=== PATIENT | female | born 2000 | race Caucasian/White ===

== ENCOUNTER → 2020-03-09 10:26 | Outpatient (CLI) | payer OTHER, SELFPAY ==
[2020-03-09 10:04] VITALS: BMI 21.1
[2020-03-09 12:15] LABS: HIV - WCH Non-Reactive (Nonreactive)
[2020-03-10 14:23] LABS: Chlamydia Trachomatis by PCR Negative (Negative); Neisserai gonorrhoeae by PCR Negative (Negative); Probe Check PASS; Sample Adequacy Control PASS; Specimen Processing Control PASS
[2020-03-10 20:08] LABS: HCV Quant. RNA PCR HCV Not Detected IU/mL (.)
[2020-03-10 20:34] LABS: HSV 1 IgG < 0.91 index (0.00-0.90); HSV 2 IgG < 0.91 index (0.00-0.90)
[2020-03-12 02:22] LABS: Rapid Plasmin Reagin (RPR) NONREACTIVE (NONREACTIVE)
== END ==
PROVIDERS: PCP Family Medicine; Referring Provider Nurse Practitioner Women's Health; Visit Provider Nurse Practitioner Women's Health
DX: Z11.3 Encounter for screening for infections with a predominantly sexual mode of transmission (principal)
CPT/HCPCS: 36415; 86592; 86695; 86696; 86703; 87491; 87522; 87591

== ENCOUNTER → 2021-10-27 | Outpatient (CLI) | payer OTHER, SELFPAY ==
--- NOTE | 2021-10-27 07:56 | CT_ITS ---
STUDY: CT ABDOMEN AND PELVIS WITHOUT CONTRAST REASON FOR EXAM: Female, 21 years old. RLQ ABD PAIN X 5 DAYS RADIATION DOSAGE (If Supplied By Facility): CTDIvol = ( 6.15 ) mGy, DLP = ( 288.81 ) mGycm TECHNIQUE: Transaxial images were obtained from the dome of the diaphragm to the symphysis pubis without oral contrast, and without intravenous contrast. Sagittal and coronal images were reconstructed. Individualized dose optimization techniques were used for this CT. COMPARISON: None. FINDINGS: The visualized lung bases are unremarkable. The visualized portions of the heart are within normal limits. Normal liver. Normal gallbladder and extrahepatic biliary system. Normal spleen. Normal pancreas. Normal bilateral adrenal glands. Normal right kidney. Normal left kidney. Normal visualized stomach. Normal small intestine. Normal colon. The appendix is visualized and appears normal. Normal abdominal aorta. Normal inferior vena cava. Normal retroperitoneum. Normal urinary bladder. There is a 4.1 cm x 4.2 cm x 4.8 cm complex cyst in the right adnexa. This may represent a hemorrhagic cyst. Correlation with pelvic ultrasound recommended. Normal abdominal wall. Dextroscoliosis. CT/Abdomen/Pelvis without Cont IMPRESSION: 4.1 cm x 4.2cm x 4.8 centimeters complex cyst in the right adnexa. Correlation with pelvic sonogram recommended for further evaluation. Electronically Signed: Balbir Neri MD at 8:43 EDT ,
== END | disposition home or self-care (01) ==
LOC: CT 07:53
PROVIDERS: PCP Family Medicine; Referring Provider Family Medicine; Visit Provider Family Medicine
DX: R10.31 Right lower quadrant pain (principal)
CPT/HCPCS: 74176

== ENCOUNTER → 2021-10-30 | Outpatient (CLI) | payer OTHER, SELFPAY ==
--- NOTE | 2021-10-30 11:24 | US_ITS ---
STUDY: ULTRASOUND OF THE FEMALE PELVIS - COMPLETE REASON FOR EXAM: Female, 21 years old. History of right ovarian cyst seen on recent CT scan. LMP: 09/23/2021. TECHNIQUE: Transvaginal TECHNICAL QUALITY: Adequate. COMPARISON: Recent CT scan of the abdomen and pelvis of 10/27/2021. FINDINGS: The uterus is anteverted and is in a midline position. The uterus measures 8 x 4.7 x 3.9 cm. Normal uterine cervix. The endometrium measures 10 mm in thickness, and is hyperechoic. There is no demonstrated endometrial mass. There is no demonstrated myometrial mass. I.U.D. - The patient does not have an I.U.D. The right ovary is visualized. The right ovary measures 5.1 x 4.3 x 3.6 cm. There is a 3.8 x 2.5 x 2.9 cm complex cyst in the right ovary. There is no visualized right adnexal mass or complex lesion. There is normal arterial and normal venous vascularity. The left ovary is visualized. The left ovary measures 2.6 x 2.1 x 1.7 cm. There is no left ovarian cyst or ovarian mass. There is no visualized left adnexal mass or complex lesion. There is normal arterial and normal venous vascularity. There is mild fluid in the cul-de-sac. US/Transvaginal Non- IMPRESSION: Complex right ovarian cyst as described above likely represent hemorrhagic cyst. Follow-up exam in 2 months is recommended. Electronically Signed: Lazaro Lynch MD at 15:30 EDT ,
== END | disposition home or self-care (01) ==
LOC: US 11:23
PROVIDERS: PCP Family Medicine; Referring Provider Family Medicine; Visit Provider Family Medicine
DX: N83.201 Unspecified ovarian cyst, right side (principal)
CPT/HCPCS: 76830

== ENCOUNTER → 2022-03-31 | Outpatient (CLI) | payer OTHER, SELFPAY ==
[2022-04-06 16:37] LABS: HPV Reflexed? NOT INDICATED
== END | disposition home or self-care (01) ==
LOC: LABSPEC 14:35
PROVIDERS: PCP Family Medicine; Referring Provider Obstetrics & Gynecology; Visit Provider Obstetrics & Gynecology
DX: Z12.4 Encounter for screening for malignant neoplasm of cervix (principal)
CPT/HCPCS: 88175; G0145

== ENCOUNTER → 2022-04-11 | Outpatient (CLI) | payer OTHER, SELFPAY ==
--- NOTE | 2022-04-11 15:56 | US_ITS ---
INDICATION: History of ovarian cyst EXAMINATION: Ultrasound US Pelvis Non OB Complete With Transvaginal Imaging TECHNIQUE: Transabdominal and transvaginal pelvic ultrasound was performed. Grayscale, spectral waveform, and color flow Doppler evaluation of the adnexa. COMPARISON: 10/30/2021 FINDINGS: UTERUS: Anteverted. The uterus measures 8.5 x 4.6 x 3.2 cm. There is no uterine mass. The endometrial stripe measures 10 mm in AP diameter which is within normal limits. RIGHT OVARY: 3.8 3.2 x 2.8 cm. Non-enlarged, normal echogenicity. No Doppler waveforms obtained. LEFT OVARY: 2.9 x 2.2 x 1.9 cm. Non-enlarged, normal echogenicity. No Doppler waveforms obtained. FREE FLUID: Small amount in the cul-de-sac. US/Pelvic (Non ) IMPRESSION: No acute findings in the pelvis. Electronically Signed: Jay Salazar MD at 0:14 EST ,
== END | disposition home or self-care (01) ==
LOC: US 15:55
PROVIDERS: PCP Family Medicine; Referring Provider Obstetrics & Gynecology; Visit Provider Obstetrics & Gynecology
DX: N83.209 Unspecified ovarian cyst, unspecified side (principal)
CPT/HCPCS: 76830; 76856

== ENCOUNTER 2022-09-07 09:01 | Emergency (ER) | payer OTHER, SELFPAY ==
[2022-09-07 09:02] VITALS: BP 130/94; PULSE 104; RESP 16; TEMP 36.3; O2SAT 100; BMI 21.9
--- NOTE | 2022-09-07 09:12 | CT_ITS ---
EXAM: CT ABDOMEN AND PELVIS WITH INTRAVENOUS CONTRAST CLINICAL INDICATION: abdominal pain TECHNIQUE: Helically acquired images were obtained of the abdomen and pelvis with intravenous contrast. This CT exam was performed using one or more of the following dose reduction techniques: automated exposure control, adjustment of the mA and/or kV according to patient size, and/or use of iterative reconstruction technique. CONTRAST: IV 75mL Isovue-300 COMPARISON: 10/27/2021 FINDINGS: LOWER THORAX: Unremarkable. Lung bases are clear. No cardiomegaly. No significant pericardial effusion. ABDOMEN: LIVER: Unremarkable. Homogeneous. No focal mass. GALLBLADDER AND BILE DUCTS: Unremarkable. No calcified gallstones. No gallbladder distention or wall edema. No intra- or extrahepatic biliary ductal dilation. PANCREAS: Unremarkable. No focal cystic or solid mass. SPLEEN: Unremarkable. Normal size without focal cystic or solid mass. ADRENALS: Unremarkable. No nodules. KIDNEYS AND URETERS: Unremarkable. Normal renal size and position. No hydronephrosis. STOMACH AND BOWEL: Unremarkable. No stomach or bowel distention. No focal inflammatory change. PELVIS: APPENDIX: The appendix is normal. BLADDER: Unremarkable. REPRODUCTIVE: Unremarkable as visualized. No mass. ABDOMEN and PELVIS: INTRAPERITONEAL SPACE: Unremarkable. No ascites or other fluid collection. No free air. BONES/JOINTS: Unremarkable. No suspicious lytic or blastic abnormality. SOFT TISSUES: Unremarkable. No discrete abdominal or pelvic wall hernia. VASCULATURE: Unremarkable. Abdominal aorta is non-dilated. LYMPH NODES: Unremarkable. No enlarged lymph nodes. CT/Abdomen/Pelvis W IV Cont ONLY IMPRESSION: No acute findings in the abdomen or pelvis. Electronically Signed: Jerry Bailey MD at 10:20 EDT ,
--- NOTE | 2022-09-07 09:12 | ED.VIS.GI ---
HPI HPI - GI History of Present Illness Chief Complaint: Abd Pain Narrative Narrative: 22-year-old female presenting with nausea/vomiting since yesterday. She has abdominal pain which is in the bilateral lower quadrants as well as left upper quadrant. She denies diarrhea or constipation. She has a history of ovarian cyst in the past but she states it does not feel the same. She has not had a fever. She states everything she tried to put down came up over the last 24 hours. Patient states the greatest pain is in the right lower quadrant. PFSH PFSH Medical History History of ovarian cyst JRA (juvenile rheumatoid arthritis) Home Medications ibuprofen 200 mg capsule 200 mg PO Q6H PRN 03/31/22 [History Last Taken Unknown] Allergy/AdvReac Type Severity Reaction Status Date / Time No Known Allergies Allergy Verified 09/07/22 09:04 Social History household members: other details: parents number of children: 0 current occupational status: student current occupation: [employer] history of recent travel: No sexually active: Yes Smoking Status: Current every day smoker tobacco type: e-cigarettes alcohol intake: current alcohol intake frequency: a few times a month substance use type: does not use diet: gluten free and lactose free what type of physical activity do you participate in: none seatbelt use: always do you feel safe at home: Yes additional social history: single ROS ROS ED Constitutional Constitutional ED: Denies chills or fever(s) ENT ENT ED: Denies rhinorrhea or sore throat Cardiovascular Cardiovascular: Denies chest pain or palpitations Respiratory/Chest Respiratory/Chest: Denies cough or dyspnea Gastrointestinal Gastrointestinal: Reports abdominal pain, nausea and vomiting Genitourinary Genitourinary ED: Reports urinary frequency; Denies dysuria or hematuria Musculoskeletal Musculoskeletal: Denies arthralgias or back pain Integumentary Denies abscess Neurologic Neurologic: Denies headache(s) Psychiatric Psychiatric: Denies anxiety or depression EXAM Physical Exam Const Vital Signs: 09/07/22 09:02 Temperature 97.3 F L Temperature Source Temporal Pulse Rate 104 H Respiratory Rate 16 Blood Pressure 130/94 H Blood Pressure Mean 106 Pulse Ox 100 Oxygen Delivery Method Room Air Positive well nourished General Appearance ED: NAD HEENT Reports moist mucous membranes normocephalic Eyes PERRL and EOMs intact bilaterally Resp normal respiratory effort and clear to auscultation bilaterally Auscultation: Negative for rales, rhonchi or wheezes Cardio regular rhythm Rate: tachycardic GI Palpation: tender LLQ, RLQ and LUQ; Negative for rebound tenderness present Back/Spine no CVA tenderness Neuro CN's II-XII intact bilaterally, moves all extremities, no sensory deficits noted and gait normal Sensorium / Orientation: alert Psych mental status grossly normal Skin no wounds MDM MDM MDM Narrative Medical decision making narrative: 22-year-old female with abdominal pain, nausea, vomiting. This started yesterday. It started as similar fashion yesterday and it did today. It has not improved but has not progressed no fevers. Differential includes but is not limited to GERD, gastritis, peptic ulcer disease, acute cholecystitis, acute cholelithiasis, appendicitis, diverticulitis, pancreatitis, small bowel obstruction, viral etiology, food poisoning, UTI, pyelonephritis, ovarian cyst, ovarian torsion, ectopic . CBC to assess white blood cell count, hemoglobin, platelets, differential. CMP to assess liver function, renal function, glucose, electrolytes. Lipase to assess for pancreatitis. Urinalysis to assess for urinary tract infection. hCG to assess for . Patient given a liter normal saline. At this point she does not want a thing for pain or nausea. She states her pain is a 3 out of 10. CBC and CMP are unremarkable with exception of a potassium of 3.3. hCG negative. Urinalysis negative. CT of the abdomen pelvis IV contrast was obtained and is negative for any acute findings. Impression: 1. Abdominal pain 2. Nausea Lab Data Attestation: I reviewed the patient's lab results. Labs: Laboratory Results - last 24 hr 09/07/22 09/07/22 09/07/22 09:20 09:20 09:20 WBC 4.7 RBC 4.28 Hgb 13.5 Hct 41.0 MCV 95.8 MCH 31.5 MCHC 32.9 RDW Std Deviation 45.5 H RDW Coeff of Susanne 12.9 Plt Count 187 MPV 10.1 Immature Gran % (Auto) 0.200 Neut % (Auto) 75.0 H Lymph % (Auto) 14.6 L [place] % (Auto) 9.6 Eos % (Auto) 0.2 Baso % (Auto) 0.4 Absolute Neuts (auto) 3.5 Absolute Lymphs (auto) 0.69 L Nucleated RBC % 0 Sodium 137 Potassium 3.3 L Chloride 105 Carbon Dioxide 25.0 Anion Gap 7 BUN 9 Creatinine 0.64 Estim Creat Clear Calc 103.16 Est GFR (MDRD) Af Amer 148 Est GFR (MDRD) Non-Af 122 BUN/Creatinine Ratio 14.1 Glucose 83 Calcium 9.1 Total Bilirubin 0.50 AST 22 ALT 18 Alkaline Phosphatase 60 Total Protein 7.8 Albumin 3.9 Globulin 3.9 Albumin/Globulin Ratio 1.0 Lipase 25 Serum , Qual NEGATIVE Urine Color Urine Clarity Urine pH Ur Specific [place] Urine Protein Urine Glucose (UA) Urine Ketones Urine Occult Blood Urine Nitrite Urine Bilirubin Urine Urobilinogen Ur Leukocyte Esterase Urine RBC Urine WBC Ur Squamous Epith Cells Urine Bacteria Urine Mucus 09/07/22 09:30 WBC RBC Hgb Hct MCV MCH MCHC RDW Std Deviation RDW Coeff of Susanne Plt Count MPV Immature Gran % (Auto) Neut % (Auto) Lymph % (Auto) [place] % (Auto) Eos % (Auto) Baso % (Auto) Absolute Neuts (auto) Absolute Lymphs (auto) Nucleated RBC % Sodium Potassium Chloride Carbon Dioxide Anion Gap BUN Creatinine Estim Creat Clear Calc Est GFR (MDRD) Af Amer Est GFR (MDRD) Non-Af BUN/Creatinine Ratio Glucose Calcium Total Bilirubin AST ALT Alkaline Phosphatase Total Protein Albumin Globulin Albumin/Globulin Ratio Lipase Serum , Qual Urine Color Yellow Urine Clarity Sl. Cloudy Urine pH 6.0 Ur Specific [place] 1.020 Urine Protein 30 H Urine Glucose (UA) Normal Urine Ketones 150 A* Urine Occult Blood 10 H Urine Nitrite Negative Urine Bilirubin 1 H Urine Urobilinogen 1 H Ur Leukocyte Esterase Negative Urine RBC 0-5 SEEN Urine WBC 0 SEEN Ur Squamous Epith Cells 0-5 SEEN Urine Bacteria 1+ Urine Mucus 0 SEEN Radiography Diagnostic Testing: Clinical Impression(s) from Imaging Studies Abdomen/Pelvis CT 09/07/22 09:12 IMPRESSION: No acute findings in the abdomen or pelvis. Electronically Signed: Jerry Bailey MD at 10:20 EDT , Discharge Plan Triage Chief Complaint: Abd Pain ED Provider: Oniel Diamond Dx/Rx/DC Orders Prescriptions: No Action ibuprofen 200 mg capsule 200 mg PO Q6H PRN Primary Care Provider: Tristian Sin Referrals: Tristian Sin MD [Primary Care Provider] -
[2022-09-07] MEDS: 0.9% Normal Saline 1,000 ML 1000 ML IV (09:30)
[2022-09-07 09:40] LABS: Absolute Lymphocyte Count 0.69 X10^3/uL (0.83-4.51); Absolute Neutrophil Count 3.5 X10^3/uL (2.0-7.7); Basophil# 0.02 X10^3/uL; Basophil% 0.4 % (0-1); Eosinophil# 0.01 X10^3/uL; Eosinophils% 0.2 % (0-5); Hemoglobin 13.5 g/dL (12.0-15.0); Lymphocyte # 0.69 X10^3/ul (0.83-4.51); Lymphocyte % 14.6 % (19-41); Mean Corp Hgb Conc 32.9 g/dL (32-36); Mean Corpuscular Hgb 31.5 pg (27.0-32.0); Mean Corpuscular Volume 95.8 fL (81-99); Mean Platelet Vol. 10.1 fl (6.2-12.0); Monocyte# 0.45 X10^3/uL; Monocyte% 9.6 % (0-10); NRBC Flagged by Analyzer 0 % (0-5); Neutrophil # 3.53 X10^3/uL (2.7-7.7); Platelet Count 187 K/mm3 (150-450); RBC Distribution Width CV 12.9 % (11.6-14.6); RBC Distribution Width SD 45.5 fl (35.1-43.9); Red Blood Count 4.28 M/mm3 (4.2-5.4); White Blood Count 4.7 K/mm3 (4.4-11.0)
[2022-09-07 09:41] LABS: Mucous, Urine 0 SEEN /hpf (<or=2+); White Blood Cells 0 SEEN /hpf (0-5)
[2022-09-07 09:48] LABS: Color, Urine Yellow (Yellow); Glucose, Dipstick Normal (Normal); Leukocyte Esterase-Dipstick Negative /ul (Negative); Nitrite-Dipstick Negative (Negative); Occult Blood-Urine 10 /ul (Negative); Protein-Dipstick 30 mg/dl (Negative); Urine Bilirubin Dipstick 1 mg/dL (Negative); Urine Clarity Sl. Cloudy (Clear); Urine Urobilinogen 1 mg/dl (Normal)
[2022-09-07 09:49] LABS: Ketone-Dipstick 150 mg/dl (Negative)
[2022-09-07 09:53] LABS: Internal QC Validated? YES +Cl - CLEAR BKGD; Pregnancy, Serum, hCG Quali. NEGATIVE Negative
[2022-09-07 09:54] LABS: Bacteria 1+ /hpf (None Seen); Red Blood Cells-Urine 0-5 SEEN /hpf (0-5); Squamous Epithelial Cells - UA 0-5 SEEN /hpf (5-10)
[2022-09-07 09:58] LABS: AST(SGOT) 22 U/L (15-37); Alanine Aminotransfer ALT/SGPT 18 U/L (13-56); Albumin, Serum 3.9 g/dL (3.2-5.0); Alkaline Phosphatase 60 U/L (45-117); Anion Gap 7 (5-15); BUN 9 mg/dL (7-18); BUN/Creat Ratio 14.1 RATIO (10-20); Calcium,Total 9.1 mg/dL (8.5-10.1); Chloride 105 mmol/L (98-107); Creatinine, Serum 0.64 mg/dL (0.55-1.02); EST Glomerular Filtration Rate 122 mL/min (>60); Est Glom Filt Rate - Afr Amer 148 mL/min (>60); Estimated Creatinine Clearance 103.16 ml/min; Globulin 3.9 g/dL (2.2-4.2); Glucose 83 mg/dL (74-106); Lipase 25 U/L (13-75); Potassium 3.3 mmol/L (3.5-5.1); Protein, Total 7.8 g/dL (6.4-8.2); Sodium Level 137 mmol/L (136-145)
[2022-09-07 11:14] VITALS: BP 96/70; PULSE 81; RESP 16; O2SAT 98
== END 2022-09-07 11:19 | disposition home or self-care (01) ==
PROVIDERS: Emergency Provider Student in an Organized Health Care Education/Training Program; PCP Family Medicine; Visit Provider Student in an Organized Health Care Education/Training Program
DX: R10.31 Right lower quadrant pain (principal); R10.12 Left upper quadrant pain; R10.32 Left lower quadrant pain; R11.2 Nausea with vomiting, unspecified; F17.290 Nicotine dependence, other tobacco product, uncomplicated; R35.0 Frequency of micturition
CPT/HCPCS: 74177; 80053; 81001; 83690; 84703; 85025; 96360; 96361; 99282; J7030; Q9967

== ENCOUNTER → 2022-09-19 | Outpatient (CLI) | payer OTHER, SELFPAY ==
[2022-09-19 12:44] LABS: AST(SGOT) 14 U/L (15-37); Alanine Aminotransfer ALT/SGPT 17 U/L (13-56); Albumin, Serum 3.9 g/dL (3.2-5.0); Alkaline Phosphatase 62 U/L (45-117); Anion Gap 5 (5-15); BUN 11 mg/dL (7-18); BUN/Creat Ratio 16.4 RATIO (10-20); Calcium,Total 9.4 mg/dL (8.5-10.1); Chloride 106 mmol/L (98-107); Creatinine, Serum 0.67 mg/dL (0.55-1.02); EST Glomerular Filtration Rate 116 mL/min (>60); Est Glom Filt Rate - Afr Amer 140 mL/min (>60); Globulin 3.9 g/dL (2.2-4.2); Glucose 77 mg/dL (74-106); Potassium 3.7 mmol/L (3.5-5.1); Protein, Total 7.8 g/dL (6.4-8.2); Sodium Level 137 mmol/L (136-145)
== END | disposition home or self-care (01) ==
LOC: BIMLAB 08:43
PROVIDERS: PCP Internal Medicine; Referring Provider Internal Medicine; Visit Provider Internal Medicine
DX: R11.10 Vomiting, unspecified (principal); R10.9 Unspecified abdominal pain; G89.29 Other chronic pain
CPT/HCPCS: 36415; 80053

== ENCOUNTER 2023-02-16 09:53 | Day surgery (SDC) | payer OTHER, SELFPAY ==
[2023-02-16 10:12] VITALS: BP 105/80; PULSE 80; RESP 16; TEMP 37; O2SAT 100; BMI 22.4
[2023-02-16 10:14] LABS: Internal QC Validated? YES +Cl - CLEAR BKGD
[2023-02-16 10:15] LABS: Record Kit Lot#,Urine Preg HCG0000667200
[2023-02-16 10:17] LABS: Pregnancy, Urine Negative Negative
[2023-02-16] MEDS: Lactated Ringers 1,000 ML 15 ML IV (10:21)
--- NOTE | 2023-02-16 11:00 | EGD_PTH ---
PATIENT: BHUMI PARKS LOC: EN U#:[id number] AGE/SX: ROOM: RE02/16/[address]: Dr. Louis Valenzuela DO : 2000 BED: DIS: 02/16/2023 SPEC #: [id number] RECD: 02/16/23 12:27 STATUS: DYLON REAmy #: [id number] RKISTEN: 02/16/23 11:[address]: Louis Valenzuela DEPT: SURGICAL PATHOLOGY RECD BY: Nusrat Cuadra ENTERED: 02/16/23 13:09 SP TYPE: EGD BIOPSY OT DR: Dr. Arleen Potts MD Tissues: A - Duodenum, NOS B - Gastric mucous membrane C - Esophagus, NOS Procedures: Special Stain Group II Surgery Specimen Level IV Alcian Blue/PAS (control) HEADER OPERATION: EGD with biopsy PRE-OP DIAGNOSIS: Nausea and vomiting, Abdominal pain. TISSUE SUBMITTED: A - Duodenum biopsy, B - Gastric body biopsy, C - Distal esophagus biopsy MICROSCOPIC DIAGNOSIS A. Duodenum, biopsy: No pathologic change. B. Gastric body, biopsy: Mild chronic gastritis. See comment. C. Distal esophagus, biopsy: Gastroesophageal junction with mild chronic inflammation. No evidence of goblet cell metaplasia. See comment. AM:roberto 02/17/2023 COMMENT B. The results of immunohistochemistry for Helicobacter pylori will be reported separately ([id number]). C. Alcian blue/PAS stain with matched control supports the above diagnosis. MICROSCOPIC DESCRIPTION Slides are reviewed. GROSS DESCRIPTION A - Received in fixative is one container labeled with the patient's name and designated duodenum biopsy. The specimen consists of two irregular fragments of light howard soft tissue that in aggregate measure 0.6 x 0.3 x 0.1 cm. The specimen is totally submitted in one cassette. B - Received in fixative is one container labeled with the patient's name and designated gastric body biopsy. The specimen consists of multiple irregular fragments of light howard soft tissue that in aggregate measure 1.0 x 0.3 x 0.1 cm. The specimen is totally submitted in one cassette. C - Received in fixative is one container labeled with the patient's name and designated distal esophagus. The specimen consists of multiple irregular fragments of light howard soft tissue that in aggregate measure 0.8 x 0.5 x 0.1 cm. The specimen is totally submitted in one cassette. / AM:roberto 02/16/2023 TC:3 CPT: 37366 x3, 20803
--- NOTE | 2023-02-16 11:00 | IMM_PTH ---
PATIENT: BHUMI PARKS LOC: EN U#:[id number] AGE/SX: 22 ROOM: RE02/16/[address]: Dr. Louis Valenzuela DO : 2000 BED: DIS: 02/16/2023 SPEC #: [id number] RECD: 02/16/23 14:48 STATUS: DYLON REQ #: [id number] KRISTEN: 02/16/23 11:[address]: Louis Valenzuela DEPT: IMMUNOHISTOCHEMISTRY RECD BY: Taylor Somers ENTERED: 02/16/23 14:50 SP TYPE: IMMUNO OTHR DR: Dr. Arleen Potts MD Tissues: B - Stomach, NOS Procedures: H Pylori (initial) PHYSICIAN & INSTITUTION [place] [id number] SPECIMEN INFORMATION: Tissue Source: B - Gastric body Clinical Info: Nausea, vomiting, abdominal pain Specimen Number: [id number] CPT code: 83046 METHODOLOGY: Deparaffinized sections of prefer/formalin-fixed tissue or PAP/DQ stained slides are incubated with monoclonal/polyclonal antibodies/oligonucleotide probes. Localization is made via biotin free immunoperoxidase method. Appropriate controls are performed and reacted as expected. Results on target cell population are indicated in the following table: RESULTS: ANTIBODY / CLONE RESULT Block B H Pylori (polyclonal) negative These tests were developed and their performance characteristics determined by [facility]. They may not have been cleared or approved by the U.S. Food and Drug Administration. The FDA has determined that such clearance or approval is not necessary. The above immunohistochemical/dualISH markers are ordered and reviewed by the Pathologist. INTERPRETATION: B. Gastric body, biopsy: Negative for Helicobacter pylori organisms. AM/bl 02/17/2023
--- NOTE | 2023-02-16 11:19 | HP.PCM_ITS ---
History and Physical Date of Admission: 02/16/23 juvenile RA, treated with methotrexate and remission since age 9; ovarian cyst [facility] ED 09.07.22 with N/V for one day with lower and LUQ abdominal pain without bowel changes. ? Biochemical CBC, CMP (K+ L3.3), lipase without pertinent abnormality ? CT abd/pel without acute/chronic finding PCP OV 09.19.22 to establish care. GI problems have been present for approximately two years. Holistic chiropractor seen previously who diagnosed gluten intolerance and borderline dairy intolerance following muscle; also diagnosed with IBS. ? GET not performed, she forgot. *BGI established 02.03.23 nocturnal emesis started two years prior with periodic presence lasting for days to months and has noted some food triggers. PCP attempted omeprazole which was ineffective. Diet fruits, lots of corn/quinoa pasta (gluten free), does consume dairy, beef, chicken, eggs. Dislikes vegetables, pork makes her feel ill. Drinks water, one coffee/day. Drinks alcohol on weekends. Denies cigarette/marijuana useBHUMI JACKSON, is a 22 F who presents to the office today for ROS Const Constitutional: Positive for headache(s) (occasional); No body ache, chills, excessive sweating, fatigue, fever(s), frequent falls, snoring, weakness, weight change, sleep problems or change in appetite Eyes Eyes: No blurry vision, change in vision, eye pain or Light sensitivity ENT ENT: Positive for headache(s) (occasional); No abnormal hearing, ear or mastoid pain, tinnitus, nasal congestion, neck pain or sore throat Resp Respiratory: Positive for cough; No shortness of breath, snoring or wheezing Cardio Cardiology: No chest pain at rest, chest pain with exertion, excessive sweating, shortness of breath, dyspnea on exertion, lightheadedness, orthopnea, palpitations or other (no leg swelling) Gastro GI: Positive for abdominal pain, belching and vomiting; No bloating, change in bowel habits, constipation, cramping, diarrhea, excessive flatus, Blood in stool, Black,tarry stools or nausea/dyspepsia Genitourinary-Female: No difficulty urinating, burning urination, painful urination, urinary incontinence, urinary frequency or abnormal vaginal bleeding Musc Musculoskeletal: No abnormal gait, joint pain, back pain, limited range of motion, neck pain, numbness or tingling Skin Skin: No dry skin, redness, lesions, itchy eyes, rash or wounds Neuro Neurology: Positive for dizziness and headache(s) (occasional); No abnormal gait, abnormal hearing, abnormal speech, weakness, frequent falls, memory loss, numbness, tingling or fainting Psych Psychiatric: No anxiety, No change in appetite, No depression, No memory loss and No Thoughts of harming yourself/Others Endo Endocrine: No cold intolerance, excessive sweating, fatigue, flushing, heat intolerance, increased thirst/drinking, increased hunger or weight change Aller/Imm Allergy/Immunologic: No itchy eyes, seasonal allergy symptoms, hives or wheezing Jewel/Lymp Hematologic/Lymphatic: No easy bleeding, easy bruising or enlarged lymph nodes Exam Const General: cooperative, healthy appearing, no acute distress, well developed, not diaphoretic and not ill appearing Nutritional Appearance: well nourished Orientation: alert and oriented x3 Limitations: mental status not altered [facility] Head: normal to inspection, normocephalic and atraumatic Ears: hearing grossly normal bilaterally Face and sinus: normal facial exam Mouth: oral mucosae normal and moist mucous membranes Teeth and gingiva: dentition normal Throat: posterior oropharynx normal Eyes Conjunctivae: conjunctivae normal Sclera: sclerae normal Pupils: PERRL Chest Chest palpation & inspection: normal inspection of the chest Resp Effort & Inspection: normal respiratory effort, able to speak in complete sentences, no audible wheezes and no cough Auscultation: Bilateral: Clear to Auscultation Cardio Rate: regular rate Rhythm: regular rhythm Heart Sounds: S1 normal, S2 normal and no murmurs GI Inspection: normal to inspection and non-distended Auscultation: normal bowel sounds Palpation: soft, no hepatosplenomegaly and tender (minimal) periumbilically Other: naval ring in place General: No CVA tenderness Skin General: no rashes or lesions noted and dry skin Wounds: no wounds Neuro General: patient alert and patient oriented x3 Cranial Nerves: PERRL Speech: speech normal Extrem General: normal to inspection and no edema Psych Appearance: grossly normal Affect: normal affect Attitude: cooperative Quality Reporting Tobacco Screening ([facility] 138) Smoking Status: Never smoker Assessment and Plan Assessment and Plan (1) Nausea & vomiting: Status: Chronic Qualifiers: Vomiting type: unspecified Qualified Code(s): R11.2 - Nausea with vomiting, unspecified Plan: Differential diagnosis for nausea vomiting does include gastroparesis which would be idiopathic. However she does have very hypermobile joints which could be secondary to Leisa-Danlos syndrome. She will need to be genetically tested for Leisa-Danlos. We will also do biochemical testing to see if she has any signs of vasculitis which will contribute to some upper GI motility problems. All symptoms diagnosis include H. pylori associated gastritis, peptic ulcer disease bile induced reflux, duodenal gastric reflux and IBS. She will get an upper endoscopy to evaluate upper GI tract. She agreed she would get a gastric emptying study. She will also need food allergy testing. Further recommendation to follow. (2) Abdominal pain: Status: Chronic Qualifiers: Abdominal location: unspecified location Qualified Code(s): R10.9 - Unspecified abdominal pain Orders: Orders EGD 02/16/23 R10.9 - Unspecified abdominal pain, R11.2 - Nausea with vomiting, unspecified I have examined the patient and the H&P has been reviewed. There are no clinical changes since date of exam.
--- NOTE | 2023-02-16 11:38 | OP.EGD_ITS ---
Patient Name: Sobia Quiroz Procedure Date: 02/16/2023 11:15 AM Date of : 2000 Age: 22 Procedure: Upper GI endoscopy Indications: Epigastric abdominal pain Providers: Louis Valenzuela DO Referring MD: Louis Valenzuela DO Medicines: Monitored Anesthesia Care Patient Profile: This is a 22 year old female. Refer to note in patient chart for documentation of history and physical. Patient has symptoms of chronic epigastric abdominal pain. Complications: No immediate complications. Procedure: Pre-Anesthesia Assessment: - Prior to the procedure, a History and Physical was performed, and patient medications and allergies were reviewed. The patient is competent. The risks and benefits of the procedure and the sedation options and risks were discussed with the patient. All questions were answered and informed consent was obtained. Patient identification and proposed procedure were verified by the physician. Mental Status Examination: normal. Airway Examination: normal oropharyngeal airway and neck mobility. Prophylactic Antibiotics: The patient does not require prophylactic antibiotics. Prior Anticoagulants: The patient has taken no anticoagulant or antiplatelet agents. After reviewing the risks and benefits, the patient was deemed in satisfactory condition to undergo the procedure. The anesthesia plan was to use monitored anesthesia care (MAC). Immediately prior to administration of medications, the patient was re-assessed for adequacy to receive sedatives. The heart rate, respiratory rate, oxygen saturations, blood pressure, adequacy of pulmonary ventilation, and response to care were monitored throughout the procedure. The physical status of the patient was re-assessed after the procedure. After obtaining informed consent, the endoscope was passed under direct vision. Throughout the procedure, the patient's blood pressure, pulse, and oxygen saturations were monitored continuously. The gastroscope was introduced through the mouth, and advanced to the second part of duodenum. The upper GI endoscopy was accomplished without difficulty. The patient tolerated the procedure well. Scope In: 11:27:01 AM Scope Out: 11:33:03 AM Total Procedure Duration Time 0 hours 6 minutes 2 seconds Findings: The Z-line was irregular and was found 37 cm from the incisors. Biopsies were taken with a cold forceps for histology. Verification of patient identification for the specimen was done. Estimated blood loss was minimal. Patchy mildly erythematous mucosa with bleeding was found in the gastric body. The second portion of the duodenum was normal. Biopsies were taken with a cold forceps for histology. Verification of patient identification for the specimen was done. Estimated blood loss was minimal. Impression: - Z-line irregular, 37 cm from the incisors. Biopsied. - Erythematous mucosa in the gastric body. - Normal second portion of the duodenum. Biopsied. Recommendation: - Discharge patient to home. - Resume previous diet. - Continue present medications. - Await pathology results. Procedure Code(s): --- Professional --- 93568, Esophagogastroduodenoscopy, flexible, transoral; with biopsy, single or multiple CPT copyright 2021 [employer]. All rights reserved. The codes documented in this report are preliminary and upon rooter operator review may be revised to meet current compliance requirements. Louis Valenzuela DO 02/16/2023 11:38:18 AM This report has been signed electronically. Number of Addenda: 0 Note Initiated On: 02/16/2023 11:15 AM
--- NOTE | 2023-02-16 11:38 | OP.CCLET_ITS ---
02/16/2023 Arleen Potts Md Re : Upper GI endoscopy procedure for Sobia Quiroz Dear Delroy This procedure was performed on January. My impressions and recommendations are as follows: Impressions : - Z-line irregular, 37 cm from the incisors. Biopsied. - Erythematous mucosa in the gastric body. - Normal second portion of the duodenum. Biopsied. Recommendations : - Discharge patient to home. - Resume previous diet. - Continue present medications. - Await pathology results. My findings are described in the full procedure note, which is enclosed. If I can be of further assistance, please feel free to contact me at . Sincerely, Louis Valenzuela, 02/16/2023 11:38:18 AM This report has been signed electronically.
[2023-02-16 11:40] VITALS: BP 105/80; BP 111/65; PULSE 90; RESP 16; TEMP 37.1; O2SAT 98
[2023-02-16 11:45] VITALS: BP 105/80; BP 111/69; PULSE 86; RESP 16; O2SAT 99
[2023-02-16 11:50] VITALS: BP 105/80; BP 98/77; PULSE 87; RESP 16; O2SAT 98
[2023-02-16 11:54] VITALS: BP 102/70; BP 105/80; PULSE 81; RESP 16; TEMP 37.1; O2SAT 99
[2023-02-16 12:11] VITALS: BP 105/80
[2023-02-16 13:33] LABS: Erythrocyte Sedimentation Rate 1 mm/hr (0-30)
[2023-02-16 14:09] LABS: Amylase 62 U/L (25-115); CRP < 2.90 mg/L (0.0-3.0); LDH 140 U/L (84-246); Lipase 27 U/L (13-75); Rheumatoid Factor < 10.0 IU/mL (<15)
[2023-02-20 16:09] LABS: Albumin 3.8 g/dL (2.9-4.4); Alpha-1-Globulins 0.2 g/dL (0.0-0.4); Alpha-2-Globulins 0.6 g/dL (0.4-1.0); CCP IgG Antibodies 3 units (0-19); Cytoplasmic Ab (C-ANCA) <1:20 titer (Neg:<1:20); Deamidated Gliadin IgA 7 units (0-19); Deamidated Gliadin IgG 3 units (0-19); Endomysial Antibody IgA Negative (Negative); Gamma Globulin 1.4 g/dL (0.4-1.8); Immunoglobulin A 266 mg/dL (87-352); Immunoglobulin G 1343 mg/dL (586-1602); Immunoglobulin M 111 mg/dL (26-217); PROEL- TOTAL PROTEIN 6.9 g/dL (6.0-8.5); Perinuclear Ab (P-ANCA) <1:20 titer (Neg:<1:20); t-Transglutaminase IgA <2 U/mL (0-3)
[2023-02-26 00:07] LABS: Anti-Centromere B Ab <0.2 AI (0.0-0.9); Anti-Chromatin 0.2 AI (0.0-0.9); Anti-Jo <0.2 AI (0.0-0.9); Anti-Scleroderma-70 AB <0.2 AI (0.0-0.9); Anti-dsDNA Ab 1 IU/mL (0-9); Anti-ribosomal P Antibodies <0.2 AI (0.0-0.9); Beef <0.10 kU/L (Class 0); Chocolate <0.10 kU/L (Class 0); Codfish <0.10 kU/L (Class 0); Corn <0.10 kU/L (Class 0); Egg, Whole <0.10 kU/L (Class 0); Milk (Cow) <0.10 kU/L (Class 0); Mussels <0.10 kU/L (Class 0); Peanut <0.10 kU/L (Class 0); Pork <0.10 kU/L (Class 0); RNP Ab 1.4 AI (0.0-0.9); SJOGREN'S Anti-SS-A test < 0.2 AI (0.0-0.9); SJOGREN'S Anti-SS-B test < 0.2 AI (0.0-0.9); Salmon <0.10 kU/L (Class 0); Shrimp <0.10 kU/L (Class 0); Smith Ab <0.2 AI (0.0-0.9); Smith/RNP Ab <0.2 AI (0.0-0.9); Soybean <0.10 kU/L (Class 0); Tuna <0.10 kU/L (Class 0); Wheat <0.10 kU/L (Class 0)
== END 2023-02-16 12:21 | disposition home or self-care (01) ==
LOC: EN 09:56 → AC 09:56
PROVIDERS: Anesthesiology; PCP Internal Medicine; Referring Provider Internal Medicine; Visit Provider Internal Medicine Gastroenterology
PROC: 0DJ08ZZ Inspection of Upper Intestinal Tract, Via Natural or Artificial Opening Endoscopic (ICD-10-PCS; CPT 43235; principal; 2023-02-16 10:55)
DX: K29.50 Unspecified chronic gastritis without bleeding (principal); K20.90 Esophagitis, unspecified without bleeding
CPT/HCPCS: 43239; 36415; 81025; 82150; 82784; 83516; 83615; 83690; 84165; 85652; 86003; 86005; 86038; 86140; 86200; 86225; 86235; 86255; 86256; 86334; 86431; 88305; 88313; 88342; J7120; J2405

== ENCOUNTER → 2023-04-11 | Outpatient (CLI) | payer OTHER, SELFPAY ==
--- OUTSIDE RECORDS SUMMARY | 2023-04-11 16:43 | XMS RPT_ITS | CCD ---
Author Name Unknown Address [address] [place] [address] [address] [place] [address] Organization [facility] Care Team Providers Care Chlorine Cells Operator Name Role Phone Merrick ROMERO, Dacia Samuels Primary Care Provider 1( [phone] Allergies Allergy Classification Reported Allergen(s) Allergy Type Date of Onset Reaction(s) Facility (2 sources) Lactase; Translations: [LACTASE] Drug Allergy 02-17-2021 Intolerance [facility] (2 sources) Wheat gluten extract; Translations: [GLUTEN] Drug Allergy 02-17-2021 Other: See Comments [facility] Problems Active Problems Problem Classification Problem Date Documented Da te Episodic/Chronic Abdominal pain (1 source) Generalized abdominal pain; Translations: [Generalized abdominal pain] Episodic Past or Other Problems Problem Classification Problem Date Documented Date Episodic/Chronic Other connective tissue disease (1 source) H/O: arthritis; Translations: [Personal history of other diseases of the musculoskeletal system and connective tissue] Onset: 02-17-2021 02-17-2021 Episodic Results Test Name Value Interpretation Reference Range Facil ity Encounters Encounter Date Encounter Type Care Provider Facility Start: 09-07-2022 ambulatory DACIA OLIVARES Fac ility:[facility] Start: 09-07-2022 End: 09-07-2022 Patient encounter procedure Tisha Reza 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 Work Phone: [facility] Plan of Treatment Date Care Activity Detail Author Start: 11-18-2022 Influenza vaccination INFLUENZA (Sea son Ended) [facility] Start: 03-20-2022 DEPRESSION ASSESSMENT DEPRESSION ASS ESSMENT [facility] Start: 08-27-2020 PAP TESTING PAP TESTING [facility] Start: 08-27-2018 Urine microalbumin profile DTAP,TDAP ,TD (1 - Tdap) [facility] Start: 08-27-2017 CHLAMYDIA SCREENING (18-24) CHLAMYDIA SCREENING (18-24) [facility] Start: 08-27-2017 GC (GONORRHEA) WANDA VALEROG (18-24) GC (GONORRHEA) SCREENING (18-24) [facility] Start: 08-27-2017 HEPATITIS C SCREENING HEPATITIS C SC REENING [facility] Start: 08-27-2017 HIV SCREENING HIV SCREENING [facility] Start: 08-27-2013 PEDS TO ADULT TRANSI TION ANNUAL ASSESSMENT PEDS TO ADULT TRANSITION ANNUAL ASSESSMENT [facility] Start: 2011 PEDS TO ADULT TRANSI TION INITIAL DISCUSSION PEDS TO ADULT TRANSITION INITIAL DISCUSSION [facility] Start: 08-27-2009 MENINGOCOCCAL B: Con public relations professional based on risk (1 of 2 - Risk Bexsero 2-dose series) MENINGOCOCCAL B: Consider based on risk (1 of 2 - Risk Bexsero 2-dose series) [facility] Start: 08-27-2008 HPV VACCINE (1 - 2-d ose series) HPV VACCINE (1 - 2-dose series) [facility] Start: 02-27-2000 COVID-19 VACCINE (#1) COVID-19 VACCI NE (#1) [facility] Start: 1999 HEPATITIS B (1 of 3 - 3-dose series) HEPATITIS B (1 of 3 - 3-dose series) [facility] Payers Date Payer Category Payer Unknown MMO [employer] PPO [id number] 2018-Present [phone] [address] [place] [address] PPO [id number] 2018 Unknown [id number] Social History Date Type Detail Facility Start: 02-17-2021 Tobacco smoking stat us NHIS Never smoked tobacco [facility] Start: 02-17-2021 Tobacco use and exposure User of smo keless tobacco [facility] Start: 02-17-2021 Tobacco Comment [facility] Start: 2000 Sex Assigned At Not on file [facility] Progress note 09-07-2022 Note Date & Type Note Facility 09-07-2022 Note HNO ID: [id number] Author: Tisha Reza APRN.CNP Service: ? Author Type: Nurse Practitioner Type: Progress Notes Filed: 09/07/2022 7:40 AM Note Text: Triage: Patient presented [facility] for 24 hours of vomiting and worsening abdominal pain. She is also having a fever of 101. No urine output since 1030 last night. Due to nature of patient's complaint and lack of investigative tools available at [facility], recommend patient be seen at nearest ED for further work up, declined squad, will go to [place] ED. Tisha Reza APRN.CNP [facility] History of Present illness Narrative 09-07-2022 Tisha Reza APRN.CNP - 09/07/2022 7:38 AM EDT Note Date & Type Note Facility 09-07-2022 History of Presen t illness Narrative Triage: Patient presented to [facility] care for 24 hours of vomiting and worsening abdominal pain. She is also having a fever of 101. No urine output since 1030 last night. Due to nature of patient's complaint and lack of investigative tools available at [facility], recommend patient be seen at nearest ED for further work up, declined squad, will go to [place] ED. Tisha Reza APRN.CNP documented in this encounter [facility] Evaluation note Note Date & Type Note Facility documented in this encounter [facility] Summary Purpose Family History No Family History Records FoundNo Family History Records Found Advance Directives No Advanced Directives Records FoundNo Advanced Directives Records Found Additional Source Comments INFORMATION SOURCE (unrecogn ized section and content) DATE CREATED AUTHOR AUTHOR'S ORGANIZ ATION 09/07/2022 [facility] Source Comments (unrecognize d section and content) In the event this informatio n is protected by the Federal Confidentiality of Alcohol and Drug Abuse Patient Records regulations: The Federal rules restrict any use of the information to criminally investigate or prosecute any alcohol or drug abuse patient.[facility] Care Teams (unrecognized sec tion and content) FOR RECORDS PERTAINING TO PATIENTS WHO ARE OR HAVE BEEN ENROLLED IN A CHEMICAL DEPENDENCY/SUBSTANCEABUSE PROGRAM, SOME INFORMATION MAY BE OMITTED. This clinical summary was aggregated from multiple sources. Caution should be exercised in using it in the provision of clinical care. This summary normalizes information from multiple sources, and as a consequence, information in this document may materially change the coding, format and clinical context of patient data. In addition, data may be omitted in some cases. CLINICAL DECISIONS SHOULD BE BASED ON THE PRIMARY CLINICAL RECORDS. [facility]. provides no warranty or guarantee of the accuracy or completeness of information in this document.
[2023-04-17 18:53] LABS: HPV Reflexed? NOT INDICATED
== END | disposition home or self-care (01) ==
LOC: LABSPEC 16:37
PROVIDERS: PCP Internal Medicine; Referring Provider Obstetrics & Gynecology; Visit Provider Obstetrics & Gynecology
DX: Z12.4 Encounter for screening for malignant neoplasm of cervix (principal)
CPT/HCPCS: 88175; G0145

== ENCOUNTER → 2023-04-17 | Outpatient (CLI) | payer OTHER, SELFPAY ==
--- NOTE | 2023-04-17 13:48 | US_ITS ---
STUDY: SUPERFICIAL ULTRASOUND - RIGHT POPLITEAL FOSSA REASON FOR EXAM: Female, 22 years old. Pain and swelling TECHNIQUE: A superficial ultrasound was performed with real-time and static alaniz-scale imaging. COMPARISON: None. FINDINGS: Sonographic evaluation of the right popliteal fossa shows 2 separate popliteal fossa cysts. A medial cyst measures 5.0 x 3.5 x 2.0 cm a lateral cyst measures 4.3 x 1.7 x 0.9 cm. Both are consistent with Ramon''s cysts. US/Ext Non Vasc Limited/Soft Tiss IMPRESSION: 2 separate popliteal cysts. No suspicious mass lesion or hyperemia. Electronically Signed: Imtiaz Abel MD at 8:52 EST ,
== END | disposition home or self-care (01) ==
LOC: US 13:48
PROVIDERS: PCP Internal Medicine; Referring Provider Internal Medicine; Visit Provider Internal Medicine
DX: M71.21 Synovial cyst of popliteal space [Baker], right knee (principal)
CPT/HCPCS: 76882

== ENCOUNTER → 2023-06-15 | Outpatient (CLI) | payer OTHER, SELFPAY ==
[2023-06-15 15:32] LABS: Absolute Lymphocyte Count 1.09 X10^3/uL (0.83-4.51); Absolute Neutrophil Count 6.2 X10^3/uL (2.0-7.7); Basophil# 0.02 X10^3/uL; Basophil% 0.3 % (0-1); Eosinophil# 0.03 X10^3/uL; Eosinophils% 0.4 % (0-5); Hemoglobin 14.5 g/dL (12.0-15.0); Lymphocyte # 1.09 X10^3/ul (0.83-4.51); Lymphocyte % 14.3 % (19-41); Mean Corp Hgb Conc 32.2 g/dL (32-36); Mean Corpuscular Volume 96.2 fL (81-99); Mean Platelet Vol. 10.4 fl (6.2-12.0); Monocyte# 0.23 X10^3/uL; NRBC Flagged by Analyzer 0 % (0-5); Neutrophil # 6.22 X10^3/uL (2.7-7.7); Neutrophil % 81.6 % (47-70); Platelet Count 276 K/mm3 (150-450); RBC Distribution Width CV 13.4 % (11.6-14.6); Red Blood Count 4.68 M/mm3 (4.2-5.4); White Blood Count 7.6 K/mm3 (4.4-11.0)
[2023-06-15 15:58] LABS: Erythrocyte Sedimentation Rate 6 mm/hr (0-30)
[2023-06-15 16:24] LABS: AST(SGOT) 17 U/L (15-37); Alanine Aminotransfer ALT/SGPT 17 U/L (13-56); Albumin, Serum 4.1 g/dL (3.2-5.0); Alkaline Phosphatase 87 U/L (45-117); Anion Gap 5 (5-15); BUN 6 mg/dL (7-18); BUN/Creat Ratio 9.9 RATIO (10-20); CRP < 2.90 mg/L (0.0-3.0); Calcium,Total 9.4 mg/dL (8.5-10.1); Chloride 106 mmol/L (98-107); Creatinine, Serum 0.61 mg/dL (0.55-1.02); EST Glomerular Filtration Rate 129 mL/min (>60); Est Glom Filt Rate - Afr Amer 156 mL/min (>60); Globulin 4.3 g/dL (2.2-4.2); Glucose 102 mg/dL (74-106); Potassium 3.6 mmol/L (3.5-5.1); Protein, Total 8.4 g/dL (6.4-8.2); Sodium Level 140 mmol/L (136-145); Troponin-I HS < 3 pg/mL (3.0-54.0)
[2023-06-15 16:50] LABS: D-Dimer Quantitative (DVT/PE) 0.51 FEU/ug/m (0.27-0.49)
== END | disposition home or self-care (01) ==
LOC: BIMLAB 13:57
PROVIDERS: PCP Internal Medicine; Visit Provider Internal Medicine
DX: R20.0 Anesthesia of skin (principal); R20.2 Paresthesia of skin
CPT/HCPCS: 36415; 80053; 84484; 85025; 85379; 85652; 86140

== ENCOUNTER → 2023-06-29 | Outpatient (CLI) | payer OTHER, SELFPAY ==
--- NOTE | 2023-06-29 08:21 | CT_ITS ---
STUDY: CTA CHEST REASON FOR EXAM: Female, 22 years old. Elevated d dimer RADIATION DOSAGE (If Supplied By Facility): CTDIvol = ( 3.23 ) mGy, DLP = ( 109.17 ) mGycm TECHNIQUE: The examination was performed with the intravenous administration of IV 75mL Isovue-370. Post-processing of the angiographic images was performed, with multiplanar reformation and 3D reconstruction. Individualized dose optimization techniques were used for this CT. COMPARISON: None. FINDINGS: Normal enhancement of the main pulmonary artery and right and left pulmonary arteries. Normal enhancement of the bilateral peripheral pulmonary arteries. There is no demonstrated pulmonary embolism. Normal thoracic aorta and visualized great vessels. There is no demonstrated aortic dissection. Normal heart and pericardium. Normal mediastinum. Normal hilar regions. Normal visualized trachea and bronchi. The lungs are well expanded. Normal pulmonary parenchyma. Normal pleura. Normal chest wall structures. Normal osseous structures. Mild splenomegaly. CT/CTA Chest W/WO Contrast IMPRESSION: Normal CTA chest examination, without a demonstrated pulmonary embolism or arterial dissection. Mild splenomegaly. Electronically Signed: Balbir Neri MD at 8:59 EDT ,
== END | disposition home or self-care (01) ==
LOC: CT 08:21
PROVIDERS: PCP Internal Medicine; Referring Provider Nurse Practitioner; Visit Provider Nurse Practitioner
DX: R06.02 Shortness of breath (principal); R79.89 Other specified abnormal findings of blood chemistry
CPT/HCPCS: 71275; Q9967

== ENCOUNTER → 2023-08-30 | Outpatient (CLI) | payer OTHER, SELFPAY ==
[2023-08-30 12:57] LABS: Vitamin B12 402 pg/mL (211-911); Vitamin D,25 Hydroxy 28.5 ng/mL
[2023-09-01 07:10] LABS: Arsenic 7245 2 ug/L (0-9); Lead, Blood < 1.0 ug/dL (0.0-3.4); Lyme Scn Total Ab w/Rflx Negative (Negative); Mercury, Blood 85324 < 1.0 ug/L (0.0-14.9)
== END | disposition home or self-care (01) ==
LOC: BIMLAB 08:13
PROVIDERS: PCP Internal Medicine; Referring Provider Internal Medicine; Visit Provider Internal Medicine
DX: R20.0 Anesthesia of skin (principal); R20.2 Paresthesia of skin; R11.10 Vomiting, unspecified; R10.9 Unspecified abdominal pain; G89.29 Other chronic pain
CPT/HCPCS: 36415; 82175; 82306; 82607; 83655; 83825; 86618

== ENCOUNTER → 2024-02-07 | Outpatient (CLI) | payer OTHER, SELFPAY ==
[2024-02-07 12:55] LABS: hCG Titer Quant., Serum 5765 mIU/mL (1-3)
== END | disposition home or self-care (01) ==
LOC: BIMLAB 08:21
PROVIDERS: PCP Internal Medicine; Referring Provider Internal Medicine; Visit Provider Internal Medicine
DX: Z34.91 Encounter for supervision of normal pregnancy, unspecified, first trimester (principal); Z3A.01 Less than 8 weeks gestation of pregnancy
CPT/HCPCS: 36415; 84702

== ENCOUNTER → 2024-02-09 | Outpatient (CLI) | payer OTHER, SELFPAY ==
[2024-02-09 12:48] LABS: hCG Titer Quant., Serum 10119 mIU/mL (1-3)
== END | disposition home or self-care (01) ==
LOC: BIMLAB 08:32
PROVIDERS: PCP Internal Medicine; Referring Provider Advanced Practice Midwife; Visit Provider Advanced Practice Midwife
DX: N91.2 Amenorrhea, unspecified (principal)
CPT/HCPCS: 36415; 84702

== ENCOUNTER → 2024-02-29 | Outpatient (CLI) | payer OTHER, SELFPAY ==
[2024-03-04 09:22] LABS: Chlamydia By Nucleic Acid AMP Negative (Negative); Gonococcus By Nucleic Acid AMP Negative (Negative)
== END | disposition home or self-care (01) ==
LOC: BWCLAB 10:58
PROVIDERS: PCP Internal Medicine; Referring Provider Advanced Practice Midwife; Visit Provider Advanced Practice Midwife
DX: O09.90 Supervision of high risk pregnancy, unspecified, unspecified trimester (principal); Z3A.00 Weeks of gestation of pregnancy not specified
CPT/HCPCS: 87086; 87088; 87491; 87591

== ENCOUNTER → 2024-03-15 | Outpatient (CLI) | payer OTHER, SELFPAY ==
[2024-03-15 09:57] LABS: Absolute Lymphocyte Count 1.04 X10^3/uL (0.83-4.51); Absolute Neutrophil Count 4.1 X10^3/uL (2.0-7.7); Basophil# 0.01 X10^3/uL; Basophil% 0.2 % (0-1); Eosinophil# 0.03 X10^3/uL; Eosinophils% 0.5 % (0-5); Hematocrit 38.3 % (37-47); Hemoglobin 12.5 g/dL (12.0-15.0); Lymphocyte # 1.04 X10^3/ul (0.83-4.51); Lymphocyte % 18.9 % (19-41); Mean Corp Hgb Conc 32.6 g/dL (32-36); Mean Corpuscular Hgb 30.7 pg (27.0-32.0); Mean Corpuscular Volume 94.1 fL (81-99); Mean Platelet Vol. 10.5 fl (6.2-12.0); Monocyte% 5.4 % (0-10); NRBC Flagged by Analyzer 0 % (0-5); Neutrophil # 4.11 X10^3/uL (2.7-7.7); Neutrophil % 74.6 % (47-70); Platelet Count 195 K/mm3 (150-450); RBC Distribution Width CV 12.5 % (11.6-14.6); RBC Distribution Width SD 43.6 fl (35.1-43.9); Red Blood Count 4.07 M/mm3 (4.2-5.4); White Blood Count 5.5 K/mm3 (4.4-11.0)
[2024-03-15 10:54] LABS: HIV - WCH Non-Reactive (Nonreactive); Hepatitis B Surface Antigen Non-Reactive (Nonreactive); Hepatitis C Antibody Non-Reactive (Nonreactive); Rubella IgG Reactive (Nonreactive); Syphilis Antibodies Non-reactive
== END | disposition home or self-care (01) ==
LOC: BWCLAB 08:13
PROVIDERS: PCP Internal Medicine; Referring Provider Advanced Practice Midwife; Visit Provider Advanced Practice Midwife
DX: Z34.81 Encounter for supervision of other normal pregnancy, first trimester (principal)
CPT/HCPCS: 36415; 85025; 86703; 86762; 86780; 86803; 86850; 86900; 86901; 87340

== ENCOUNTER → 2024-07-10 | Outpatient (CLI) | payer OTHER, SELFPAY ==
[2024-07-10 16:55] LABS: Absolute Lymphocyte Count 1.16 X10^3/uL (0.83-4.51); Absolute Neutrophil Count 7.3 X10^3/uL (2.0-7.7); Basophil# 0.02 X10^3/uL; Basophil% 0.2 % (0-1); Eosinophil# 0.04 X10^3/uL; Eosinophils% 0.5 % (0-5); Hematocrit 36.2 % (37-47); Hemoglobin 11.9 g/dL (12.0-15.0); Lymphocyte # 1.16 X10^3/ul (0.83-4.51); Lymphocyte % 13.1 % (19-41); Mean Corp Hgb Conc 32.9 g/dL (32-36); Mean Corpuscular Hgb 31.9 pg (27.0-32.0); Mean Corpuscular Volume 97.1 fL (81-99); Mean Platelet Vol. 10.7 fl (6.2-12.0); Monocyte% 3.4 % (0-10); NRBC Flagged by Analyzer 0 % (0-5); Neutrophil # 7.25 X10^3/uL (2.7-7.7); Neutrophil % 81.8 % (47-70); Platelet Count 185 K/mm3 (150-450); RBC Distribution Width CV 13.7 % (11.6-14.6); RBC Distribution Width SD 48.5 fl (35.1-43.9); Red Blood Count 3.73 M/mm3 (4.2-5.4); White Blood Count 8.9 K/mm3 (4.4-11.0)
[2024-07-10 18:02] LABS: Glucose Challenge Gest 1H 50g 153 mg/dL (70-140); HIV Nonreactive (Nonreactive); Syphilis Antibodies Nonreactive (Nonreactive)
== END | disposition home or self-care (01) ==
PROVIDERS: PCP Internal Medicine; Referring Provider Nurse Practitioner Women's Health; Visit Provider Nurse Practitioner Women's Health
DX: O09.90 Supervision of high risk pregnancy, unspecified, unspecified trimester (principal); Z13.1 Encounter for screening for diabetes mellitus; Z3A.00 Weeks of gestation of pregnancy not specified
CPT/HCPCS: 36415; 82950; 85025; 86703; 86780

== ENCOUNTER → 2024-07-16 | Outpatient (CLI) | payer OTHER, SELFPAY ==
[2024-07-16 07:14] LABS: Glucose GTT-Gestation. Fasting 76 mg/dL (<105)
[2024-07-16 09:41] LABS: Glucose GTT-Gestational 1 Hr 144 mg/dL (<190)
[2024-07-16 10:42] LABS: Glucose GTT-Gestational 2 Hr 93 mg/dL (<165)
[2024-07-16 11:56] LABS: Glucose GTT-Gestational 3 Hr 52 L (<145)
== END | disposition home or self-care (01) ==
LOC: LAB 06:43
PROVIDERS: PCP Nurse Practitioner Family; Referring Provider Nurse Practitioner Women's Health; Visit Provider Nurse Practitioner Women's Health
DX: Z13.1 Encounter for screening for diabetes mellitus (principal)
CPT/HCPCS: 36415; 82951; 82952

== ENCOUNTER 2024-08-29 18:45 | Outpatient (CLI) | payer OTHER, SELFPAY ==
[2024-08-29 19:12] VITALS: BMI 27.3
[2024-08-29 19:25] VITALS: BP 119/69; PULSE 115; PULSE 132; RESP 16; TEMP 38; O2SAT 96
[2024-08-29 19:46] VITALS: TEMP 37
[2024-08-29 19:46] LABS: Mucous, Urine 0 SEEN /hpf (<or=2+); Red Blood Cells-Urine 0 SEEN /hpf (0-5); White Blood Cells 0 SEEN /hpf (0-5)
[2024-08-29 20:27] LABS: Color, Urine Yellow (Yellow); Glucose, Dipstick 50 mg/dl (Normal); Leukocyte Esterase-Dipstick Negative /ul (Negative); Nitrite-Dipstick Negative (Negative); Occult Blood-Urine 10 /ul (Negative); Protein-Dipstick 15 mg/dl (Negative); Urine Bilirubin Dipstick Negative (Negative); Urine Clarity Clear (Clear); Urine Urobilinogen Normal (Normal)
[2024-08-29 20:32] VITALS: TEMP 37.8
[2024-08-29 20:33] VITALS: TEMP 37
[2024-08-29 20:36] VITALS: BP 114/64; PULSE 106; O2SAT 95
[2024-08-29 20:57] LABS: Ketone-Dipstick 150 mg/dl (Negative)
[2024-08-29 21:48] VITALS: TEMP 36.8
[2024-08-29 21:52] LABS: Bacteria 2+ /hpf (None Seen); Squamous Epithelial Cells - UA 0-5 SEEN /hpf (5-10)
--- NOTE | 2024-08-29 22:01 | OB.TRI.PN ---
Progress Notes Date of Service: 08/29/24 Progress Note: Patient presents for triage evaluation secondary to back pain and low abdominal cramping at 34.6 weeks FHT: 150 Moderate variability reactive no decelerations category I tracing [place]: irregular mild Contractions Assessment and plan: UA/urine culture-ATB sent, No cervical dilation, Reactive NST, reassuring maternal and status patient discharged to home to follow-up at next appt. See problem list details for additional plan information. Laboratory Studies: Laboratory Tests 08/29/24 Range/Units 19:30 Urine Color Yellow (Yellow) Urine Clarity Clear (Clear) Urine pH 7.0 (5.0 - 8.0) Ur Specific [place] 1.010 (1.002-1.030) Urine Protein 15 H (Negative) mg/dl Urine Glucose (UA) 50 H (Normal) mg/dl Urine Ketones 150 A* (Negative) mg/dl Urine Occult Blood 10 H (Negative) /ul Urine Nitrite Negative (Negative) Urine Bilirubin Negative (Negative) mg/dL Urine Urobilinogen Normal (Normal) mg/dl Ur Leukocyte Esterase Negative (Negative) /ul Urine RBC 0 SEEN (0-5) /hpf Urine WBC 0 SEEN (0-5) /hpf Ur Squamous Epith Cells 0-5 SEEN (5-10) /hpf Urine Bacteria 2+ (None Seen) /hpf Urine Mucus 0 SEEN (<or=2+) /hpf Charges/Coding Multi Select Codes Urinary/Genital Urinary/Genital CPT Codes: 08511-59 non-stress test Interp Assessment & Plan (1) Supervision of high-risk : QUALIFIERS: Trimester: second trimester Qualified Code(s): O09.92 - Supervision of high risk , unspecified, second trimester COMMENT: PRR, , EVELYN 09/28/24, surprise Al (2) : QUALIFIERS: Weeks of gestation: 34 weeks Qualified Code(s): Z3A.34 - 34 weeks gestation of COMMENT: elects NIPT(NO GENDER) Baby low risk & Carrier Negative , nl anatomy . GTT normal. (3) Anxiety: COMMENT: Increased/work related. Declines Rx. Counseling handout and will schedule. Improved. No meds (4) LGSIL (low grade squamous intraepithelial dysplasia): COMMENT: repeat pap in 1 year. 03/2023 nml. Rpt pp (5) Scoliosis: QUALIFIERS: Scoliosis type: unspecified scoliosis Spinal region: unspecified Qualified Code(s): M41.9 - Scoliosis, unspecified COMMENT: 26 degree curve 2018. offered anesthesia consult- set up after 32 wk, scheduled for 08/21 @ 2 (6) Low back pain during : COMMENT: suspect UTI-ATB sent
[2024-08-29] MEDS: Nitrofurantoin Macrocrystals 100 MG Capsule PO (22:17)
== END 2024-08-29 22:22 | disposition home or self-care (01) ==
LOC: WPOUT 19:01 → WP 19:01
PROVIDERS: PCP Nurse Practitioner Family; Referring Provider Obstetrics & Gynecology; Visit Provider Advanced Practice Midwife
DX: O99.891 Other specified diseases and conditions complicating pregnancy (principal); M54.50 Low back pain, unspecified; R10.9 Unspecified abdominal pain; Z3A.34 34 weeks gestation of pregnancy
CPT/HCPCS: 59025; 59050; 81001; 87086; 99221; G0378

== ENCOUNTER → 2024-09-05 | Outpatient (CLI) | payer OTHER, SELFPAY | END | disposition home or self-care (01) | LOC: LABSPEC 14:04 | PROVIDERS: PCP Nurse Practitioner Family; Referring Provider Obstetrics & Gynecology; Visit Provider Obstetrics & Gynecology | DX: O09.92 Supervision of high risk pregnancy, unspecified, second trimester (principal); Z3A.00 Weeks of gestation of pregnancy not specified | CPT/HCPCS: 87081 ==

== ENCOUNTER 2024-10-02 08:55 | Outpatient (CLI) | payer OTHER, SELFPAY ==
[2024-10-02 09:15] VITALS: BP 114/74; PULSE 75; RESP 16; TEMP 36.3; O2SAT 98
[2024-10-02 09:21] VITALS: BMI 27.6
--- NOTE | 2024-10-02 13:23 | OB.TRI.PN_ITS ---
Progress Notes Date of Service: 10/02/24 Progress Note: Patient presents for triage evaluation secondary to decreased movement FHT: 135 Moderate variability reactive no decelerations category I tracing [place]: irregular Contractions Assessment and plan: 39 weeks decreased movement 1/2 cm dilated Reactive NST, reassuring maternal and status patient discharged to home to follow- up as scheduled. See problem list details for additional plan information. Charges/Coding Procedures Urinary/Genital 52xxx-59xxx: 22408-11 non-stress test Interp
--- NOTE | 2024-10-02 13:23 | OB.TRI.PN_ITS ---
Progress Notes Date of Service: 10/02/24 Progress Note: Patient presents for triage evaluation secondary to decreased movement FHT: 135 Moderate variability reactive no decelerations category I tracing [place]: irregular Contractions Assessment and plan: 39 weeks decreased movement 1/2 cm dilated Reactive NST, reassuring maternal and status patient discharged to home to follow- up as scheduled. See problem list details for additional plan information. Charges/Coding Procedures Urinary/Genital 52xxx-59xxx: 14551-30 non-stress test Interp
== END 2024-10-02 11:35 | disposition home or self-care (01) ==
LOC: WPOUT 09:00 → WP 09:01
PROVIDERS: PCP Nurse Practitioner Family; Referring Provider Obstetrics & Gynecology; Visit Provider Obstetrics & Gynecology
DX: O36.8130 Decreased fetal movements, third trimester, not applicable or unspecified (principal); Z3A.39 39 weeks gestation of pregnancy
CPT/HCPCS: 59025; 59050; 99221; G0378

== ENCOUNTER 2024-10-03 16:50 | Inpatient (IN) | payer OTHER, SELFPAY ==
[2024-10-03] VITALS (30 sets, daily range): BP systolic 100–135; BP diastolic 52–90; PULSE 85–134; RESP 14–16; TEMP 36.6–37.2; O2SAT 91–97; BMI 27.0
[2024-10-03] MEDS: Lactated Ringers 1,000 ML 999 ML IV (17:07)
--- NOTE | 2024-10-03 17:13 | HP.PCM.OB_ITS ---
HPI - General General Date of Admission: 10/03/24 HPI Narrative BHUMI PARKS, is a 24 y/o @ 39 weeks 6 days who presents t o L&D with painful contractions. she was .5 cm dilated yesterday and she presented today at 1cm and changed to 3 cm. She is asking for epidural. Maternal Data Information EVELYN Calculator Estimated Delivery Date Method Current WG Current Estimate 10/04/24 Ultrasound #1 39w 6d Other Estimates 09/28/24 LMP (Certain) 40w 5d PFSH PFSH Medical History Wears glasses Anxiety Alcohol use Back pain Heartburn Vapes nicotine containing substance Leg cramps History of edema Scoliosis Arthritis (08/27/00) Elevated d-dimer Painful swallowing Allergic rhinitis Acute bronchitis, unspecified Right knee pain Bakers cyst Rheumatoid arthritis Dietary restriction Non-smoker Scoliosis History of ovarian cyst JRA (juvenile rheumatoid arthritis) Home Medications ?Medication ?Instructions ?Recorded ?Last Taken ?Type multivitamin no.47-iron fum 27 1 cap PO DAILY 02/20/24 10/02/24 History mg-folate no.1 1 mg-dha 300 mg capsule (PNV-DHA) Allergy/AdvReac Type Severity Reaction Status Date / Time wheat Allergy Mild Other Verified 10/03/24 16:02 Family History Grandmother No problems noted. 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 current occupational exposures/hazards: No pets and animals: Yes (2 dogs) pets and animals: dog(s) leisure activities: exercise and reading history of recent travel: No sexually active: Yes Smoking Status: Never smoker Electronic Cigarette Use: not used second hand exposure: No alcohol intake: former details: Not while substance use type: does not use diet: gluten free well-balanced diet: about half the time caffeine: Yes (1 cup per day) Type: carbonated beverages and coffee Number of servings: 1 eating out: 1-3 times/week during the past year weight has: remained stable what type of physical activity do you participate in: walking frequency: 1-2 times per week duration: 15-30 minutes/day huan/anabaptist: None seatbelt use: always do you feel safe at home: Yes additional social history: Al - 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 History 1 Elective abortions Hx Para 0 Spontaneous abortions Hx # Term Pregnancies Ectopic pregnancies Hx # Pregnancies Multiple births # of living children Visit Details Expected Delivery Route/Plan Labor Preferences- CB/BF classes: yes labor support person: Al labor intervention preferences: [] pain management options preferred: limited if possible cut cord/dad catch: maybe : yes PP control planned: yes discussed possible routes of delivery and associated risks: [] special requests: [] Plans Covid status: [] Flu vaccine: [] Tdap vaccine: Rhogam: na LARC form signed: yes movement and labor precautions reviewed. Problem list reviewed and updated with the most current plan of care details and appropriate orders placed. Relevant counseling for the gestational age provided. Continue routine care and follow up unless otherwise noted in visit notes/problem list details OB Flowsheet Initial Weight: Not Recorded Date -?-?-?-?-?-?-?-?-?-?-?-?- EGA Weight BP Urine Prot -?-?-?-?-?-?-?-?-?-?-?-?- Glucose FHR FuHt Pres Dilation -?-?-?-?-?-?-?-?-?-?-?-?- Effaced St Visit Note 02/29/24 -?-?-?-?-?-?-?-?-?-?-?-?- 8w 6d 122 lb 103/69 -?-?-?-?-?-?-?-?-?-?-?-?- 171 -?-?-?-?-?-?-?-?-?-?-?-?- KW-CRL not cons with dates. evelyn changed accepts NIPT 03/28/24 -?-?-?-?-?-?-?-?-?-?-?-?- 12w 6d 125 lb 4 oz 116/76 Nega tive -?-?-?-?-?-?-?-?-?-?-?-?- Negative 168 -?-?-?-?-?-?-?-?-?-?-?-?- JV- normal NIPT. no complaints today. gender is a surprise. 04/26/24 -?-?-?-?-?-?-?-?-?-?-?-?- 17w 0d 127 lb 4 oz 111/75 Nega tive -?-?-?-?-?-?-?-?-?-?-?-?- Negative 152 -?-?-?-?-?-?-?-?-?-?-?-?- KW- no vb/shira calixto. MFM US scheduled. discussed getting ped and scheduling CBE class 05/22/24 -?-?-?-?-?-?-?-?-?-?-?-?- 20w 5d 130 lb 130 lb 117/78 Negative -?-?-?-?-?-?-?-?-?-?-?-?- Negative 145 -?-?-?-?-?-?-?-?-?-?-?-?- SM- no vb lof no regular ctx 06/19/24 -?-?-?-?-?-?-?-?-?-?-?-?- 24w 5d 134 lb 6 oz 112/62 Nega tive -?-?-?-?-?-?-?-?-?-?-?-?- Negative 154 -?-?-?-?-?-?-?-?-?-?-?-?- MH-No VB, LOF. G ood FM. Some anxiety but managing. Larc 07/02/24 -?-?-?-?-?-?-?-?-?-?-?-?- 26w 4d 135 lb 4 oz 112/72 Nega tive -?-?-?-?-?-?-?-?-?-?-?-?- Negative 152 -?-?-?-?-?-?-?-?-?-?-?-?- MH-good Fm. No V B. Work in for anxiety. Declines Rx meds. Try magnesium complex. Counseling encouraged and handout given. RTO 1 wk 07/10/24 -?-?-?-?-?-?-?-?-?-?-?-?- 27w 5d 135 lb 6 oz 104/66 Nega tive -?-?-?-?-?-?-?-?-?-?-?-?- Negative 140 27 -?-?-?-?-?-?-?-?-?-?-?-?- -No VB, LOF. G ood FM. Feeling much better anxiety moore. States I think I just needed to talk last time. I highly encouraged to consider counseling. Call with worsening sx. 28 wk labs pending. 07/26/24 -?-?-?-?-?-?-?-?-?-?-?-?- 30w 0d 139 lb 107/71 Negative -?-?-?-?-?-?-?-?-?--?-?-?- Negative 150 30 -?-?-?-?-?-?-?-?-?-?-?-?- SM- still consid ering tdap no vb lof good fm n oreugalr ctxx 08/09/24 -?-?-?-?-?-?-?-?-?-?-?-?- 32w 0d 143 lb 2 oz 123/74 Nega tive -?-?-?-?-?-?-?-?-?-?-?-?- Negative 160 31 -?-?-?-?-?-?-?-?-?-?-?-?- KW- no vb/lof/ct x. good fm. Tdap today 08/23/24 -?-?-?-?-?-?-?-?-?-?-?-?- 34w 0d 145 lb 8 oz 111/70 Nega tive -?-?-?-?-?-?-?-?-?-?-?-?- Negative 154 33 -?-?-?-?-?-?-?-?-?-?-?-?- LC- no vb/ctx/lo f. good fm. 09/05/24 -?-?-?-?-?-?-?-?-?-?-?-?- 35w 6d 145 lb 6 oz 108/75 Nega tive -?-?-?-?-?-?-?-?-?-?-?-?- Negative 161 34.5 Cephalic -?-?-?-?-?-?-?-?-?-?-?-?- JV_ no lof, vagi nal bleeding, or dec fm. GBS collected. 09/12/24 -?-?-?-?-?-?-?-?-?-?-?-?- 36w 6d 147 lb 6 oz 118/78 Nega tive -?-?-?-?-?-?-?-?-?-?-?-?- Negative 145 36 Cephalic 0 -?-?-?-?-?-?-?-?-?-?-?-?- SM- no vb lof go od fm no reuglar ctx gbs done 09/16/24 -?-?-?-?-?-?-?-?-?-?-?-?- 37w 3d 148 lb 117/80 Negative -?-?-?-?-?-?-?-?-?-?-?-?- Negative 140 36 Cephalic 0 -?-?-?-?-?-?-?-?-?-?-?-?- KW- no vb/lof/ct x. good fm. having increased vaginal pressure 09/25/24 -?-?-?-?-?-?-?-?-?-?-?-?- 38w 5d 149 lb 8 oz 116/77 Nega tive -?-?-?-?-?-?-?-?-?--?-?-?- Negative 143 38 Cephalic 0 -?-?-?-?-?-?-?-?-?-?-?-?- JV- no lof ,vagi nal bleeding, or dec fm. ROS Constitutional Constitutional: Denies change in weight, fatigue, fever(s), headache(s), poor appetite or weakness Eyes Eyes: Denies blurry vision, change in vision, seeing flashes or spots in vision ENT HEENT: Denies dizziness, headache(s), loss taste/smell or sore throat Cardiovascular Cardiovascular: Denies chest pain, dizziness, dyspnea, irregular heart rhythm, leg edema, palpitations, rapid heart rate or vomiting Respiratory/Chest Respiratory/Chest: Denies chest tightness, cough, dyspnea or breast pain Gastrointestinal Gastrointestinal: Denies abdominal pain, anorexia, constipation, cramping, diarrhea, hemorrhoids, vomiting or weight changes Genitourinary Genitourinary: Denies dysuria, flank pain, genital lesions, genital pain, urinary frequency or urinary urgency Musculoskeletal Musculoskeletal: Denies back pain, difficulty walking, joint pain, limited range of motion, muscle cramps or numbness Integumentary Integumentary: Denies lesions or unusual bruising Neurologic Neurologic: Denies abnormal movements, abnormal speech, dizziness, numbness, seizure-like activity or syncope Psychiatric Psychiatric: Denies anxiety, behavioral changes, change in appetite, change in libido, cognitive impairment, confusion, depression, difficulty concentrating, h allucinations or suicidal thoughts Endocrine Endocrinology: Denies excessive sweating, polydipsia or polyuria Hematologic/Lymphatic Hematologic/Lymphatic: Denies easy bleeding, easy bruising or lymphadenopathy Allergic/Immunologic Allergic/Immunologic: Denies itchy eyes, lip swelling, seasonal rhinorrhea, rhinitis, throat swelling, tongue swelling, eczemia, wheezing or asthma Vital Signs Vital Signs Vital Signs: 10/03/24 15:54 10/03/24 15:54 10/03/24 15:54 Pulse Rate 93 95 Blood Pressure 119/67 BP Systolic 119 BP Diastolic 67 Pulse Ox 10/03/24 15:54 Pulse Rate Blood Pressure BP Systolic BP Diastolic Pulse Ox 96 Weight Weight: 147 lb 11.355 oz Body Mass Index (BMI) 27.0 Physical Exam Const alert, oriented x3, no apparent distress and healthy appearing General Appearance: cooperative; Negative for anxious HEENT normocephalic Face and Sinus: normal facial exam Eyes EOMs intact bilaterally and no scleral icterus General Eye: normal appearance of both eyes Neck full ROM and supple Lymph Lymphatic: no lymphadenopathy noted Resp normal respiratory effort Effort and Inspection: able to speak in complete sentences Cardio regular rate GI soft to palpation and non-tender Inspection: gravid Palpation: soft; Negative for tender external exam normal Back/Spine no CVA tenderness Extremity normal to inspection, full ROM and no clubbing, cyanosis or edema General Extremity: Negative for calf tenderness or edema Skin Lesions: no lesions Rashes: no rashes Psych mental status grossly normal Labs Labs Labs: Blood Type O POSITIVE Antibody Screen NEGATIVE Hct 36.9 % (37-47) L Hgb 12.8 g/dL (12.0-15.0) Syphilis Total Ab Nonreactive (Nonreactive) Rubella IgG Antibody Reactive (Nonreactive) Hep Bs Antigen Non-Reactive (Nonreactive) Hepatitis C Antibody Non-Reactive (Nonreactive) Chlamydia DNA (RICHARD) Negative (Negative) N.gonorrhoeae DNA (RICHARD) Negative (Negative) HIV 1&2 Antibody Nonreactive (Nonreactive) Glucose 1 Hr 50 gm 153 mg/dL (70-140) H Gest Glucose Tolerance MG/DL Assessment & Plan (1) Low back pain during : COMMENT: suspect UTI-ATB sent (2) Supervision of high-risk : QUALIFIERS: Trimester: second trimester Qualified Code(s): O09.92 - Supervision of high risk , unspecified, second trimester COMMENT: PRR, , EVELYN 09/28/24, surprise Al (3) : QUALIFIERS: Weeks of gestation: 38 weeks Qualified Code(s): Z3A.38 - 38 weeks gestation of COMMENT: Neg GBS/ elects NIPT(NO GENDER) Baby low risk & Carrier Negative , nl anatomy . GTT normal. (4) Anxiety: COMMENT: Increased/work related. Declines Rx. Counseling handout and will schedule. Improved. No meds (5) LGSIL (low grade squamous intraepithelial dysplasia): COMMENT: repeat pap in 1 year. 03/2023 nml. Rpt pp (6) Scoliosis: QUALIFIERS: Scoliosis type: unspecified scoliosis Spinal region: unspecified Qualified Code(s): M41.9 - Scoliosis, unspecified COMMENT: 26 degree curve 2018. offered anesthesia consult- set up after 32 wk, scheduled for 08/21 @ 2 PLAN: Plan Patient presents IAL, plan expectant management for , pitocin/AROM PRN if needed. Pain management: plans epidural. GBS neg. Management of any complications: none I have reviewed the [facility] and made any clinically relevant updates.
[2024-10-03 17:23] LABS: Hematocrit 36.9 % (37-47); Hemoglobin 12.8 g/dL (12.0-15.0); Immature Granulocytes Count 0.100 X10^3/uL (0.0-0.0); Mean Corp Hgb Conc 34.7 g/dL (32-36); Mean Corpuscular Volume 92.5 fL (81-99); Mean Platelet Vol. 10.8 fl (6.2-12.0); NRBC Flagged by Analyzer 0 % (0-5); Platelet Count 189 K/mm3 (150-450); RBC Distribution Width CV 13.6 % (11.6-14.6); RBC Distribution Width SD 45.8 fl (35.1-43.9); Red Blood Count 3.99 M/mm3 (4.2-5.4); White Blood Count 12.7 K/mm3 (4.4-11.0)
[2024-10-03] MEDS: fentaNYL-bupivacaine (epidural) 100 ML BAG EPIDURAL ×2 (17:50→22:03)
[2024-10-03] MEDS: Lactated Ringers 1,000 ML 200 ML IV ×2 (18:05→23:10)
[2024-10-03 18:17] LABS: Syphilis Antibodies Nonreactive (Nonreactive)
--- NOTE | 2024-10-03 19:02 | PCM.PN.BLA ---
Progress Note patient is comfortable with epidural and consents to AROM membranes ruptured with scant clear fluid and bloody show. cx /
--- OUTSIDE RECORDS SUMMARY | 2024-10-03 20:36 | XMS RPT_ITS | CCD ---
Author Organization [facility] Care Team Providers Care Manager Of Health Name Role Phone Dr. Tristian Olivares Primary Care Provider [phone] Dr. Tristian Olivares Referring Provider Dr. Neelam Coon Attending Provider 1([facility] )[phone] Tristian Olivares MD Primary Care Provider TRISTIAN OLIVRAES Primary Care [facility] Dr. Tristian Olivares Primary Care Provider Dr. Tristian Olivares Referring Provider Dr. Ishmael Potts Attending Provider 1([facility]) -[phone] Dr. Ishmael Potts Primary Care Provider Dr. Ishmael Potts Referring Provider 1([facility]) -[phone] Dr. Louis Valenzuela Attending Provider 1([facility]) 5616 Dr. Ishmael Potts Attending Provider 1([facility])[phone] Dr. Louis Valenzuela Other Provider 1([facility])[phone] Dr[address] Ishmael Potts Primary Care Provider Dr. Ishmael Potts Attending Provider 1([facility])[phone] Dr. Ishmael Potts Referring Provider 1([facility])[phone] Dr. Louis Valenzuela Attending Provider 1([facility]) 5669 Dr. Tristian Olivares Referring Provider 1([facility])[phone] Dr. Neelam Coon Attending Provider [phone] MD Tristian Hoyt Attending Provider [phone] Sedrick Tsang Attending Provider ZOHREH Bliss Attending Provider ZOHREH Valdivia Attending Provider ISHMAEL POTTS Primary Care Unavailable SANDRA GUERITA Attending Unavailable GWENDOLYN GLYNN Referring Unavailab GWENDOLYN Garner Referring Unavailab LITO Ruiz Attending Unavailable ISHMAEL POTTS Primary Care Unavailable Delroy ROMERO, Dr. Bacon Primary Care Provider [phone] Dr. Ishmael Potts MD Referring Provider Dr. Gwendolyn Lala DO Attending Provider Frederic FRANK, Alda Attending Provider [phone] aJymie ROMERO, Dr. Richter Attending Provider [phone] Tenisha ENVIRONMENTAL PROTECTION ECONOMIST-C, Rosy Attending Provider Tenisha ENVIRONMENTAL PROTECTION ECONOMIST-C, Rosy Referring Provider [phone] Delroy ROMERO, Dr. Bacon Primary Care Provider [phone]( [phone] Dr. Ishmael Potts MD Referring Provider Nik ENVIRONMENTAL PROTECTION ECONOMIST-C, Lisa Primary Care Provider Mahnaz Zacarias CNM Attending Provider [phone] Ishmael Potts MD Primary Care Provider [phone] Dr. Ishmael Potts MD Referring Provider Frederic FRANK, Alda Attending Provider [phone] Dr. Gwendolyn Lala DO Referring Provider Alda De La Garza CNM Other Provider [phone] Gwendolyn Lala DO Attending Provider Nik ENVIRONMENTAL PROTECTION ECONOMIST-C, Lisa Referring Provider [phone] Ishmael Potts MD Primary Care Provider [phone] Dr. Ishmael Potts MD Referring Provider Jaymie ROMERO, Dr. Richter Attending Provider [phone] Ishmael Potts Referring Unavailable Mahnaz Zacarias Attending Unavailable Nik, Lisa Primary Care Unavailable Delroy, Ishmael Referring Unavailable Nik, Lisa Primary Care Unavailable Gwendolyn Lala Attending Unavailabl e Nik, Lisa Primary Care Unavailable Delroy, Ishmael Referring Unavailable Neelam Coon Attending Unavailable Nik, Lisa Primary Care Unavailable Vande Velde, Gwendolyn Referring Unavailabl e Alda De La Garza Consulting Unavailable Alda De La Garza Attending Unavailable [place], Ishmael Primary Care Unavailable Alda De La Garza Referring Unavailable Alda De La Garza Attending Unavailable Nik, Lisa Primary Care Unavailable Vande Velde, Gwendolyn Referring Unavailabl e Alda De La Garza Attending Unavailable Nik, Lisa Primary Care Unavailable Tenisha ENVIRONMENTAL PROTECTION ECONOMIST, Rosy Referring Unavailable Tenisha ENVIRONMENTAL PROTECTION ECONOMIST, Rosy Attending Unavailable [place], Ishmael Primary Care Unavailable Alda De La Garza Referring Unavailable Alda De La Garza Attending Unavailable Tenisha ENVIRONMENTAL PROTECTION ECONOMIST, Rosy Attending Unavailable [place], Ishmael Primary Care Unavailable Delroy, Ishmael Referring Unavailable Nik, Lisa Primary Care Unavailable Nik, Lisa Referring Unavailable Neelam Coon Attending Unavailable Delroy, Ishmael Referring Unavailable Liz Herman Attending Unavailable Delroy, Ishmael Primary Care Unavailable [place], Ishmael Referring Unavailable [place], Ishmael Attending Unavailable [place], Ishmael Primary Care Unavailable Delroy, Ishmael Referring Unavailable Nik, Lisa Primary Care Unavailable Neelam Coon Attending Unavailable Delroy, Ishmael Primary Care Unavailable Delroy, Ishmael Referring Unavailable Neelam Coon Attending Unavailable [place] ENVIRONMENTAL PROTECTION ECONOMIST, Rosy Attending Unavailable [place], Ishmael Primary Care Unavailable [place], Ishmael Referring Unavailable Tenisha ENVIRONMENTAL PROTECTION ECONOMIST, Rosy Attending Unavailable Delroy, Ishmael Primary Care Unavailable [place], Ishmael Referring Unavailable Nik, Lisa Primary Care Unavailable Nik, Lisa Referring Unavailable Alda De La Garza Attending Unavailable Tenisha ENVIRONMENTAL PROTECTION ECONOMIST, Rosy Attending Unavailable [place], Ishmael Primary Care Unavailable Tenisha ENVIRONMENTAL PROTECTION ECONOMIST, Rosy Referring Unavailable Delroy, Ishmael Referring Unavailable Delroy, Ishmael Attending Unavailable [place], Ishmael Primary Care Unavailable Alda De La Garza Referring Unavailable Alda De La Garza Attending Unavailable Delroy, Ishmael Primary Care Unavailable Nik, Lisa Primary Care Unavailable Nik, Lisa Referring Unavailable Vande Velde, Gwendolyn Attending Unavailabl e Nik, Lisa Primary Care Unavailable Gwendolyn Lala Referring UnavailGwendolyn Greenwood Attending Unavailabl e Delroy, Ishmael Primary Care Unavailable Delroy, Ishmael Referring Unavailable Alda De La Garza Attending Unavailable [place], Ishmael Primary Care Unavailable Gwendolyn Lala Attending Unavailabl e Delroy, Ishmael Referring Unavailable Delroy, Ishmael Primary Care Unavailable [place], Ishmael Referring Unavailable Alda De La Garza Attending Unavailable Delroy, Ishmael Referring Unavailable Nik, Lisa Primary Care Unavailable Alda De La Garza Attending Unavailable Jaymie ROMERO, Dr. Richter Referring Provider Allergies Allergy Classification Reported Allergen(s) Allergy Type Date of Onset Reaction(s) Facility (2 sources) Lactase; Translations: [LACTASE] Drug Allergy 1 Intolerance [facility] (2 sources) Wheat gluten extract; Translations: [GLUTEN] Drug Allergy 1 Other: See Comments [facility] (9 sources) Wheat preparation Drug Allergy 5 Other [facility] Comment on above: anxiety, skin issues . (1 source) Wheat preparation Drug Allergy 5 [facility] Repository Medications Current Medications Medication Drug Class(es) Dates Sig (Normalized) Sig (Original) Multivit 12-Kwsl-Mbtmrf 1-Dha (Pnv-Dha) 27 mg iron-1 mg -300 mg capsule (9 sources) Start: 02-20-2024 Multivit 75-Ipkm-Fetazd 1-Dha (Pnv-Dha) 27 mg iron-1 mg -300 mg capsule Active 1 NMA PO DAILY February 20, 2024 1:00am Start: 02-20-2024 Multivit 47-Ir on-Folate 1-Dha (Pnv-Dha) 27 mg iron-1 mg -300 mg capsule Active NMA PO February 20, 2024 1:00am Completed/Discontinued Medications Medication Drug Class(es) Dates Sig (Normalized) Sig (Original) amoxicillin 875 mg / clavulanate 125 mg oral tablet (11 sources) Penicillin-class Antibacterial Start: 04-24-2023 End: 06-09-2023 Amoxicillin-Pot Clavulanate 875-125 mg tablet Discontinued 1 {tbl} PO TWICE A DAY 20 0 April 24, 2023 1:00am June 09, 2023 2:16pm Start: 04-24-2023 End: 06-09-2023 take 1 tablet by mouth twice daily Amoxicillin-Pot Clavulanate Discontinued 1 TABLET PO TWICE A DAY 20 April 24, 2023 1:00am June 09, 2023 2:16pm arsenicum (16 sources) Start: 03-09-2020 End: 11-04-2021 arsenicum Discontinued PO 0 March 09, 2020 1:00am November 04, 2021 10:58am Start: 03-09-2020 End: 11-04-2021 arsenicum Discontinued PO De cember 2019 1:00am November 04, 2021 10:58am Start: 03-09-2020 End: 11-04-2021 arsenicum Discontinued PO De cember 2019 12:00am November 04, 2021 9:58am augmented betamethasone 0.5 mg/ml topical cream (9 sources) Corticosteroid Start: 10-24-2023 End: 02-20-2024 Betamethasone, Augmented 0.05 % cream Discontinued NMA TOPICAL October 24, 2023 12:00am February 20, 2024 9:22am escitalopram 5 mg oral tablet (18 sources) Serotonin Reuptake Inhibitor Start: 09-12-2023 End: 02-07-2024 take 1 tablet by mouth once daily Escitalopram Oxalate (Lexapro) 5 mg tablet Discontinued 5 mg PO DAILY 90 1 October 24, 2023 10:02am February 07, 2024 8:54am fluocinonide 0.5 mg/ml topical cream (20 sources) Corticosteroid Start: 06-15-2023 End: 10-24-2023 Fluocinonide 0.05 % cream Discontinued NMA TOPICAL June 15, 2023 12:00am October 24, 2023 9:37am Start: 06-15-2023 Fluocinonide A ctive APPLIC TOPICAL June 15, 2023 12:00am Start: 04-11-2023 End: 06-15-2023 Fluocinonide 0.1 % cream Dis continued 1 NMA TOPICAL 2 to 4 times per day as needed April 11, 2023 1:00am June 15, 2023 1:05pm hydrocortisone 25 mg/ml topical cream (12 sources) Corticosteroid Start: 02-13-2023 End: 02-27-2023 Hydrocortisone 2.5 % cream Discontinued 1 NMA TOPICAL TWICE A DAY as needed for itching 20 14 0 February 13, 2023 1:00am February 26, 2023 1:00am February 27, 2023 1:04am hydrOXYzine hydrochloride 25 mg oral tablet (11 sources) Antihistamine Start: 06-15-2023 End: 02-07-2024 take 1 tablet by mouth every eight hours as needed for anxiety Hydroxyzine Hcl 25 mg tablet Discontinued 25 mg PO Q8H as needed for anxiety 30 0 June 15, 2023 12:00am February 07, 2024 8:55am ibuprofen 200 mg oral capsule (16 sources) Nonsteroidal Anti-inflammatory Drug Start: 03-31-2022 End: 09-19-2022 take 1 capsule by mouth every six hours as needed Ibuprofen 200 mg capsule Discontinued 200 mg PO EVERY 6 HOURS as needed March 31, 2022 1:00am September 19, 2022 7:53am Multivitamin powder in packet (9 sources) Start: 03-09-2020 End: 11-04-2021 Multivitamin powder in packet Discontinued NMA PO March 09, 2020 1:00am November 04, 2021 10:58am Multivitamin preparation (7 sources) Start: 03-09-2020 End: 11-04-2021 Multivitamin Discontinued EACH PO March 09, 2020 1:00am November 04, 2021 10:58am Start: 03-09-2020 End: 11-04-2021 Multivitamin Discontinued EA CH PO March 09, 2020 12:00am November 04, 2021 9:58am mupirocin 0.02 mg/mg topical ointment (20 sources) RNA Synthetase Inhibitor Antibacterial Start: 10-24-2023 End: 10-24-2023 Mupirocin 2 % ointment Discontinued TOPICAL October 24, 2023 12:00am October 24, 2023 9:39am Start: 02-13-2023 End: 02-18-2023 Mupirocin 2 % ointment Disco ntinued 1 NMA TOPICAL TWICE A DAY 15 5 0 February 13, 2023 1:00am February 17, 2023 1:00am February 18, 2023 1:28am Start: 02-13-2023 End: 02-18-2023 Mupirocin 2 % ointment Disco ntinued 1 NMA TOPICAL TWICE A DAY 15 February 13, 2023 1:00am February 17, 2023 1:00am February 18, 2023 1:28am Start: 02-13-2023 End: 02-18-2023 Mupirocin Discontinued 1 JANIE LIC TOPICAL TWICE A DAY 15 February 13, 2023 1:00am February 18, 2023 1:28am Start: 02-13-2023 Mupirocin Acti ve 1 APPLIC TOPICAL TWICE A DAY 15 February 13, 2023 12:00am nitrofurantoin, macrocrystals 25 mg / nitrofurantoin, monohydrate 75 mg oral capsule (7 sources) Nitrofuran Antibacterial Start: 08-29-2024 End: 09-05-2024 take 1 capsule by mouth twice daily at mealtime Nitrofurantoin Monohyd/M-Cryst (Macrobid) 100 mg capsule Discontinued 100 mg PO TWICE A DAY 14 7 0 August 29, 2024 12:00am September 04, 2024 12:00am September 05, 2024 12:08am Urinary tract infection Urinary tract infection, site not specified must administer with a meal/food ondansetron 4 mg disintegrating oral tablet (14 sources) Serotonin-3 Receptor Antagonist Start: 09-07-2022 End: 09-19-2022 take 1 tablet by mouth every eight hours as needed for nausea Ondansetron 4 mg tablet,disintegrati ng Discontinued 4 mg PO EVERY 8 HOURS NEEDED as needed for Nausea 20 0 September 07, 2022 12:00am September 19, 2022 7:53am pantoprazole 40 mg delayed release oral tablet (18 sources) Proton Pump Inhibitor Start: 08-30-2023 End: 02-07-2024 take 1 tablet by mouth once daily Pantoprazole 40 mg tablet,delayed release (DR/EC) Discontinued 40 mg PO DAILY 30 5 September 12, 2023 11:39am February 07, 2024 8:55am Problems Active Problems Problem Classification Problem Date Documented Da te Episodic/Chronic Abdominal pain (20 sources) Generalized abdominal pain; Translations: [Generalized abdominal pain] Onset: 05-22-2024 Episodic Acute bronchitis (13 sources) Acute bronchitis; Translations: [Acute bronchitis, unspecified] 04-24-2023 Episodic Administrative/social admission (1 source) Persons encountering health services in other specified circumstances; Translations: [Other reasons for seeking consultation] 09-19-2022 Episodic Anxiety disorders (20 sources) Anxiety; Translations: [Anxiety disorder, unspecified] Onset: 09-09-2024 07-10-2024 Chronic Comment on above: Increased/work relat ed. Declines Rx. Counseling handout and will schedule. Improved. No meds Cardiac dysrhythmias (2 sources) Palpitations; Translations: [Palpitations] 06-15-2023 Episodic Fluid and electrolyte disorders (1 source) Hypokalemia; Translations: [Hypopotassemia] 09-19-2022 Episodic Hemorrhage during ; abruptio placenta; placenta previa (20 sources) Low lying placenta; Translations: [Low lying placenta NOS or without hemorrhage, unspecified trimester] 07-14-2024 Episodic Comment on above: RESOLVED rt US sched . Just under 2cm. Noted in [place] but not impresssion Immunizations and screening for infectious disease (1 source) Encounter for immunization; Translations: [Encounter for immunization] Onset: 08-09-2024 Episodic Menstrual disorders (20 sources) Amenorrhea; Translations: [Amenorrhea, unspecified] Onset: 05-22-2024 05-22-2024 Chronic Comment on above: HCGx1 Nausea and vomiting (18 sources) Vomiting, unspecified; Translations: [Vomiting alone] 09-19-2022 Episodic Osteoarthritis (13 sources) Arthritis; Translations: [Unspecified osteoarthritis, unspecified site] Onset: 08-27-2000 05-22-2024 Chronic Other acquired deformities (20 sources) Scoliosis deformity of spine; Translations: [Scoliosis, unspecified] 06-19-2024 Chronic Comment on above: 26 degree curve 2018 . offered anesthesia consult- would like and set up after 32 wk 26 degree curve 2018 . offered anesthesia consult- set up after 32 wk, scheduled for 08/21 @ 2 Other acquired deformities (8 sources) Acquired scoliosis Chronic Other acquired deformities (2 sources) Scoliosis, unspecified; Translations: [Scoliosis, unspecified] Onset: 09-09-2024 Chronic Other complications of (20 sources) High risk ; Translations: [Supervision of high risk , unspecified, unspecified trimester] 06-19-2024 Episodic Comment on above: PRR, , BRANT , surprise Al Other complications of (20 sources) Low back pain in ; Translations: [Other specified related conditions, unspecified trimester] 08-29-2024 Episodic Comment on above: suspect UTI-ATB sent Other complications of (2 sources) Other specified related conditions, unspecified trimester; Translations: [Other specified related conditions, unspecified trimester] Onset: 09-09-2024 Episodic Other complications of (2 sources) Supervision of high risk , unspecified, second trimester; Translations: [Supervision of high risk , unspecified, second trimester] Onset: 09-09-2024 Episodic Other complications of (1 source) Supervision of high risk , unspecified, unspecified trimester; Translations: [Supervision of high risk , unspecified, unspecified trimester] Onset: 07-15-2024 Episodic Other connective tissue disease (20 sources) H/O: arthritis; Translations: [Personal history of other diseases of the musculoskeletal system and connective tissue] Onset: 02-17-2021 03-09-2020 Episodic Other connective tissue disease (2 sources) Synovial cyst of knee; Translations: [Synovial cyst of popliteal space [Ramon], unspecified knee] 04-11-2023 Episodic Other connective tissue disease (13 sources) Synovial cyst of popliteal space [Ramon], unspecified knee; Translations: [Synovial cyst of popliteal space] 03-30-2023 Episodic Other ear and sense organ disorders (3 sources) Otalgia, bilateral; Translations: [Otalgia, unspecified] 02-13-2023 Episodic Other gastrointestinal disorders (11 sources) Swallowing painful; Translations: [Dysphagia, unspecified] 05-03-2023 Episodic Other gastrointestinal disorders (2 sources) Dysphagia, unspecified; Translations: [Dysphagia, unspecified] 05-03-2023 Episodic Other inflammatory condition of skin (19 sources) Psoriasis; Translations: [Psoriasis, unspecified] 05-22-2024 Chronic Comment on above: Bilateral ears, foll ows with [place] Other inflammatory condition of skin (1 source) Psoriasis, unspecified; Translations: [Psoriasis, unspecified] Onset: 05-22-2024 Chronic Other inflammatory condition of skin (20 sources) Lichenified eczema; Translations: [Lichen simplex chronicus] 05-03-2023 Episodic Other lower respiratory disease (11 sources) Dyspnea; Translations: [Shortness of breath] 06-09-2023 Episodic Other lower respiratory disease (2 sources) Shortness of breath; Translations: [Shortness of breath] 06-09-2023 Episodic Other lower respiratory disease (9 sources) Rib pain; Translations: [Pleurodynia] 02-07-2024 Episodic Other nervous system disorders (2 sources) Anesthesia of skin; Translations: [Disturbance of skin sensation] 06-15-2023 Episodic Other nervous system disorders (9 sources) Paresthesia of upper limb; Translations: [Anesthesia of skin] 02-07-2024 Episodic Other non-traumatic joint disorders (15 sources) Pain in right knee; Translations: [Right knee pain] 04-18-2023 Episodic Other and delivery including normal (20 sources) ; Translations: [Encounter for supervision of normal , unspecified, unspecified trimester] Onset: 03-08-2024 07-10-2024 Episodic Comment on above: elects NIPT(NO GENDE R) Baby low risk & Carrier Negative , nl anatomy elects NIPT(NO GENDE R) Baby low risk & Carrier Negative , nl anatomy . GTT normal. Neg GBS/ elects NIPT (NO GENDER) Baby low risk & Carrier Negative , nl anatomy . GTT normal. Other screening for suspected conditions (not mental disorders or infectious disease) (12 sources) D-dimer above reference range; Translations: [Other specified abnormal findings of blood chemistry] Onset: 07-22-2024 06-15-2023 Episodic Other skin disorders (2 sources) Other skin changes; Translations: [Unspecified disorder of skin and subcutaneous tissue] 03-30-2023 Episodic Other upper respiratory disease (11 sources) Allergic rhinitis; Translations: [Allergic rhinitis, unspecified] 05-03-2023 Chronic Other upper respiratory disease (2 sources) Allergic rhinitis, unspecified; Translations: [Allergic rhinitis, cause unspecified] 05-03-2023 Chronic Ovarian cyst (18 sources) Cyst of ovary; Translations: [Unspecified ovarian cyst, unspecified side] 11-04-2021 Episodic Comment on above: pelvic us ordered Residual codes; unclassified (20 sources) Abnormal cytology findings; Translations: [Low grade squamous intraepithelial lesion (LGSIL)] 04-07-2022 Episodic Comment on above: repeat pap in 1 year . 03/2023 nml. Rpt pp Residual codes; unclassified (1 source) Immunization not carried out because of patient refusal; Translations: [Vaccination not carried out because of patient refusal] 09-19-2022 Episodic Residual codes; unclassified (1 source) 38 weeks gestation of ; Translations: [38 weeks gestation of ] Onset: 09-25-2024 Episodic Residual codes; unclassified (1 source) 37 weeks gestation of ; Translations: [37 weeks gestation of ] Onset: 09-16-2024 Episodic Residual codes; unclassified (1 source) 36 weeks gestation of ; Translations: [36 weeks gestation of ] Onset: 09-12-2024 Episodic Residual codes; unclassified (1 source) 35 weeks gestation of ; Translations: [35 weeks gestation of ] Onset: 09-05-2024 Episodic Residual codes; unclassified (1 source) 34 weeks gestation of ; Translations: [34 weeks gestation of ] Onset: 09-09-2024 Episodic Residual codes; unclassified (1 source) 32 weeks gestation of ; Translations: [32 weeks gestation of ] Onset: 08-09-2024 Episodic Residual codes; unclassified (1 source) 30 weeks gestation of ; Translations: [30 weeks gestation of ] Onset: 07-26-2024 Episodic Unclassified (11 sources) M41.9 - Scoliosis, unspecified Unclassified (2 sources) Low back pain, unspecified; Translations: [Low back pain, unspecified] Onset: 09-09-2024 Unclassified (1 source) Other specified diseases and conditions complicating ; Translations: [Other specified diseases and conditions complicating ] Onset: 09-09-2024 Past or Other Problems Problem Classification Problem Date Documented Date Episodic/Chronic Other connective tissue disease (4 sources) Personal history of other diseases of the musculoskeletal system and connective tissue; Translations: [Personal history of arthritis] Onset: 05-22-2024 09-19-2022 Episodic Other inflammatory condition of skin (3 sources) Lichen simplex chronicus; Translations: [Lichenification and lichen simplex chronicus] Onset: 05-22-2024 05-03-2023 Episodic Residual codes; unclassified (1 source) 20 weeks gestation of ; Translations: [20 weeks gestation of ] Onset: 05-22-2024 Episodic Residual codes; unclassified (1 source) 12 weeks gestation of ; Translations: [12 weeks gestation of ] Onset: 03-28-2024 Episodic Residual codes; unclassified (1 source) Less than 8 weeks gestation of ; Translations: [Less than 8 weeks gestation of ] Onset: 02-07-2024 Episodic Results Test Name Value Interpretation Reference Range Facility Laboratory - Chemistry and C hemistry - challengeOrdered By: Gwendolyn Puente on 09-25-2024 Glucose Ql (U) Negative [facility] Laboratory - UrinalysisOrder ed By: Gwendolyn Puente on 09-25-2024 Protein Ql (U) Negative [facility] Public Area Attendant Office Visit Reporton 09-25-2024 Public Area Attendant Office Visit Report [facility] [address], [address] [place] [address] OFFICE VISIT Date of Service: 09/25/24 MR#: [id number] Acct: [id number] Name: BHUMI PARKS Rep #: [id number] : 2000 Provider: Dr. 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 Is patient in pain?: No Allergies wheat Allergy (Mild, Verified 09/25/24 10:22) Other Medications ???Medication ???Instructions ???Recorded ???Confirmed ???Type multivitamin no.47-iron fum 27 1 cap PO DAILY 02/20/24 09/25/24 H istory mg-folate no.1 1 mg-dha 300 mg capsule (PNV-DHA) Last Menstrual Period: 12/23/23 Zika: Zika virus screening: Negative : No PFSH PFSH Medical History Wears glasses Anxiety Alcohol use Back pain Heartburn Vapes nicotine containing substance Leg cramps History of edema Scoliosis Arthritis (08/27/00) Elevated d-dimer Painful swallowing Allergic rhinitis Acute bronchitis, unspecified Right knee pain Bakers cyst Rheumatoid arthritis Dietary restriction Non-smoker Scoliosis History of ovarian cyst JRA (juvenile rheumatoid arthritis) Surgical History H/O endoscopy Family History Grandmother No problems noted. Mother Arthritis Grandfather Diabetes Arthritis Father Hypertension Social History adopted: No household members: spouse number of children: 0 current occupational status: employed current occupation: [employer] current occupational exposures/hazards: No pets and animals: Yes (2 dogs) pets and animals: dog(s) leisure activities: exercise and reading history of recent travel: No sexually active: Yes Smoking Status: Former smoker Electronic Cigarette Use: not used second hand exposure: No alcohol intake: former details: Not while substance use type: does not use diet: gluten free well-balanced diet: about half the time caffeine: Yes (1 cup per day) Type: carbonated beverages and coffee Number of servings: 1 eating out: 1-3 times/week during the past year weight has: remained stable what type of physical activity do you participate in: walking frequency: 1-2 times per week duration: 15-30 minutes/day huan/mosque: None seatbelt use: always do you feel safe at home: Yes additional social history: 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 OB Visit BRANT Calculator Estimated Delivery Date Method Current WG Current Estimate 10/04/24 Ultrasound #1 38w 5d Other Estimates 09/28/24 LMP (Certain) 39w 4d Expected Delivery Route/Plan Labor Preferences- CB/BF classes: yes labor support person: Al labor intervention preferences: [] pain management options preferred: limited if possible cut cord/dad catch: maybe : yes PP control planned: yes discussed possible routes of delivery and associated risks: [] special requests: [] Specific Issue/Plans Covid status: [] Flu vaccine: [] Tdap vaccine: Rhogam: na LARC form signed: yes movement and labor precautions reviewed. Problem list reviewed and updated with the most current plan of care details and appropriate orders placed. Relevant counseling for the gestational age provided. Continue routine care and follow up unless otherwise noted in visit notes/problem list details Initial Weight: Not Recorded Date -???-???-???-???-?? ?-???-???-???-???-? ??-???-???- EGA Weight BP Urine Prot -???-???-???-???-?? ?-???-???-???-???-? ??-???-???- Glucose FHR FuHt Pres Dilation -???-???-???-???-?? ?-???-???-???-???-? ??-???-???- Effaced St Visit Note 02/29/24 -???-???-???-???-?? ?-???-???-???-???-? ??-???-???- 8w 6d 122 lb 103/69 -???-???-???-???-?? ?-???-???-???-???-? ??-???-???- 171 -???-???-???-???-?? ?-???-???-???-???-? ??-???-???- KW-CRL not c ons with dates. brant changed accepts NIPT 03/28/24 -???-???-???-???-?? ?-???-???-???-???-? ??-???-???- 12w 6d 125 lb 4 oz 116/76 Negative -???-???-???-???-?? ?-???-???-???-???-? ??-???-???- Negative 168 -???-???-???-???-?? ?-???-???-???-?? (more content not included)... Normal [facility] Laboratory - Chemistry and C hemistry - challengeOrdered By: Alda De La Garza on 09-16-2024 Glucose Ql (U) Negative [facility] Laboratory - UrinalysisOrder ed By: Alda De La Garza on 09-16-2024 Protein Ql (U) Negative [facility] Public Area Attendant Office Visit Reporton 09-16-2024 Public Area Attendant Office Visit Report [facility] [address], [address] [place] [address] OFFICE VISIT Date of Service: 09/16/24 MR#: [id number] Acct: [id number] Name: BHUMI PARKS Rep #: [id number] : 2000 Provider: ZAC Ortiz ams Age/Sex: 24/F Location: [facility] [place] Status: Signed Intake Vital Signs 08/09/24 10:12 09/12/24 09:02 09/16/24 09:29 Height 5 ft 2 in 5 ft 2 in 5 ft 2 in Weight: 148 lb BMI 27.1 BP 117/80 Blood Pressure Location Lt brachial Position Sitting Pulse 79 Pulse Source Monitor Intake Visit Reasons: 38 wk ob Reflector Driller And Deburrer Required: No Accompanied by: Self Is patient in pain?: Yes (Pelvic) Pain scale (1-10): 2 Feel stressed/tense/nerv ous/anxious/difficu lty sleeping: not at all Allergies wheat Allergy (Mild, Verified 09/16/24 09:33) Other Medications ???Medication ???Instructions ???Recorded ???Confirmed ???Type multivitamin no.47-iron fum 27 1 cap PO DAILY 02/20/24 09/16/24 H istory mg-folate no.1 1 mg-dha 300 mg capsule (PNV-DHA) Last Menstrual Period: 12/23/23 Zika: Zika virus screening: Negative : No PFSH PFSH Medical History Wears glasses Anxiety Alcohol use Back pain Heartburn Vapes nicotine containing substance Leg cramps History of edema Scoliosis Arthritis (08/27/00) Elevated d-dimer Painful swallowing Allergic rhinitis Acute bronchitis, unspecified Right knee pain Bakers cyst Rheumatoid arthritis Dietary restriction Non-smoker Scoliosis History of ovarian cyst JRA (juvenile rheumatoid arthritis) Surgical History H/O endoscopy Family History Grandmother No problems noted. Mother Arthritis Grandfather Diabetes Arthritis Father Hypertension Social History adopted: No household members: spouse number of children: 0 current occupational status: employed current occupation: [employer] current occupational exposures/hazards: No pets and animals: Yes (2 dogs) pets and animals: dog(s) leisure activities: exercise and reading history of recent travel: No sexually active: Yes Smoking Status: Former smoker Electronic Cigarette Use: not used second hand exposure: No alcohol intake: former details: Not while substance use type: does not use diet: gluten free well-balanced diet: about half the time caffeine: Yes (1 cup per day) Type: carbonated beverages and coffee Number of servings: 1 eating out: 1-3 times/week during the past year weight has: remained stable what type of physical activity do you participate in: walking frequency: 1-2 times per week duration: 15-30 minutes/day huan/mosque: None seatbelt use: always do you feel safe at home: Yes 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 OB Visit BRANT Calculator Estimated Delivery Date Method Current WG Current Estimate 10/04/24 Ultrasound #1 37w 3d Other Estimates 09/28/24 LMP (Certain) 38w 2d Expected Delivery Route/Plan Labor Preferences- CB/BF classes: yes labor support person: Al labor intervention preferences: [] pain management options preferred: limited if possible cut cord/dad catch: maybe : yes PP control planned: yes discussed possible routes of delivery and associated risks: [] special requests: [] Specific Issue/Plans Covid status: [] Flu vaccine: [] Tdap vaccine: Rhogam: na LARC form signed: yes movement and labor precautions reviewed. Problem list reviewed and updated with the most current plan of care details and appropriate orders placed. Relevant counseling for the gestational age provided. Continue routine care and follow up unless otherwise noted in visit notes/problem list details Initial Weight: Not Recorded Date -???-???-???-???-?? ?-???-???-???-???-? ??-???-???- EGA Weight BP Urine Prot -???-???-???-???-?? ?-???-???-???-???-? ??-???-???- Glucose FHR FuHt Pres Dilation -???-???-???-???-?? ?-???-???-???-???-? ??-???-???- Effaced St Visit Note 02/29/24 -???-???-???-???-?? ?-???-???-???-???-? ??-???-???- 8w 6d 122 lb 103/69 -???-???-???-???-?? ?-???-???-???-???-? ??-???-???- 171 -???-???-???-???-?? ?-???-???-???-???-? ??-???-???- KW-CRL not c ons with dates. brant changed accepts NIPT 0 (more content not included)... Normal [facility] Laboratory - Chemistry and C hemistry - challengeOrdered By: Neelam Coon on 09-12-2024 Glucose Ql (U) Negative [facility] Laboratory - UrinalysisOrder ed By: Neelam Coon on 09-12-2024 Protein Ql (U) Negative [facility] Public Area Attendant Office Visit Reporton 09-12-2024 Public Area Attendant Office Visit Report [facility] [address], [address] [place] [address] OFFICE VISIT Date of Service: 09/12/24 MR#: [id number] Acct: [id number] Name: BHUMI PARKS Rep #: [id number] : 2000 Provider: Dr. Neelam claudio MD Age/Sex: 24/F Location: [facility] [place] Status: Signed Intake Vital Signs 03/28/24 11:33 09/05/24 09:01 09/12/24 09:01 09/12/24 09:02 Height 5 ft 2 in 5 ft 2 in 5 ft 2 in 5 ft 2 in Weight: 147 lb 6 oz BMI 26.9 BP 118/78 Intake Visit Reasons: 37 wk ob Reflector Driller And Deburrer Required: No Is patient in pain?: No Allergies wheat Allergy (Mild, Verified 09/12/24 09:01) Other Medications ???Medication ???Instructions ???Recorded ???Confirmed ???Type multivitamin no.47-iron fum 27 1 cap PO DAILY 02/20/24 09/12/24 H istory mg-folate no.1 1 mg-dha 300 mg capsule (PNV-DHA) Last Menstrual Period: 12/23/23 Zika: Zika virus screening: Negative : No PFSH PFSH Medical History Wears glasses Anxiety Alcohol use Back pain Heartburn Vapes nicotine containing substance Leg cramps History of edema Scoliosis Arthritis (08/27/00) Elevated d-dimer Painful swallowing Allergic rhinitis Acute bronchitis, unspecified Right knee pain Bakers cyst Rheumatoid arthritis Dietary restriction Non-smoker Scoliosis History of ovarian cyst JRA (juvenile rheumatoid arthritis) Surgical History H/O endoscopy Family History Grandmother No problems noted. Mother Arthritis Grandfather Diabetes Arthritis Father Hypertension Social History adopted: No household members: spouse number of children: 0 current occupational status: employed current occupation: [employer] current occupational exposures/hazards: No pets and animals: Yes (2 dogs) pets and animals: dog(s) leisure activities: exercise and reading history of recent travel: No sexually active: Yes Smoking Status: Former smoker Electronic Cigarette Use: not used second hand exposure: No alcohol intake: former details: Not while substance use type: does not use diet: gluten free well-balanced diet: about half the time caffeine: Yes (1 cup per day) Type: carbonated beverages and coffee Number of servings: 1 eating out: 1-3 times/week during the past year weight has: remained stable what type of physical activity do you participate in: walking frequency: 1-2 times per week duration: 15-30 minutes/day huan/mosque: None seatbelt use: always do you feel safe at home: Yes 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 OB Visit BRANT Calculator Estimated Delivery Date Method Current WG Current Estimate 10/04/24 Ultrasound #1 36w 6d Other Estimates 09/28/24 LMP (Certain) 37w 5d Expected Delivery Route/Plan Labor Preferences- CB/BF classes: yes labor support person: Al labor intervention preferences: [] pain management options preferred: limited if possible cut cord/dad catch: maybe : yes PP control planned: yes discussed possible routes of delivery and associated risks: [] special requests: [] Specific Issue/Plans Covid status: [] Flu vaccine: [] Tdap vaccine: Rhogam: na LARC form signed: yes movement and labor precautions reviewed. Problem list reviewed and updated with the most current plan of care details and appropriate orders placed. Relevant counseling for the gestational age provided. Continue routine care and follow up unless otherwise noted in visit notes/problem list details Initial Weight: Not Recorded Date -???-???-???-???-?? ?-???-???-???-???-? ??-???-???- EGA Weight BP Urine Prot -???-???-???-???-?? ?-???-???-???-???-? ??-???-???- Glucose FHR FuHt Pres Dilation -???-???-???-???-?? ?-???-???-???-???-? ??-???-???- Effaced St Visit Note 02/29/24 -???-???-???-???-?? ?-???-???-???-???-? ??-???-???- 8w 6d 122 lb 103/69 -???-???-???-???-?? ?-???-???-???-???-? ??-???-???- 171 -???-???-???-???-?? ?-???-???-???-???-? ??-???-???- [facility] not c ons with dates. brant changed accepts NIPT 03/28/24 -???-???-???-???-?? ?-???-???-???-???-? ??-???-???- 12w 6d 125 lb 4 oz 116/76 Negative -???-???-???-???-?? ?-???-???-???-???-? ??-???-???- Negative 168 -???-???-???-???-?? (more content not included)... Normal [facility] Rule out Beta Strep (Grp. B) on 09-09-2024 NORMA Group B Beta Streptococcus is not isolated. Normal [facility] Comment on above: Performed By: #### M 100.3400 ####[facility] [id number] [place], [address] Laboratory - Chemistry and C hemistry - challengeOrdered By: Gwendolyn Puente on 09-05-2024 Glucose Ql (U) Negative [facility] Laboratory - UrinalysisOrder ed By: Gwendolyn Puente on 09-05-2024 Protein Ql (U) Negative [facility] Public Area Attendant Office Visit Reporton 09-05-2024 Public Area Attendant Office Visit Report [facility] [address], [address] [place] [address] OFFICE VISIT Date of Service: 09/05/24 MR#: [id number] Acct: [id number] Name: BHUMI PARKS Rep #: [id number] : 2000 Provider: Dr. Gwendolyn Valdes DO Age/Sex: 24/F Location: [facility] [place] Status: Signed Intake Vital Signs 03/28/24 11:33 08/29/24 19:12 09/05/24 09:00 09/05/24 09:01 Height 5 ft 2 in 5 ft 2 in 5 ft 2 in 5 ft 2 in Weight: 145 lb 6 oz BMI 26.6 BP 108/75 Intake Visit Reasons: 36 wk ob Reflector Driller And Deburrer Required: No Is patient in pain?: No Allergies wheat Allergy (Mild, Verified 09/05/24 09:00) Other Medications ???Medication ???Instructions ???Recorded ???Confirmed ???Type multivitamin no.47-iron fum 27 1 cap PO DAILY 02/20/24 09/05/24 H istory mg-folate no.1 1 mg-dha 300 mg capsule (PNV-DHA) Last Menstrual Period: 12/23/23 Zika: Zika virus screening: Negative : No PFSH PFSH Medical History Wears glasses Anxiety Alcohol use Back pain Heartburn Vapes nicotine containing substance Leg cramps History of edema Scoliosis Arthritis (08/27/00) Elevated d-dimer Painful swallowing Allergic rhinitis Acute bronchitis, unspecified Right knee pain Bakers cyst Rheumatoid arthritis Dietary restriction Non-smoker Scoliosis History of ovarian cyst JRA (juvenile rheumatoid arthritis) Surgical History H/O endoscopy Family History Grandmother No problems noted. Mother Arthritis Grandfather Diabetes Arthritis Father Hypertension Social History adopted: No household members: spouse number of children: 0 current occupational status: employed current occupation: [employer] current occupational exposures/hazards: No pets and animals: Yes (2 dogs) pets and animals: dog(s) leisure activities: exercise and reading history of recent travel: No sexually active: Yes Smoking Status: Former smoker Electronic Cigarette Use: not used second hand exposure: No alcohol intake: former details: Not while substance use type: does not use diet: gluten free well-balanced diet: about half the time caffeine: Yes (1 cup per day) Type: carbonated beverages and coffee Number of servings: 1 eating out: 1-3 times/week during the past year weight has: remained stable what type of physical activity do you participate in: walking frequency: 1-2 times per week duration: 15-30 minutes/day huan/mosque: None seatbelt use: always do you feel safe at home: Yes 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 OB Visit BRANT Calculator Estimated Delivery Date Method Current WG Current Estimate 10/04/24 Ultrasound #1 35w 6d Other Estimates 09/28/24 LMP (Certain) 36w 5d Expected Delivery Route/Plan Labor Preferences- CB/BF classes: yes labor support person: Al labor intervention preferences: [] pain management options preferred: limited if possible cut cord/dad catch: maybe : yes PP control planned: yes discussed possible routes of delivery and associated risks: [] special requests: [] Specific Issue/Plans Covid status: [] Flu vaccine: [] Tdap vaccine: Rhogam: na LARC form signed: yes movement and labor precautions reviewed. Problem list reviewed and updated with the most current plan of care details and appropriate orders placed. Relevant counseling for the gestational age provided. Continue routine care and follow up unless otherwise noted in visit notes/problem list details Initial Weight: Not Recorded Date -???-???-???-???-?? ?-???-???-???-???-? ??-???-???- EGA Weight BP Urine Prot -???-???-???-???-?? ?-???-???-???-???-? ??-???-???- Glucose FHR FuHt Pres Dilation -???-???-???-???-?? ?-???-???-???-???-? ??-???-???- Effaced St Visit Note 02/29/24 -???-???-???-???-?? ?-???-???-???-???-? ??-???-???- 8w 6d 122 lb 103/69 -???-???-???-???-?? ?-???-???-???-???-? ??-???-???- 171 -???-???-???-???-?? ?-???-???-???-???-? ??-???-???- KW-CRL not c ons with dates. brant changed accepts NIPT 03/28/24 -???-???-???-???-?? ?-???-???-???-???-? ??-???-???- 12w 6d 125 lb 4 oz 116/76 Negative -???-???-???-???-?? ?-???-???-???-???-? ??-???-???- Negative 168 -???-???-???-???- (more content not included)... Normal [facility] Screening beta-hemolytic Str eptococcus cultureOrdered By: Gwendolyn Puente on 09-05-2024 Beta-hemolytic Streptococcus culture Group B Beta Streptococcus is not isolated. [facility] Urine Cultureon 09-01-2024 URC Below infection level. Mixed Gram Positive Organisms [place] Count 1000-10,000 MIXC Mixed contaminants. Submit a new specimen if indicated. Normal [facility] Comment on above: Performed By: #### M 100.2200 ####[facility] [id number] [place], [place], [id number] Bilirubin Test strip Ql (U)O rdered By: Alda De La Garza on 08-29-2024 Bilirubin Ql (U) Negative Negative [facility] Ketones Test strip Ql (U)Ord ered By: Alda De La Garza on 08-29-2024 Ketones Ql (U) 150 mg/dl Abnormal Negative [facility] Comment on above: CRITICAL VALUE *HCRI TICAL VALUE CALLED TO FÉLIX BENÍTEZ08/29/242051 Oxana Trejo.RESULTS READ BACK BY SAME. Microscopic analysis of urin e for red blood cells (RBC)Ordered By: Alda De La Garza on 08-29-2024 Microscopic analysis of urine for red blood cells (RBC) 0 SEEN /hpf 0-5 [facility] Mucus LM Ql (Urine sed)Order ed By: Alda De La Garza on 08-29-2024 Mucus Ql (Urine sed) 0 SEEN /hpf [facility] Nitrite Test strip Ql (U)Ord ered By: Alda De La Garza on 08-29-2024 Nitrite Ql (U) Negative Negative [facility] OB Triage Progress Noteon OB Triage Progress Note [facility] Medical Records Department [address] [place] [address] OB Triage Progress Note 08/29/242200 MR#: [id number] Acct: [id number] Name: BHUMI PARKS Rep #: [id number] : 2000 From: Alda De La Garza CNM PCP: MUMTAZ Jimenez Status:REG CLI Y DOS: Location: [place] [address]-1 Progress Notes Date of Service: 08/29/24 Progress Note: Patient presents for triage evaluation secondary to back pain and low abdominal cramping at 34.6 weeks FHT: 150 Moderate variability reactive no decelerations category I tracing Raemon: irregular mild Contractions Assessment and plan: UA/urine culture-ATB sent, No cervical dilation, Reactive NST, reassuring maternal and status patient discharged to home to follow-up at next appt. See problem list details for additional plan information. Laboratory Studies: Laboratory Tests 08/29/24 Range/Units 19:30 Urine Color Yellow (Yellow) Urine Clarity Clear (Clear) Urine pH 7.0 (5.0 - 8.0) Ur Specific Peck 1.010 (1.002-1.030) Urine Protein 15 H (Negative) mg/dl Urine Glucose (UA) 50 H (Normal) mg/dl Urine Ketones 150 A* (Negative) mg/dl Urine Occult Blood 10 H (Negative) /ul Urine Nitrite Negative (Negative) Urine Bilirubin Negative (Negative) mg/dL Urine Urobilinogen Normal (Normal) mg/dl Ur Leukocyte Esterase Negative (Negative) /ul Urine RBC 0 SEEN (0-5) /hpf Urine WBC 0 SEEN (0-5) /hpf Ur Squamous Epith Cells 0-5 SEEN (5-10) /hpf Urine Bacteria 2+ (None Seen) /hpf Urine Mucus 0 SEEN ( Charges/Coding Multi Select Codes Urinary/Genital Urinary/Genital CPT Codes: 87464-38 non-stress test Interp Assessment Plan (1) Supervision of high-risk : QUALIFIERS: Trimester: second trimester Qualified Code(s): O09.92 - Supervision of high risk , unspecified, second trimester COMMENT: PRR, , BRANT 09/28/24, surprise Al (2) : QUALIFIERS: Weeks of gestation: 34 weeks Qualified Code(s): Z3A.34 - 34 weeks gestation of COMMENT: elects NIPT(NO GENDER) Baby low risk Carrier Negative , nl anatomy . GTT normal. (3) Anxiety: COMMENT: Increased/work related. Declines Rx. Counseling handout and will schedule. Improved. No meds (4) LGSIL (low grade squamous intraepithelial dysplasia): COMMENT: repeat pap in 1 year. 03/2023 nml. Rpt pp (5) Scoliosis: QUALIFIERS: Scoliosis type: unspecified scoliosis Spinal region: unspecified Qualified Code(s): M41.9 - Scoliosis, unspecified COMMENT: 26 degree curve 2017. offered anesthesia consult- set up after 32 wk, scheduled for 08/21 @ 2 (6) Low back pain during : COMMENT: suspect UTI-ATB sent 08/29/242202 Date Alda De La Garza CNM Cosigner Signature (if applicable): Date __ CC: ZAC De La Garza; ENVIRONMENTAL PROTECTION ECONOMIST-C Lisa Zaragoza Signed Normal [facility] Protein Test strip Ql (U)Ord ered By: Alda De La Garza on 08-29-2024 Protein Ql (U) 15 mg/dl High Negative [facility] Squamous epithelial cells de tection in urine sediment by light microscopyOrdered By: Alda De La Garza on 08-29-2024 Epithelial cells.squamous LM Ql (Urine sed) 0-5 SEEN /hpf - [facility] Urinalysis, Completeon 08-29 BACTERIA 2+ /hpf Normal None Seen [facility] Comment on above: Order Comment: CLEAN CATCH Performed By: #### L 400.0001 ####[facility] [id number] [place], [place], [id number] EPI,SQUAMOUS 0-5 SEEN Normal - [facility] Comment on above: Order Comment: CLEAN CATCH Performed By: #### L 400.0001 ####[facility] [id number] [place], [place], [id number] Mucus Ql (Urine sed) 0 SEEN Normal [facility] Comment on above: Order Comment: CLEAN CATCH Performed By: #### L 400.0001 ####[facility] [id number] [place], [address] RBC 0 SEEN Normal 0-5 [facility] Comment on above: Order Comment: CLEAN CATCH Performed By: #### L 400.0001 ####[facility] [id number] [place], [address] WBC 0 SEEN Normal 0-5 [facility] Comment on above: Order Comment: CLEAN CATCH Performed By: #### L 400.0001 ####[facility] [id number] [place], [place], [id number] Urine clarityOrdered By: Fransisco De La Garza on 08-29-2024 Clarity (U) Clear Clear [facility] Urine color determinationOrd ered By: Alda De La Garza on 08-29-2024 Color (U) Yellow Yellow [facility] Urine cultureOrdered By: Fransisco De La Garza on 08-29-2024 Bacteria identified Cx Nom (U) Positive Abnormal [facility] Urine glucose detectionOrder ed By: Alda De La Garza on 08-29-2024 Glucose Ql (U) 50 mg/dl High Normal [facility] Urine leukocyte esterase det ection by dipstickOrdered By: Alda De La Garza on 08-29-2024 Leukocyte esterase Test strip Ql (U) Negative Negative [facility] Urine pHOrdered By: Alda jacobs on 08-29-2024 pH (U) 7.0 [pH] 5.0 - 8.0 [facility] Urine sediment bacteria coun t by microscopy (number/high power field)Ordered By: Alda De La Garza on 08-29-2024 Bacteria LM.HPF (Urine sed) [#/Area] 2 /[HPF] None Seen [facility] Urine specific gravity measu rementOrdered By: Alda De La Garza on 08-29-2024 Specific gravity (U) [Rel density] 1.010 1.002-1.030 [facility] Urine urobilinogen measureme ntOrdered By: Alda De La Garza on 08-29-2024 Urobilinogen Ql (U) Normal mg/dl Normal [facility] White blood cell countOrdere d By: Alda De La Garza on 08-29-2024 White blood cell count 0 SEEN /hpf 0-5 [facility] Laboratory - Chemistry and C hemistry - challengeOrdered By: Mahnaz Zacarias on 08-23-2024 Glucose Ql (U) Negative [facility] Laboratory - UrinalysisOrder ed By: Mahnaz Zacarias on 08-23-2024 Protein Ql (U) Negative [facility] [facility] [place] Public [facility] Attendant Office Visit Reporton 08-23-2024 Public Area Attendant Office Visit Report [facility] [address], [address] [place] [address] OFFICE VISIT Date of Service: 08/23/24 MR#: [id number] Acct: [id number] Name: BHUMI PARKS Rep #: [id number] : 2000 Provider: ZAC pleitez Age/Sex: 23/F Location: [facility] [place] Status: Signed Intake Vital Signs 03/28/24 11:33 08/09/24 10:12 08/23/24 14:33 08/23/24 14:35 Height 5 ft 2 in 5 ft 2 in 5 ft 2 in 5 ft 2 in Weight: 145 lb 8 oz BMI 26.6 BP 111/70 Intake Visit Reasons: 34 wk ob Reflector Driller And Deburrer Required: No Is patient in pain?: No Allergies wheat Allergy (Mild, Verified 08/21/24 13:45) Other Medications ???Medication ???Instructions ???Recorded ???Confirmed ???Type multivitamin no.47-iron fum 27 1 cap PO DAILY 02/20/24 08/23/24 H istory mg-folate no.1 1 mg-dha 300 mg capsule (PNV-DHA) Last Menstrual Period: 12/23/23 Zika: Zika virus screening: Negative : No PFSH PFSH Medical History Wears glasses Anxiety Alcohol use Back pain Heartburn Vapes nicotine containing substance Leg cramps History of edema Scoliosis Arthritis (08/27/00) Elevated d-dimer Painful swallowing Allergic rhinitis Acute bronchitis, unspecified Right knee pain Bakers cyst Rheumatoid arthritis Dietary restriction Non-smoker Scoliosis History of ovarian cyst JRA (juvenile rheumatoid arthritis) Surgical History H/O endoscopy Family History Grandmother No problems noted. Mother Arthritis Grandfather Diabetes Arthritis Father Hypertension Social History adopted: No household members: spouse number of children: 0 current occupational status: employed current occupation: [employer] current occupational exposures/hazards: No pets and animals: Yes (2 dogs) pets and animals: dog(s) leisure activities: exercise and reading history of recent travel: No sexually active: Yes Smoking Status: Former smoker Electronic Cigarette Use: not used second hand exposure: No alcohol intake: former details: Not while substance use type: does not use diet: gluten free well-balanced diet: about half the time caffeine: Yes (1 cup per day) Type: carbonated beverages and coffee Number of servings: 1 eating out: 1-3 times/week during the past year weight has: remained stable what type of physical activity do you participate in: walking frequency: 1-2 times per week duration: 15-30 minutes/day huan/mosque: None seatbelt use: always do you feel safe at home: Yes 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 OB Visit BRANT Calculator Estimated Delivery Date Method Current WG Current Estimate 10/04/24 Ultrasound #1 34w 0d Other Estimates 09/28/24 LMP (Certain) 34w 6d Expected Delivery Route/Plan Labor Preferences- CB/BF classes: yes labor support person: Al labor intervention preferences: [] pain management options preferred: limited if possible cut cord/dad catch: maybe : yes PP control planned: yes discussed possible routes of delivery and associated risks: [] special requests: [] Specific Issue/Plans Covid status: [] Flu vaccine: [] Tdap vaccine: Rhogam: na LARC form signed: yes movement and labor precautions reviewed. Problem list reviewed and updated with the most current plan of care details and appropriate orders placed. Relevant counseling for the gestational age provided. Continue routine care and follow up unless otherwise noted in visit notes/problem list details Initial Weight: Not Recorded Date -???-???-???-???-?? ?-???-???-???-???-? ??-???-???- EGA Weight BP Urine Prot -???-???-???-???-?? ?-???-???-???-???-? ??-???-???- Glucose FHR FuHt Pres Dilation -???-???-???-???-?? ?-???-???-???-???-? ??-???-???- Effaced St Visit Note 02/29/24 -???-???-???-???-?? ?-???-???-???-???-? ??-???-???- 8w 6d 122 lb 103/69 -???-???-???-???-?? ?-???-???-???-???-? ??-???-???- 171 -???-???-???-???-?? ?-???-???-???-???-? ??-???-???- KW-CRL not c ons with dates. brant changed accepts NIPT 03/28/24 -???-???-???-???-?? ?-???-???-???-???-? ??-???-???- 12w 6d 125 lb 4 oz 116/76 Negative -???-???-???-???-?? ?-???-???-???-???-? ??-???-???- Negative 168 -???-???-???-???-?? ?-???-? (more content not included)... Normal [facility] Laboratory - Chemistry and C hemistry - challengeOrdered By: Alda De La Garza on 08-09-2024 Glucose Ql (U) Negative [facility] - UrinalysisOrder ed By: Alda De La Garza on 08-09-2024 Protein Ql (U) Negative [facility] Public Area Attendant Office Visit Reporton 08-09-2024 Public Area Attendant Office Visit Report [facility] [address], [address] [place] [address] OFFICE VISIT Date of Service: 08/09/24 MR#: [id number] Acct: [id number] Name: BHUMI JAKCSON Rep #: [id number] : 2000 Provider: ZAC Ortiz ams Age/Sex: 23/F Location: [facility] [place] Status: Signed Intake Vital Signs 03/28/24 11:33 07/26/24 08:14 08/09/24 10:12 Height 5 ft 2 in 5 ft 2 in 5 ft 2 in Weight: 143 lb 2 oz BMI 26.2 BP 123/74 H Intake Visit Reasons: 32 wk ob Chief Complaint: 32wk OB Reflector Driller And Deburrer Required: No Is patient in pain?: No Allergies wheat Allergy (Mild, Verified 08/09/24 10:10) Other Medications ???Medication ???Instructions ???Recorded ???Confirmed ???Type multivitamin no.47-iron fum 27 cap PO 02/20/24 08/09/24 History mg-folate no.1 1 mg-dha 300 mg capsule (PNV-DHA) Last Menstrual Period: 12/23/23 : No Have you fallen in the past year?: No PFSH PFSH Medical History (Updated 08/09/24 @ 10:31 by Alda De La Garza CNM) Scoliosis Arthritis (08/27/00) Bakers cyst Elevated d-dimer Painful swallowing Lichenified rash Allergic rhinitis Acute bronchitis, unspecified Right knee pain Rheumatoid arthritis Easy bruising Dietary restriction History of IBS Non-smoker Scoliosis History of ovarian cyst JRA (juvenile rheumatoid arthritis) Surgical History H/O endoscopy No pertinent past surgical history Family History Grandmother No problems noted. Mother Arthritis Grandfather Diabetes Arthritis Father Hypertension Social History adopted: No household members: spouse number of children: 0 current occupational status: employed current occupation: [employer] current occupational exposures/hazards: No pets and animals: Yes (2 dogs) pets and animals: dog(s) leisure activities: exercise and reading history of recent travel: No sexually active: Yes Smoking Status: Never smoker Electronic Cigarette Use: not used second hand exposure: No alcohol intake: former details: Not while substance use type: does not use diet: gluten free well-balanced diet: about half the time caffeine: Yes (1 cup per day) Type: carbonated beverages and coffee Number of servings: 1 eating out: 1-3 times/week during the past year weight has: remained stable what type of physical activity do you participate in: walking frequency: 1-2 times per week duration: 15-30 minutes/day huan/mosque: None seatbelt use: always do you feel safe at home: Yes 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 OB Visit BRANT Calculator Estimated Delivery Date Method Current WG Current Estimate 10/04/24 Ultrasound #1 32w 0d Other Estimates 09/28/24 LMP (Certain) 32w 6d Expected Delivery Route/Plan Labor Preferences- CB/BF classes: yes labor support person: Al labor intervention preferences: [] pain management options preferred: limited if possible cut cord/dad catch: maybe : yes PP control planned: yes discussed possible routes of delivery and associated risks: [] special requests: [] Specific Issue/Plans Covid status: [] Flu vaccine: [] Tdap vaccine: Rhogam: na LARC form signed: yes movement and labor precautions reviewed. Problem list reviewed and updated with the most current plan of care details and appropriate orders placed. Relevant counseling for the gestational age provided. Continue routine care and follow up unless otherwise noted in visit notes/problem list details Initial Weight: Not Recorded Date -???-???-???-???-?? ?-???-???-???-???-? ??-???-???- EGA Weight BP Urine Prot -???-???-???-???-?? ?-???-???-???-???-? ??-???-???- Glucose FHR FuHt Pres Dilation -???-???-???-???-?? ?-???-???-???-???-? ??-???-???- Effaced St Visit Note 02/29/24 -???-???-???-???-?? ?-???-???-???-???-? ??-???-???- 8w 6d 122 lb 103/69 -???-???-???-???-?? ?-???-???-???-???-? ??-???-???- 171 -???-???-???-???-?? ?-???-???-???-???-? ??-???-???- [facility] not c ons with dates. brant changed accepts NIPT 03/28/24 -???-???-???-???-?? ?-???-???-???-???-? ??-???-???- 12w 6d 125 lb 4 oz 116/76 Negative -???-???-???-???-?? ?-???-???-???-???-? ??-???-???- Negative 168 -???-???-???-???-?? ?-???-???-???-???-? ??-???-???- JV- normal N IPT. no complaints today. g (more content not included)... Normal [facility] - Chemistry and C hemistry - challengeOrdered By: Neelam Coon on 07-26-2024 Glucose Ql (U) Negative [facility] - UrinalysisOrder ed By: Neelam Coon on 07-26-2024 Protein Ql (U) Negative [facility] Public Area Attendant Office Visit Reporton 07-26-2024 Public Area Attendant Office Visit Report [facility] [address], [address] [place] [address] OFFICE VISIT Date of Service: 07/26/24 MR#: [id number] Acct: [id number] Name: BHUMI JACKSON Rep #: [id number] : 2000 Provider: Dr. Neelam claudio MD Age/Sex: 23/F Location: [facility] [place] Status: Signed Intake Vital Signs 03/28/24 11:33 07/10/24 13:20 07/26/24 08:11 07/26/24 08:14 Height 5 ft 2 in 5 ft 2 in 5 ft 2 in 5 ft 2 in Weight: 139 lb BMI 25.4 BP 107/71 Intake Visit Reasons: 30 wk ob Reflector Driller And Deburrer Required: No Is patient in pain?: No Allergies wheat Allergy (Mild, Verified 07/26/24 08:12) Other Medications ???Medication ???Instructions ???Recorded ???Confirmed ???Type multivitamin no.47-iron fum 27 cap PO 02/20/24 07/26/24 History mg-folate no.1 1 mg-dha 300 mg capsule (PNV-DHA) Last Menstrual Period: 12/23/23 Zika: Zika virus screening: Negative : No PFSH PFSH Medical History Scoliosis Arthritis (08/27/00) Bakers cyst Elevated d-dimer Painful swallowing Lichenified rash Allergic rhinitis Acute bronchitis, unspecified Right knee pain Rheumatoid arthritis Easy bruising Dietary restriction History of IBS Non-smoker Scoliosis History of ovarian cyst JRA (juvenile rheumatoid arthritis) Surgical History H/O endoscopy No pertinent past surgical history Family History Grandmother No problems noted. Mother Arthritis Grandfather Diabetes Arthritis Father Hypertension Social History adopted: No household members: spouse number of children: 0 current occupational status: employed current occupation: [employer] current occupational exposures/hazards: No pets and animals: Yes (2 dogs) pets and animals: dog(s) leisure activities: exercise and reading history of recent travel: No sexually active: Yes Smoking Status: Never smoker Electronic Cigarette Use: not used second hand exposure: No alcohol intake: former details: Not while substance use type: does not use diet: gluten free well-balanced diet: about half the time caffeine: Yes (1 cup per day) Type: carbonated beverages and coffee Number of servings: 1 eating out: 1-3 times/week during the past year weight has: remained stable what type of physical activity do you participate in: walking frequency: 1-2 times per week duration: 15-30 minutes/day huan/mosque: None seatbelt use: always do you feel safe at home: Yes 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 OB Visit BRANT Calculator Estimated Delivery Date Method Current WG Current Estimate 10/04/24 Ultrasound #1 30w 0d Other Estimates 09/28/24 LMP (Certain) 30w 6d Expected Delivery Route/Plan Labor Preferences- CB/BF classes: yes labor support person: Al labor intervention preferences: [] pain management options preferred: limited if possible cut cord/dad catch: maybe : yes PP control planned: yes discussed possible routes of delivery and associated risks: [] special requests: [] Specific Issue/Plans Covid status: [] Flu vaccine: [] Tdap vaccine: Rhogam: na LARC form signed: yes movement and labor precautions reviewed. Problem list reviewed and updated with the most current plan of care details and appropriate orders placed. Relevant counseling for the gestational age provided. Continue routine care and follow up unless otherwise noted in visit notes/problem list details Initial Weight: Not Recorded Date -???-???-???-???-?? ?-???-???-???-???-? ??-???-???- EGA Weight BP Urine Prot -???-???-???-???-?? ?-???-???-???-???-? ??-???-???- Glucose FHR FuHt Pres Dilation -???-???-???-???-?? ?-???-???-???-???-? ??-???-???- Effaced St Visit Note 02/29/24 -???-???-???-???-?? ?-???-???-???-???-? ??-???-???- 8w 6d 122 lb 103/69 -???-???-???-???-?? ?-???-???-???-???-? ??-???-???- 171 -???-???-???-???-?? ?-???-???-???-???-? ??-???-???- KW-CRL not c ons with dates. brant changed accepts NIPT 03/28/24 -???-???-???-???-?? ?-???-???-???-???-? ??-???-???- 12w 6d 125 lb 4 oz 116/76 Negative -???-???-???-???-?? ?-???-???-???-???-? ??-???-???- Negative 168 -???-???-???-???-?? ?-???-???-???-???-? ??-???-???- JV- normal N IPT. no complaints tod (more content not included)... Normal [facility] Gestational GTT 3HR 100gon 0 07-16-2024 3HR GTT- GEST. Normal [facility] Comment on above: Order Comment: Y Result Comment: FAST ING 76 Col: 07/16/24 0649 GLUCOSE TOLERANCE TEST FOR Reference Interval GESTATIONAL DIABETES Fasting <105 mg/dL 1 hour <190 mg/dl 2 hour <165 mg/dl 3 hour <145 mg/dl 1 HR GLU 144 Col: 07/16/24 0822 2 HR GLU 93 Col: 07/16/24 0928 3 HR GLU 52 Col: 07/16/24 1023 Performed By: #### L 500.4710 ####[facility] [address] [place], [address] Quantitative serum or plasma 3 hour gestational glucose tolerance panelOrdered By: Rosy Steven on 07-16-2024 Glucose tolerance 3 hours gestational panel See comment [facility] Comment on above: FASTING 76 Col: 06/19 12/12 0649GLUCOSE TOLERANCE TEST FOR Reference Interval GESTATIONAL DIABETES Fasting <105 mg/dL 1 hour <190 mg/dl 2 hour <165 mg/dl 3 hour <145 mg/dl 1 HR GLU 144 Col: 07/16/24 0822 2 HR GLU 93 Col: 07/16/24 0928 3 HR GLU 52 Col: 07/16/24 1023 Absolute lymphocyte countOrd ered By: Rosy Steven on 07-10-2024 Lymphocytes Auto (Unsp spec) [#/Vol] 1.16 10*3/uL 0.83-4.51 [facility] Absolute neutrophil countOrd ered By: Rosy Steven on 07-10-2024 Neutrophils (Bld) [#/Vol] 7.3 10*3/uL 2.0-7.7 [facility] Automated lymphocyte count a s percentage of total leukocytesOrdered By: Rosy Steven on 07-10-2024 Lymphocytes/100 WBC Auto (Unsp spec) 13.1 % Low 19-41 [facility] Basophil percentageOrdered B y: Rosy Steven on 07-10-2024 Basophils/100 WBC (Bld) 0.2 % 0-1 [facility] CBC W/Diff, Automatedon 06-19 Absolute Lymph 1.16 X10 3/uL Normal 0.83-4.51 [facility] Comment on above: Performed By: #### L 100.0100, L509.8002, L3890.6006, L501.0250 ####[facility] [address] [place], [address] Absolute Neut 7.3 X10 3/uL Normal 2.0-7.7 [facility] Comment on above: Performed By: #### L 100.0100, L509.8002, L3890.6006, L501.0250 ####[facility] [address] [place], [address] Basophils/100 WBC (Bld) 0.2 % Normal 0-1 [facility] Comment on above: Performed By: #### L 100.0100, L509.8002, L3890.6006, L501.0250 ####[facility] [address] [place], [address] Eosinophils/100 WBC (Bld) 0.5 % Normal 0-5 [facility] Comment on above: Performed By: #### L 100.0100, L509.8002, L3890.6006, L501.0250 ####[facility] [address] [place], [address] Erythrocyte distribution width (RBC) [Ratio] 13.7 % Normal 11.6-14.6 [facility] Comment on above: Performed By: #### L 100.0100, L509.8002, L3890.6006, L501.0250 ####[facility] [address] [place], [address] Hematocrit (Bld) [Volume fraction] 36.2 % Low 37-47 [facility] Comment on above: Performed By: #### L 100.0100, L509.8002, L3890.6006, L501.0250 ####[facility] [address] [place], [address] Hemoglobin (Bld) [Mass/Vol] 11.9 g/dL Low 12.0-15.0 [facility] Comment on above: Performed By: #### L 100.0100, L509.8002, L3890.6006, L501.0250 ####[facility] [address] [place], [address] IG% 1.000 High 0.0-0.9 [facility] Comment on above: Result Comment: IG% - Immature Granulocytes (promyelocytes, myelocytes and metamyelocytes) > 1% indicates that a LEFT SHIFT is Present. Performed By: #### L 100.0100, L509.8002, L3890.6006, L501.0250 ####[facility] [address] [place], [address] Lymphocytes/100 WBC (Bld) 13.1 % Low 19-41 [facility] Comment on above: Performed By: #### L 100.0100, L509.8002, L3890.6006, L501.0250 ####[facility] [address] [place], [address] MCH (RBC) [Entitic mass] 31.9 pg Normal 27.0-32.0 [facility] Comment on above: Performed By: #### L 100.0100, L509.8002, L3890.6006, L501.0250 ####[facility] [address] [place], [address] MCHC (RBC) [Mass/Vol] 32.9 g/dL Normal 32-36 [facility] Comment on above: Performed By: #### L 100.0100, L509.8002, L3890.6006, L501.0250 ####[facility] [address] [place], [address] MCV (RBC) [Entitic vol] 97.1 fL Normal 81-99 [facility] Comment on above: Performed By: #### L 100.0100, L509.8002, L3890.6006, L501.0250 ####[facility] [address] [place], [address] Monocytes/100 WBC (Bld) 3.4 % Normal 0-[address] [facility] Comment on above: Performed By: #### L 100.0100, L509.8002, L3890.6006, L501.0250 ####[facility] [address] [place], [address] Neutrophils/100 WBC (Bld) 81.8 % High 47-70 [facility] Comment on above: Performed By: #### L 100.0100, L509.8002, L3890.6006, L501.0250 ####[facility] [address] [place], [address] Nucleated RBC (Bld) [#/Vol] 0 10*3/uL Normal 0-5 [facility] Comment on above: Performed By: #### L 100.0100, L509.8002, L3890.6006, L501.0250 ####[facility] [address] [place], [address] Platelet mean volume (Bld) [Entitic vol] 10.7 fL Normal 6.2-12.0 [facility] Comment on above: Performed By: #### L 100.0100, L509.8002, L3890.6006, L501.0250 ####[facility] [address] [place], [address] Platelets (Bld) [#/Vol] 185 10*3/uL Normal 150-450 [facility] Comment on above: Performed By: #### L 100.0100, L509.8002, L3890.6006, L501.0250 ####[facility] [address] [place], [address] RBC (Bld) [#/Vol] 3.73 10*6/uL Low 4.2-5.4 [facility] Comment on above: Performed By: #### L 100.0100, L509.8002, L3890.6006, L501.0250 ####[facility] [address] [place], [address] RDW SD 48.5 fl High 35.1-43.9 [facility] Comment on above: Performed By: #### L 100.0100, L509.8002, L3890.6006, L501.0250 ####[facility] [address] [place], [address] WBC (Bld) [#/Vol] 8.9 10*3/uL Normal 4.4-11.0 [facility] Comment on above: Performed By: #### L 100.0100, L509.8002, L3890.6006, L501.0250 ####[facility] [address] [place], [address] Eosinophil percentageOrdered By: Rosy Steven on 07-10-2024 Eosinophils/100 WBC (Bld) 0.5 % 0-5 [facility] Erythrocyte distribution wid th (RBC) [Ratio]Ordered By: Rosy Steven on 07-10-2024 Erythrocyte distribution width (RBC) [Entitic vol] 48.5 fL High 35.1-43.9 [facility] Erythrocyte distribution wid th ratioOrdered By: Rosy Steven on 07-10-2024 Erythrocyte distribution width (RBC) [Ratio] 13.7 % 11.6-14.6 [facility] Erythrocyte distribution wid th standard deviationOrdered By: Rosy Steven on 07-10-2024 Erythrocyte distribution width (RBC) [Ratio] 48.5 fl High 35.1-43.9 [facility] Glucose Challenge Gest 1H 50 arnel 07-10-2024 GLU GEST 50g 1H 153 mg/dL High 70-140 [facility] Comment on above: Performed By: #### L 100.0100, L509.8002, L3890.6006, L501.0250 ####[facility] [address] [place], [address] Glucose measurement at 2 dana rs post-dose gestational glucose tolerance testOrdered By: Rosy Steven on 07-10-2024 Glucose [Mass/Vol] 153 mg/dL High 70-140 [facility] HIVon 07-10-2024 HIV Non-Reactive Normal Nonreactive [facility] Comment on above: Result Comment: Non- Reactive Reactive Repeatedly reactive samples must be confirmed according to CDC recommended confirmatory algorithms. The subresults for either HIVAG or AHIV can be used as an aid in the selection of the confirmation algorithm for reactive samples. Send out specimens with Reactive results to [facility] for confirmation. Order the HIV antibody detection and differentiation: #[id number] Performed By: #### L 100.0100, L509.8002, L3890.6006, L501.0250 ####[facility] [address] [place], [place], [address] Hematocrit Auto (Bld) [Volum e fraction]Ordered By: Rosy Steven on 07-10-2024 Hematocrit (Bld) [Volume fraction] 36.2 % Low 37-47 [facility] Hemoglobin measurementOrdere d By: Rosy Steven on 07-10-2024 Hemoglobin (Bld) [Mass/Vol] 11.9 g/dL Low 12.0-15.0 [facility] Immature granulocytes/100 WB C Auto (Bld)Ordered By: Rosy Steven on 07-10-2024 Immature granulocytes/100 WBC (Bld) 1.000 % High 0.0-0.9 [facility] Comment on above: IG% - Immature Granu locytes (promyelocytes, myelocytes and metamyelocytes) > 1% indicates that a LEFT SHIFT is Present. Laboratory - Chemistry and C hemistry - challengeOrdered By: Rosy Steven on 07-10-2024 Glucose Ql (U) Negative [facility] Laboratory - UrinalysisOrder ed By: Rosy Steven on 07-10-2024 Protein Ql (U) Negative [facility] Lymphocytes Auto (Unsp spec) [#/Vol]Ordered By: Rosy Steven on 07-10-2024 Lymphocytes (Bld) [#/Vol] 1.16 10*3/uL 0.83-4.51 [facility] Lymphocytes/100 WBC Auto (Un sp spec)Ordered By: Rosy Steven on 07-10-2024 Lymphocytes/100 WBC (Bld) 13.1 % Low 19-41 [facility] MCV (mean corpuscular volume ) determinationOrdered By: Rosy Steven on 07-10-2024 MCV (RBC) [Entitic vol] 97.1 fL 81-99 [facility] Mean corpuscular hemoglobin (MCH) determinationOrdered By: Rosy Steven on 07-10-2024 MCH (RBC) [Entitic mass] 31.9 pg 27.0-32.0 [facility] Mean corpuscular hemoglobin concentration (MCHC) determinationOrdered By: Rosytano Steven on 07-10-2024 MCHC (RBC) [Mass/Vol] 32.9 g/dL 32-36 [facility] Mean platelet volume determi nationOrdered By: Rosy Steven on 07-10-2024 Platelet mean volume (Bld) [Entitic vol] 10.7 fL 6.2-12.0 [facility] Monocyte percentageOrdered B y: Rosy Steven on 07-10-2024 Monocytes/100 WBC (Bld) 3.4 % 0-10 [facility] Neutrophil percentageOrdered By: Rosy Steven on 07-10-2024 Neutrophils/100 WBC (Bld) 81.8 % High 47-70 [facility] No Panel InformationOrdered By: Rosy Steven on 07-10-2024 HIV (1&2) Antibody Non-Reactive Nonreactive [facility] Comment on above: Non-ReactiveReactive Repeatedly reactive samples must be confirmed according to CDC recommended confirmatory algorithms. The subresults for either HIVAG or AHIV can be used as an aid in the selection of the confirmation algorithm for reactive samples.Send out specimens with Reactive results to [facility] for confirmation.Order the HIV antibody detection and differentiation: #[id number] Nucleated red blood cell per centageOrdered By: Rosy Steven on 07-10-2024 Nucleated RBC/100 WBC (Bld) [Ratio] 0 % 0-5 [facility] Public Area Attendant Office Visit Reporton 07-10-2024 Public Area Attendant Office Visit Report [facility]'s [address], [address] [place] [address] OFFICE VISIT Date of Service: 07/10/24 MR#: [id number] Acct: [id number] Name: BHUMI JACKSON Rep #: [id number] : 2000 Provider: MUMTAZ martino Age/Sex: 23/F Location: [facility] Status: Signed Intake Vital Signs 03/28/24 11:33 07/02/24 08:28 07/10/24 13:20 Height 5 ft 2 in 5 ft 2 in 5 ft 2 in Weight: 135 lb 6 oz BMI 24.7 BP 104/66 Intake Visit Reasons: 28 wk ob/glucose Chief Complaint: 28 Week OB/Glcuose Reflector Driller And Deburrer Required: No Is patient in pain?: No Allergies wheat Allergy (Mild, Verified 07/10/24 13:22) Other Medications ???Medication ???Instructions ???Recorded ???Confirmed ???Type multivitamin no.47-iron fum 27 cap PO 02/20/24 07/10/24 History mg-folate no.1 1 mg-dha 300 mg capsule (PNV-DHA) Last Menstrual Period: 12/23/23 Zika: Zika virus screening: Negative : No PFSH PFSH Medical History Scoliosis Arthritis (08/27/00) Bakers cyst Elevated d-dimer Painful swallowing Lichenified rash Allergic rhinitis Acute bronchitis, unspecified Right knee pain Rheumatoid arthritis Easy bruising Dietary restriction History of IBS Non-smoker Scoliosis History of ovarian cyst JRA (juvenile rheumatoid arthritis) Surgical History H/O endoscopy No pertinent past surgical history Family History Grandmother No problems noted. Mother Arthritis Grandfather Diabetes Arthritis Father Hypertension Social History adopted: No household members: spouse number of children: 0 current occupational status: employed current occupation: [employer] current occupational exposures/hazards: No pets and animals: Yes (2 dogs) pets and animals: dog(s) leisure activities: exercise and reading history of recent travel: No sexually active: Yes Smoking Status: Never smoker Electronic Cigarette Use: not used second hand exposure: No alcohol intake: former details: Not while substance use type: does not use diet: gluten free well-balanced diet: about half the time caffeine: Yes (1 cup per day) Type: carbonated beverages and coffee Number of servings: 1 eating out: 1-3 times/week during the past year weight has: remained stable what type of physical activity do you participate in: walking frequency: 1-2 times per week duration: 15-30 minutes/day huan/mosque: None seatbelt use: always do you feel safe at home: Yes 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 OB Visit [facility] Calculator Estimated Delivery Date Method Current WG Current Estimate 10/04/24 Ultrasound #1 27w 5d Other Estimates 09/28/24 LMP (Certain) 28w 4d Expected Delivery Route/Plan Labor Preferences- CB/BF classes: yes labor support person: Al labor intervention preferences: [] pain management options preferred: limited if possible cut cord/dad catch: maybe : yes PP control planned: yes discussed possible routes of delivery and associated risks: [] special requests: [] Specific Issue/Plans Covid status: [] Flu vaccine: [] Tdap vaccine: [] Rhogam: na LARC form signed: yes Problem list reviewed and updated with the most current plan of care details and appropriate orders placed. Relevant counseling for the gestational age provided. Continue routine care and follow up unless otherwise noted in visit notes/problem list details Initial Weight: Not Recorded Date -???-???-???-???-?? ?-???-???-???-???-? ??-???-???- EGA Weight BP Urine Prot -???-???-???-???-?? ?-???-???-???-???-? ??-???-???- Glucose FHR FuHt Pres Dilation -???-???-???-???-?? ?-???-???-???-???-? ??-???-???- Effaced St Visit Note 02/29/24 -???-???-???-???-?? ?-???-???-???-???-? ??-???-???- 8w 6d 122 lb 103/69 -???-???-???-???-?? ?-???-???-???-???-? ??-???-???- 171 -???-???-???-???-?? ?-???-???-???-???-? ??-???-???- KW-CRL not c ons with dates. [facility] changed accepts NIPT 03/28/24 -???-???-???-???-?? ?-???-???-???-???-? ??-???-???- 12w 6d 125 lb 4 oz 116/76 Negative -???-???-???-???-?? ?-???-???-???-???-? ??-???-???- Negative 168 -???-???-???-???-?? ?-???-???-???-???-? ??-???-???- JV- normal N IPT. no complaints today. gender is a (more content not included)... Normal [facility] Platelet countOrdered By: Evangelista Steven on 07-10-2024 Platelets (Bld) [#/Vol] 185 10*3/uL 150-450 [facility] RBC Auto (Bld) [#/Vol]Ordere d By: Rosy Steven on 07-10-2024 RBC (Bld) [#/Vol] 3.73 10*6/uL Low 4.2-5.4 [facility] Syphilis Antibodieson 2024 Syphilis Abs Non-Reactive Normal Nonreactive [facility] Comment on above: Performed By: #### L 100.0100, L509.8002, L3890.6006, L501.0250 ####[facility] [id number] [place], [address] T. pallidum abOrdered By: Evangelista Steven on 07-10-2024 Syphilis Total Antibody Non-Reactive Nonreactiv e [facility] White blood cell (WBC) count Ordered By: Rosy Steven on 07-10-2024 WBC (Bld) [#/Vol] 8.9 10*3/uL 4.4-11.0 [facility] Laboratory - Chemistry and C hemistry - challengeOrdered By: Rosy Steven on 07-02-2024 Glucose Ql (U) Negative [facility] Laboratory - UrinalysisOrder ed By: Rosy Steven on 07-02-2024 Protein Ql (U) Negative [facility] Public Area Attendant Office Visit Reporton 07-02-2024 Public Area Attendant Office Visit Report [facility], [address] [place] [address] OFFICE VISIT Date of Service: 07/02/24 MR#: [id number] Acct: [id number] Name: BHUMI JACKSON Rep #: [id number] : 2000 Provider: MUMTAZ martino Age/Sex: 23/F Location: [facility] [place] Status: Signed Intake Vital Signs 06/19/24 15:32 07/02/24 08:28 Height 5 ft 2 in 5 ft 2 in Weight: 135 lb 4 oz BMI 24.7 BP 112/72 Intake Visit Reasons: Requesting help for increasing anxiety in preg Chief Complaint: 26 Week OB- Increased anxiety Reflector Driller And Deburrer Required: No Is patient in pain?: No Allergies wheat Allergy (Mild, Verified 07/02/24 08:27) Other Medications ???Medication ???Instructions ???Recorded ???Confirmed ???Type multivitamin no.47-iron fum 27 cap PO 02/20/24 07/02/24 History mg-folate no.1 1 mg-dha 300 mg capsule (PNV-DHA) Last Menstrual Period: 12/23/23 Zika: Zika virus screening: Negative : No PFSH PFSH Medical History Scoliosis Arthritis (08/27/00) Bakers cyst Elevated d-dimer Painful swallowing Lichenified rash Allergic rhinitis Acute bronchitis, unspecified Right knee pain Rheumatoid arthritis Easy bruising Dietary restriction History of IBS Non-smoker Scoliosis History of ovarian cyst JRA (juvenile rheumatoid arthritis) Surgical History H/O endoscopy No pertinent past surgical history Family History Grandmother No problems noted. Mother Arthritis Grandfather Diabetes Arthritis Father Hypertension Social History adopted: No household members: spouse number of children: 0 current occupational status: employed current occupation: [employer] current occupational exposures/hazards: No pets and animals: Yes (2 dogs) pets and animals: dog(s) leisure activities: exercise and reading history of recent travel: No sexually active: Yes Smoking Status: Never smoker Electronic Cigarette Use: not used second hand exposure: No alcohol intake: former details: Not while substance use type: does not use diet: gluten free well-balanced diet: about half the time caffeine: Yes (1 cup per day) Type: carbonated beverages and coffee Number of servings: 1 eating out: 1-3 times/week during the past year weight has: remained stable what type of physical activity do you participate in: walking frequency: 1-2 times per week duration: 15-30 minutes/day huan/mosque: None seatbelt use: always do you feel safe at home: Yes 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 OB Visit [facility] Calculator Estimated Delivery Date Method Current WG Current Estimate 10/04/24 Ultrasound #1 26w 4d Other Estimates 09/28/24 LMP (Certain) 27w 3d Expected Delivery Route/Plan Labor Preferences- CB/BF classes: yes labor support person: Al labor intervention preferences: [] pain management options preferred: limited if possible cut cord/dad catch: maybe : yes PP control planned: yes discussed possible routes of delivery and associated risks: [] special requests: [] Specific Issue/Plans Covid status: [] Flu vaccine: [] Tdap vaccine: [] Rhogam: na LARC form signed: yes Problem list reviewed and updated with the most current plan of care details and appropriate orders placed. Relevant counseling for the gestational age provided. Continue routine care and follow up unless otherwise noted in visit notes/problem list details Initial Weight: Not Recorded Date -???-???-???-???-?? ?-???-???-???-???-? ??-???-???- EGA Weight BP Urine Prot -???-???-???-???-?? ?-???-???-???-???-? ??-???-???- Glucose FHR FuHt Pres Dilation -???-???-???-???-?? ?-???-???-???-???-? ??-???-???- Effaced St Visit Note 02/29/24 -???-???-???-???-?? ?-???-???-???-???-? ??-???-???- 8w 6d 122 lb 103/69 -???-???-???-???-?? ?-???-???-???-???-? ??-???-???- 171 -???-???-???-???-?? ?-???-???-???-???-? ??-???-???- KW-CRL not c ons with dates. [facility] changed accepts NIPT 03/28/24 -???-???-???-???-?? ?-???-???-???-???-? ??-???-???- 12w 6d 125 lb 4 oz 116/76 Negative -???-???-???-???-?? ?-???-???-???-???-? ??-???-???- Negative 168 -???-???-???-???-?? ?-???-???-???-???-? ??-???-???- JV- norm (more content not included)... Normal [facility] Laboratory - Chemistry and C hemistry - challengeOrdered By: Rosy Steven on 06-19-2024 Glucose Ql (U) Negative [facility] Laboratory - UrinalysisOrder ed By: Rosy Steven on 06-19-2024 Protein Ql (U) Negative [facility] Public Area Attendant Office Visit Reporton 06-19-2024 Public Area Attendant Office Visit Report [facility] [address] [facility], [address] [place] [address] OFFICE VISIT Date of Service: 06/19/24 MR#: [id number] Acct: [id number] Name: BHUMI JACKSON Rep #: [id number] : 2000 Provider: MUMTAZ martino Age/Sex: 23/F Location: [facility] [place] Status: Signed Intake Vital Signs 03/28/24 11:33 05/22/24 14:30 06/19/24 15:32 Height 5 ft 2 in 5 ft 2 in 5 ft 2 in Weight: 130 lb 134 lb 6 oz BMI 23.8 24.5 BP 117/78 112/62 Intake Visit Reasons: 25 wk ob Chief Complaint: 25 Week OB Reflector Driller And Deburrer Required: No Is patient in pain?: No Allergies wheat Allergy (Mild, Verified 06/19/24 15:32) Other Medications ???Medication ???Instructions ???Recorded ???Confirmed ???Type multivitamin no.47-iron fum 27 cap PO 02/20/24 06/19/24 History mg-folate no.1 1 mg-dha 300 mg capsule (PNV-DHA) Last Menstrual Period: 12/23/23 Zika: Zika virus screening: Negative : Yes PFSH PFSH Medical History (Updated 06/19/24 @ 16:06 by Rosy Steven NP, MUMTAZ) Scoliosis Arthritis (08/27/00) Bakers cyst Elevated d-dimer Painful swallowing Lichenified rash Allergic rhinitis Acute bronchitis, unspecified Right knee pain Rheumatoid arthritis Easy bruising Dietary restriction History of IBS Non-smoker Scoliosis History of ovarian cyst JRA (juvenile rheumatoid arthritis) Surgical History H/O endoscopy No pertinent past surgical history Family History Grandmother No problems noted. Mother Arthritis Grandfather Diabetes Arthritis Father Hypertension Social History adopted: No household members: spouse number of children: 0 current occupational status: employed current occupation: [employer] current occupational exposures/hazards: No pets and animals: Yes (2 dogs) pets and animals: dog(s) leisure activities: exercise and reading history of recent travel: No sexually active: Yes Smoking Status: Never smoker Electronic Cigarette Use: not used second hand exposure: No alcohol intake: former details: Not while substance use type: does not use diet: gluten free well-balanced diet: about half the time caffeine: Yes (1 cup per day) Type: carbonated beverages and coffee Number of servings: 1 eating out: 1-3 times/week during the past year weight has: remained stable what type of physical activity do you participate in: walking frequency: 1-2 times per week duration: 15-30 minutes/day huan/mosque: None seatbelt use: always do you feel safe at home: Yes 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 OB Visit [facility] Calculator Estimated Delivery Date Method Current WG Current Estimate 10/04/24 Ultrasound #1 24w 5d Other Estimates 09/28/24 LMP (Certain) 25w 4d Expected Delivery Route/Plan Labor Preferences- CB/BF classes: yes labor support person: Al labor intervention preferences: [] pain management options preferred: limited if possible cut cord/dad catch: maybe : yes PP control planned: yes discussed possible routes of delivery and associated risks: [] special requests: [] Specific Issue/Plans Covid status: [] Flu vaccine: [] Tdap vaccine: [] Rhogam: na LARC form signed: yes Problem list reviewed and updated with the most current plan of care details and appropriate orders placed. Relevant counseling for the gestational age provided. Continue routine care and follow up unless otherwise noted in visit notes/problem list details Initial Weight: Not Recorded Date -???-???-???-???-?? ?-???-???-???-???-? ??-???-???- EGA Weight BP Urine Prot -???-???-???-???-?? ?-???-???-???-???-? ??-???-???- Glucose FHR FuHt Pres Dilation -???-???-???-???-?? ?-???-???-???-???-? ??-???-???- Effaced St Visit Note 02/29/24 -???-???-???-???-?? ?-???-???-???-???-? ??-???-???- 8w 6d 122 lb 103/69 -???-???-???-???-?? ?-???-???-???-???-? ??-???-???- 171 -???-???-???-???-?? ?-???-???-???-???-? ??-???-???- KW-CRL not c ons with dates. [facility] changed accepts NIPT 03/28/24 -???-???-???-???-?? ?-???-???-???-???-? ??-???-???- 12w 6d 125 lb 4 oz 116/76 Negative -???-???-???-???-?? ?-???-???-???-???-? ??-???-???- Negative 168 -???-???-???-???-?? ?-???-???-???-???-? ??-???-???- JV- normal N IPT. no complaints today. gender is (more content not included)... Normal [facility] Laboratory - Chemistry and C hemistry - challengeOrdered By: Neelam Coon on 05-22-2024 Glucose Ql (U) Negative [facility] Laboratory - UrinalysisOrder ed By: Neelam Coon on 05-22-2024 Protein Ql (U) Negative [facility] Public Area Attendant Office Visit Reporton 05-22-2024 Public Area Attendant Office Visit Report [facility] [address] [place] [address], [address] [place] [address] OFFICE VISIT Date of Service: 05/22/24 MR#: [id number] Acct: [id number] Name: BHUMI JACKSON Rep #: [id number] : 2000 Provider: Dr. Neelam claudio MD Age/Sex: 23/F Location: [facility] Status: Signed Intake Vital Signs 03/28/24 11:33 04/26/24 09:38 05/22/24 14:27 05/22/24 14:30 Height 5 ft 2 in 5 ft 2 in 5 ft 2 in 5 ft 2 in Weight: 130 lb 130 lb BMI 23.8 23.8 BP 117/78 Intake Visit Reasons: 21 wk ob Reflector Driller And Deburrer Required: No Is patient in pain?: No Feel stressed/tense/nerv ous/anxious/difficu lty sleeping: not at all Allergies wheat Allergy (Mild, Verified 05/22/24 14:28) Other Medications ???Medication ???Instructions ???Recorded ???Confirmed ???Type multivitamin no.47-iron fum 27 cap PO 02/20/24 05/22/24 History mg-folate no.1 1 mg-dha 300 mg capsule (PNV-DHA) Last Menstrual Period: 12/23/23 Zika: Zika virus screening: Negative : No Have you fallen in the past year?: No PFSH PFSH Medical History (Updated 05/22/24 @ 14:[address] Neelam Coon MD) Scoliosis Arthritis (08/27/00) Bakers cyst Elevated d-dimer Painful swallowing Lichenified rash Allergic rhinitis Acute bronchitis, unspecified Right knee pain Rheumatoid arthritis Easy bruising Dietary restriction History of IBS Non-smoker Scoliosis History of ovarian cyst JRA (juvenile rheumatoid arthritis) Surgical History H/O endoscopy No pertinent past surgical history Family History Grandmother No problems noted. Mother Arthritis Grandfather Diabetes Arthritis Father Hypertension Social History adopted: No household members: spouse number of children: 0 current occupational status: employed current occupation: [employer] current occupational exposures/hazards: No pets and animals: Yes (2 dogs) pets and animals: dog(s) leisure activities: exercise and reading history of recent travel: No sexually active: Yes Smoking Status: Never smoker Electronic Cigarette Use: not used second hand exposure: No alcohol intake: former details: Not while substance use type: does not use diet: gluten free well-balanced diet: about half the time caffeine: Yes (1 cup per day) Type: carbonated beverages and coffee Number of servings: 1 eating out: 1-3 times/week during the past year weight has: remained stable what type of physical activity do you participate in: walking frequency: 1-2 times per week duration: 15-30 minutes/day huan/mosque: None seatbelt use: always do you feel safe at home: Yes 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 OB Visit [facility] Calculator Estimated Delivery Date Method Current WG Current Estimate 10/04/24 Ultrasound #1 20w 5d Other Estimates 09/28/24 LMP (Certain) 21w 4d Expected Delivery Route/Plan Labor Preferences- CB/BF classes: [] labor support person: [] labor intervention preferences: [] pain management options preferred: [] cut cord/dad catch: [] : [] PP control planned: [] discussed possible routes of delivery and associated risks: [] special requests: [] Specific Issue/Plans Covid status: [] Flu vaccine: [] Tdap vaccine: [] Rhogam: [] LARC form signed: [] Problem list reviewed and updated with the most current plan of care details and appropriate orders placed. Relevant counseling for the gestational age provided. Continue routine care and follow up unless otherwise noted in visit notes/problem list details Initial Weight: Not Recorded Date -???-???-???-???-?? ?-???-???-???-???-? ??-???-???- EGA Weight BP Urine Prot -???-???-???-???-?? ?-???-???-???-???-? ??-???-???- Glucose FHR FuHt Pres Dilation -???-???-???-???-?? ?-???-???-???-???-? ??-???-???- Effaced St Visit Note 02/29/24 -???-???-???-???-?? ?-???-???-???-???-? ??-???-???- 8w 6d 122 lb 103/69 -???-???-???-???-?? ?-???-???-???-???-? ??-???-???- 171 -???-???-???-???-?? ?-???-???-???-???-? ??-???-???- KW-CRL not c ons with dates. [facility] changed accepts NIPT 03/28/24 -???-???-???-???-?? ?-???-???-???-???-? ??-???-???- 12w 6d 125 lb 4 oz 116/76 Negative -???-???-???-???-?? ?-???-???-???-???-? ??-???-???- Negative 168 -???-???-???-???-?? ?-???-???-???-??? (more content not included)... Normal [facility] Laboratory - Chemistry and C hemistry - challengeOrdered By: Alda De La Garza on 04-26-2024 Glucose Ql (U) Negative [facility] Laboratory - UrinalysisOrder ed By: Alda De La Garza on 04-26-2024 Protein Ql (U) Negative [facility] Public Area Attendant Office Visit Reporton 04-26-2024 Public Area Attendant Office Visit Report [facility] [address], [address] [place] [address] OFFICE VISIT Date of Service: 04/26/24 MR#: [id number] Acct: [id number] Name: BHUMI JACKSON Rep #: [id number] : 2000 Provider: ZAC Ortiz ams Age/Sex: 23/F Location: [facility] Status: Signed Intake Vital Signs 03/28/24 11:33 04/26/24 09:38 Height 5 ft 2 in 5 ft 2 in Weight: 127 lb 4 oz BMI 23.3 BP 111/75 Intake Visit Reasons: 17 wk ob Chief Complaint: 17wk OB Is patient in pain?: No Allergies wheat Allergy (Mild, Verified 04/26/24 09:40) Other Medications ???Medication ???Instructions ???Recorded ???Confirmed ???Type multivitamin no.47-iron fum 27 cap PO 02/20/24 04/26/24 History mg-folate no.1 1 mg-dha 300 mg capsule (PNV-DHA) Last Menstrual Period: 12/23/23 : No PFSH PFSH Medical History Scoliosis Arthritis (08/27/00) Bakers cyst Elevated d-dimer Painful swallowing Lichenified rash Allergic rhinitis Acute bronchitis, unspecified Right knee pain Rheumatoid arthritis Easy bruising Dietary restriction History of IBS Non-smoker Scoliosis History of ovarian cyst JRA (juvenile rheumatoid arthritis) Surgical History H/O endoscopy No pertinent past surgical history Family History Grandmother No problems noted. Mother Arthritis Grandfather Diabetes Arthritis Father Hypertension Social History adopted: No household members: spouse number of children: 0 current occupational status: employed current occupation: [employer] current occupational exposures/hazards: No pets and animals: Yes (2 dogs) pets and animals: dog(s) leisure activities: exercise and reading history of recent travel: No sexually active: Yes Smoking Status: Never smoker Electronic Cigarette Use: not used second hand exposure: No alcohol intake: former details: Not while substance use type: does not use diet: gluten free well-balanced diet: about half the time caffeine: Yes (1 cup per day) Type: carbonated beverages and coffee Number of servings: 1 eating out: 1-3 times/week during the past year weight has: remained stable what type of physical activity do you participate in: walking frequency: 1-2 times per week duration: 15-30 minutes/day huan/mosque: None seatbelt use: always do you feel safe at home: Yes 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 OB Visit BRANT Calculator Estimated Delivery Date Method Current WG Current Estimate 10/04/24 Ultrasound #1 17w 0d Other Estimates 09/28/24 LMP (Certain) 17w 6d Expected Delivery Route/Plan Labor Preferences- CB/BF classes: [] labor support person: [] labor intervention preferences: [] pain management options preferred: [] cut cord/dad catch: [] : [] PP control planned: [] discussed possible routes of delivery and associated risks: [] special requests: [] Specific Issue/Plans Covid status: [] Flu vaccine: [] Tdap vaccine: [] Rhogam: [] LARC form signed: [] Problem list reviewed and updated with the most current plan of care details and appropriate orders placed. Relevant counseling for the gestational age provided. Continue routine care and follow up unless otherwise noted in visit notes/problem list details Initial Weight: Not Recorded Date -???-???-???-???-?? ?-???-???-???-???-? ??-???-???- EGA Weight BP Urine Prot -???-???-???-???-?? ?-???-???-???-???-? ??-???-???- Glucose FHR FuHt Pres Dilation -???-???-???-???-?? ?-???-???-???-???-? ??-???-???- Effaced St Visit Note 02/29/24 -???-???-???-???-?? ?-???-???-???-???-? ??-???-???- 8w 6d 122 lb 103/69 -???-???-???-???-?? ?-???-???-???-???-? ??-???-???- 171 -???-???-???-???-?? ?-???-???-???-???-? ??-???-???- KW-CRL not c ons with dates. brant changed accepts NIPT 03/28/24 -???-???-???-???-?? ?-???-???-???-???-? ??-???-???- 12w 6d 125 lb 4 oz 116/76 Negative -???-???-???-???-?? ?-???-???-???-???-? ??-???-???- Negative 168 -???-???-???-???-?? ?-???-???-???-???-? ??-???-???- JV- normal N IPT. no complaints today. gender is a surprise. 04/26/24 -???-???-???-???-?? ?-???-???-???-???-? ??-???-???- 17w 0d 127 lb 4 oz 111/75 Negative -???-???-???-???-?? ?-???-???-???-???-? ??-??? (more content not included)... Normal [facility] Laboratory - Chemistry and C hemistry - challengeon 03-28-2024 Glucose Ql (U) Negative [facility] Laboratory - Urinalysison Protein Ql (U) Negative [facility] Public Area Attendant Office Visit Reporton 03-28-2024 Public Area Attendant Office Visit Report [facility]'s [address], [address] [place] [address] OFFICE VISIT Date of Service: 03/28/24 MR#: [id number] Acct: [id number] Name: BHUMI JACKSON Rep #: [id number] : 2000 Provider: Dr. Gwendolyn Valdes DO Age/Sex: 23/F Location: [facility] [place] Status: Signed Intake Vital Signs 02/07/24 07:57 02/29/24 08:40 03/28/24 11:30 03/28/24 11:33 Height 5 ft 2 in 5 ft 2 in 5 ft 2 in 5 ft 2 in Weight: 125 lb 4 oz BMI 22.8 BP 116/76 Intake Visit Reasons: 12 wk OB Reflector Driller And Deburrer Required: No Is patient in pain?: No Feel stressed/tense/nerv ous/anxious/difficu lty sleeping: not at all Allergies wheat Allergy (Mild, Verified 03/28/24 11:30) Other Medications ???Medication ???Instructions ???Recorded ???Confirmed ???Type multivitamin no.47-iron fum 27 cap PO 02/20/24 03/28/24 History mg-folate no.1 1 mg-dha 300 mg capsule (PNV-DHA) Last Menstrual Period: 12/23/23 Zika: Zika virus screening: Negative : No Have you fallen in the past year?: No PFSH PFSH Medical History Scoliosis Arthritis (08/27/00) Bakers cyst Elevated d-dimer Painful swallowing Lichenified rash Allergic rhinitis Acute bronchitis, unspecified Right knee pain Rheumatoid arthritis Easy bruising Dietary restriction History of IBS Non-smoker Scoliosis History of ovarian cyst JRA (juvenile rheumatoid arthritis) Surgical History H/O endoscopy No pertinent past surgical history Family History Grandmother No problems noted. Mother Arthritis Grandfather Diabetes Arthritis Father Hypertension Social History adopted: No household members: spouse number of children: 0 current occupational status: employed current occupation: [employer] current occupational exposures/hazards: No pets and animals: Yes (2 dogs) pets and animals: dog(s) leisure activities: exercise and reading history of recent travel: No sexually active: Yes Smoking Status: Never smoker Electronic Cigarette Use: not used second hand exposure: No alcohol intake: former details: Not while substance use type: does not use diet: gluten free well-balanced diet: about half the time caffeine: Yes (1 cup per day) Type: carbonated beverages and coffee Number of servings: 1 eating out: 1-3 times/week during the past year weight has: remained stable what type of physical activity do you participate in: walking frequency: 1-2 times per week duration: 15-30 minutes/day huan/mosque: None seatbelt use: always do you feel safe at home: Yes 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 OB Visit BRANT Calculator Estimated Delivery Date Method Current WG Current Estimate 10/04/24 Ultrasound #1 12w 6d Other Estimates 09/28/24 LMP (Certain) 13w 5d Expected Delivery Route/Plan Labor Preferences- CB/BF classes: [] labor support person: [] labor intervention preferences: [] pain management options preferred: [] cut cord/dad catch: [] : [] PP control planned: [] discussed possible routes of delivery and associated risks: [] special requests: [] Specific Issue/Plans Covid status: [] Flu vaccine: [] Tdap vaccine: [] Rhogam: [] LARC form signed: [] Problem list reviewed and updated with the most current plan of care details and appropriate orders placed. Relevant counseling for the gestational age provided. Continue routine care and follow up unless otherwise noted in visit notes/problem list details Initial Weight: Not Recorded Date -???-???-???-???-?? ?-???-???-???-???-? ??-???-???- EGA Weight BP Urine Prot -???-???-???-???-?? ?-???-???-???-???-? ??-???-???- Glucose FHR FuHt Pres Dilation -???-???-???-???-?? ?-???-???-???-???-? ??-???-???- Effaced St Visit Note 02/29/24 -???-???-???-???-?? ?-???-???-???-???-? ??-???-???- 8w 6d 122 lb 103/69 -???-???-???-???-?? ?-???-???-???-???-? ??-???-???- 171 -???-???-???-???-?? ?-???-???-???-???-? ??-???-???- KW-CRL not c ons with dates. brant changed accepts NIPT 03/28/24 -???-???-???-???-?? ?-???-???-???-???-? ??-???-???- 12w 6d 125 lb 4 oz 116/76 Negative -???-???-???-???-?? ?-???-???-???-???-? ??-???-???- Negative 168 -???-???-???-???-?? ?-???-???-???-???-? ??-???-???- (more content not included)... Normal [facility] CBC W/Diff, Automatedon 12-2 Absolute Lymph 1.04 X10 3/uL Normal 0.83-4.51 [facility] Comment on above: Performed By: #### L 100.0100, BTS, L509.4005, L3890.6100, L3890.6300, L3890.6005, L509.8000, L900.0098 ####[facility] [address] [place], [address] Absolute Neut 4.1 X10 3/uL Normal 2.0-7.7 [facility] Comment on above: Performed By: #### L 100.0100, BTS, L509.4005, L3890.6100, L3890.6300, L3890.6005, L509.8000, L900.0098 ####[facility] [address] [place], [address] Basophils/100 WBC (Bld) 0.2 % Normal 0-1 [facility] Comment on above: Performed By: #### L 100.0100, BTS, L509.4005, L3890.6100, L3890.6300, L3890.6005, L509.8000, L900.0098 ####[facility] [address] [place], [address] Eosinophils/100 WBC (Bld) 0.5 % Normal 0-5 [facility] Comment on above: Performed By: #### L 100.0100, BTS, L509.4005, L3890.6100, L3890.6300, L3890.6005, L509.8000, L900.0098 ####[facility] [address] [place], [address] Erythrocyte distribution width (RBC) [Ratio] 12.5 % Normal 11.6-14.6 [facility] Comment on above: Performed By: #### L 100.0100, BTS, L509.4005, L3890.6100, L3890.6300, L3890.6005, L509.8000, L900.0098 ####[facility] [address] [place], [address] Hematocrit (Bld) [Volume fraction] 38.3 % Normal 37-47 [facility] Comment on above: Performed By: #### L 100.0100, BTS, L509.4005, L3890.6100, L3890.6300, L3890.6005, L509.8000, L900.0098 ####[facility] [address] [place], [address] Hemoglobin (Bld) [Mass/Vol] 12.5 g/dL Normal 12.0-15.0 [facility] Comment on above: Performed By: #### L 100.0100, BTS, L509.4005, L3890.6100, L3890.6300, L3890.6005, L509.8000, L900.0098 ####[facility] [address] [place], [address] IG% 0.400 Normal 0.0-0.9 [facility] Comment on above: Result Comment: IG% - Immature Granulocytes (promyelocytes, myelocytes and metamyelocytes) > 1% indicates that a LEFT SHIFT is Present. Performed By: #### L 100.0100, BTS, L509.4005, L3890.6100, L3890.6300, L3890.6005, L509.8000, L900.0098 ####[facility] [address] [place], [address] Lymphocytes/100 WBC (Bld) 18.9 % Low 19-41 [facility] Comment on above: Performed By: #### L 100.0100, BTS, L509.4005, L3890.6100, L3890.6300, L3890.6005, L509.8000, L900.0098 ####[facility] [address] [place], [address] MCH (RBC) [Entitic mass] 30.7 pg Normal 27.0-32.0 [facility] Comment on above: Performed By: #### L 100.0100, BTS, L509.4005, L3890.6100, L3890.6300, L3890.6005, L509.8000, L900.0098 ####[facility] [address] [place], [address] MCHC (RBC) [Mass/Vol] 32.6 g/dL Normal 32-36 [facility] Comment on above: Performed By: #### L 100.0100, BTS, L509.4005, L3890.6100, L3890.6300, L3890.6005, L509.8000, L900.0098 ####[facility] [address] [place], [address] MCV (RBC) [Entitic vol] 94.1 fL Normal 81-99 [facility] Comment on above: Performed By: #### L 100.0100, BTS, L509.4005, L3890.6100, L3890.6300, L3890.6005, L509.8000, L900.0098 ####[facility] [address] [place], [address] Monocytes/100 WBC (Bld) 5.4 % Normal 0-10 [facility] Comment on above: Performed By: #### L 100.0100, BTS, L509.4005, L3890.6100, L3890.6300, L3890.6005, L509.8000, L900.0098 ####[facility] [address] [place], [address] Neutrophils/100 WBC (Bld) 74.6 % High 47-70 [facility] Comment on above: Performed By: #### L 100.0100, BTS, L509.4005, L3890.6100, L3890.6300, L3890.6005, L509.8000, L900.0098 ####[facility] [address] [place], [address] Nucleated RBC (Bld) [#/Vol] 0 10*3/uL Normal 0-5 [facility] Comment on above: Performed By: #### L 100.0100, BTS, L509.4005, L3890.6100, L3890.6300, L3890.6005, L509.8000, L900.0098 ####[facility] [address] [place], [address] Platelet mean volume (Bld) [Entitic vol] 10.5 fL Normal 6.2-12.0 [facility] Comment on above: Performed By: #### L 100.0100, BTS, L509.4005, L3890.6100, L3890.6300, L3890.6005, L509.8000, L900.0098 ####[facility] [address] [place], [address] Platelets (Bld) [#/Vol] 195 10*3/uL Normal 150-450 [facility] Comment on above: Performed By: #### L 100.0100, BTS, L509.4005, L3890.6100, L3890.6300, L3890.6005, L509.8000, L900.0098 ####[facility] [address] [place], [address] RBC (Bld) [#/Vol] 4.07 10*6/uL Low 4.2-5.4 [facility] Comment on above: Performed By: #### L 100.0100, BTS, L509.4005, L3890.6100, L3890.6300, L3890.6005, L509.8000, L900.0098 ####[facility] [address] [place], [place], [phone] RDW SD 43.6 fl Normal 35.1-43.9 [facility] Comment on above: Performed By: #### L 100.0100, BTS, L509.4005, L3890.6100, L3890.6300, L3890.6005, L509.8000, L900.0098 ####[facility] [address] [place], [place], [phone] WBC (Bld) [#/Vol] 5.5 10*3/uL Normal 4.4-11.0 [facility] Comment on above: Performed By: #### L 100.0100, BTS, L509.4005, L3890.6100, L3890.6300, L3890.6005, L509.8000, L900.0098 ####[facility] [address] [place], [place], [phone] HIV - WCHon 03-15-2024 HIV Non-Reactive Normal Nonreactive [facility] Comment on above: Order Comment: Reaso n for Exam: Performed By: #### L 100.0100, BTS, L509.4005, L3890.6100, L3890.6300, L3890.6005, L509.8000, L900.0098 ####[facility] [address] [place], [place], [phone] Hepatitis B Surface Antigeno n 03-15-2024 HEP B Surf Ag Non-Reactive Normal Nonreactive [facility] Comment on above: Order Comment: Reaso n for Exam: Performed By: #### L 100.0100, BTS, L509.4005, L3890.6100, L3890.6300, L3890.6005, L509.8000, L900.0098 ####[facility] [address] [place], [address] Hepatitis C Antibodyon 03-15 Hepatitis C AB Non-Reactive Normal Nonreactive [facility] Comment on above: Order Comment: Reaso n for Exam: Result Comment: Non Reactive: < 0.8 Equivocal: >/= 0.8 to < 1.0 Reactive: >/= 1.0 The [facility] requires that a reactive/equivocal HCV antibody result be sent out for confirmation. HCV Quant by PCR testing. Performed By: #### L 100.0100, BTS, L509.4005, L3890.6100, L3890.6300, L3890.6005, L509.8000, L900.0098 ####[facility] [address] [place], [place], [phone] L509.8000on 03-15-2024 Syphilis Abs Non-Reactive Normal [facility] Comment on above: Order Comment: Reaso n for Exam: Performed By: #### L 100.0100, BTS, L509.4005, L3890.6100, L3890.6300, L3890.6005, L509.8000, L900.0098 ####[facility] [address] [place], [place], [phone] NATERAon 03-15-2024 NATURA SEE SCANNED REPORT Normal [facility] Comment on above: Order Comment: Comme nts: NIPTNO GENDER Carrier testing Performed By: #### L 100.0100, BTS, L509.4005, L3890.6100, L3890.6300, L3890.6005, L509.8000, L900.0098 ####[facility] [address] [place], [address] Rubella IgGon 03-15-2024 Rubella IgG Reactive Normal Nonreactive [facility] Comment on above: Order Comment: Reaso n for Exam: Result Comment: Anti body Results Interpretation of Immune Status Non Reactive Presumed Non-Immune Equivocal Equivocal Reactive Presumed Immune Performed By: #### L 100.0100, BTS, L509.4005, L3890.6100, L3890.6300, L3890.6005, L509.8000, L900.0098 ####[facility] [address] [place], [address] Type AND Screenon 03-15-2024 ABO and Rh group Nom (Bld) Blood group O Rh(D) positive Normal [facility] Comment on above: Order Comment: PN Performed By: #### L 100.0100, BTS, L509.4005, L3890.6100, L3890.6300, L3890.6005, L509.8000, L900.0098 ####[facility] [address] [place], [address] Chlamydia/GC RICHARD aptimaon CHLAMY,NUC ACID Negative Normal Negative [facility] Comment on above: Performed By: #### L 7000.1800, M100.2200 ####[facility] [address] [place], [address] GC BY NUC ACID Negative Normal Negative [facility] Comment on above: Result Comment: Perf ormed at: =G - [facility] [address] [id number] Director Of Security: Damari Reece MD, Phone: [phone] Performed By: #### L 7000.1800, M100.2200 ####[facility] [address] [place], [address] Urine Cultureon 03-02-2024 URC Mixed Gram Positive Organisms [place] Count 1000-10,000 MIXC Mixed contaminants. Submit a new specimen if indicated. Normal [facility] Comment on above: Performed By: #### L 7000.1800, M100.2200 ####[facility] [address] [place], [address] Public Area Attendant Office Visit Reporton 02-29-2024 Public Area Attendant Office Visit Report [facility]'s [address], [address] [place] [address] OFFICE VISIT Date of Service: 02/29/24 MR#: [id number] Acct: [id number] Name: BHUMI JACKSON Rep #: [id number] : 2000 Provider: ZAC Ortiz ams Age/Sex: 23/F Location: [facility] [place] Status: Signed Intake Vital Signs 10/24/23 09:35 02/07/24 07:57 02/29/24 08:36 02/29/24 08:40 Height 5 ft 2 in 5 ft 2 in 5 ft 2 in 5 ft 2 in Weight: 121 lb 2 oz 122 lb BMI 22.1 22.3 BP 116/70 103/69 Blood Pressure Location Lt brachial Position Sitting Respiration 16 Pulse 108 H Pulse Source Monitor Temp 97.8 F Pulse Oximetry (%) 98 Oxygen Delivery Method room air Intake Visit Reasons: NOB LMP 12/22 Reflector Driller And Deburrer Required: No Is patient in pain?: No Allergies wheat Allergy (Mild, Verified 02/29/24 08:36) Other Medications ???Medication ???Instructions ???Recorded ???Confirmed ???Type multivitamin no.47-iron fum 27 cap PO 02/20/24 History mg-folate no.1 1 mg-dha 300 mg capsule (PNV-DHA) Last Menstrual Period: 12/23/23 Zika: Zika virus screening: Negative : No Have you fallen in the past year?: No PFSH PFSH Medical History Scoliosis Arthritis (08/27/00) Bakers cyst Elevated d-dimer Painful swallowing Lichenified rash Allergic rhinitis Acute bronchitis, unspecified Right knee pain Rheumatoid arthritis Easy bruising Dietary restriction History of IBS Non-smoker Scoliosis History of ovarian cyst JRA (juvenile rheumatoid arthritis) Surgical History H/O endoscopy No pertinent past surgical history Family History Grandmother No problems noted. Mother Arthritis Grandfather Diabetes Arthritis Father Hypertension Social History adopted: No household members: spouse number of children: 0 financial difficulty paying for basics: not very hard service: No current occupational status: employed current occupation: [employer] current occupational exposures/hazards: No pets and animals: Yes (2 dogs) pets and animals: dog(s) leisure activities: exercise and reading history of recent travel: No sexually active: Yes do you think of yourself as: straight/heterosexu al current gender identity: female Smoking Status: Never smoker Electronic Cigarette Use: not used second hand exposure: No alcohol intake: former details: Not while substance use type: does not use diet: gluten free well-balanced diet: about half the time caffeine: Yes (1 cup per day) Type: carbonated beverages and coffee Number of servings: 1 eating out: 1-3 times/week during the past year weight has: remained stable what type of physical activity do you participate in: walking How many days of moderate to strenuous exercise, like a brisk walk, did you do in the last 7 days: 2 frequency: 1-2 times per week duration: 15-30 minutes/day huan/mosque: None seatbelt use: always do you feel safe at home: Yes 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 OB Visit BRANT Calculator Estimated Delivery Date Method Current WG Current Estimate 10/04/24 Ultrasound #1 8w 6d Other Estimates 09/28/24 LMP (Certain) 9w 5d Comments: HIV: Urine Culture: Sequential Screen: NIPT Screen: Estimated Due Date: 09/28/24 Expected Delivery Route/Plan Labor Preferences- CB/BF classes: [] labor support person: [] labor intervention preferences: [] pain management options preferred: [] cut cord/dad catch: [] : [] PP control planned: [] discussed possible routes of delivery and associated risks: [] special requests: [] Specific Issue/Plans Covid status: [] Flu vaccine: [] Tdap vaccine: [] Rhogam: [] LARC form signed: [] Problem list reviewed and updated with the most current plan of care details and appropriate orders placed. Relevant counseling for the gestational age provided. Continue routine care and follow up unless otherwise noted in visit notes/problem list details Initial Weight: Not Recorded Date -???-???-???-???-?? ?-???-???-???-???-? ??-???-???- EGA Weight BP Urine Prot -???-???-???-???-?? ?-???-???-???-???-? ??-???-???- Glucose FHR FuHt Pres Dilation -???-???-???-???-?? ?-???-???-???- (more content not included)... Normal [facility] hCG Titer Quant., Serumon HCG QUANT. 17325 mIU/mL High 1-3 [facility] Comment on above: Result Comment: hCG levels with Gestational Age Gestational Age hCG mIU/mL (IU/L) 0.2 - 1 week 5 - 50 1-2 weeks 50 - 500 2-3 weeks 100 - 5000 3-4 weeks 500 - 13476 4-5 weeks 1000 - 86046 5-6 weeks 67527 - 100,000 6-8 weeks 28057 - 200,000 2-3 months 86511 - 100,000 Performed By: #### L 700.1016 ####[facility] [address] [place], [place], [phone] hCG Titer Quant., Serumon HCG QUANT. 5765 mIU/mL High 1-3 [facility] Comment on above: Result Comment: hCG levels with Gestational Age Gestational Age hCG mIU/mL (IU/L) 0.2 - 1 week 5 - 50 1-2 weeks 50 - 500 2-3 weeks 100 - 5000 3-4 weeks 500 - 64507 4-5 weeks 1000 - 64369 5-6 weeks 01401 - 100,000 6-8 weeks 66731 - 200,000 2-3 months 22782 - 100,000 Performed By: #### L 700.8000 ####[facility] [address] [place], [address] Internal Medicine Office Vis velia 02-06-2024 Internal Medicine Office Visit [facility] [address] [place] [address] [place] [address] OFFICE VISIT Date of Service: 02/07/24 MR#: [id number] Acct: [id number] Name: BHUMI JACKSON Rep #: [id number] : 2000 Provider: Dr. Ishmael huddleston MD Age/Sex: 23/F [place] [facility] [place] Status: Signed Intake Vital Signs 10/24/23 09:35 02/07/24 07:57 Height 5 ft 2 in 5 ft 2 in Weight: 121 lb 2 oz BMI 22.1 BP 116/70 Blood Pressure Location Lt brachial Position Sitting Respiration 16 Pulse 108 H Pulse Source Monitor Temp 97.8 F Temp Source Temporal Pulse Oximetry (%) 98 Oxygen Delivery Method room air Intake Visit Reasons: 3 M FU Chief Complaint: 3m f/u Reflector Driller And Deburrer Required: No Accompanied by: Self Is patient in pain?: No Allergies wheat Allergy (Mild, Verified 02/07/24 07:51) Other Medications ???Medication ???Instructions ???Recorded ???Confirmed ???Type betamethasone, augmented 0.05 % applic topical 10/24/23 02/07/24 History topical cream Patient : Yes (6 1/2 weeks ) COUNTS INCLUDE 234 BEDS AT THE [facility] Medical History Painful swallowing Lichenified rash Allergic rhinitis Acute bronchitis, unspecified Right knee pain Rheumatoid arthritis Easy bruising Dietary restriction History of IBS Non-smoker Scoliosis History of ovarian cyst JRA (juvenile rheumatoid arthritis) Surgical History H/O endoscopy No pertinent past surgical history Family History Grandmother No problems noted. Mother Arthritis Grandfather Diabetes Arthritis Father Hypertension Social History household members: spouse number of children: 0 current occupational status: employed current occupation: [employer] history of recent travel: No sexually active: Yes Smoking Status: Never smoker Electronic Cigarette Use: not used alcohol intake: never substance use type: does not use diet: gluten free and lactose free what type of physical activity do you participate in: none seatbelt use: always do you feel safe at home: Yes additional social history: Enganged to [employer] for her dad HPI HPI Chief Complaint: 3m f/u Details: BHUMI JACKSON, is a 23 F who presents to the office today for a follow up. She is not due for any routine blood work. She is up to date on her pap smear. She doesn't want a flu shot. She doesn't smoke and doesn't need any refills. She reports she is eating healthy and staying active. The patient has a history of juvenile RA. She was treated with methotrexate and has been in remission since she was 9. She hasn't been having any problems with joint or muscle pains recently. The patient reports her anxiety has been doing much better. At her last office visit, her lexapro dose was increased. She states that she tried the higher dose for a couple of days, but didn't tolerate it and went back to the 5mg daily. She reports that once her wedding was over, she felt that her anxiety also improved. She stopped the lexapro a couple of weeks ago. She reports she has been feeling ok without it thus far. She states she has some of her usual worries, but feels it is more manageable than it was. Her other symptoms of numbness/tingling, rib pain, palpitations have all improved and she hasn't noticed any of them return with stopping the medication. Since she was last seen, she stopped taking the protonix. She reports that her heartburn symptoms have been rare since then. The patient reports she is about 6 weeks and 4 days based on the first day of her last cycle. She has taken about 10 tests, one each day since 01/21 and they have all been positive. She reports this is a welcome . She has an appointment with the OBGYN scheduled for 02/28. She reports she has had a little dizziness but otherwise has been feeling well. She reports she is trying to stay hydrated. She has no other questions or concerns at this time. ROS Const Constitutional: No body ache, chills, excessive sweating, fatigue, fever(s), frequent falls, headache(s), snoring, weakness, weight change or change in appetite Eyes Eyes: No blurry vision, change in vision, eye pain or Light sensitivity ENT ENT: No abnormal hearing, ear or mastoid pain, tinnitus, nasal congestion, headache(s), neck pain or sore throat Resp Respiratory: No cough, shortness of breath, snoring or wheezing Cardio Cardiology: No chest pain at rest, chest pain with exertion, excessive sweating, dyspnea on exertion, lightheadedness, orthopnea, palpitations or other (no leg swelling) Gastro GI: Positive for cramping (mild) and nausea/dyspepsia; No abdominal pa (more content not included)... Normal [facility] Internal Medicine Office Vis velia 10-24-2023 Internal Medicine Office Visit [facility] [address] [place] [address] [place] [address] OFFICE VISIT Date of Service: 10/24/23 MR#: [id number] Acct: [id number] Name: BHUMI JACKSON Rep #: [id number] : 2000 Provider: MUMTAZ noyola Age/Sex: 23/F [place] [facility] [place]: Signed Intake Vital Signs 09/12/23 11:04 10/24/23 09:35 Height 5 ft 2 in 5 ft 2 in Weight: 119 lb 115 lb BMI 21.7 21.0 BP 118/64 108/60 Blood Pressure Location Lt brachial Lt brachial Position Sitting Sitting Respiration 17 14 Pulse 83 72 Pulse Source Monitor Monitor Temp 97.7 F L 99.2 F H Temp Source Temporal Temporal Pulse Oximetry (%) 98 99 Oxygen Delivery Method room air room air Intake Visit Reasons: acute - 5 wk fu Chief Complaint: 2 W FU Reflector Dr[employer] Deburrer Required: No Is patient in pain?: No Allergies wheat Allergy (Mild, Verified 10/24/23 09:35) Other Medications ???Medication ???Instructions ???Recorded ???Confirmed ???Type hydroxyzine HCl 25 mg tablet 25 mg PO Q8H PRN anxiety #30 tabs 06/15/23 10/24/23 Rx pantoprazole 40 mg tablet,delayed 40 mg PO DAILY #30 tabs 09/12/23 10/24/23 Rx release betamethasone, augmented 0.05 % applic topical 10/24/23 10/24/23 History topical cream escitalopram oxalate 5 mg tablet 5 mg PO DAILY #90 tabs 10/24/23 10/24/23 Rx (Lexapro) Nurse's Note: Doing good on meds. States that she still has some issues w/ anxiety but it has improved. States she does have some nausea but is manageable . States she isn't a huge fan of protonix as she doesn't notice a difference, she missed a dose and couldn't tell. Has changed to a more bland diet. COUNTS INCLUDE 234 BEDS AT THE [facility] Medical History Painful swallowing Lichenified rash Allergic rhinitis Acute bronchitis, unspecified Right knee pain Rheumatoid arthritis Easy bruising Dietary restriction History of IBS Non-smoker Scoliosis History of ovarian cyst JRA (juvenile rheumatoid arthritis) Surgical History H/O endoscopy No pertinent past surgical history Family History Grandmother No problems noted. Mother Arthritis Grandfather Diabetes Arthritis Father Hypertension Social History household members: significant other number of children: 0 current occupational status: employed current occupation: [employer] history of recent travel: No sexually active: Yes Smoking Status: Never smoker Electronic Cigarette Use: not used alcohol intake: current alcohol intake frequency: a few times a month substance use type: does not use diet: gluten free and lactose free what type of physical activity do you participate in: none seatbelt use: always do you feel safe at home: Yes additional social history: Enganged to [employer] for her dad HPI HPI Chief Complaint: 2 W FU Details: BHUMI JACKSON, is a 23 F who presents to the office today for an acute f/u. She was placed on lexapro about 1 month ago. She was last evaluated in office on 09/12/2023 and placed on Lexapro for anxiety. She reports initially she had difficulty sleeping and brain fog and switch her dosing to bedtime. She reports since then she has felt significantly better. She reports she no longer is experiencing anxiety symptoms and feels the numbness and tingling her left arm and rib pain on the left side was all contributed to anxiety as they have both resolved. She reports she is having more good days and bad days, worrying has decreased and she feels the medicine is very beneficial. She has thought about counseling but has not explored options. She states since starting the medication she has had only 1 panic attack and took hydroxyzine however because significant drowsiness. She feels that she still has some mild lingering anxiety symptoms at times. She also reports nausea and vomiting have subsided. She states that she had just missed doses of pantoprazole and does not feel that the medication is particularly helpful and is interested in discontinuing pantoprazole. She also has made dietary changes including decreasing lemonade, alcohol, garlic and coffee consumption and these have also helped with GERD like symptoms. She previously followed with GI but states that she does not have a follow-up appointment established. She additionally notes that she had a f/u appt with dermatology, [place], for bilateral ear psoriasis and was placed on betamethasone cream. She reports she has had significant improvement in her symptoms since. She denies joint pains, aches, or rashes to other locations such as elbows/knees. ROS Const Constitutional: No body ache, c (more content not included)... Normal [facility] Absolute lymphocyte countOrd ered By: Ishmael Potts on 06-15-2023 Lymphocytes Auto (Unsp spec) [#/Vol] 1.09 10*3/uL 0.83-4.51 [facility] Automated lymphocyte count a s percentage of total leukocytesOrdered By: Ishmael Potts on 06-15-2023 Lymphocytes/100 WBC Auto (Unsp spec) 14.3 % 19-41 [facility] Basophil percentageOrdered B y: Ishmael Potts on 06-15-2023 Basophils/100 WBC (Bld) 0.3 % 0-1 [facility] Bilirubin [Mass/Vol] 0.40 mg/dL 0.20-1.00 [facility] Comment on above: For patients on eltr ombopag therapy, use of Dimension [place] TBIL is not recommended. Chloride [Moles/Vol] 106 mmol/L 98-107 [facility] Eosinophils/100 WBC (Bld) 0.4 % 0-5 [facility] Glucose [Mass/Vol] 102 mg/dL 74-106 [facility] Comment on above: Fasting Glucose resu lt from 100 to 125 mg/dL suggests IMPAIRED HOMEOSTASIS per A.D.A. criteria. Hemoglobin (Bld) [Mass/Vol] 14.5 g/dL 12.0-15.0 [facility] Monocytes/100 WBC (Bld) 3.0 % 0-[address] [facility] Neutrophils (Bld) [#/Vol] 6.2 10*3/uL 2.0-7.7 [facility] Neutrophils/100 WBC (Bld) 81.6 % 47-70 [facility] Potassium [Moles/Vol] 3.6 mmol/L 3.5-5.1 [facility] Protein [Mass/Vol] 8.4 g/dL 6.4-8.2 [facility] Sodium [Moles/Vol] 140 mmol/L 136-145 [facility] WBC (Bld) [#/Vol] 7.6 10*3/uL 4.4-11.0 [facility] Determination of erythrocyte mean corpuscular volume (MCV)Ordered By: Ishmael Potts on 06-15-2023 MCV (RBC) [Entitic vol] 96.2 fL 81-[address] [facility] Erythrocyte distribution wid th ratioOrdered By: Ishmael Potts on 06-15-2023 Erythrocyte distribution width (RBC) [Ratio] 13.4 % 11.6-14.6 [facility] Erythrocyte distribution wid th standard deviationOrdered By: Ishmael Potts on 06-15-2023 Erythrocyte distribution width (RBC) [Entitic vol] 48.0 fL 35.1-43.9 [facility] Erythrocyte sedimentation ra teOrdered By: Ishmael Potts on 06-15-2023 ESR (Bld) [Velocity] 6 mm/h 0-30 [facility] Hematocrit Auto (Bld) [Volum e fraction]Ordered By: Ishmael Potts on 06-15-2023 Hematocrit (Bld) [Volume fraction] 45.0 % 37-47 [facility] Immature granulocytes/100 WB C Auto (Bld)Ordered By: Ismhael Potts on 06-15-2023 Immature granulocytes/100 WBC (Bld) 0.400 % 0.0-0.9 [facility] Comment on above: IG% - Immature Granu locytes (promyelocytes, myelocytes and metamyelocytes) > 1% indicates that a LEFT SHIFT is Present. Laboratory - Chemistry and C hemistry - challengeOrdered By: Ishmael Potts on 06-15-2023 Albumin/Globulin [Mass ratio] 1.0 {ratio} 0.9-2.4 [facility] ALP [Catalytic activity/Vol] 87 U/L 45-117 [facility] ALT [Catalytic activity/Vol] 17 U/L 13-56 [facility] CO2 [Moles/Vol] 29.0 mmol/L 21.0-32.0 [facility] Globulin (S) [Mass/Vol] 4.3 g/dL 2.2-4.[address] [facility] Urea nitrogen/Creatinine [Mass ratio] 9.9 mg/mg 10-20 [facility] Laboratory - Hematology and Cell countsOrdered By: Ishmael Potts on 06-15-2023 MCH (RBC) [Entitic mass] 31.0 pg 27.0-32.0 [facility] MCHC (RBC) [Mass/Vol] 32.2 g/dL 32-36 [facility] Nucleated RBC/100 WBC (Bld) [Ratio] 0 % 0-5 [facility] Platelet mean volume (Bld) [Entitic vol] 10.4 fL 6.2-12.0 [facility] Platelets (Bld) [#/Vol] 276 10*3/uL 150-450 [facility] No Panel InformationOrdered By: Ishmael Potts on 06-15-2023 C-Reactive Protein Extended Range < 2.90 mg/L 0.0-3.0 [facility] Comment on above: C-Reactive Protein ( CRP) provides useful information for thediagnosis, therapy and monitoring of inflammatory processesand associated diseases. For the evaluation of Relative Riskfor Cardiovascular Disease, a High Sensitivity CRP (HSCRP)should be ordered. D-Dimer Quantitative (PE/DVT) 0.51 FEU/ug/m 0.27-0.49 [facility] Comment on above: CRITICAL VALUE VERIF IED. CALLED TO DR. LIZ SCHNEIDER INFORMATION CONSULTANT FOR 06/15/23 [id number] Chandra Sanchez.RESULTS READ BACK BY SAME . D-Dimer ELEVATED (>0.49): Additional studies and clinicalassessments are indicated to conclude diagnosis of:Deep Vein Thrombosis (DVT) or Pulmonary Embolism (PE) Estimated GFR (MDRD) Amer 156 mL/min >60 [facility] Comment on above: GFR Calc Estimated GFR (MDRD) Non-Af Amer 129 mL/min >60 [facility] Comment on above: Non- GFR Calc Troponin I High Sensitivity < 3 pg/mL 3.0-54.0 [facility] Comment on above: Please Note: [place] t Units and Gender Specific Reference Ranges. For more information see Policy Stat Procedure [place] High Sensitivity Troponin (TNIH) and attachments. RBC Auto (Bld) [#/Vol]Ordere d By: Ishmael Potts on 06-15-2023 RBC (Bld) [#/Vol] 4.68 10*6/uL 4.2-5.4 [facility] Serum or plasma calcium milagros urement (mass/volume)Ordered By: Ishmael Potts on 06-15-2023 Calcium [Mass/Vol] 9.4 mg/dL 8.5-10.1 [facility] Serum or plasma creatinine m easurement (mass/volume)Ordered By: Ishmael Potts on 06-15-2023 Creatinine [Mass/Vol] 0.61 mg/dL 0.55-1.02 [facility] Comment on above: The validity of the calculated GFR & GFRAA in patients over 70 years has not been determined. Clinical correlation is essential. Serum or plasma urea nitroge n measurement (mass/volume)Ordered By: Ishmael Potts on 06-15-2023 Urea nitrogen [Mass/Vol] 6 mg/dL 7-18 [facility] Thin prep Papanicolaou smear with manual screeningOrdered By: Ishmael Potts on 06-15-2023 Thin prep Papanicolaou smear with manual screening 4.1 g/dL 3.2-5.0 [facility] Thin prep Papanicolaou smear with manual screening 17 U/L 15-37 [facility] Thin prep Papanicolaou smear with manual screening 5 5-15 [facility] Cervical or vagninal specime n microscopic examination by cytology stain (reported asOrdered By: Neelam Coon on 04-11-2023 Cytology report Cyto stain Doc (Cvx/Vag) Comment . [facility] Comment on above: The Pap smear is a s creening test designed to aid in thedetection of premalignant and malignant conditions of theuterine cervix. It is not a diagnostic procedure andshould not be used as the sole means of detecting cervicalcancer. Both false-positive and false-negative reports dooccur. Laboratory - CytologyOrdered By: Neelam Coon on 04-11-2023 Coal Grader Cyto stain Nom (Cvx/Vag) [ID] Comment . [facility] Comment on above: Edgardo Cole chnologist (ASCP) Laboratory - Miscellaneous t estsOrdered By: Neelam Coon on 04-11-2023 Service comment (Unsp spec) [Interp] . . [facility] No Panel InformationOrdered By: Neelam Coon on 04-11-2023 Human Papillomavirus Screen Comment . [facility] Comment on above: The HPV DNA reflex c santos were not met with this specimenresult therefore, no HPV testing was performed.Performed at: [facility] [id number] [place], [place] [id number] Director: Geraldo Koch MD, Phone: [phone] at: [facility] [address] [id number] Director: Damari Reece MD, Phone: [phone] Pap Smear QC Review Comment . [facility] Comment on above: Gabriele Best totechnologist (ASCP) Thin prep Papanicolaou smear with manual screeningOrdered By: Neelam Coon on 04-11-2023 Thin prep Papanicolaou smear with manual screening Comment . [facility] Comment on above: NEGATIVE FOR INTRAEP ITHELIAL LESION OR MALIGNANCY.THIS SPECIMEN WAS RESCREENED PART OF OUR ENGRAVING SUPERVISOR PROGRAM. This liquid based Th inPrep(R) pap test was screened withthe use of an image guided system. Laboratory - Chemistry and C hemistry - challengeOrdered By: Justice Orozco on 02-16-2023 HCG ( test) Ql (U) Negative [facility] Comment on above: Very dilute urine sp ecimens, as indicated by a low specificgravity, may not contain major account representative levels of hCG. If is still suspected, a first morning urinespecimen should be collected 48 hours later and tested. Basophil percentageOrdered B y: Ishmael Potts on 09-19-2022 Bilirubin [Mass/Vol] 0.60 mg/dL 0.20-1.00 [facility] Comment on above: For patients on eltr ombopag therapy, use of Dimension [place] TBIL is not recommended. Chloride [Moles/Vol] 106 mmol/L 98-107 [facility] Glucose [Mass/Vol] 77 mg/dL 74-106 [facility] Potassium [Moles/Vol] 3.7 mmol/L 3.5-5.1 [facility] Protein [Mass/Vol] 7.8 g/dL 6.4-8.2 [facility] Sodium [Moles/Vol] 137 mmol/L 136-145 [facility] Laboratory - Chemistry and C hemistry - challengeOrdered By: Ishmael Potts on 09-19-2022 ALP [Catalytic activity/Vol] 62 U/L 45-117 [facility] ALT [Catalytic activity/Vol] 17 U/L 13-56 [facility] CO2 [Moles/Vol] 26.0 mmol/L 21.0-32.0 [facility] Globulin (S) [Mass/Vol] 3.9 g/dL 2.2-4.[address] [facility] Urea nitrogen/Creatinine [Mass ratio] 16.4 mg/mg 10-20 [facility] No Panel InformationOrdered By: Ishmael Potts on 09-19-2022 Estimated GFR (MDRD) Amer 140 mL/min >60 [facility] Comment on above: GFR Calc Estimated GFR (MDRD) Non-Af Amer 116 mL/min >60 [facility] Comment on above: Non- GFR Calc Serum or plasma albumin milagros urement (mass/volume)Ordered By: Ishmael Potts on 09-19-2022 Albumin [Mass/Vol] 3.9 g/dL 3.2-5.0 [facility] Serum or plasma albumin/glob ulin mass ratioOrdered By: Ishmael Potts on 09-19-2022 Albumin/Globulin [Mass ratio] 1.0 {ratio} 0.9-2.4 [facility] Serum or plasma calcium milagros urement (mass/volume)Ordered By: Ishmael Potts on 09-19-2022 Calcium [Mass/Vol] 9.4 mg/dL 8.5-10.1 [facility] Serum or plasma creatinine m easurement (mass/volume)Ordered By: Ishmael Potts on 09-19-2022 Creatinine [Mass/Vol] 0.67 mg/dL 0.55-1.02 [facility] Comment on above: The validity of the calculated GFR & GFRAA in patients over 70 years has not been determined. Clinical correlation is essential. Serum or plasma urea nitroge n measurement (mass/volume)Ordered By: Ishmael Potts on 09-19-2022 Urea nitrogen [Mass/Vol] 11 mg/dL 7-18 [facility] Thin prep Papanicolaou smear with manual screeningOrdered By: Ishmael Potts on 09-19-2022 Thin prep Papanicolaou smear with manual screening 14 U/L 15-37 [facility] Thin prep Papanicolaou smear with manual screening 5 5-15 [facility] Absolute lymphocyte countOrd ered By: Dr. Diamond on 09-07-2022 Lymphocytes Auto (Unsp spec) [#/Vol] 0.69 10*3/uL 0.83-4.51 [facility] Basophil percentageOrdered B y: Dr. Diamond on 09-07-2022 Basophil percentage 0 SEEN /hpf 0-5 [facility] Basophils/100 WBC (Bld) 0.4 % 0-1 [facility] Bilirubin [Mass/Vol] 0.50 mg/dL 0.20-1.00 [facility] Comment on above: For patients on eltr ombopag therapy, use of Dimension [place] TBIL is not recommended. Chloride [Moles/Vol] 105 mmol/L 98-107 [facility] Eosinophils/100 WBC (Bld) 0.2 % 0-5 [facility] Glucose [Mass/Vol] 83 mg/dL 74-106 [facility] Neutrophils (Bld) [#/Vol] 3.5 10*3/uL 2.0-7.7 [facility] Neutrophils/100 WBC (Bld) 75.0 % 47-70 [facility] Potassium [Moles/Vol] 3.3 mmol/L 3.5-5.1 [facility] Protein [Mass/Vol] 7.8 g/dL 6.4-8.2 [facility] Sodium [Moles/Vol] 137 mmol/L 136-145 [facility] WBC (Bld) [#/Vol] 4.7 10*3/uL 4.4-11.0 [facility] Beta hCG serum qualOrdered B y: Dr. Diamond on 09-07-2022 Beta HCG ( test) Ql Negative [facility] Bilirubin Test strip Ql (U)O rdered By: Dr. Diamond on 09-07-2022 Bilirubin Ql (U) 1 mg/dL Negative [facility] Comment on above: COLOR OF URINE MAY A FFECT DIPSTICK RESULTS. Blood erythrocytes count (nu mber/volume)Ordered By: Dr. Diamond on 09-07-2022 RBC (Bld) [#/Vol] 4.28 10*6/uL 4.2-5.4 [facility] Blood hemoglobin measurement (mass/volume)Ordered By: Dr. Diamond on 09-07-2022 Hemoglobin (Bld) [Mass/Vol] 13.5 g/dL 12.0-15.0 [facility] Blood lymphocytes/100 leukoc ytesOrdered By: Dr. Diamond on 09-07-2022 Lymphocytes/100 WBC (Bld) 14.6 % 19-41 [facility] Blood monocytes/100 leukocyt esOrdered By: Dr. Diamond on 06-21-2023 Monocytes/100 WBC (Bld) 9.6 % 0-10 [facility] Blood platelet mean volumeOr dered By: Dr. Diamond on 09-07-2022 Platelet mean volume (Bld) [Entitic vol] 10.1 fL 6.2-12.0 [facility] CNOVon 09-07-2022 CNOV Office Visit ([facility]) ---- BHUMI JACKSON ([id number]) 89 F Date Time Provider Department 09/07/22 7:15 AM TISHA REZA [facility] During your visit today, we recorded the following information about you: Tisha Reza APRN.CNP 09/07/2022 7:40 AM Signed Triage: Patient presented to [facility] for 24 hours of vomiting and worsening abdominal pain. She is also having a fever of 101. No urine output since 1030 last night. Due to nature of patient's complaint and lack of investigative tools available at [facility], recommend patient be seen at nearest ED for further work up, declined squad, will go to [place] ED. Tisha Reza APRN.CNP Allergies As of Date: 09/07/2022 Noted Allergy Reaction GLUTEN 02/17/2021 14 - Other: See Comments Comments: Chest pain, throat swelling DAIRY AID (LACTASE) 02/17/2021 5 - Intolerance Comments: Stomach cramps Date Reviewed: 02/17/2021 Reviewed by: Samara Roman Ma - Fully Assessed Primary Visit Diagnosis:Abdominal pain, generalized [R10.84 (ICD-10-CM)] [R10.84] Problem List As Of Date 09/07/2022 Noted Resolved History of arthritis [Z87.39] 02/17/2021 Encounter Status:Closed by TISHA REZA on 09/07/22 Normal [facility] Determination of erythrocyte mean corpuscular volume (MCV)Ordered By: Dr. Diamond on 09-07-2022 MCV (RBC) [Entitic vol] 95.8 fL 81-99 [facility] Hematocrit Auto (Bld) [Volum e fraction]Ordered By: Dr. Diamond on 09-07-2022 Hematocrit (Bld) [Volume fraction] 41.0 % 37-47 [facility] Ketones Test strip Ql (U)Ord ered By: Dr. Diamond on 09-07-2022 Ketones Ql (U) 150 mg/dl Negative [facility] Comment on above: CRITICAL VALUE *HCRI TICAL VALUE VERIFIED. CALLED TO ELISABET RYDER (ER)09/07/22 0900 Neville Castillo.RESULTS READ BACK BY SAME. Laboratory - Chemistry and C hemistry - challengeOrdered By: Dr. Diamond on 09-07-2022 ALP [Catalytic activity/Vol] 60 U/L 45-117 [facility] ALT [Catalytic activity/Vol] 18 U/L 13-56 [facility] CO2 [Moles/Vol] 25.0 mmol/L 21.0-32.0 [facility] Globulin (S) [Mass/Vol] 3.9 g/dL 2.2-4.2 [facility] Lipase [Catalytic activity/Vol] 25 U/L 13-75 [facility] Comment on above: Please note:LIPASE r evised reference range effective 22. New Lipase methodology. Expected to produce lower values than the previous assay method. NEW Reference Range: 13 - 75 U/L Urea nitrogen/Creatinine [Mass ratio] 14.1 mg/mg 10-20 [facility] Laboratory - Hematology and Cell countsOrdered By: Dr. Diamond on 09-07-2022 Erythrocyte distribution width (RBC) [Entitic vol] 45.5 fL 35.1-43.9 [facility] Erythrocyte distribution width (RBC) [Ratio] 12.9 % 11.6-14.6 [facility] Immature granulocytes/100 WBC (Bld) 0.200 % 0.0-0.9 [facility] Comment on above: IG% - Immature Granu locytes (promyelocytes, myelocytes and metamyelocytes) > 1% indicates that a LEFT SHIFT is Present. MCH (RBC) [Entitic mass] 31.5 pg 27.0-32.0 [facility] Nucleated RBC/100 WBC (Bld) [Ratio] 0 % 0-5 [facility] MCHC Auto (RBC) [Mass/Vol]Or dered By: Dr. Diamond on 09-07-2022 MCHC (RBC) [Mass/Vol] 32.9 g/dL 32-36 [facility] Mucus LM Ql (Urine sed)Order ed By: Dr. Diamond on 09-07-2022 Mucus Ql (Urine sed) 0 SEEN /hpf [facility] Nitrite Test strip Ql (U)Ord ered By: Dr. Diamond on 09-07-2022 Nitrite Ql (U) Negative Negative [facility] No Panel InformationOrdered By: Dr. Diamond on 09-07-2022 Estimated Creatinine Clearance Calc 103.16 ml/min [facility] Estimated GFR (MDRD) Amer 148 mL/min >60 [facility] Comment on above: GFR Calc Estimated GFR (MDRD) Non-Af Amer 122 mL/min >60 [facility] Comment on above: Non- GFR Calc Platelets bldOrdered By: Dr. Diamond on 09-07-2022 Platelets (Bld) [#/Vol] 187 10*3/uL 150-450 [facility] Protein Test strip Ql (U)Ord ered By: Dr. Diamond on 09-07-2022 Protein Ql (U) 30 mg/dl Negative [facility] Serum or plasma albumin milagros urement (mass/volume)Ordered By: Dr. Diamond on 09-07-2022 Albumin [Mass/Vol] 3.9 g/dL 3.2-5.0 [facility] Serum or plasma albumin/glob ulin mass ratioOrdered By: Dr. Diamond on 09-07-2022 Albumin/Globulin [Mass ratio] 1.0 {ratio} 0.9-2.4 [facility] Serum or plasma calcium milagros urement (mass/volume)Ordered By: Dr. Diamond on 09-07-2022 Calcium [Mass/Vol] 9.1 mg/dL 8.5-10.1 [facility] Serum or plasma creatinine m easurement (mass/volume)Ordered By: Dr. Diamond on 09-07-2022 Creatinine [Mass/Vol] 0.64 mg/dL 0.55-1.02 [facility] Comment on above: The validity of the calculated GFR & GFRAA in patients over 70 years has not been determined. Clinical correlation is essential. Serum or plasma urea nitroge n measurement (mass/volume)Ordered By: Dr. Diamond on 09-07-2022 Urea nitrogen [Mass/Vol] 9 mg/dL 7-18 [facility] Squamous epithelial cells de tection in urine sediment by light microscopyOrdered By: Dr. Diamond on 09-07-2022 Epithelial cells.squamous LM Ql (Urine sed) 0-5 SEEN /hpf 5-10 [facility] Thin prep Papanicolaou smear with manual screeningOrdered By: Dr. Diamond on 09-07-2022 Thin prep Papanicolaou smear with manual screening 22 U/L 15-37 [facility] Thin prep Papanicolaou smear with manual screening 7 5-15 [facility] Urine blood detectionOrdered By: Dr. Diamond on 09-07-2022 RBC Ql (U) 10 /ul Negative [facility] RBC Ql (U) 0-5 SEEN /hpf 0-5 [facility] Urine clarityOrdered By: Dr. Diamond on 09-07-2022 Clarity (U) Sl. Cloudy Clear [facility] Urine color determinationOrd ered By: Dr. Diamond on 09-07-2022 Color (U) Yellow Yellow [facility] Urine glucose detectionOrder ed By: Dr. Diamond on 09-07-2022 Glucose Ql (U) Normal mg/dl Normal [facility] Urine leukocyte esterase det ection by dipstickOrdered By: Dr. Diamond on 09-07-2022 Leukocyte esterase Test strip Ql (U) Negative Negative [facility] Urine pHOrdered By: Dr. Yrn herman on 09-07-2022 pH (U) 6.0 [pH] 5.0 - 8.0 [facility] Urine sediment bacteria coun t by microscopy (number/high power field)Ordered By: Dr. Diamond on 09-07-2022 Bacteria LM.HPF (Urine sed) [#/Area] 1 /[HPF] None Seen [facility] Urine specific gravity measu rementOrdered By: Dr. Diamond on 09-07-2022 Specific gravity (U) [Rel density] 1.020 1.002-1.030 [facility] Urobilinogen Auto test strip Ql (U)Ordered By: Dr. Diamond on 09-07-2022 Urobilinogen Ql (U) 1 mg/dl Normal [facility] Cervical or vagninal specime n microscopic examination by cytology stain (reported asOrdered By: Dr. Coon on 03-31-2022 Cytology report Cyto stain Doc (Cvx/Vag) Comment . [facility] Comment on above: The Pap smear is a s creening test designed to aid in thedetection of premalignant and malignant conditions of theuterine cervix. It is not a diagnostic procedure andshould not be used as the sole means of detecting cervicalcancer. Both false-positive and false-negative reports dooccur. Laboratory - CytologyOrdered By: Dr. Coon on 03-31-2022 Coal Grader Cyto stain Nom (Cvx/Vag) [ID] Comment . [facility] Comment on above: Paulina Watt, Cyto technologist (ASCP) Pathologist Cyto stain Nom (Cvx/Vag) [ID] Comment . [facility] Comment on above: Mee Herrera MD, [place] thologist Recommended follow-up Cyto stain Nom (Cvx/Vag) Comment . [facility] Comment on above: Suggest follow up as clinically appropriate. Laboratory - Miscellaneous t estsOrdered By: Dr. Coon on 03-31-2022 Service comment (Unsp spec) [Interp] Comment . [facility] Comment on above: This liquid based Th inPrep(R) pap test was screened withthe use of an image guided system. Service comment (Unsp spec) [Interp] . . [facility] No Panel InformationOrdered By: Dr. Coon on 03-31-2022 Human Papillomavirus Screen Comment . [facility] Comment on above: The HPV DNA reflex c rittaty were not met with this specimenresult therefore, no HPV testing was performed.Performed at: [address] [id number] Director: Damari Reece MD, Phone: [phone] Pathology report final diagnosis Narrative Comment . [facility] Comment on above: EPITHELIAL CELL ABNO RMALITY.LOW GRADE SQUAMOUS INTRAEPITHELIAL LESION (LSIL). R87.612 FOOD ALLERGY PROFILEon 02-22 ALMOND (F20) IGE <0.10 Normal [facility] Comment on above: Performed By: #### 1 0715, %SBRAST #### [facility] [place] [address] X Ray Technician: Edgardo Kruger MD CASHEW NUT (F202) IGE <0.[address] [facility] Comment on above: Performed By: #### 1 0715, %SBRAST #### [facility] [place] [address] X Ray Technician: Edgardo Kruger MD CLASS 0 Normal [facility] Comment on above: Performed By: #### 1 0715, %SBRAST #### [facility] [place] [address] X Ray Technician: Edgardo Kruger MD CODFISH (F3) IGE <0.10 Normal [facility] Comment on above: Performed By: #### 1 0715, %SBRAST #### [facility] [place] [address] X Ray Technician: Edgardo Kruger MD COW'S MILK (F2) IGE <0.10 Normal [facility] Comment on above: Performed By: #### 1 0715, %SBRAST #### [facility] [place] [address] X Ray Technician: Edgardo Kruger MD EGG WHITE (F1) IGE <0.10 Normal [facility] Comment on above: Performed By: #### 1 0715, %SBRAST #### [facility] [place] [address] X Ray Technician: Edgardo Kruger MD HAZELNUT (F17) IGE <0.10 Normal [facility] Comment on above: Performed By: #### 1 0715, %SBRAST #### [facility] [place] [address] X Ray Technician: Edgardo Kruger MD PEANUT (F13) IGE <0.10 Normal [facility] Comment on above: Performed By: #### 1 0715, %SBRAST #### [facility] of [place] [address], [address] [place] [address] X Ray Technician: Edgardo Kruger MD SALMON (F41) IGE <0.10 Normal [facility] Comment on above: Performed By: #### 1 0715, %SBRAST #### [facility] [place] [address] [address] , [address] [place] [address] X Ray Technician: Edgardo Kruger MD SCALLOP (F338) IGE <0.10 Normal [facility] Comment on above: Performed By: #### 1 0715, %SBRAST #### [facility] [place] [address] [address] [place] [address] X Ray Technician: Edgardo Kruger MD SESAME SEED (F10) IGE <0.[address] [facility] Comment on above: Performed By: #### 1 0715, %SBRAST #### [facility] [place] [address] [address] , [address] [place] [address] X Ray Technician: Edgardo Kruger MD SHRIMP (F24) IGE <0.10 Normal [facility] Comment on above: Performed By: #### 1 0715, %SBRAST #### [facility] [place] [address] [address] [place] [address] X Ray Technician: Edgardo Kruger MD SOYBEAN (F14) IGE <0.10 Normal [facility] Comment on above: Performed By: #### 1 0715, %SBRAST #### [facility] [place] [address] [address] [place] [address] X Ray Technician: Edgardo Kruger MD TUNA (F40) IGE <0.10 Normal [facility] Comment on above: Performed By: #### 1 0715, %SBRAST #### [facility] [place] [address], [address] [place] [address] X Ray Technician: Edgardo Kruger MD WALNUT (F256) IGE <0.10 Normal [facility] Comment on above: Performed By: #### 1 0715, %SBRAST #### [facility] [address], [address] [place] [address] X Ray Technician: Edgardo Kruger MD WHEAT (F4) IGE <0.10 Normal [facility] Comment on above: Performed By: #### 1 0715, %SBRAST #### [facility] [address], [address] [place] [address] X Ray Technician: Edgardo Kruger MD INTERPRETATIONon 02-22-2021 INTERPRETATION Normal [facility] Comment on above: Result Comment: Specific Level of Allergen IGE Class kU/L Specific IGE Antibody ----- --------- 0 <0.10 Absent/Undetectable 0/1 0.10-0.34 Very Low Level 1 0.35-0.69 Low Level 2 0.70-3.49 Moderate Level 3 3.50-17.4 High Level 4 17.5-49.9 Very High Level 5 50-100 Very High Level 6 >100 Very High Level The clinical relevance of allergen results of 0.10-0.34 kU/L are undetermined and intended for specialist use. Allergens denoted with a include results using one or more analyte specific reagents. In those cases, the test was developed and its analytical performance characteristics have been determined by [facility]. It has not been cleared or approved by the U.S. Food and Drug Administration. This assay has been validated pursuant to the CLIA regulations and is used for clinical purposes. Performed By: #### 1 0715, %SBRAST #### [facility] [address], [address] [place] [id number] X Ray Technician: Edgardo Kruger MD Vital Signs Date Time Vital Sign Value Performing Clinician Fátima porter 10-02-2024 09:21-0400 Body height 157.[address] Ishmael Potts MD Work Phone: [facility] 10-02-2024 09:21-0400 Body mass index (BMI) [Ratio] 27.6 kg/m2 Dr. Ishmael Potts MD Work Phone: [facility] 10-02-2024 09:21-0400 Body weight 68.[address] Ishmael Potts MD Work Phone: [facility] 10-02-2024 09:15-0400 Body temperature 97.4 [degF] Dr. Ishmael Potts MD Work Phone: [facility] 10-02-2024 09:15-0400 Diastolic blood pressure 74 mm[Hg] Dr. Ishmael Potts MD Work Phone: [facility] 10-02-2024 09:15-0400 Heart rate 75 /min Dr. Ishmael Potts MD Work Phone: [facility] 10-02-2024 09:15-0400 Respiratory rate 16 /min Dr. Ishmael Potts MD Work Phone: [facility] 10-02-2024 09:15-0400 SaO2% (BldA) [Mass fraction] 98 % Dr. Ishmael Potts MD Work Phone: [facility] 10-02-2024 09:15-0400 Systolic blood pressure 114 mm[Hg] Dr. Ishmael Potts MD Work Phone: [facility] 09-25-2024 10:23-0400 Body mass index (BMI) [Ratio] 27.3 kg/m2 Dr. Ishmael Potts MD Work Phone: [facility] 09-25-2024 10:23-0400 Body weight 67.[address] Ishmael Potts MD Work Phone: [facility] 09-25-2024 10:23-0400 Diastolic blood pressure 77 mm[Hg] Dr. Ishmael Potts MD Work Phone: [facility] 09-25-2024 10:23-0400 Systolic blood pressure 116 mm[Hg] Dr. Ishmael Potts MD Work Phone: [facility] 09-16-2024 09:29-0400 Body height 157.[address] Ishmael Potts MD Work Phone: [facility] 09-16-2024 09:29-0400 Body mass index (BMI) [Ratio] 27.1 kg/m2 Dr. Ishmael Potts MD Work Phone: [facility] 09-16-2024 09:29-0400 Body weight 67.[address] Ishmael Potts MD Work Phone: [facility] 09-16-2024 09:29-0400 Diastolic blood pressure 80 mm[Hg] Dr. Ishmael Potts MD Work Phone: [facility] 09-16-2024 09:29-0400 Heart rate 79 /min Dr. Ishmael Potts MD Work Phone: [facility] 09-16-2024 09:29-0400 Systolic blood pressure 117 mm[Hg] Dr. Ishmael Potts MD Work Phone: [facility] 09-12-2024 09:02-0400 Body height 157.[address] Ishmael Potts MD Work Phone: [facility] 09-12-2024 09:01-0400 Body mass index (BMI) [Ratio] 26.9 kg/m2 Dr. Ishmael Potts MD Work Phone: [facility] 09-12-2024 09:01-0400 Body weight 66.[address] Ishmael Potts MD Work Phone: [facility] 09-12-2024 09:01-0400 Diastolic blood pressure 78 mm[Hg] Dr. Ishmael Potts MD Work Phone: [facility] 09-12-2024 09:01-0400 Systolic blood pressure 118 mm[Hg] Dr. Ishmael Potts MD Work Phone: [facility] 09-05-2024 09:01-0400 Body height 157.[address] Ishmael Potts MD Work Phone: [facility] 09-05-2024 09:00-0400 Body mass index (BMI) [Ratio] 26.6 kg/m2 Dr. Ishmael Potts MD Work Phone: [facility] 09-05-2024 09:00-0400 Body weight 65.[address] Ishmael Potts MD Work Phone: [facility] 09-05-2024 09:00-0400 Diastolic blood pressure 75 mm[Hg] Dr. Ishmael Potts MD Work Phone: [facility] 09-05-2024 09:00-0400 Systolic blood pressure 108 mm[Hg] Dr. Ishmael Potts MD Work Phone: [facility] 08-29-2024 21:48-0400 Body temperature 98.2 [degF] Dr. Ishmael Potts MD Work Phone: [facility] 08-29-2024 20:36-0400 Diastolic blood pressure 64 mm[Hg] Dr. Ishmael Potts MD Work Phone: [facility] 08-29-2024 20:36-0400 Heart rate 106 /min Dr. Ishmael Potts MD Work Phone: [facility] 08-29-2024 20:36-0400 SaO2% (BldA) [Mass fraction] 95 % Dr. Ishmael Potts MD Work Phone: [facility] 08-29-2024 20:36-0400 Systolic blood pressure 114 mm[Hg] Dr. Ishmael Potts MD Work Phone: [facility] 08-29-2024 19:25-0400 Respiratory rate 16 /min Dr. Ishmael Potts MD Work Phone: [facility] 08-29-2024 19:12-0400 Body height 157.[address] Ishmael Potts MD Work Phone: [facility] 08-29-2024 19:12-0400 Body mass index (BMI) [Ratio] 27.3 kg/m2 Dr. Ishmael Potts MD Work Phone: [facility] 08-29-2024 19:12-0400 Body weight 67.[address] Ishmael Potts MD Work Phone: [facility] 08-23-2024 14:35-0400 Body height 157.[address] Ishmael Potts MD Work Phone: [facility] 08-23-2024 14:33-0400 Body mass index (BMI) [Ratio] 26.6 kg/m2 Dr. Ishmael Potts MD Work Phone: [facility] 08-23-2024 14:33-0400 Body weight 65.[address] Ishmael Potts MD Work Phone: [facility] 08-23-2024 14:33-0400 Diastolic blood pressure 70 mm[Hg] Dr. Ishmael Potts MD Work Phone: [facility] 08-23-2024 14:33-0400 Systolic blood pressure 111 mm[Hg] Dr. Ishmael Potts MD Work Phone: [facility] 08-09-2024 10:12-0400 Body mass index (BMI) [Ratio] 26.2 kg/m2 Dr. Ishmael Potts MD Work Phone: [facility] 08-09-2024 10:12-0400 Body weight 64.[address] Ishmael Potts MD Work Phone: [facility] 08-09-2024 10:12-0400 Diastolic blood pressure 74 mm[Hg] Dr. Ishmael Potts MD Work Phone: [facility] 08-09-2024 10:12-0400 Systolic blood pressure 123 mm[Hg] Dr. Ishmael Potts MD Work Phone: [facility] 07-26-2024 08:11-0400 Body mass index (BMI) [Ratio] 25.4 kg/m2 Dr. Ishmael Potts MD Work Phone: [facility] 07-26-2024 08:11-0400 Body weight 63.[address] Ishmael Potts MD Work Phone: [facility] 07-26-2024 08:11-0400 Diastolic blood pressure 71 mm[Hg] Dr. Ishmael Potts MD Work Phone: [facility] 07-26-2024 08:11-0400 Systolic blood pressure 107 mm[Hg] Dr. Ishmael Potts MD Work Phone: [facility] 07-10-2024 13:20-0400 Body height 157.[address] Ishmael Potts MD Work Phone: [facility] 07-10-2024 13:20-0400 Body mass index (BMI) [Ratio] 24.7 kg/m2 Dr. Ishmael Potts MD Work Phone: [facility] 07-10-2024 13:20-0400 Body weight 61.[address] Ishmael Potts MD Work Phone: [facility] 07-10-2024 13:20-0400 Diastolic blood pressure 66 mm[Hg] Dr. Ishmael Potts MD Work Phone: [facility] 07-10-2024 13:20-0400 Systolic blood pressure 104 mm[Hg] Dr. Ishmael Potts MD Work Phone: [facility] 07-02-2024 08:28-0400 Body mass index (BMI) [Ratio] 24.7 kg/m2 Dr. Ishmael Potts MD Work Phone: [facility] 07-02-2024 08:28-0400 Body weight 61.[address] Ishmael Potts MD Work Phone: [facility] 07-02-2024 08:28-0400 Diastolic blood pressure 72 mm[Hg] Dr. Ishmael Potts MD Work Phone: [facility] 07-02-2024 08:28-0400 Systolic blood pressure 112 mm[Hg] Dr. Ishmael Potts MD Work Phone: [facility] 06-19-2024 15:32-0400 Body mass index (BMI) [Ratio] 24.5 kg/m2 Dr. Ishmael Potts MD Work Phone: [facility] 06-19-2024 15:32-0400 Body weight 60.[address] Ishmael Potts MD Work Phone: [facility] 06-19-2024 15:32-0400 Diastolic blood pressure 62 mm[Hg] Dr. Ishmael Potts MD Work Phone: [facility] 06-19-2024 15:32-0400 Systolic blood pressure 112 mm[Hg] Dr. Ishmael Potts MD Work Phone: [facility] 05-22-2024 14:30-0500 Body mass index (BMI) [Ratio] 23.8 kg/m2 Dr. Ishmael Potts MD Work Phone: [facility] 05-22-2024 14:30-0500 Body weight 58.[address] Ishmael Potts MD Work Phone: [facility] 05-22-2024 14:30-0500 Diastolic blood pressure 78 mm[Hg] Dr. Ishmael Potts MD Work Phone: [facility] 05-22-2024 14:30-0500 Systolic blood pressure 117 mm[Hg] Dr. Ishmael Potts MD Work Phone: [facility] 04-26-2024 09:38-0500 Body mass index (BMI) [Ratio] 23.3 kg/m2 Dr. Ishmael Potts MD Work Phone: [facility] 04-26-2024 09:38-0500 Body weight 57.[address] Ishmael Potts MD Work Phone: [facility] 04-26-2024 09:38-0500 Diastolic blood pressure 75 mm[Hg] Dr. Ishmael Potts MD Work Phone: [facility] 04-26-2024 09:38-0500 Systolic blood pressure 111 mm[Hg] Dr. Ishmael Potts MD Work Phone: [facility] 03-28-2024 11:33-0500 Body mass index (BMI) [Ratio] 22.8 kg/m2 Dr. Ishmael Potts MD Work Phone: [facility] 03-28-2024 11:33-0500 Body weight 56.[address] Ishmael Potts MD Work Phone: [facility] 03-28-2024 11:33-0500 Diastolic blood pressure 76 mm[Hg] Dr. Ishmael Potts MD Work Phone: [facility] 03-28-2024 11:33-0500 Systolic blood pressure 116 mm[Hg] Dr. Ishmael Potts MD Work Phone: [facility] 06-15-2023 13:06-0400 Body height 157.[address] Ishmael Potts Work Phone: [facility] 06-15-2023 13:06-0400 Body mass index (BMI) [Ratio] 20.8 kg/m2 Dr. Ishmael Potts Work Phone: [facility] 06-15-2023 13:06-0400 Body temperature 97.8 [degF] Dr. Ishmael Potts Work Phone: [facility] 06-15-2023 13:06-0400 Body weight 51.[address] Ishmael Potts Work Phone: [facility] 06-15-2023 13:06-0400 Diastolic blood pressure 60 mm[Hg] Dr. Ishmael Potts Work Phone: [facility] 06-15-2023 13:06-0400 Heart rate 107 /min Dr. Ishmael Potts Work Phone: [facility] 06-15-2023 13:06-0400 Respiratory rate 16 /min Dr. Ishmael Potts Work Phone: [facility] 06-15-2023 13:06-0400 SaO2% (BldA) [Mass fraction] 97 % Dr. Ishmael Potts Work Phone: [facility] 06-15-2023 13:06-0400 Systolic blood pressure 106 mm[Hg] Dr. Ishmael Potts Work Phone: [facility] 06-09-2023 14:15-0400 Body temperature 98.3 [degF] Dr. Ishmael Potts Work Phone: [facility] 06-09-2023 14:15-0400 Diastolic blood pressure 68 mm[Hg] Dr. Ishmael Potts Work Phone: [facility] 06-09-2023 14:15-0400 Heart rate 66 /min Dr. Ishmael Potts Work Phone: [facility] 06-09-2023 14:15-0400 Respiratory rate 15 /min Dr. Ishmael Potts Work Phone: [facility] 06-09-2023 14:15-0400 SaO2% (BldA) [Mass fraction] 98 % Dr. Ishmael Potts Work Phone: [facility] 06-09-2023 14:15-0400 Systolic blood pressure 110 mm[Hg] Dr. Ishmael Potts Work Phone: [facility] 04-24-2023 12:22-0500 Body mass index (BMI) [Ratio] 21 kg/m2 Dr. Ishmael Potts Work Phone: [facility] 04-24-2023 12:22-0500 Body temperature 98.7 [degF] Dr. Ishmael Potts Work Phone: [facility] 04-24-2023 12:22-0500 Body weight 52.[address] Ishmael Potts Work Phone: [facility] 04-24-2023 12:22-0500 Diastolic blood pressure 78 mm[Hg] Dr. Ishmael Potts Work Phone: [facility] 04-24-2023 12:22-0500 Heart rate 107 /min Dr. Ishmael Potts Work Phone: [facility] 04-24-2023 12:22-0500 Respiratory rate 12 /min Dr. Ishmael Potts Work Phone: [facility] 04-24-2023 12:22-0500 SaO2% (BldA) [Mass fraction] 97 % Dr. Ishmael Potts Work Phone: [facility] 04-24-2023 12:22-0500 Systolic blood pressure 118 mm[Hg] Dr. Ishmael Potts Work Phone: [facility] 04-18-2023 08:04-0500 Body mass index (BMI) [Ratio] 21.9 kg/m2 Dr. Ishmael Potts Work Phone: [facility] 04-18-2023 08:04-0500 Body weight 54.[address] Ishmael Potts Work Phone: [facility] 04-11-2023 09:21-0500 Body mass index (BMI) [Ratio] 21.5 kg/m2 Dr. Ishmael Potts Work Phone: [facility] 04-11-2023 09:21-0500 Body weight 53.[address] Ishmael Potts Work Phone: [facility] 04-11-2023 09:21-0500 Diastolic blood pressure 75 mm[Hg] Dr. Ishmael Potts Work Phone: [facility] 04-11-2023 09:21-0500 Systolic blood pressure 106 mm[Hg] Dr. Ishmael Potts Work Phone: [facility] 03-30-2023 07:57-0500 Body mass index (BMI) [Ratio] 21.6 kg/m2 Dr. Ishmael Potts Work Phone: [facility] 03-30-2023 07:57-0500 Body temperature 97.7 [degF] Dr. Ishmael Potts Work Phone: [facility] 03-30-2023 07:57-0500 Body weight 53.[address] Ishmael Potts Work Phone: [facility] 03-30-2023 07:57-0500 Diastolic blood pressure 68 mm[Hg] Dr. Ishmael Potts Work Phone: [facility] 03-30-2023 07:57-0500 Heart rate 90 /min Dr. Ishmael Potts Work Phone: [facility] 03-30-2023 07:57-0500 Respiratory rate 16 /min Dr. Ishmael Potts Work Phone: [facility] 03-30-2023 07:57-0500 SaO2% (BldA) [Mass fraction] 97 % Dr. Ishmael Potts Work Phone: [facility] 03-30-2023 07:57-0500 Systolic blood pressure 118 mm[Hg] Dr. Ishmael Potts Work Phone: [facility] 02-16-2023 11:54-0500 Body temperature 98.8 [degF] Dr. Ishmael Potts Work Phone: [facility] 02-16-2023 11:54-0500 Diastolic blood pressure 70 mm[Hg] Dr. Ishmael Potts Work Phone: [facility] 02-16-2023 11:54-0500 Heart rate 81 /min Dr. Ishmael Potts Work Phone: [facility] 02-16-2023 11:54-0500 Respiratory rate 16 /min Dr. Ishmael Potts Work Phone: [facility] 02-16-2023 11:54-0500 SaO2% (BldA) [Mass fraction] 99 % Dr. Ishmael Potts Work Phone: [facility] 02-16-2023 11:54-0500 Systolic blood pressure 102 mm[Hg] Dr. Ishmael Potts Work Phone: [facility] 02-16-2023 10:12-0500 Body height 157.[address] Ishmael Potts Work Phone: [facility] 02-16-2023 10:12-0500 Body mass index (BMI) [Ratio] 22.4 kg/m2 Dr. Ishmael Potts Work Phone: [facility] 02-16-2023 10:12-0500 Body weight 55.[address] Ishmael Potts Work Phone: [facility] 02-13-2023 11:03-0500 Body mass index (BMI) [Ratio] 22.6 kg/m2 Dr. Ishmael Potts Work Phone: [facility] 02-13-2023 11:03-0500 Body temperature 97.3 [degF] Dr. Ishmael Potts Work Phone: [facility] 02-13-2023 11:03-0500 Body weight 54.[address] Ishmael Potts Work Phone: [facility] 02-13-2023 11:03-0500 Diastolic blood pressure 60 mm[Hg] Dr. Ishmael Potts Work Phone: [facility] 02-13-2023 11:03-0500 Heart rate 72 /min Dr. Ishmael Potts Work Phone: [facility] 02-13-2023 11:03-0500 Respiratory rate 14 /min Dr. Ishmael Potts Work Phone: [facility] 02-13-2023 11:03-0500 SaO2% (BldA) [Mass fraction] 99 % Dr. Ishmael Potts Work Phone: [facility] 02-13-2023 11:03-0500 Systolic blood pressure 102 mm[Hg] Dr. Ishmael Potts Work Phone: [facility] 09-19-2022 07:59-0400 Body height 154.[address] Tristian Olivares Work Phone: [facility] 09-19-2022 07:59-0400 Body mass index (BMI) [Ratio] 22.4 kg/m2 Dr. Tristian Olivares Work Phone: [facility] 09-19-2022 07:59-0400 Body temperature 98.4 [degF] Dr. Tristian Olivares Work Phone: [facility] 09-19-2022 07:59-0400 Body weight 53.[address] Tristian Olivares Work Phone: [facility] 09-19-2022 07:59-0400 Diastolic blood pressure 68 mm[Hg] Dr. Tristian Olivares Work Phone: [facility] 09-19-2022 07:59-0400 Heart rate 69 /min Dr. Tristian Olivares Work Phone: [facility] 09-19-2022 07:59-0400 Respiratory rate 14 /min Dr. Tristian Olivares Work Phone: [facility] 09-19-2022 07:59-0400 SaO2% (BldA) [Mass fraction] 99 % Dr. Tristian Olivares Work Phone: [facility] 09-19-2022 07:59-0400 Systolic blood pressure 104 mm[Hg] Dr. Tristian Olivares Work Phone: [facility] 09-07-2022 11:14-0400 Diastolic blood pressure 70 mm[Hg] [facility] 09-07-2022 11:14-0400 Heart rate 81 /min [facility] 09-07-2022 11:14-0400 Respiratory rate 16 /min [facility] 09-07-2022 11:14-0400 SaO2% (BldA) [Mass fraction] 98 % [facility] 09-07-2022 11:14-0400 Systolic blood pressure 96 mm[Hg] [facility] 09-07-2022 09:02-0400 Body height 154.94 cm [facility] 09-07-2022 09:02-0400 Body mass index (BMI) [Ratio] 21.9 kg/m2 [facility] 09-07-2022 09:02-0400 Body temperature 97.3 [degF] [facility] 09-07-2022 09:02-0400 Body weight 52.61 kg [facility] 03-31-2022 11:27-0500 Body height 160.[address] Tristian Olivares Work Phone: [facility] 03-31-2022 11:25-0500 Body mass index (BMI) [Ratio] 20.7 kg/m2 Dr. Tristian Olivares Work Phone: [facility] 03-31-2022 11:25-0500 Body weight 53.[address] Tristian Olivares Work Phone: [facility] 03-31-2022 11:25-0500 Diastolic blood pressure 84 mm[Hg] Dr. Tristian Olivares Work Phone: [facility] 03-31-2022 11:25-0500 Systolic blood pressure 138 mm[Hg] Dr. Tristian Olivares Work Phone: [facility] Encounters Encounter Date Encounter Type Care Provider Facility Start: 10-04-2024 ambulatory Lisa Zaragoza Facility:[facility] Start: 10-02-2024 End: 10-02-[address] Ishmael Potts MD Work Phone: -[facility] Start: 10-02-2024 End: 10-02-[address] Neelam Coon MD -[facility] Work Phone: Start: 09-25-2024 End: 09-25-[address] Gwendolyn Lala DO -[facility][1] Work Phone: Start: 09-25-2024 End: 09-25-[address] Ishmael Potts MD Work Phone: [facility] Start: 09-16-2024 End: 09-16-2024 Patient encounter procedure Alda De La Garza CNM -[facility][1] Work Phone: Start: 09-16-2024 End: 09-16-[address] Ishmael Potts MD Work Phone: -[facility][1] Start: 09-12-2024 End: 09-12-[address] Neelam Coon MD -[facility][1] Work Phone: Start: 09-12-2024 End: 09-12-[address] Ishmael Potts MD Work Phone: [facility] Work Phone: Start: 09-05-2024 End: 09-05-[address] Ishmael Potts MD Work Phone: [facility] Work Phone: Start: 09-05-2024 End: 09-05-[address] Gwendolyn Lala DO -Laboratory [facility] Work Phone: Start: 09-05-2024 End: 09-05-[address] Gwendolyn Lala DO -[facility][1] Work Phone: Start: 09-05-2024 End: 09-05-[address] Ishmael Potts MD Work Phone: [facility] Work Phone: Start: 09-05-2024 End: 09-05-2024 ambulatory [facility] Facility:[facility] Start: 08-29-2024 ambulatory [facility] Facility:[facility] Start: 08-29-2024 Non-patient / Non-visit Alda De La Garza CNM -[facility] Start: 08-29-2024 End: 08-29-[address] Ishmael Potts MD Work Phone: [facility] Work Phone: Start: 08-29-2024 End: 08-29-2024 Patient encounter procedure Alda De La Garza CNM -[facility] Work Phone: Start: 08-23-2024 End: 08-23-2024 Patient encounter procedure Mahnaz Zacarias CNM -[facility][1] Work Phone: Start: 08-23-2024 End: 08-23-[address] Ishmael Potts MD Work Phone: [facility] Work Phone: Start: 08-09-2024 End: 08-09-2024 Patient encounter procedure Alda De La Garza CNM -[facility][1] Work Phone: Start: 08-09-2024 End: 08-09-2024 ambulatory Ishmael Potts Facility:[facility] Start: 07-26-2024 End: 07-26-[address] Neelam Coon MD -[facility][1] Work Phone: Start: 07-26-2024 End: 07-26-2024 ambulatory [facility] Facility:[facility] Start: 07-16-2024 End: 07-16-2024 Patient encounter procedure Rosy Steven ENVIRONMENTAL PROTECTION ECONOMIST-C -Laboratory Work Phone: Start: 07-16-2024 End: 07-16-2024 ambulatory Lisa Nik Facility:[facility] Start: 07-11-2024 End: 07-11-2024 ambulatory [facility]EL [facility]OTTS [facility] Start: 07-10-2024 End: 07-10-2024 Patient encounter procedure Rosy Steven ENVIRONMENTAL PROTECTION ECONOMIST-C -[facility] Work Phone: Start: 07-10-2024 End: 07-10-[address] Ishmael Potts MD Work Phone: [facility] Work Phone: Start: 07-10-2024 End: 07-10-2024 ambulatory Rosytano Steven ENVIRONMENTAL PROTECTION ECONOMIST Facility:[facility] Start: 07-02-2024 End: 07-02-2024 Patient encounter procedure Rosy Steven ENVIRONMENTAL PROTECTION ECONOMIST-C -[facility][1] Work Phone: Start: 07-02-2024 End: 07-02-2024 ambulatory Rosy Steven ENVIRONMENTAL PROTECTION ECONOMIST Facility:[facility] Start: 06-19-2024 End: 06-19-2024 Patient encounter procedure Rosy Steven ENVIRONMENTAL PROTECTION ECONOMIST-C [facility] Work Phone: Start: 06-19-2024 End: 06-19-2024 ambulatory Rosy Steven ENVIRONMENTAL PROTECTION ECONOMIST Facility:[facility] Start: 05-22-2024 End: 05-22-[address] Neelam Coon MD -[facility][1] Work Phone: Start: 05-22-2024 End: 05-22-2024 ambulatory Ishmael Potts Facility:[facility] Start: 05-09-2024 End: 05-09-2024 ambulatory [facility] Start: 04-26-2024 End: 04-26-2024 Patient encounter procedure Alda De La Garza CNM -[facility] Work Phone: Start: 04-26-2024 End: 04-26-2024 ambulatory Ishmael Potts Facility:[facility] Start: 03-28-2024 End: 03-28-[address] [facility] Work Phone: Start: 03-28-2024 End: 03-28-2024 ambulatory Ishmael [place] Facility:[facility] Start: 03-15-2024 End: 03-15-2024 ambulatory Ishmael [place] Facility:[facility] Start: 02-29-2024 End: 02-29-2024 ambulatory Ishmael [place] Facility:[facility] Start: 02-29-2024 End: 02-29-2024 ambulatory Ishmael [place] Facility:[facility] Start: 02-09-2024 End: 02-09-2024 ambulatory Alda De La Garza Facility:[facility] Start: 02-07-2024 End: 02-07-2024 ambulatory Ishmael [place] Facility:[facility] Start: 02-07-2024 End: 02-07-2024 ambulatory Ishmael [place] Facility:[facility] Start: 10-24-2023 End: 10-24-2023 ambulatory Ishmael [place] Facility:[facility] Start: 06-29-2023 End: 06-29-[address] Ishmael Potts Work Phone: [facility] Work Phone: Start: 06-29-2023 End: 06-29-[address] Ishmael Potts Work Phone: [facility] Work Phone: Start: 06-15-2023 End: 06-15-[address] Ishmael Potts Work Phone: [facility] Work Phone: Start: 06-15-2023 End: 06-15-[address] Ishmael Potts Work Phone: [facility]-Laboratory, [place] Start: 06-15-2023 End: 06-15-[address] Ishmael Potts Work Phone: [facility] Work Phone: Start: 06-09-2023 End: 06-09-[address] Ishmael Potts Work Phone: [facility] Work Phone: Start: 05-03-2023 End: 05-03-[address] Ishmael Potts Work Phone: [facility] Work Phone: Start: 04-24-2023 End: 04-24-[address] Ishmael Potts Work Phone: [facility] Work Phone: Start: 04-18-2023 End: 04-18-[address] Ishmael Potts Work Phone: [facility] Orthopaedic Specia Work Phone: Start: 04-17-2023 End: 04-17-[address] Ishmael Potts Work Phone: [facility]-Ultrasound, H Work Phone: Start: 04-11-2023 End: 04-11-[address] Ishmael Potts Work Phone: [facility]-Laboratory, Specimen Work Phone: Start: 04-11-2023 End: 04-11-[address] Ishmael Potts Work Phone: [facility] Women's Care Work Phone: Start: 04-04-2023 End: 04-04-[address] Ishmael Potts Work Phone: [facility] Gastroenterology Work Phone: Start: 03-30-2023 End: 03-30-[address] Ishmael Potts Work Phone: [facility] Work Phone: Start: 02-16-2023 Non-patient / Non-visit Dr. Ishmael Potts Work Phone: [facility] Start: 02-16-2023 End: 02-16-2023 Admission to same day surgery center Dr. Ishmael Potts Work Phone: [facility]-Endoscopy Work Phone: Start: 02-16-2023 End: 02-16-[address] Ishmael Potts Work Phone: [facility] Work Phone: Start: 02-13-2023 End: 02-13-[address] Ishmael Potts Work Phone: [facility] Work Phone: Start: 02-03-2023 End: 02-03-[address] Ishmael Potts Work Phone: [facility] Gastroenterology Work Phone: Start: 09-19-2022 End: 09-19-[address] Tristian Olivares Work Phone: [facility] Work Phone: Start: 09-19-2022 End: 09-19-[address] Tristian Olivares Work Phone: [facility]-Laboratory, [facility] Start: 09-19-2022 End: 09-19-[address] Tristian Olivares Work Phone: [facility] Work Phone: Start: 09-07-2022 ambulatory TRISTIAN OLIVARES Fac ility:[facility] Start: 09-07-2022 End: 09-07-2022 Emergency department patient visit [facility]-Emergency Department Start: 09-07-2022 End: 09-07-2022 Patient encounter procedure Tisha Reza APRNGeorgeGRAIN OPERATIONS MANAGER Work Phone: [facility] Comment on above: Abdominal pain, gene ralized [R10.84 (ICD-10-CM)] (Primary Dx) Start: 04-11-2022 End: 04-11-[address] Tristian Olivares Work Phone: [facility] Work Phone: Start: 04-11-2022 End: 04-11-[address] Tristian Olivares Work Phone: [facility]-Ultrasound, [facility] Start: 03-31-2022 End: 03-31-[address] Tristian Olivares Work Phone: [facility] Work Phone: Start: 03-31-2022 End: 03-31-[address] Tristian Olivares Work Phone: [facility]-Laboratory, Specimen Start: 03-31-2022 End: 03-31-[address] Tristian Olivares Work Phone: [facility] Procedures Date Procedure Procedure Detail Performing Clinician Start: 09-05-2024 Beta-hemolytic Streptococcus culture Dr. Ishmael Potts MD Work Phone: Start: 08-29-2024 Urnls dip stick/tablet reagent auto microscopy Dr. Ishmael Potts MD Work Phone: Start: 08-29-[address] Ishmael Potts MD Work Phone: Start: 07-10-2024 Serologic test for syphilis Dr. Ishmael oleary MD Work Phone: Start: 06-29-2023 CT angiography of chest with contrast Dr. Ishmael Potts Work Phone: Start: 04-18-2023 Radiologic examination of knee Dr. Heriberto Potts Work Phone: Start: 04-17-[address] Ishmael Findl ay Work Phone: Start: 02-16-[address] Ishmael hopkins Work Phone: Start: 09-07-2022 Computed tomography of abdomen and pelvis with intravenous contrast Start: 04-11-[address] Tristian Olivares Work Phone: Start: 04-11-[address] Tristian Olivares Work Phone: Plan of Treatment Date Care Activity Detail Author Start: 10-02-2024 Nonstress test [facility] Start: 10-02-2024 Obstetric monitoring [facility] Start: 10-02-2024 Vital signs measurements [facility] Start: 10-02-2024 [facility] Start: 10-02-2024 Patient discharge [facility] Start: 08-29-2024 End: 08-29-2024 [facility] Start: 08-29-2024 Nonstress test [facility] Start: 08-29-2024 Obstetric monitoring [facility] Start: 08-29-2024 Vital signs measurements [facility] Start: 08-29-2024 Bacteria identified in Urine by Culture Urine Culture [facility] Start: 08-29-2024 Patient discharge [facility] Start: 08-09-2024 Patient referral [facility] Work Phone: Start: 06-15-2023 Evaluation of diagnostic study results [facility] Start: 03-30-2023 Patient referral [facility] Work Phone: Start: 02-16-2023 Patient discharge [facility] Start: 11-18-2022 Influenza vaccination INFLUENZA (Season Ended) [facility] Start: 09-19-2022 Patient referral [facility] Work Phone: Start: 03-20-2022 DEPRESSION ASSESSMENT DEPRESSION ASSESSMENT [facility] Start: 08-27-2020 PAP TESTING PAP TESTING [facility] Start: 08-27-2018 Urine microalbumin profile DTAP,TDAP,TD (1 - Tdap) [facility] Start: 08-27-2017 CHLAMYDIA SCREENING (18-24) CHLAMYDIA SCREENING (18-24) [facility] Start: 08-27-2017 GC (GONORRHEA) SCREENING (18-24) GC (GONORRHEA) SCREENING (18-24) [facility] Start: 08-27-2017 HEPATITIS C SCREENING HEPATITIS C SCREENING [facility] Start: 08-27-2017 HIV SCREENING HIV SCREENING [facility] Start: 08-27-2013 PEDS TO ADULT TRANSITION ANNUAL ASSESSMENT PEDS TO ADULT TRANSITION ANNUAL ASSESSMENT [facility] Start: 2011 PEDS TO ADULT TRANSITION INITIAL DISCUSSION PEDS TO ADULT TRANSITION INITIAL DISCUSSION [facility] Start: 08-27-2009 MENINGOCOCCAL B: Consider based on risk (1 of 2 - Risk Bexsero 2-dose series) MENINGOCOCCAL B: Consider based on risk (1 of 2 - Risk Bexsero 2-dose series) [facility] Start: 08-27-2008 HPV VACCINE (1 - 2-dose series) HPV VACCINE (1 - 2-dose series) [facility] Start: 02-27-2000 COVID-19 VACCINE (#1) COVID-19 VACCINE (#1) [facility] Start: 1999 HEPATITIS B (1 of 3 - 3-dose series) HEPATITIS B (1 of 3 - 3-dose series) [facility] Amylase [Enzymatic activity/volume] in Serum or Plasma [facility] C reactive protein [Mass/volume] in Serum or Plasma [facility] Cyclic citrullinated peptide IgG Ab [Units/volume] in Serum or Plasma [facility] Erythrocyte sediment ation rate [facility] Laboratory test [facility] Lactate dehydrogenas e measurement [facility] MR Lower Extremity [facility] Patient Education [facility] Work Phone: Patient referral [facility] Work Phone: Radionuclide gastric emptying study [facility] Radionuclide imaging of liver and/or biliary tract using radioactive isotope [facility] Rheumatoid factor [Presence] in Serum [facility] Serum immunofixation [facility] Streptococcus agalac tiae [Presence] in Unspecified specimen by Organism specific culture [facility] Triacylglycerol lipa se measurement [facility] Urine culture [facility] Immunizations Immunization Date Immunization Notes Care Provider Marilu bentley 08-09-2024 tetanus toxoid, redu jaylin diphtheria toxoid, and acellular pertussis vaccine, adsorbed Dr. Ishmael Potts MD Work Phone: [facility] 11-04-2016 meningococcal polysaccharide (groups A, C, Y and W-135) diphtheria toxoid conjugate vaccine (MCV4P) Dr. Tristian Olivares Work Phone: [facility] 11-22-2011 influenza, injectabl e, quadrivalent, preservative free Dr. Ishmael Potts Work Phone: [facility] 11-22-2011 influenza, seasonal, injectable Dr. Tristian Olivares Work Phone: [facility] 11-22-2011 tetanus toxoid, redu jaylin diphtheria toxoid, and acellular pertussis vaccine, adsorbed Dr. Tristian Olivares Work Phone: [facility] 11-22-[address] Tristian Olivares Work Phone: [facility] 11-04-2004 diphtheria, tetanus toxoids and acellular pertussis vaccine Dr. Tristian Olivares Work Phone: [facility] 11-04-2004 measles, mumps and rubella virus vaccine Dr. Tristian Olivares Work Phone: [facility] 11-04-2004 poliovirus vaccine, inactivated Dr. Tristian Olivares Work Phone: [facility] 03-01-2001 diphtheria, tetanus toxoids and acellular pertussis vaccine Dr. Tristian Olivares Work Phone: [facility] 03-01-2001 haemophilus influenz ae type b conjugate and Hepatitis B vaccine Dr. Tristian Olivares Work Phone: [facility] 03-01-[address] Tristian Olivares Work Phone: [facility] 12-04-2000 poliovirus vaccine, inactivated Dr. Tristian Olivares Work Phone: [facility] 2000 measles, mumps and rubella virus vaccine Dr. Tristian Olivares Work Phone: [facility] 03-06-2000 diphtheria, tetanus toxoids and acellular pertussis vaccine Dr. Tristian Olivares Work Phone: [facility] 01-03-2000 diphtheria, tetanus toxoids and acellular pertussis vaccine Dr. Tristian Olivares Work Phone: [facility] 01-03-2000 haemophilus influenz ae type b conjugate and Hepatitis B vaccine Dr. Tristian Olivares Work Phone: [facility] 01-03-2000 poliovirus vaccine, inactivated Dr. Tristian Olivares Work Phone: [facility] 1999 diphtheria, tetanus toxoids and acellular pertussis vaccine Dr. Tristian Olivares Work Phone: [facility] 1999 haemophilus influenz ae type b conjugate and Hepatitis B vaccine Dr. Tristian Olivares Work Phone: [facility] 1999 poliovirus vaccine, inactivated Dr. Tristian Olivares Work Phone: [facility] Payers Date Payer Category Payer Self-pay [id number] 2018 Unknown [id number] 2018 Unknown MMO MMO [employer] PPO [id number] 2018-Present [phone] [address] [place] [address] PPO [id number] 1999 Unknown [id number] 1999 Unknown [id number] Unknown [id number] Unknown [id number] Unknown [id number] [id number]2 Unknown [id number] 2.16.840.1.645833.3.579.2.462 Unknown [id number] 2.16.840.1.387844.3.579.2.462 Unknown [id number] 2.16.840.1.923926.3.579.2.462 Unknown [id number] 2.16.840.1.055488.3.579.2.462 Unknown [id number] 2.16.840.1.738274.3.579.2.462 Unknown [id number] 2.16.840.1.920162.3.579.2.462 Unknown [id number] 2.16.840.1.803476.3.579.2.462 Unknown [id number] 2.16840.1.775296.3.579.2.462 Unknown [id number] 2.16.840.1.360025.3.579.2.462 Unknown [id number] 2.16.840.1.718943.3.579.2.462 Unknown [id number] 2.16.840.1.975196.3.579.2.462 Unknown [id number] 2.16.840.1.168174.3.579.2.462 Unknown [id number] 2.16.840.1.035381.3.579.2.462 Unknown [id number] 2.16.840.1.420866.3.579.2.462 Unknown [id number] 2.16.840.1.062052.3.579.2.462 Unknown [id number] 2.16.840.1.928597.3.579.2.462 Unknown [id number] 2.16.840.1.220151.3.579.2.462 Unknown [id number] 2.16.840.1.105949.3.579.2.462 Unknown [id number] 2.16.840.1.904297.3.579.2.462 Unknown [id number] 2.16.840.1.348289.3.579.2.462 Unknown [id number] 2.16.840.1.521968.3.579.2.462 Unknown [id number] 2.16.840.1.566593.3.579.2.462 Unknown [id number] 2.16.840.1.921567.3.579.2.462 Unknown [id number] 2.16.840.1.723721.3.579.2.462 Social History Date Type Detail Facility Start: 03-31-2022 End: 06-15-2023 Tobacco smoking status AZIS Unknown if ever smoked [facility] Start: 2000 Sex Assigned At Female [facility] Start: 02-17-2021 End: 02-29-2024 Tobacco smoking status NHIS Never smoked tobacco [facility] Start: 02-17-2021 Tobacco use and exposure User of smokeless tobacco [facility] Start: 02-17-2021 [facility] Start: 2000 Sex Assigned At Not on file [facility] Start: 07-15-2024 Sex Female (finding) [facility] Start: 08-21-2024 Tobacco smoking status NHIS Ex-smoker (finding) [facility] NEGATED: Highlighted row [facility] Goals Date Patient Goal Desired Activity /State Mental Status Date Assessment Result Facility 02-16-2023 Cognitive function Voice/Name [facility] Work Phone: Clinical Notes 03-31-2022 to 09-25-2024 Note Date & Type Note Facility 09-25-2024 Progress note [facility] 09-16-2024 Progress note [facility] 09-12-2024 Progress note [facility] 09-05-2024 Progress note [facility] 08-29-2024 Progress note [facility] 06-19-2024 Evaluation note Diagnosis Onset Date Resolution Anxiety acute June 19 3:29pm acute June 19 3:29pm Scoliosis acute June 19 3:29pm Supervision of high-risk acute June 19, 2024 3:29pm Low lying placenta, antepartum resolved June 19, 2024 3:29pm Anxiety acute July 02 8:22am LGSIL (low grade squamous intraepithelial dysplasia) acute July 02, 2024 8:22am acute July 02 8:22am Scoliosis acute July 02 8:22am Supervision of high-risk acute July 02, 2024 8:22am Low lying placenta, antepartum resolved July 02, 2024 8:22am Anxiety acute July 10 1:13pm acute July 10 1:13pm Scoliosis acute July 10 1:13pm Supervision of high-risk acute July 10, 2024 1:13pm Low lying placenta, antepartum resolved July 10, 2024 1:13pm Anxiety acute July 26, 2024 8:07am LGSIL (low grade squamous intraepithelial dysplasia) acute July 26, 2024 8:07am acute July 26, 2024 8:07am Scoliosis acute July 26, 2024 8:07am Supervision of high-risk acute July 26, 2024 8:07am Anxiety acute August 09, 2024 10:08am LGSIL (low grade squamous intraepithelial dysplasia) acute August 09, 2024 10:08am acute August 09, 2024 10:08am Scoliosis acute August 09, 2024 10:08am Supervision of high-risk acute August 09, 2024 10:08am Anxiety acute August 23, 2024 2:28pm LGSIL (low grade squamous intraepithelial dysplasia) acute August 23, 2024 2:28pm acute August 23, 2024 2:28pm Scoliosis acute August 23, 2024 2:28pm Supervision of high-risk acute August 23, 2024 2:28pm Anxiety acute August 29 6:45pm LGSIL (low grade squamous intraepithelial dysplasia) acute August 29, 2024 6:45pm Low back pain during acute August 29, 2024 6:45pm acute August 29 6:45pm Scoliosis acute August 29 6:45pm Supervision of high-risk acute August 29, 2024 6:45pm Anxiety acute September 05 8:57am LGSIL (low grade squamous intraepithelial dysplasia) acute September 05, 2024 8:57am Low back pain during acute September 05, 2024 8:57am acute September 05 8:57am Scoliosis acute September 05 8:57am Supervision of high-risk acute September 05, 2024 8:57am Anxiety acute September 12 8:54am LGSIL (low grade squamous intraepithelial dysplasia) acute September 12, 2024 8:54am Low back pain during acute September 12, 2024 8:54am acute September 12 8:54am Scoliosis acute September 12 8:54am Supervision of high-risk acute September 12, 2024 8:54am Anxiety acute September 16 9:21am LGSIL (low grade squamous intraepithelial dysplasia) acute September 16, 2024 9:21am Low back pain during acute September 16, 2024 9:21am acute September 16 9:21am Scoliosis acute September 16 9:21am Supervision of high-risk acute September 16, 2024 9:21am Anxiety acute September 25, 2024 10:18am LGSIL (low grade squamous intraepithelial dysplasia) acute September 25, 2024 10:18am Low back pain during acute September 25, 2024 10:18am acute September 25, 2024 10:18am Scoliosis acute September 25, 2024 10:18am Supervision of high-risk acute September 25, 2024 10:18am [facility] Work Phone: [phone] 223-519603-05-2025 Evaluation note* Diagnosis Onset Date Resolution Status Admit Date Anxiety acute May 22 2:14pm LGSIL (low grade squamous intraepithelial dysplasia) acute May 22, 2024 2:14pm acute May 22 2:14pm Scoliosis acute May 22 2:14pm Supervision of high-risk acute May 22, 2024 2:14pm Abdominal pain resolved May 22, 2024 2:14pm Amenorrhea resolved May 22 2:14pm History of juvenile rheumato id arthritis resolved May 22, 2024 2:14pm Lichenified rash resolved May 2:14pm Psoriasis resolved May 22 2:14pm Anxiety acute June 19 3:29pm acute June 19 3:29pm Scoliosis acute June 19 3:29pm Supervision of high-risk acute June 19, 2024 3:29pm Low lying placenta, antepartum resol marj June 19, 2024 3:29pm Anxiety acute July 02 8:22am LGSIL (low grade squamous intraepithelial dysplasia) acute July 02, 2024 8:22am acute July 02 8:22am Scoliosis acute July 02 8:22am Supervision of high-risk acute July 02, 2024 8:22am Low lying placenta, antepartum resol marj July 02, 2024 8:22am Anxiety acute July 10 1:13pm acute July 10 1:13pm Scoliosis acute July 10 1:13pm Supervision of high-risk acute July 10, 2024 1:13pm Low lying placenta, antepartum resol marj July 10, 2024 1:13pm Anxiety acute July 26, 2024 8:07am LGSIL (low grade squamous intraepithelial dysplasia) acute July 262024 8:07am acute July 26, 2024 8:07am Scoliosis acute July 26, 2024 8:07am Supervision of high-risk acute July 26, 2024 8: 07am Anxiety acute August 09, 2024 10:08am LGSIL (low grade squamous intraepithelial dysplasia) acute July 192024 10:08am acute August 09, 2024 10:08am Scoliosis acute August 09, 2024 10:08am Supervision of high-risk acute August 09, 2024 1 0:08am Anxiety acute August 23, 2024 2:28pm LGSIL (low grade squamous intraepithelial dysplasia) acute August 23, 2024 2:28pm acute August 23, 2024 2:28pm Scoliosis acute August 23, 2024 2:28pm Supervision of high-risk acute August 23, 2024 2 :28pm Anxiety acute August 29 6:45pm LGSIL (low grade squamous intraepithelial dysplasia) acute August 29, 2024 6:45pm Low back pain during acute August 29, 2024 6:45pm acute August 29 6:45pm Scoliosis acute August 29 6:45pm Supervision of high-risk acute August 29, 2024 6:45pm [facility] Work Phone: [phone] 917-985503-05-2025 Evaluation note* Diagnosis Onset Date Resolution Status Admit Date Anxiety acute May 22 2:14pm LGSIL (low grade squamous intraepithelial dysplasia) acute May 22, 2024 2:14pm acute May 22 2:14pm Scoliosis acute May 22 2:14pm Supervision of high-risk acute May 22, 2024 2:14pm Abdominal pain resolved May 22, 2024 2:14pm Amenorrhea resolved May 22 2:14pm History of juvenile rheumato id arthritis resolved May 22, 2024 2:14pm Lichenified rash resolved May 2:14pm Psoriasis resolved May 22 2:14pm Anxiety acute June 19 3:29pm acute June 19 3:29pm Scoliosis acute June 19 3:29pm Supervision of high-risk acute June 19, 2024 3:29pm Low lying placenta, antepartum resol marj June 19, 2024 3:29pm Anxiety acute July 02 8:22am LGSIL (low grade squamous intraepithelial dysplasia) acute July 02, 2024 8:22am acute July 02 8:22am Scoliosis acute July 02 8:22am Supervision of high-risk acute July 02, 2024 8:22am Low lying placenta, antepartum resol marj July 02, 2024 8:22am Anxiety acute July 10 1:13pm acute July 10 1:13pm Scoliosis acute July 10 1:13pm Supervision of high-risk acute July 10, 2024 1:13pm Low lying placenta, antepartum resol marj July 10, 2024 1:13pm Anxiety acute July 26, 2024 8:07am LGSIL (low grade squamous intraepithelial dysplasia) acute July 262024 8:07am acute July 26, 2024 8:07am Scoliosis acute July 26, 2024 8:07am Supervision of high-risk acute July 26, 2024 8: 07am Anxiety acute August 09, 2024 10:08am LGSIL (low grade squamous intraepithelial dysplasia) acute July 192024 10:08am acute August 09, 2024 10:08am Scoliosis acute August 09, 2024 10:08am Supervision of high-risk acute August 09, 2024 1 0:08am Anxiety acute August 23, 2024 2:28pm LGSIL (low grade squamous intraepithelial dysplasia) acute August 23, 2024 2:28pm acute August 23, 2024 2:28pm Scoliosis acute August 23, 2024 2:28pm Supervision of high-risk acute August 23, 2024 2 :28pm Anxiety acute August 29 6:45pm LGSIL (low grade squamous intraepithelial dysplasia) acute August 29, 2024 6:45pm Low back pain during acute August 29, 2024 6:45pm acute August 29 6:45pm Scoliosis acute August 29 6:45pm Supervision of high-risk acute August 29, 2024 6:45pm Anxiety acute September 05 8:57am LGSIL (low grade squamous intraepithelial dysplasia) acute September 05, 2024 8:57am Low back pain during acute September 05, 2024 8:57am acute September 05 8:57am Scoliosis acute September 05 8:57am Supervision of high-risk acute September 05, 2024 8:57am [facility] Work Phone: [phone] 948-495003-05-2025 Evaluation note* Diagnosis Onset Date Resolution Status Admit Date Anxiety acute May 22 2:14pm LGSIL (low grade squamous intraepithelial dysplasia) acute May 22, 2024 2:14pm acute May 22 2:14pm Scoliosis acute May 22 2:14pm Supervision of high-risk acute May 22, 2024 2:14pm Abdominal pain resolved May 22, 2024 2:14pm Amenorrhea resolved May 22 2:14pm History of juvenile rheumato id arthritis resolved May 22, 2024 2:14pm Lichenified rash resolved May 2:14pm Psoriasis resolved May 22 2:14pm Anxiety acute June 19 3:29pm acute June 19 3:29pm Scoliosis acute June 19 3:29pm Supervision of high-risk acute June 19, 2024 3:29pm Low lying placenta, antepartum resol marj June 19, 2024 3:29pm Anxiety acute July 02 8:22am LGSIL (low grade squamous intraepithelial dysplasia) acute July 02, 2024 8:22am acute July 02 8:22am Scoliosis acute July 02 8:22am Supervision of high-risk acute July 02, 2024 8:22am Low lying placenta, antepartum resol marj July 02, 2024 8:22am Anxiety acute July 10 1:13pm acute July 10 1:13pm Scoliosis acute July 10 1:13pm Supervision of high-risk acute July 10, 2024 1:13pm Low lying placenta, antepartum resol marj July 10, 2024 1:13pm Anxiety acute July 26, 2024 8:07am LGSIL (low grade squamous intraepithelial dysplasia) acute July 262024 8:07am acute July 26, 2024 8:07am Scoliosis acute July 26, 2024 8:07am Supervision of high-risk acute July 26, 2024 8: 07am Anxiety acute August 09, 2024 10:08am LGSIL (low grade squamous intraepithelial dysplasia) acute July 192024 10:08am acute August 09, 2024 10:08am Scoliosis acute August 09, 2024 10:08am Supervision of high-risk acute August 09, 2024 1 0:08am Anxiety acute August 23, 2024 2:28pm LGSIL (low grade squamous intraepithelial dysplasia) acute August 23, 2024 2:28pm acute August 23, 2024 2:28pm Scoliosis acute August 23, 2024 2:28pm Supervision of high-risk acute August 23, 2024 2 :28pm Anxiety acute August 29 6:45pm LGSIL (low grade squamous intraepithelial dysplasia) acute August 29, 2024 6:45pm Low back pain during acute August 29, 2024 6:45pm acute August 29 6:45pm Scoliosis acute August 29 6:45pm Supervision of high-risk acute August 29, 2024 6:45pm Anxiety acute September 05 8:57am LGSIL (low grade squamous intraepithelial dysplasia) acute September 05, 2024 8:57am Low back pain during acute September 05, 2024 8:57am acute September 05 8:57am Scoliosis acute September 05 8:57am Supervision of high-risk acute September 05, 2024 8:57am Anxiety acute September 12 8:54am LGSIL (low grade squamous intraepithelial dysplasia) acute September 12, 2024 8:54am Low back pain during acute September 12, 2024 8:54am acute September 12 8:54am Scoliosis acute September 12 8:54am Supervision of high-risk acute September 12, 2024 8:54am [place] [facility] Work Phone: [phone] Evaluation note* Diagnosis Onset Date Resolution Status Admit Date Anxiety acute May 22 2:14pm LGSIL (low grade squamous intraepithelial dysplasia) acute May 22, 2024 2:14pm acute May 22 2:14pm Scoliosis acute May 22 2:14pm Supervision of high-risk acute May 22, 2024 2:14pm Abdominal pain resolved May 22, 2024 2:14pm Amenorrhea resolved May 22 2:14pm History of juvenile rheumato id arthritis resolved May 22, 2024 2:14pm Lichenified rash resolved May 2:14pm Psoriasis resolved May 22 2:14pm Anxiety acute June 19 3:29pm acute June 19 3:29pm Scoliosis acute June 19 3:29pm Supervision of high-risk acute June 19, 2024 3:29pm Low lying placenta, antepartum resol marj June 19, 2024 3:29pm Anxiety acute July 02 8:22am LGSIL (low grade squamous intraepithelial dysplasia) acute July 02, 2024 8:22am acute July 02 8:22am Scoliosis acute July 02 8:22am Supervision of high-risk acute July 02, 2024 8:22am Low lying placenta, antepartum resol marj July 02, 2024 8:22am Anxiety acute July 10 1:13pm acute July 10 1:13pm Scoliosis acute July 10 1:13pm Supervision of high-risk acute July 10, 2024 1:13pm Low lying placenta, antepartum resol marj July 10, 2024 1:13pm Anxiety acute July 26, 2024 8:07am LGSIL (low grade squamous intraepithelial dysplasia) acute July 262024 8:07am acute July 26, 2024 8:07am Scoliosis acute July 26, 2024 8:07am Supervision of high-risk acute July 26, 2024 8: 07am Anxiety acute August 09, 2024 10:08am LGSIL (low grade squamous intraepithelial dysplasia) acute July 192024 10:08am acute August 09, 2024 10:08am Scoliosis acute August 09, 2024 10:08am Supervision of high-risk acute August 09, 2024 1 0:08am Anxiety acute August 23, 2024 2:28pm LGSIL (low grade squamous intraepithelial dysplasia) acute August 23, 2024 2:28pm acute August 23, 2024 2:28pm Scoliosis acute August 23, 2024 2:28pm Supervision of high-risk acute August 23, 2024 2 :28pm Anxiety acute August 29 6:45pm LGSIL (low grade squamous intraepithelial dysplasia) acute August 29, 2024 6:45pm Low back pain during acute August 29, 2024 6:45pm acute August 29 6:45pm Scoliosis acute August 29 6:45pm Supervision of high-risk acute August 29, 2024 6:45pm Anxiety acute September 05 8:57am LGSIL (low grade squamous intraepithelial dysplasia) acute September 05, 2024 8:57am Low back pain during acute September 05, 2024 8:57am acute September 05 8:57am Scoliosis acute September 05 8:57am Supervision of high-risk acute September 05, 2024 8:57am Anxiety acute September 12 8:54am LGSIL (low grade squamous intraepithelial dysplasia) acute September 12, 2024 8:54am Low back pain during acute September 12, 2024 8:54am acute September 12 8:54am Scoliosis acute September 12 8:54am Supervision of high-risk acute September 12, 2024 8:54am Anxiety acute September 16 9:21am LGSIL (low grade squamous intraepithelial dysplasia) acute September 16, 2024 9:21am Low back pain during acute September 16, 2024 9:21am acute September 16 9:21am Scoliosis acute September 16 9:21am Supervision of high-risk acute September 16, 2024 9:21am [facility] Work Phone: [phone] 529-612502-07-2025 Evaluation note* Diagnosis Onset Date Resolution Status Admit Date Anxiety acute April 26, 2024 9:34am LGSIL (low grade squamous intraepithelial dysplasia) acute 2024 9:34am acute April 26, 2024 9:34am Scoliosis resolved April 26, 2024 9:34am Supervision of high-risk acute April 26 9:34am Abdominal pain resolved April 262024 9:34am Amenorrhea resolved April 26, 2024 9:34am Arthritis August 27, 2000 resolved April 26, 2024 9:34am History of juvenile rheumatoid arthritis resolved April 9:34am Lichenified rash resolved April 26, 2024 9:34am Psoriasis resolved April 26, 2024 9:34am Anxiety acute May 22 2:14pm LGSIL (low grade squamous intraepithelial dysplasia) acute May 22, 2024 2:14pm acute May 22 2:14pm Scoliosis acute May 22 2:14pm Supervision of high-risk acute May 22, 2024 2:14pm Abdominal pain resolved May 22, 2024 2:14pm Amenorrhea resolved May 22 2:14pm History of juvenile rheumatoid arthritis resolved May 22, 2024 2:14pm Lichenified rash resolved May 2:14pm Psoriasis resolved May 22 2:14pm Anxiety acute June 19 3:29pm acute June 19 3:29pm Scoliosis acute June 19 3:29pm Supervision of high-risk acute June 19, 2024 3:29pm Low lying placenta, antepartum resolved June 19, 2024 3:29pm Anxiety acute July 02 8:22am LGSIL (low grade squamous intraepithelial dysplasia) acute July 02, 2024 8:22am acute July 02 8:22am Scoliosis acute July 02 8:22am Supervision of high-risk acute July 02, 2024 8:22am Low lying placenta, antepartum resolved July 02, 2024 8:22am Anxiety acute July 10 1:13pm acute July 10 1:13pm Scoliosis acute July 10 1:13pm Supervision of high-risk acute July 10, 2024 1:13pm Low lying placenta, antepartum resolved July 10, 2024 1:13pm Anxiety acute July 26, 2024 8:07am LGSIL (low grade squamous intraepithelial dysplasia) acute July 262024 8:07am acute July 26, 2024 8:07am Scoliosis acute July 26, 2024 8:07am Supervision of high-risk acute July 26, 2024 8: 07am Anxiety acute August 09, 2024 10:08am LGSIL (low grade squamous intraepithelial dysplasia) acute July 192024 10:08am acute August 09, 2024 10:08am Scoliosis acute August 09, 2024 10:08am Supervision of high-risk acute August 09, 2024 10:08am Anxiety acute August 23, 2024 2:28pm LGSIL (low grade squamous intraepithelial dysplasia) acute August 23, 2024 2:28pm acute August 23, 2024 2:28pm Scoliosis acute August 23, 2024 2:28pm Supervision of high-risk acute August 23, 2024 2 :28pm [facility] Work Phone: [phone]) 309-168401-09-2025 Evaluation note* Diagnosis Onset Date Resolution Status Admit Date Anxiety acute March 28, 11:17am LGSIL (low grade squamous intraepithelial dysplasia) acute 2024 11:17am acute March 28 025 11:17am Scoliosis resolved March 28 11:17am Supervision of high-risk acute March 28 11:17am Abdominal pain resolved March 11:17am Amenorrhea resolved March 28 11:17am Arthritis August 27, 2000 resolved March 282024 11:17am History of juvenile rheumatoid arthritis resolved March 11:17am Lichenified rash resolved March 28, 2024 11:17am Psoriasis resolved March 28 11:17am Anxiety acute April 26, 2024 9:34am LGSIL (low grade squamous intraepithelial dysplasia) acute 2024 9:34am acute April 26, 2024 9:34am Scoliosis resolved April 26, 2024 9:34am Supervision of high-risk acute April 26 9:34am Abdominal pain resolved April 262024 9:34am Amenorrhea resolved April 26, 2024 9:34am Arthritis August 27, 2000 resolved April 26, 2024 9:34am History of juvenile rheumatoid arthritis resolved April 9:34am Lichenified rash resolved April 26, 2024 9:34am Psoriasis resolved April 26, 2024 9:34am Anxiety acute May 22 2:14pm LGSIL (low grade squamous intraepithelial dysplasia) acute May 22, 2024 2:14pm acute May 22 2:14pm Scoliosis acute May 22 2:14pm Supervision of high-risk acute May 22, 2024 2:14pm Abdominal pain resolved May 22, 2024 2:14pm Amenorrhea resolved May 22 2:14pm History of juvenile rheumatoid arthritis resolved May 22, 2024 2:14pm Lichenified rash resolved May 2:14pm Psoriasis resolved May 22 2:14pm Anxiety acute June 19 3:29pm acute June 19 3:29pm Scoliosis acute June 19 3:29pm Supervision of high-risk acute June 19, 2024 3:29pm Low lying placenta, antepartum resolved June 19, 2024 3:29pm Anxiety acute July 02 8:22am LGSIL (low grade squamous intraepithelial dysplasia) acute July 02, 2024 8:22am acute July 02 8:22am Scoliosis acute July 02 8:22am Supervision of high-risk acute July 02, 2024 8:22am Low lying placenta, antepartum resolved July 02, 2024 8:22am Anxiety acute July 10 1:13pm acute July 10 1:13pm Scoliosis acute July 10 1:13pm Supervision of high-risk acute July 10, 2024 1:13pm Low lying placenta, antepartum resolved July 10, 2024 1:13pm [facility] Work Phone: [phone] 617-196101-23-2024 NotePap Smear Specimen AdequacyJanuary 2023 6:07pmComment.Satisfactory for evaluation. No endocervical component is identified.[facility] A#[id number]'S Hospital Of ColumbusComment on above:Satisfactory for evaluation. No endocervical component is identified. 04-11-2023 NotePap Smear Specimen AdequacyJanuary 2023 6:07pmComment. Satisfactory for evaluation. No endocervical component is identified.[facility] A#[id number]'S Hospital Of ColumbusComment on above:Satisfactory for evaluation. No endocervical component is identified.02-16-2023 Procedure note [facility]11-30-2023 Procedure [facility] 09-07-[address] Diamond [facility] September 07, 2022 11:03am Note Date/Time September 07, 2022 9:15 am [facility] Medical Records Department [address] [place] [id number] Emergency Department Summary 09/07/22 MR#: [id number] Acct: [id number] Name: BHUMI JACKSON Rep #:[id number] : 2000 22 From: Oniel Diamond DO PCP: Dr. Tristian Olivares MD Status:REG ER Location: ED HPI HPI - GI History of Present Illness Chief Complaint: Abd Pain Narrative Narrative: 22-year-old female presenting with nausea/vomiting since yesterday. She has abdominal pain which is in the bilateral lower quadrants as well as left upper quadrant. She denies diarrhea or constipation. She has a history of ovarian cyst in the past but she states it does not feel the same. She has not had a fever. She states everything she tried to put down came up over the last 24 hours. Patient states the greatest pain is in the right lower quadrant. [facility] Medical History History of ovarian cyst JRA (juvenile rheumatoid arthritis) Home Medications ibuprofen 200 mg capsule 200 mg PO Q6H PRN 03/31/22 [History Last Taken Unknown] Allergy/AdvReac Type Severity Reaction Status Date / Time No Known Allergies Allergy Verified 09/07/22 09:04 Social History household members: other details: parents number of children: 0 current occupational status: student current occupation: [employer] history of recent travel: No sexually active: Yes Smoking Status: Current every day smoker tobacco type: e-cigarettes alcohol intake: current alcohol intake frequency: a few times a month substance use type: does not use diet: gluten free and lactose free what type of physical activity do you participate in: none seatbelt use: always do you feel safe at home: Yes additional social history: single ROS ROS ED Constitutional Constitutional ED: Denies chills or fever(s) ENT ENT ED: Denies rhinorrhea or sore throat Cardiovascular Cardiovascular: Denies chest pain or palpitations Respiratory/Chest Respiratory/Chest: Denies cough or dyspnea Gastrointestinal Gastrointestinal: Reports abdominal pain, nausea and vomiting Genitourinary Genitourinary ED: Reports urinary frequency; Denies dysuria or hematuria Musculoskeletal Musculoskeletal: Denies arthralgias or back pain Integumentary Denies abscess Neurologic Neurologic: Denies headache(s) Psychiatric Psychiatric: Denies anxiety or depression EXAM Physical Exam Const Vital Signs: 09/07/22 09:02 Temperature 97.3 F L Temperature Source Temporal Pulse Rate 104 H Respiratory Rate 16 Blood Pressure 130/94 H Blood Pressure Mean 106 Pulse Ox 100 Oxygen Delivery Method Room Air Positive well nourished General Appearance ED: NAD HEENT Reports moist mucous membranes normocephalic Eyes PERRL and EOMs intact bilaterally Resp normal respiratory effort and clear to auscultation bilaterally Auscultation: Negative for rales, rhonchi or wheezes Cardio regular rhythm Rate: tachycardic GI Palpation: tender LLQ, RLQ and LUQ; Negative for rebound tenderness present Back/Spine no CVA tenderness Neuro CN's II-XII intact bilaterally, moves all extremities, no sensory deficits notedand gait normal Sensorium / Orientation: alert Psych mental status grossly normal Skin no wounds MDM MDM MDM Narrative Medical decision making narrative: 22-year-old female with abdominal pain, nausea, vomiting. This started yesterday. It started as similar fashion yesterday and it did today. It has not improved but has not progressed no fevers. Differential includes but is notlimited to GERD, gastritis, peptic ulcer disease, acute cholecystitis, acute cholelithiasis, appendicitis, diverticulitis, pancreatitis, small bowel obstruction, viral etiology, food poisoning, UTI, pyelonephritis, ovarian cyst, ovarian torsion, ectopic . CBC to assess white blood cell count, hemoglobin, platelets, differential. CMP to assess liver function, renal function, glucose, electrolytes. Lipase to assess for pancreatitis. Urinalysisto assess for urinary tract infection. hCG to assess for . Patient given a liter normal saline. At this point she does not want a thing for pain or nausea. She states her pain is a 3 out of 10. CBC and CMP are unremarkable with exception of a potassium of 3.3. hCG negative. Urinalysis negative. CT of the abdomen pelvis IV contrast was obtained and is negative for any acute findings. Impression: 1. Abdominal pain 2. Nausea Lab Data Attestation: I reviewed the patient's lab results. Labs: Laboratory Results - last 24 hr 09/07/22 09/07/22 09/07/22 09:20 09:20 09:20 WBC 4.7 RBC 4.28 Hgb 13.5 Hct 41.0 MCV 95.8 MCH 31.5 MCHC 32.9 RDW Std Deviation 45.5 H RDW Coeff of Susanne 12.9 Plt Count 187 MPV 10.1 Immature Gran % (Auto) 0.200 Neut % (Auto) 75.0 H Lymph % (Auto) 14.6 L Surry % (Auto) 9.6 Eos % (Auto) 0.2 Baso % (Auto) 0.4 Absolute Neuts (auto) 3.5 Absolute Lymphs (auto) 0.69 L Nucleated RBC % 0 Sodium 137 Potassium 3.3 L Chloride 105 Carbon Dioxide 25.0 Anion Gap 7 BUN 9 Creatinine 0.64 Estim Creat Clear Calc 103.16 Est GFR (MDRD) Af Amer 148 Est GFR (MDRD) Non-Af 122 BUN/Creatinine Ratio 14.1 Glucose 83 Calcium 9.1 Total Bilirubin 0.50 AST 22 ALT 18 Alkaline Phosphatase 60 Total Protein 7.8 Albumin 3.9 Globulin 3.9 Albumin/Globulin Ratio 1.0 Lipase 25 Serum , Qual NEGATIVE Urine Color Urine Clarity Urine pH Ur Specific Peck Urine Protein Urine Glucose (UA) Urine Ketones Urine Occult Blood Urine Nitrite Urine Bilirubin Urine Urobilinogen Ur Leukocyte Esterase Urine RBC Urine WBC Ur Squamous Epith Cells Urine Bacteria Urine Mucus 09/07/22 09:30 WBC RBC Hgb Hct MCV MCH MCHC RDW Std Deviation RDW Coeff of Susanne Plt Count MPV Immature Gran % (Auto) Neut % (Auto) Lymph % (Auto) Surry % (Auto) Eos % (Auto) Baso % (Auto) Absolute Neuts (auto) Absolute Lymphs (auto) Nucleated RBC % Sodium Potassium Chloride Carbon Dioxide Anion Gap BUN Creatinine Estim Creat Clear Calc Est GFR (MDRD) Af Amer Est GFR (MDRD) Non-Af BUN/Creatinine Ratio Glucose Calcium Total Bilirubin AST ALT Alkaline Phosphatase Total Protein Albumin Globulin Albumin/Globulin Ratio Lipase Serum , Qual Urine Color Yellow Urine Clarity Sl. Cloudy Urine pH 6.0 Ur Specific Peck 1.020 Urine Protein 30 H Urine Glucose (UA) Normal Urine Ketones 150 A* Urine Occult Blood 10 H Urine Nitrite Negative Urine Bilirubin 1 H Urine Urobilinogen 1 H Ur Leukocyte Esterase Negative Urine RBC 0-5 SEEN Urine WBC 0 SEEN Ur Squamous Epith Cells 0-5 SEEN Urine Bacteria 1+ Urine Mucus 0 SEEN Radiography Diagnostic Testing: Clinical Impression(s) from Imaging Studies Abdomen/Pelvis CT 09/07/22 09:12 IMPRESSION: No acute findings in the abdomen or pelvis. Electronically Signed: Jerry Bailey MD at 10:20 EDT , Discharge Plan Triage Chief Complaint: Abd Pain ED Provider: Oniel Diamond Dx/Rx/DC Orders Prescriptions: No Action ibuprofen 200 mg capsule 200 mg PO Q6H PRN Primary Care Provider: Tristian Olivares Referrals: Tristian Olivares MD [Primary Care Provider] - What to do if you have Problems For any increased pain, shortness of breath, bleeding, nausea or vomiting, chestpain, or any unexpected problems, contact your Primary Care Provider. Call [facility] ([phone]) or report to the closest Emergency Room. Call 911 if necessary. 09/07/22 1103 <Electronically signed by Oniel Diamond DO> Cosigner Signature (if applicable): CC: Dr. Tristian Olivares MD ~ Signed [facility] Work Phone: 1(627) 190-277006-21-2023 NoteHNO ID: [id number] Author: Tisha Reza APRN.CNP Service: ? Author Type: Nurse Practitioner Type: Progress Notes Filed: 09/07/2022 7:40 AM Note Text: Triage: Patient presented to [facility] for 24 hours of vomiting and worsening abdominal pain. She is also having a fever of 101. No urine output since 1030 last night. Due to nature of patient's complaint and lack of investigative tools available at [facility], recommend patient be seen at nearest ED for further work up, declined squad, will go to [place] ED. Tisha Reza APRN.CNPAshtabula [facility] Hospital06-21-2023 History of Present illness Narrative* Tisha Reza APRN.CNP - 09/07/2022 7:38 AM EDT Triage: Patient presented to [facility] for 24 hours of vomiting and worsening abdominal pain. She is also having a fever of 101. No urine output since 1030 last night. Due to nature of patient's complaint and lack of investigative tools available at [facility], recommend patient be seen at nearest ED for further work up, declined squad, will go to [place] ED. Tisha Reza APRN.CNP documented in this [facility] Center01-12-2023 NotePap Smear Specimen AdequacyJanuary 2022 2:43pmComment.Satisfactory for evaluation. Endocervical and/or squamous metaplasticcells (endocervical component)are present.[facility] INTERFACED A#[id number]'S Hospital Of ColumbusComment on above: Satisfactory for evaluation. Endocervical and/or squamous metaplasticcells (endocervical component)are present.03-31-2022 NotePap Smear Specimen Adequacy March 31, 2022 2:43pmComment.Satisfactory for evaluation. Endocervical and/or squamous metaplasticcells (endocervical component)are present.[facility] INTER[facility]ACED A#[id number]'S Hospital Of ColumbusComment on above:Satisfactory for evaluation. Endocervical and/or squamous metaplasticcells (endocervical component)are present.Evaluation note* Diagnosis Onset Date Resolution Status Ovarian cyst acute Encounter for routine gynecological examination noneactive [facility] Work Phone: Evaluation noteNo assessment information available [facility] Work Phone: Evaluation note* Diagnosis Abdominal pain, generalized [R10.84 (ICD-10-CM)]- Primary Abdominal pain, generalized documented [facility] encounter [facility]* Diagnosis Onset Date Resolution Status History of juvenile rheumatoid arthritis acute COVID-19 vaccination declined noneactive Establishing care with new doctor, encounter for noneactive Chronic abdominal pain nonea ctive Chronic vomiting noneactive Hypokalemia noneactive [facility] Work Phone: Evaluation note* Diagnosis Onset Date Resolution Status Abdominal pain chronic Nausea & vomiting chronic Chronic pain of both ears no neactive [facility] Work Phone: Evaluation note* Diagnosis Onset Date Resolution Status History of juvenile rheumatoid arthritis acute Bakers cyst noneactive Skin irritation noneactive Chronic pain of both ears no neactive Chronic abdominal pain nonea ctive Chronic vomiting noneactive Right knee pain noneactive Abdominal pain chronic Nausea & vomiting chronic Encounter for routine gynecological examination noneactive Bakers cyst acute Right knee pain acute Acute bronchitis, unspecified acute Allergic rhinitis acute Lichenified rash acute Painful swallowing acute Shortness of breath acute Palpitations noneactive Numbness and tingling in left arm noneactive [facility] Work Phone: History and physical note Author Louis Friend [facility] February 16, 2023 11:19am Note Date/Time February 16, 2023 11:19am [facility] Medical Records Department [address] [place] [address] History & Physical Exam 02/16/23 1119 MR#: [id number] Acct: [id number] Name: BHUMI JACKSON Rep #:[id number] : 2000 22 From: Louis Friend DO PCP: Dr. Ishmael Potts MD Status:[facility] Location: [place] [address] History and Physical Date of Admission: 02/16/23 juvenile RA, treated with methotrexate and remission since age 9; ovarian cyst [facility] ED 09.07.22 with N/V for one day with lower and LUQ abdominal pain without bowel changes. ? Biochemical CBC, CMP (K+ L3.3), lipase without pertinent abnormality ? CT abd/pel without acute/chronic finding PCP OV 09.19.22 to establish care. GI problems have been present for approximatelytwo years. Holistic chiropractor seen previously who diagnosed gluten intolerance and borderline dairy intolerance following muscle; also diagnosed with IBS. ? GET not performed, she forgot. *BGI established 02.03.23 nocturnal emesis started two years prior with periodicpresence lasting for days to months and has noted some food triggers. PCP attempted omeprazole which was ineffective. Diet fruits, lots of corn/quinoa pasta (gluten free), does consume dairy, beef, chicken, eggs. Dislikes vegetables, pork makes her feel ill. Drinks water, one coffee/day. Drinks alcohol on weekends. Denies cigarette/marijuana usePAYTON MANUEL, is a 22 F who presents to the office today for ROS Const Constitutional: Positive for headache(s) (occasional); No body ache, chills, excessive sweating, fatigue, fever(s), frequent falls, snoring, weakness, weight change, sleep problems or change in appetite Eyes Eyes: No blurry vision, change in vision, eye pain or Light sensitivity ENT ENT: Positive for headache(s) (occasional); No abnormal hearing, ear or mastoid pain, tinnitus, nasal congestion, neck pain or sore throat Resp Respiratory: Positive for cough; No shortness of breath, snoring or wheezing Cardio Cardiology: No chest pain at rest, chest pain with exertion, excessive sweating,shortness of breath, dyspnea on exertion, lightheadedness, orthopnea, palpitations or other (no leg swelling) Gastro GI: Positive for abdominal pain, belching and vomiting; No bloating, change in bowel habits, constipation, cramping, diarrhea, excessiveflatus, Blood in stool, Black,tarry stools or nausea/dyspepsia Genitourinary-Female: No difficulty urinating, burning urination, painful urination, urinary incontinence, urinary frequency or abnormal vaginal bleeding Musc Musculoskeletal: No abnormal gait, joint pain, back pain, limited range of motion, neck pain, numbness or tingling Skin Skin: No dry skin, redness, lesions, itchy eyes, rash or wounds Neuro Neurology: Positive for dizziness and headache(s) (occasional); No abnormal gait, abnormal hearing, abnormal speech, weakness, frequent falls, memory loss, numbness, tingling or fainting Psych Psychiatric: No anxiety, No change in appetite, No depression, No memory loss and No Thoughts of harming yourself/Others Endo Endocrine: No cold intolerance, excessive sweating, fatigue, flushing, heat intolerance, increased thirst/drinking, increased hunger or weight change Aller/Imm Allergy/Immunologic: No itchy eyes, seasonal allergy symptoms, hives or wheezing Jewel/Lymp Hematologic/Lymphatic: No easy bleeding, easy bruising or enlarged lymph nodes Exam Const General: cooperative, healthy appearing, no acute distress, well developed, not diaphoretic and not ill appearing Nutritional Appearance: well nourished Orientation: alert and oriented x3 Limitations: mental status not altered [facility] Head: normal to inspection, normocephalic and atraumatic Ears: hearing grossly normal bilaterally Face and sinus: normal facial exam Mouth: oral mucosae normal and moist mucous membranes Teeth and gingiva: dentition normal Throat: posterior oropharynx normal Eyes Conjunctivae: conjunctivae normal Sclera: sclerae normal Pupils: PERRL Chest Chest palpation & inspection: normal inspection of the chest Resp Effort & Inspection: normal respiratory effort, able to speak in complete sentences, no audible wheezes and no cough Auscultation: Bilateral: Clear to Auscultation Cardio Rate: regular rate Rhythm: regular rhythm Heart Sounds: S1 normal, S2 normal and no murmurs GI Inspection: normal to inspection and non-distended Auscultation: normal bowel sounds Palpation: soft, no hepatosplenomegaly and tender (minimal) periumbilically Other: naval ring in place General: No CVA tenderness Skin General: no rashes or lesions noted and dry skin Wounds: no wounds Neuro General: patient alert and patient oriented x3 Cranial Nerves: PERRL Speech: speech normal Extrem General: normal to inspection and no edema Psych Appearance: grossly normal Affect: normal affect Attitude: cooperative Quality Reporting Tobacco Screening ([facility] 138) Smoking Status: Never smoker Assessment and Plan Assessment and Plan (1) Nausea & vomiting: Status: Chronic Qualifiers: Vomiting type: unspecified Qualified Code(s): R11.2 - Nausea with vomiting, unspecified Plan: Differential diagnosis for nausea vomiting does include gastroparesis which would be idiopathic. However she does have very hypermobile joints which could be secondary to Leisa-Danlos syndrome. She will need to be genetically tested for Leisa- Danlos. We will also do biochemical testing to see if she has any signs of vasculitis which will contribute to some upper GI motility problems. All symptoms diagnosis include H. pylori associated gastritis, peptic ulcer disease bile induced reflux, duodenal gastric reflux and IBS. She will get an upper endoscopy to evaluate upper GI tract. She agreed she would get a gastric emptying study. She will also need food allergy testing. Further recommendation to follow. (2) Abdominal pain: Status: Chronic Qualifiers: Abdominal location: unspecified location Qualified Code(s): R10.9 - Unspecified abdominal pain Orders: Orders EGD 02/16/23 R10.9 - Unspecified abdominal pain, R11.2 - Nausea with vomiting, unspecified I have examined the patient and the H&P has been reviewed. There are no clinicalchanges since date of exam. 02/16/23 1119 <Electronically signed by Louis Valenzuela DO> Cosigner Signature (if applicable): CC: Dr. Ishmael Potts MD; Louis Valenzuela DO~ Signed [facility] Work Phone: Progress note Author Alda De La Garza [facility] Note Date/Time August 29, 2024 10:0 3pm [facility] Medical Records Department [address] [place] [address] OB Triage Progress Note 08/29/241 MR#: [id number] Acct: [id number] Name: BHUMI PARKS Rep #:[id number] : 2000 24 From: Alda De La Garza CNM PCP: MUMTAZ Jiemnez Status:REG CLI Y DOS: Location: [place] [address] Progress Notes Date of Service: 08/29/24 Progress Note: Patient presents for triage evaluation secondary to back pain and low abdominal cramping at 34.6 weeks FHT: 150 Moderate variability reactive no decelerations category I tracing Raemon: irregular mild Contractions Assessment and plan: UA/urine culture-ATB sent, No cervical dilation, Reactive NST, reassuring maternal and status patient discharged to home to follow-up at next appt. See problem list details for additional plan information. Laboratory Studies: Laboratory Tests 08/29/24 Range/Units 19:30 Urine Color Yellow (Yellow) Urine Clarity Clear (Clear) Urine pH 7.0 (5.0 - 8.0) Ur Specific Peck 1.010 (1.002-1.030) Urine Protein 15 H (Negative) mg/dl Urine Glucose (UA) 50 H (Normal) mg/dl Urine Ketones 150 A* (Negative) mg/dl Urine Occult Blood 10 H (Negative) /ul Urine Nitrite Negative (Negative) Urine Bilirubin Negative (Negative) mg/dL Urine Urobilinogen Normal (Normal) mg/dl Ur Leukocyte Esterase Negative (Negative) /ul Urine RBC 0 SEEN (0-5) /hpf Urine WBC 0 SEEN (0-5) /hpf Ur Squamous Epith Cells 0-5 SEEN (5-10) /hpf Urine Bacteria 2+ (None Seen) /hpf Urine Mucus 0 SEEN (<or=2+) /hpf Charges/Coding Multi Select Codes Urinary/Genital Urinary/Genital CPT Codes: 47980-85 non-stress test Interp Assessment & Plan (1) Supervision of high-risk : QUALIFIERS: Trimester: second trimester Qualified Code(s): O09.92- Supervision of high risk , unspecified, second trimester COMMENT: PRR, , BRANT 09/28/24, surprise Al (2) : QUALIFIERS: Weeks of gestation: 34 weeks Qualified Code(s): Z3A.34 - 34 weeks gestation of COMMENT: elects NIPT(NO GENDER) Baby low risk & Carrier Negative , nlanatomy . GTT normal. (3) Anxiety: COMMENT: Increased/work related. Declines Rx. Counseling handout and willschedule. Improved. No meds (4) LGSIL (low grade squamous intraepithelial dysplasia): COMMENT: repeat pap in 1 year. 03/2023 nml. Rpt pp (5) Scoliosis: QUALIFIERS: Scoliosis type: unspecified scoliosis Spinal region: unspecified Qualified Code(s): M41.9 - Scoliosis, unspecified COMMENT: 26 degree curve 2018. offered anesthesia consult- set up after 32 wk, scheduled for 08/21 @ 2 (6) Low back pain during : COMMENT: suspect UTI-ATB sent 08/29/242202 <Electronically signed by Alda chandler CNM> Date _ Alda De La Garza CNM Cosigner Signature (if applicable): Date CC: ZAC De La Garza; MUMTAZ Zaragoza ~ Signed [facility] Work Phone: Progress note Author Gwendolyn Puente [facility] Note Date/Time September 05, 2024 9:27 am [facility] [address] [place] [address], [address] [place] [address] OFFICE VISIT Date of Service: 09/05/24 MR#: [id number] Acct: [id number] Name: KASEYBHUMI VEGA NIA Rep #: [id number] : 2000 Provider: Dr. 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 Is patient in pain?: No Allergies wheat Allergy (Mild, Verified 09/05/24 09:00) Other Medications 3 ?Medication ?Instructions ?Recorded ?Confirmed ?Type multivitamin no.47-iron fum 27 1 cap PO DAILY 02/20/24 09/05/24 History mg-folate no.1 1 mg-dha 300 mg capsule (PNV-DHA) Last Menstrual Period: 12/23/23 Zika: Zika virus screening: Negative : No PFSH PFSH Medical History Wears glasses Anxiety Alcohol use Back pain Heartburn Vapes nicotine containing substance Leg cramps History of edema Scoliosis Arthritis (08/27/00) Elevated d-dimer Painful swallowing Allergic rhinitis Acute bronchitis, unspecified Right knee pain Bakers cyst Rheumatoid arthritis Dietary restriction Non-smoker Scoliosis History of ovarian cyst JRA (juvenile rheumatoid arthritis) Surgical History H/O endoscopy Family History Grandmother No problems noted. Mother Arthritis Grandfather Diabetes Arthritis Father Hypertension Social History adopted: No household members: spouse number of children: 0 current occupational status: employed current occupation: [employer] current occupational exposures/hazards: No pets and animals: Yes (2 dogs) pets and animals: dog(s) leisure activities: exercise and reading history of recent travel: No sexually active: Yes Smoking Status: Former smoker Electronic Cigarette Use: not used second hand exposure: No alcohol intake: former details: Not while substance use type: does not use diet: gluten free well-balanced diet: about half the time caffeine: Yes (1 cup per day) Type: carbonated beverages and coffee Number of servings: 1 eating out: 1-3 times/week during the past year weight has: remained stable what type of physical activity do you participate in: walking frequency: 1-2 times per week duration: 15-30 minutes/day huan/mosque: None seatbelt use: always do you feel safe at home: Yes 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 OB Visit BRANT Calculator Estimated Delivery Date Method Current WG Current Estimate 10/04/24 Ultrasound #1 35w 6d Other Estimates 09/28/24 LMP (Certain) 36w 5d Expected Delivery Route/Plan Labor Preferences- CB/BF classes: yes labor support person: Al labor intervention preferences: [] pain management options preferred: limited if possible cut cord/dad catch: maybe : yes PP control planned: yes discussed possible routes of delivery and associated risks: [] special requests: [] Specific Issue/Plans Covid status: [] Flu vaccine: [] Tdap vaccine: Rhogam: na LARC form signed: yes movement and labor precautions reviewed. Problem list reviewed and updated with the most current plan of care details and appropriate orders placed. Relevant counseling for the gestational age provided. Continue routine care and follow up unless otherwise noted in visit notes/problem list details Initial Weight: Not Recorded Date -?-?-?-?-?-?-?-?-?-?-?-?- EGA Weight BP Urine Prot -?-?-?-?-?-?-?-?-?-?-?-?- Glucose FHR FuHt Pres Dilation -?-?-?-?-?-?-?-?-?-?-?-?- Effaced St Visit Note 02/29/24 -?-?-?-?-?-?-?-?-?-?-?-?- 8w 6d 122 lb 103/69 -?-?-?-?-?-?-?-?-?-?-?-?- 171 -?-?-?-?-?-?-?-?-?-?-?-?- KW-CRL not cons with dates. brant changed accepts NIPT 03/28/24 -?-?-?-?-?-?-?-?-?-?-?-?- 12w 6d 125 lb 4 oz 116/76 Nega tive -?-?-?-?-?-?-?-?-?-?-?-?- Negative 168 -?-?-?-?-?-?-?-?-?-?-?-?- JV- normal NIPT. no complaints today. gender is a surprise. 04/26/24 -?-?-?-?-?-?-?-?-?-?-?-?- 17w 0d 127 lb 4 oz 111/75 Nega tive -?-?-?-?-?-?-?-?-?-?-?-?- Negative 152 -?-?-?-?-?-?-?-?-?-?-?-?- KW- no vb/crampi ng. MFM US scheduled. discussed getting ped and scheduling CBE class 05/22/24 -?-?-?-?-?-?-?-?-?-?-?-?- 20w 5d 130 lb 130 lb 117/78 Negative -?-?-?-?-?-?-?-?-?-?-?-?- Negative 145 -?-?-?-?-?-?-?-?-?-?-?-?- SM- no vb lof no regular ctx 06/19/24 -?-?-?-?-?-?-?-?-?-?-?-?- 24w 5d 134 lb 6 oz 112/62 Nega tive -?-?-?-?-?-?-?-?-?-?-?-?- Negative 154 -?-?-?-?-?-?-?-?-?-?-?-?- MH-No VB, LOF. G ood FM. Some anxiety but managing. Larc 07/02/24 -?-?-?-?-?-?-?-?-?-?-?-?- 26w 4d 135 lb 4 oz 112/72 Nega tive -?-?-?-?-?-?-?-?-?-?-?-?- Negative 152 -?-?-?-?-?-?-?-?-?-?-?-?- MH-good Fm. No V B. Work in for anxiety. Declines Rx meds. Try magnesium complex. Counseling encouraged and handout given. RTO 1 wk 07/10/24 -?-?-?-?-?-?-?-?-?-?-?-?- 27w 5d 135 lb 6 oz 104/66 Nega tive -?-?-?-?-?-?-?-?-?-?-?-?- Negative 140 27 -?-?-?-?-?-?-?-?-?-?-?-?- MH-No VB, LOF. G ood FM. Feeling much better anxiety moore. States I think I just needed to talk last time. I highly encouraged to consider counseling. Call with worsening sx. 28 wk labs pending. 07/26/24 -?-?-?-?-?-?-?-?-?-?-?-?- 30w 0d 139 lb 107/71 Negative -?-?-?-?-?-?-?-?-?-?-?-?- Negative 150 30 -?-?-?-?-?-?-?-?-?-?-?-?- SM- still consid ering tdap no vb lof good fm n oreugalr ctxx 08/09/24 -?-?-?-?-?-?-?-?-?-?-?-?- 32w 0d 143 lb 2 oz 123/74 Nega tive -?-?-?-?-?-?-?-?-?-?-?-?- Negative 160 31 -?-?-?-?-?-?-?-?-?-?-?-?- KW- no vb/lof/ct x. good fm. Tdap today 08/23/24 -?-?-?-?-?-?-?-?-?-?-?-?- 34w 0d 145 lb 8 oz 111/70 Nega tive -?-?-?-?-?-?-?-?-?--?-?-?- Negative 154 33 -?-?-?-?-?-?-?-?-?-?-?-?- LC- no vb/ctx/lo f. good fm. 09/05/24 -?-?-?-?-?-?-?-?-?-?-?-?- 35w 6d 145 lb 6 oz 108/75 Nega tive -?-?-?-?-?-?-?-?-?-?-?-?- Negative 161 34.5 Cephalic -?-?-?-?-?-?-?-?-?-?-?-?- JV_ no lof, vagi nal bleeding, or dec fm. GBS collected. ACOG First Trimester First Trimester: Discussed Second Trimester Second Trimester: Signs and Symptoms of Labor, Selecting a care provider, Reproductive Life Planning & Contreception, Care Planning and Depression/Anxiety; Discussed Tobacco Cessation and Discussed Intimate Partner Violence Third Trimester Third Trimester: Pain Management Plans, Labor support person(s), Immediate Larc, Circumcision preference, Signs and Symptoms of Preeclampsia, Infant Feeding No and Family Medical Leave or Disability Forms Results POC Urinalysis 2 Dip (Clinic) Office Urine Glucose Negative Last Edit by Maddie Mata on 09/05/24 09: 26 Office Urine Protein Negative Last Edit by Maddie Mata on 09/05/24 09: 26 Coding Level of Care Code OB Routine Diagnoses Low back pain during O26.899; M54.50 Supervision of high risk in second trimester O09.92 Trimester: second trimester 35 weeks gestation of Z3A.35 Weeks of gestation: 35 weeks Anxiety F41.9 LGSIL (low grade squamous intraepithelial dysplasia) Scoliosis, unspecified scoliosis type, unspecified spinal region M41.9 Scoliosis type: unspecified scoliosis Spinal region: unspecified Assessment and Plan Assessment and Plan (1) Low back pain during : Status: Acute Comment: suspect UTI-ATB sent (2) Supervision of high-risk : Status: Acute Qualifiers: Trimester: second trimester Qualified Code(s): O09.92 - Supervision of high risk , unspecified, second trimester Comment: PRR, , BRANT 09/28/24, surprise Al (3) : Status: Acute Qualifiers: Weeks of gestation: 35 weeks Qualified Code(s): Z3A.35 - 35 weeks gestation of Comment: elects NIPT(NO GENDER) Baby low risk & Carrier Negative , nl anatomy . GTT normal. (4) Anxiety: Status: Acute Comment: Increased/work related. Declines Rx. Counseling handout and will schedule. Improved. No meds (5) LGSIL (low grade squamous intraepithelial dysplasia): Status: Acute Comment: repeat pap in 1 year. 03/2023 nml. Rpt pp (6) Scoliosis: Status: Acute Qualifiers: Scoliosis type: unspecified scoliosis Spinal region: unspecified Qualified Code(s): M41.9 - Scoliosis, unspecified Comment: 26 degree curve 2017. offered anesthesia consult- set up after 32 wk, scheduled for 08/21 @ 2 Orders: Orders POC Urinalysis 2 Dip (Clinic) Today Culture, Group B Streptococcus Today O09.92 - Supervision of high risk , unspecified, second trimester Medications: Discontinued nitrofurantoin monohyd/m-cryst 100 mg (Macrobid) must administer with a meal/food Discontinued Reason: By Stop Date 100 mg PO BID 7 days 14 caps 0RF N39.0 - Urinary tract infection, site not specified 09/05/24 09 <Electronically signed by Gwendolyn Bone DO> Date _ Gwendolyn Lala DO Cosigner Signature: Date (if applicable) CC: ~ [facility] Work Phone: Progress note Author Neelam Coon [facility] Note Date/Time September 12, 2024 9:32 am [facility] [address] [place] [address], [address] [place] [address] OFFICE VISIT Date of Service: 09/12/24 MR#: [id number] Acct: [id number] Name: BHUMI PARKS Rep #: [id number] : 2000 Provider: Dr. 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: No Is patient in pain?: No Allergies wheat Allergy (Mild, Verified 09/12/24 09:01) Other Medications ?Medication ?Instructions ?Recorded ?Confirmed ?Type multivitamin no.47-iron fum 27 1 cap PO DAILY 02/20/24 09/12/24 History mg-folate no.1 1 mg-dha 300 mg capsule (PNV-DHA) Last Menstrual Period: 12/23/23 Zika: Zika virus screening: Negative : No PFSH PFSH Medical History Wears glasses Anxiety Alcohol use Back pain Heartburn Vapes nicotine containing substance Leg cramps History of edema Scoliosis Arthritis (08/27/00) Elevated d-dimer Painful swallowing Allergic rhinitis Acute bronchitis, unspecified Right knee pain Bakers cyst Rheumatoid arthritis Dietary restriction Non-smoker Scoliosis History of ovarian cyst JRA (juvenile rheumatoid arthritis) Surgical History H/O endoscopy Family History Grandmother No problems noted. Mother Arthritis Grandfather Diabetes Arthritis Father Hypertension Social History adopted: No household members: spouse number of children: 0 current occupational status: employed current occupation: [employer] current occupational exposures/hazards: No pets and animals: Yes (2 dogs) pets and animals: dog(s) leisure activities: exercise and reading history of recent travel: No sexually active: Yes Smoking Status: Former smoker Electronic Cigarette Use: not used second hand exposure: No alcohol intake: former details: Not while substance use type: does not use diet: gluten free well-balanced diet: about half the time caffeine: Yes (1 cup per day) Type: carbonated beverages and coffee Number of servings: 1 eating out: 1-3 times/week during the past year weight has: remained stable what type of physical activity do you participate in: walking frequency: 1-2 times per week duration: 15-30 minutes/day huan/mosque: None seatbelt use: always do you feel safe at home: Yes 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 OB Visit [facility] Calculator Estimated Delivery Date Method Current WG Current Estimate 10/04/24 Ultrasound #1 36w 6d Other Estimates 09/28/24 LMP (Certain) 37w 5d Expected Delivery Route/Plan Labor Preferences- CB/BF classes: yes labor support person: lA labor intervention preferences: [] pain management options preferred: limited if possible cut cord/dad catch: maybe : yes PP control planned: yes discussed possible routes of delivery and associated risks: [] special requests: [] Specific Issue/Plans Covid status: [] Flu vaccine: [] Tdap vaccine: Rhogam: na LARC form signed: yes movement and labor precautions reviewed. Problem list reviewed and updated with the most current plan of care details and appropriate orders placed. Relevant counseling for the gestational age provided. Continue routine care and follow up unless otherwise noted in visit notes/problem list details Initial Weight: Not Recorded Date -?--?-?-?-?-?-?-?-?-?-?-?- EGA Weight BP Urine Prot -?-?-?-?-?-?-?-?-?-?-?-?- Glucose FHR FuHt Pres Dilation -?-?-?-?-?-?-?-?-?-?-?-?- Effaced St Visit Note 02/29/24 -?-?-?-?-?-?-?-?-?-?-?-?- 8w 6d 122 lb 103/69 -?-?-?-?-?-?-?-?-?-?-?-?- 171 -?-?-?-?-?-?-?-?-?-?-?-?- KW-CRL not cons with dates. [facility] changed accepts NIPT 03/28/24 -?-?-?-?-?-?-?-?-?-?-?-?- 12w 6d 125 lb 4 oz 116/76 Nega tive -?-?-?-?-?-?-?-?-?-?-?-?- Negative 168 -?-?-?-?-?-?-?-?-?-?-?-?- JV- normal NIPT. no complaints today. gender is a surprise. 04/26/24 -?-?-?-?-?-?-?-?-?-?-?-?- 17w 0d 127 lb 4 oz 111/75 Nega tive -?-?-?-?-?-?-?-?-?-?-?-?- Negative 152 -?-?-?-?-?-?-?-?-?-?-?-?- KW- no vb/cralula ng. MFM US scheduled. discussed getting ped and scheduling CBE class 05/22/24 -?-?-?-?-?-?-?-?-?-?-?-?- 20w 5d 130 lb 130 lb 117/78 Negative -?-?-?-?-?-?-?-?-?-?-?-?- Negative 145 -?-?-?-?-?-?-?-?-?-?-?-?- SM- no vb lof no regular ctx 06/19/24 -?-?-?-?-?-?-?-?-?-?-?-?- 24w 5d 134 lb 6 oz 112/62 Nega tive -?-?-?-?-?-?-?-?-?-?-?-?- Negative 154 -?-?-?-?-?-?-?-?-?-?-?-?- MH-No VB, LOF. G ood FM. Some anxiety but managing. Larc 07/02/24 -?-?-?-?-?-?-?-?-?-?-?-?- 26w 4d 135 lb 4 oz 112/72 Nega tive -?-?-?-?-?-?-?-?-?-?-?-?- Negative 152 -?-?-?-?-?-?-?-?-?-?-?-?- MH-good Fm. No V B. Work in for anxiety. Declines Rx meds. Try magnesium complex. Counseling encouraged and handout given. RTO 1 wk 07/10/24 -?-?-?-?-?-?-?-?-?-?-?-?- 27w 5d 135 lb 6 oz 104/66 Nega tive -?-?-?-?-?-?-?-?-?-?-?-?- Negative 140 27 -?-?-?-?-?-?-?-?-?-?-?-?- MH-No VB, LOF. G ood FM. Feeling much better anxiety moore. States I think I just needed to talk last time. I highly encouraged to consider counseling. Call with worsening sx. 28 wk labs pending. 07/26/24 -?-?-?-?-?-?-?-?-?-?-?-?- 30w 0d 139 lb 107/71 Negative -?-?-?-?-?-?-?-?-?-?-?-?- Negative 150 30 -?-?-?-?-?-?-?-?-?-?-?-?- - still consid ering tdap no vb lof good fm n oreugalr ctxx 08/09/24 -?-?-?-?-?-?-?-?-?-?-?-?- 32w 0d 143 lb 2 oz 123/74 Nega tive -?-?-?-?-?-?-?-?-?-?-?-?- Negative 160 31 -?-?-?-?-?-?-?-?-?-?-?-?- KW- no vb/lof/ct x. good fm. Tdap today 08/23/24 -?-?-?-?-?-?-?-?-?-?-?-?- 34w 0d 145 lb 8 oz 111/70 Nega tive -?-?-?-?-?-?-?-?-?-?-?--?- Negative 154 33 -?-?-?-?-?-?-?-?-?-?-?-?- LC- no vb/ctx/lo f. good fm. 09/05/24 -?-?-?-?-?-?-?-?-?-?-?-?- 35w 6d 145 lb 6 oz 108/75 Nega tive -?-?-?-?-?-?-?-?-?-?-?-?- Negative 161 34.5 Cephalic -?-?-?-?-?-?-?-?-?-?-?-?- JV_ no lof, vagi nal bleeding, or dec fm. GBS collected. 09/12/24 -?-?-?-?-?-?-?-?-?-?-?-?- 36w 6d 147 lb 6 oz 118/78 Nega tive -?-?-?-?-?-?-?-?-?-?-?-?- Negative 145 36 Cephalic 0 -?-?-?-?-?-?-?-?--?-?-?-?- SM- no vb lof go od fm no reuglar ctx gbs done ACOG First Trimester First Trimester: Discussed Second Trimester Second Trimester: Signs and Symptoms of Labor, Selecting a care provider, Reproductive Life Planning & Contreception, Care Planning and Depression/Anxiety; Discussed Tobacco Cessation and Discussed Intimate Partner Violence Third Trimester Third Trimester: Pain Management Plans, Labor support person(s), Immediate Larc, Circumcision preference, Signs and Symptoms of Preeclampsia, Infant Feeding No and Family Medical Leave or Disability Forms Results POC Urinalysis 2 Dip (Clinic) Office Urine Glucose Negative Last Edit by Maddie Mata on 09/12/24 09: 17 Office Urine Protein Negative Last Edit by Maddie Mata on 09/12/24 09: 17 Coding Level of Care Code OB Routine Diagnoses Low back pain during O26.899; M54.50 Supervision of high risk in second trimester O09.92 Trimester: second trimester 36 weeks gestation of Z3A.36 Weeks of gestation: 36 weeks Anxiety F41.9 LGSIL (low grade squamous intraepithelial dysplasia) Scoliosis, unspecified scoliosis type, unspecified spinal region M41.9 Scoliosis type: unspecified scoliosis Spinal region: unspecified Assessment and Plan Assessment and Plan (1) Low back pain during : Status: Acute Comment: suspect UTI-ATB sent (2) Supervision of high-risk : Status: Acute Qualifiers: Trimester: second trimester Qualified Code(s): O09.92 - Supervision of high risk , unspecified, second trimester Comment: PRR, , BRANT 09/28/24, surprise Al (3) : Status: Acute Qualifiers: Weeks of gestation: 36 weeks Qualified Code(s): Z3A.36 - 36 weeks gestation of Comment: Neg GBS/ elects NIPT(NO GENDER) Baby low risk & Carrier Negative , nl anatomy . GTT normal. (4) Anxiety: Status: Acute Comment: Increased/work related. Declines Rx. Counseling handout and will schedule. Improved. No meds (5) LGSIL (low grade squamous intraepithelial dysplasia): Status: Acute Comment: repeat pap in 1 year. 03/2023 nml. Rpt pp (6) Scoliosis: Status: Acute Qualifiers: Scoliosis type: unspecified scoliosis Spinal region: unspecified Qualified Code(s): M41.9 - Scoliosis, unspecified Comment: 26 degree curve 2018. offered anesthesia consult- set up after 32 wk, scheduled for 08/21 @ 2 Orders: Orders POC Urinalysis 2 Dip (Clinic) Today 09/12/24 0932 <Electronically signed by Neelam bower MD> Date _ Neelam Coon MD Cosigner Signature: Date (if applicable) CC: ~ [facility] Work Phone: Progress note Author Alda De La Garza [facility] Note Date/Time September 16, 2024 9:54 am [facility] [address] [place] [address], [address] [place] [address] OFFICE VISIT Date of Service: 09/16/24 MR#: [id number] Acct: [id number] Name: BHUMI PARKS Rep #: [id number] : 2000 Provider: ZAC De La Garza Age/Sex: 24/F Location: [facility] [place] Status: Signed Intake Vital Signs 08/09/24 10:12 09/12/24 09:02 09/16/24 09:29 Height 5 ft 2 in 5 ft 2 in 5 ft 2 in Weight: 148 lb BMI 27.1 BP 117/80 Blood Pressure Location Lt brachial Position Sitting Pulse 79 Pulse Source Monitor Intake Visit Reasons: 38 wk ob Reflector Driller 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 Deburrer Required: No Accompanied by: Self Is patient in pain?: Yes (Pelvic) Pain scale (1-10): 2 Feel stressed/tense/nervous/anxious/difficulty sleeping: not at all Allergies wheat Allergy (Mild, Verified 09/16/24 09:33) Other Medications ?Medication ?Instructions ?Recorded ?Confirmed ?Type multivitamin no.47-iron fum 27 1 cap PO DAILY 02/20/24 09/16/24 History mg-folate no.1 1 mg-dha 300 mg capsule (PNV-DHA) Last Menstrual Period: 12/23/23 Zika: Zika virus screening: Negative : No PFSH PFSH Medical History Wears glasses Anxiety Alcohol use Back pain Heartburn Vapes nicotine containing substance Leg cramps History of edema Scoliosis Arthritis (08/27/00) Elevated d-dimer Painful swallowing Allergic rhinitis Acute bronchitis, unspecified Right knee pain Bakers cyst Rheumatoid arthritis Dietary restriction Non-smoker Scoliosis History of ovarian cyst JRA (juvenile rheumatoid arthritis) Surgical History H/O endoscopy Family History Grandmother No problems noted. Mother Arthritis Grandfather Diabetes Arthritis Father Hypertension Social History adopted: No household members: spouse number of children: 0 current occupational status: employed current occupation: [employer] current occupational exposures/hazards: No pets and animals: Yes (2 dogs) pets and animals: dog(s) leisure activities: exercise and reading history of recent travel: No sexually active: Yes Smoking Status: Former smoker Electronic Cigarette Use: not used second hand exposure: No alcohol intake: former details: Not while substance use type: does not use diet: gluten free well-balanced diet: about half the time caffeine: Yes (1 cup per day) Type: carbonated beverages and coffee Number of servings: 1 eating out: 1-3 times/week during the past year weight has: remained stable what type of physical activity do you participate in: walking frequency: 1-2 times per week duration: 15-30 minutes/day huan/mosque: None seatbelt use: always do you feel safe at home: Yes 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 OB Visit [facility] Calculator Estimated Delivery Date Method Current WG Current Estimate 10/04/24 Ultrasound #1 37w 3d Other Estimates 09/28/24 LMP (Certain) 38w 2d Expected Delivery Route/Plan Labor Preferences- CB/BF classes: yes labor support person: Al labor intervention preferences: [] pain management options preferred: limited if possible cut cord/dad catch: maybe : yes PP control planned: yes discussed possible routes of delivery and associated risks: [] special requests: [] Specific Issue/Plans Covid status: [] Flu vaccine: [] Tdap vaccine: Rhogam: na LARC form signed: yes movement and labor precautions reviewed. Problem list reviewed and updated with the most current plan of care details and appropriate orders placed. Relevant counseling for the gestational age provided. Continue routine care and follow up unless otherwise noted in visit notes/problem list details Initial Weight: Not Recorded Date -?-?-?-?-?-?-?-?-?-?-?-?- EGA Weight BP Urine Prot -?-?-?-?-?-?-?-?-?-?-?-?- Glucose FHR FuHt Pres Dilation -?-?-?-?-?-?-?-?-?-?-?-?- Effaced St Visit Note 02/29/24 -?-?-?-?-?-?-?-?-?-?-?-?- 8w 6d 122 lb 103/69 -?-?-?-?-?-?-?-?-?-?-?-?- 171 -?-?-?-?-?-?-?-?-?-?-?-?- KW-CRL not cons with dates. [facility] changed accepts NIPT 03/28/24 -?-?-?-?-?-?-?-?-?-?-?-?- 12w 6d 125 lb 4 oz 116/76 Nega tive -?-?-?-?-?-?-?-?-?-?-?-?- Negative 168 -?-?-?-?-?-?-?-?-?-?-?-?- JV- normal NIPT. no complaints today. gender is a surprise. 04/26/24 -?-?-?-?-?-?-?-?-?-?-?-?- 17w 0d 127 lb 4 oz 111/75 Nega tive -?-?-?-?-?-?-?-?-?-?-?-?- Negative 152 -?-?-?-?-?-?-?-?-?-?-?-?- KW- no vb/crampi ng. MFM US scheduled. discussed getting ped and scheduling CBE class 05/22/24 -?-?-?-?-?-?-?-?-?-?-?-?- 20w 5d 130 lb 130 lb 117/78 Negative -?-?-?-?-?-?-?-?-?-?-?-?- Negative 145 -?-?-?-?-?-?-?-?-?--?-?-?- SM- no vb lof no regular ctx 06/19/24 -?-?-?-?-?-?-?-?-?-?-?-?- 24w 5d 134 lb 6 oz 112/62 Nega tive -?-?-?-?-?-?-?-?-?-?-?-?- Negative 154 -?-?-?-?-?-?-?-?-?-?-?-?- MH-No VB, LOF. G ood FM. Some anxiety but managing. Larc 07/02/24 -?-?-?-?-?-?-?-?-?-?-?-?- 26w 4d 135 lb 4 oz 112/72 Nega tive -?-?-?-?-?-?-?-?-?-?-?-?- Negative 152 -?-?-?-?-?-?-?-?-?-?-?-?- MH-good Fm. No V B. Work in for anxiety. Declines Rx meds. Try magnesium complex. Counseling encouraged and handout given. RTO 1 wk 07/10/24 -?-?-?-?-?-?-?-?-?-?-?-?- 27w 5d 135 lb 6 oz 104/66 Nega tive -?-?-?-?-?-?-?-?-?-?-?-?- Negative 140 27 -?-?-?-?-?-?-?-?-?-?-?-?- MH-No VB, LOF. G ood FM. Feeling much better anxiety moore. States I think I just needed to talk last time. I highly encouraged to consider counseling. Call with worsening sx. 28 wk labs pending. 07/26/24 -?-?-?-?-?-?-?-?-?-?-?-?- 30w 0d 139 lb 107/71 Negative -?-?-?-?-?-?-?-?-?-?-?-?- Negative 150 30 -?-?-?-?-?-?-?-?-?-?-?-?- SM- still consid ering tdap no vb lof good fm n oreugalr ctxx 08/09/24 -?-?-?-?-?-?-?-?-?-?-?-?- 32w 0d 143 lb 2 oz 123/74 Nega tive -?-?-?-?-?-?-?-?-?-?-?-?- Negative 160 31 -?-?-?-?-?-?-?-?-?-?-?-?- KW- no vb/lof/ct x. good fm. Tdap today 08/23/24 -?-?-?-?-?-?-?-?-?-?-?-?- 34w 0d 145 lb 8 oz 111/70 Nega tive -?-?-?-?-?-?-?-?-?-?-?-?- Negative 154 33 -?-?-?-?-?-?-?-?-?-?-?-?- LC- no vb/ctx/lo f. good fm. 09/05/24 -?-?-?-?-?-?-?-?-?-?-?-?- 35w 6d 145 lb 6 oz 108/75 Nega tive -?-?-?-?-?-?-?-?-?-?-?-?- Negative 161 34.5 Cephalic -?-?-?-?-?-?-?-?-?-?-?-?- JV_ no lof, vagi nal bleeding, or dec fm. GBS collected. 09/12/24 -?-?-?-?-?-?-?-?-?-?-?-?- 36w 6d 147 lb 6 oz 118/78 Nega tive -?-?-?-?-?-?-?-?-?-?-?-?- Negative 145 36 Cephalic 0 -?-?-?-?-?-?-?-?-?-?-?-?- SM- no vb lof go od fm no reuglar ctx gbs done 09/16/24 -?-?-?-?-?-?-?-?-?-?-?-?- 37w 3d 148 lb 117/80 Negative -?-?-?-?-?-?-?-?-?-?-?-?- Negative 140 36 Cephalic 0 -?-?-?-?-?-?-?-?-?-?-?-?- KW- no vb/lof/ct x. good fm. having increased vaginal pressure ACOG First Trimester First Trimester: Discussed Second Trimester Second Trimester: Signs and Symptoms of Labor, Selecting a care provider, Reproductive Life Planning & Contreception, Care Planning and Depression/Anxiety; Discussed Tobacco Cessation and Discussed Intimate Partner Violence Third Trimester Third Trimester: Pain Management Plans, Labor support person(s), Immediate Larc, Circumcision preference, Signs and Symptoms of Preeclampsia, Infant Feeding No and Family Medical Leave or Disability Forms ROS Const Reports system reviewed and no additional complaints, except as documented Eyes Reports system reviewed and no additional complaints, except as documented ENT Reports system reviewed and no additional complaints, except as documented Card Reports system reviewed and no additional complaints, except as documented Resp Reports system reviewed and no additional complaints, except as documented GI Reports system reviewed and no additional complaints, except as documented, Denies nausea and Denies vomiting Reports system reviewed and no additional complaints, except as documented Musc Reports system reviewed and no additional complaints, except as documented Skin/Breast Reports system reviewed and no additional complaints, except as documented Neuro Yes system reviewed and no additional complaints, except as documented Psych Reports system reviewed and no additional complaints, except as documented Endo Reports system reviewed and no additional complaints, except as documented Jewel/Lymph Reports system reviewed and no additional complaints, except as documented Aller/Immun Reports system reviewed and no additional complaints, except as documented Exam Const General: cooperative, healthy appearing and no acute distress Orientation: alert, awake and oriented x3 Neck Neck: normal visual inspection and full ROM Resp Effort & Inspection: normal respiratory effort, able to speak in complete sentences and symmetric chest movement GI Inspection: normal to inspection Palpation: soft and other Other: gravid Skin General: no rashes or lesions noted Neuro General: patient alert, patient awake and patient oriented x3 Cognition: normal cognition Speech: speech normal Gait: normal gait Motor: muscle tone normal throughout Extrem General: normal to inspection and full ROM Psych Appearance: grossly normal Mental Status: mental status grossly normal Mood: congruent mood Affect: normal affect Speech and Movement: speech and movement normal Attitude: cooperative Thought Process: normal Thought Content: normal Judgment: judgment good Results POC Urinalysis 2 Dip (Clinic) Office Urine Glucose Negative Last Edit by Desiree Vyas on 09/16/24 09 :37 Office Urine Protein Negative Last Edit by Desiree Vyas on 09/16/24 09 :37 Coding Level of Care Code OB Routine Diagnoses Low back pain during O26.899; M54.50 Supervision of high risk in second trimester O09.92 Trimester: second trimester 37 weeks gestation of Z3A.37 Weeks of gestation: 37 weeks Anxiety F41.9 LGSIL (low grade squamous intraepithelial dysplasia) Scoliosis, unspecified scoliosis type, unspecified spinal region M41.9 Scoliosis type: unspecified scoliosis Spinal region: unspecified Assessment and Plan Assessment and Plan (1) Low back pain during : Status: Acute Comment: suspect UTI-ATB sent (2) Supervision of high-risk : Status: Acute Qualifiers: Trimester: second trimester Qualified Code(s): O09.92 - Supervision of high risk , unspecified, second trimester Comment: PRR, , BRANT 09/28/24, surprise Al (3) : Status: Acute Qualifiers: Weeks of gestation: 37 weeks Qualified Code(s): Z3A.37 - 37 weeks gestation of Comment: Neg GBS/ elects NIPT(NO GENDER) Baby low risk & Carrier Negative , nl anatomy . GTT normal. (4) Anxiety: Status: Acute Comment: Increased/work related. Declines Rx. Counseling handout and will schedule. Improved. No meds (5) LGSIL (low grade squamous intraepithelial dysplasia): Status: Acute Comment: repeat pap in 1 year. 03/2023 nml. Rpt pp (6) Scoliosis: Status: Acute Qualifiers: Scoliosis type: unspecified scoliosis Spinal region: unspecified Qualified Code(s): M41.9 - Scoliosis, unspecified Comment: 26 degree curve 2018. offered anesthesia consult- set up after 32 wk, scheduled for 08/21 @ 2 Orders: Orders POC Urinalysis 2 Dip (Clinic) Today Plan Details Additional Comments: ACOG trimester education reviewed and updated. see problem list details for updated plan management information and see below for orders placed at this visit. GA appropriate handout given. 09/16/24953 <Electronically signed by Alda chandler CNM> Date _ Alda De La Garza CNM Cosigner Signature: Date (if applicable) CC: ~ [facility] Work Phone: Progress note Author Gwendolyn Puente [facility] Note Date/Time September 25, 2024 11:02 am [facility] [address], [address] [place] [address] OFFICE VISIT Date of Service: 09/25/24 MR#: [id number] Acct: [id number] Name: BHUMI PARKS Rep #: [id number] : 2000 Provider: Dr. 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 Is patient in pain?: No Allergies wheat Allergy (Mild, Verified 09/25/24 10:22) Other Medications ?Medication ?Instructions ?Recorded ?Confirmed ?Type multivitamin no.47-iron fum 27 1 cap PO DAILY 02/20/24 09/25/24 History mg-folate no.1 1 mg-dha 300 mg capsule (PNV-DHA) Last Menstrual Period: 12/23/23 Zika: Zika virus screening: Negative : No PFSH PFSH Medical History Wears glasses Anxiety Alcohol use Back pain Heartburn Vapes nicotine containing substance Leg cramps History of edema Scoliosis Arthritis (08/27/00) Elevated d-dimer Painful swallowing Allergic rhinitis Acute bronchitis, unspecified Right knee pain Bakers cyst Rheumatoid arthritis Dietary restriction Non-smoker Scoliosis History of ovarian cyst JRA (juvenile rheumatoid arthritis) Surgical History H/O endoscopy Family History Grandmother No problems noted. Mother Arthritis Grandfather Diabetes Arthritis Father Hypertension Social History adopted: No household members: spouse number of children: 0 current occupational status: employed current occupation: [employer] current occupational exposures/hazards: No pets and animals: Yes (2 dogs) pets and animals: dog(s) leisure activities: exercise and reading history of recent travel: No sexually active: Yes Smoking Status: Former smoker Electronic Cigarette Use: not used second hand exposure: No alcohol intake: former details: Not while substance use type: does not use diet: gluten free well-balanced diet: about half the time caffeine: Yes (1 cup per day) Type: carbonated beverages and coffee Number of servings: 1 eating out: 1-3 times/week during the past year weight has: remained stable what type of physical activity do you participate in: walking frequency: 1-2 times per week duration: 15-30 minutes/day huan/mosque: None seatbelt use: always do you feel safe at home: Yes additional social history: 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 OB Visit [facility] Calculator Estimated Delivery Date Method Current WG Current Estimate 10/04/24 Ultrasound #1 38w 5d Other Estimates 09/28/24 LMP (Certain) 39w 4d Expected Delivery Route/Plan Labor Preferences- CB/BF classes: yes labor support person: Al labor intervention preferences: [] pain management options preferred: limited if possible cut cord/dad catch: maybe : yes PP control planned: yes discussed possible routes of delivery and associated risks: [] special requests: [] Specific Issue/Plans Covid status: [] Flu vaccine: [] Tdap vaccine: Rhogam: na LARC form signed: yes movement and labor precautions reviewed. Problem list reviewed and updated with the most current plan of care details and appropriate orders placed. Relevant counseling for the gestational age provided. Continue routine care and follow up unless otherwise noted in visit notes/problem list details Initial Weight: Not Recorded Date -?-?-?-?-?-?-?-?-?-?-?-?- EGA Weight BP Urine Prot -?-?-?-?-?-?-?-?-?-?-?-?- Glucose FHR FuHt Pres Dilation -?-?-?-?-?-?-?-?-?-?-?-?- Effaced St Visit Note 02/29/24 -?-?-?-?-?-?-?-?-?-?-?-?- 8w 6d 122 lb 103/69 -?-?-?-?-?-?-?-?-?-?-?-?- 171 -?-?-?-?-?-?-?-?-?-?-?-?- KW-CRL not cons with dates. [facility] changed accepts NIPT 03/28/24 -?-?-?-?-?-?-?-?-?-?-?-?- 12w 6d 125 lb 4 oz 116/76 Nega tive -?-?-?-?-?-?-?-?-?-?-?-?- Negative 168 -?-?-?-?-?-?-?-?-?-?-?-?- JV- normal NIPT. no complaints today. gender is a surprise. 04/26/24 -?-?-?-?-?-?-?-?-?-?-?-?- 17w 0d 127 lb 4 oz 111/75 Nega tive -?-?-?-?-?-?-?-?-?-?-?-?- Negative 152 -?-?-?-?-?-?-?-?-?-?-?-?- KW- no vb/shira calixto. MFM US scheduled. discussed getting ped and scheduling CBE class 05/22/24 -?-?-?-?-?-?-?-?-?-?-?-?- 20w 5d 130 lb 130 lb 117/78 Negative -?-?-?-?-?-?-?-?-?-?--?-?- Negative 145 -?-?-?-?-?-?-?-?-?-?-?-?- - no vb lof no regular ctx 06/19/24 -?-?-?-?-?-?-?-?-?-?-?-?- 24w 5d 134 lb 6 oz 112/62 Nega tive -?-?-?-?-?-?-?-?-?-?-?-?- Negative 154 -?-?-?-?-?-?-?-?-?-?-?-?- MH-No VB, LOF. G zafar FM. Some anxiety but managing. Larc 07/02/24 -?-?-?-?-?-?-?-?-?-?-?-?- 26w 4d 135 lb 4 oz 112/72 Nega tive -?-?-?-?-?-?-?-?-?-?-?-?- Negative 152 -?-?-?-?-?-?-?-?-?-?-?-?- MH-good Fm. No V B. Work in for anxiety. Declines Rx meds. Try magnesium complex. Counseling encouraged and handout given. RTO 1 wk 07/10/24 -?-?-?-?-?-?-?-?-?-?-?-?- 27w 5d 135 lb 6 oz 104/66 Nega tive -?-?-?-?-?-?-?-?-?-?-?-?- Negative 140 27 -?-?-?-?-?-?-?-?-?-?-?-?- MH-No VB, LOF. G ood FM. Feeling much better anxiety moore. States I think I just needed to talk last time. I highly encouraged to consider counseling. Call with worsening sx. 28 wk labs pending. 07/26/24 -?-?-?-?-?-?-?-?-?-?-?-?- 30w 0d 139 lb 107/71 Negative -?-?-?-?-?-?-?-?-?-?-?-?- Negative 150 30 -?-?-?-?-?-?-?-?-?-?-?-?- SM- still consid ering tdap no vb lof good fm n oreugalr ctxx 08/09/24 -?-?-?-?-?-?-?-?-?-?-?-?- 32w 0d 143 lb 2 oz 123/74 Nega tive -?-?-?-?-?-?-?-?-?-?-?-?- Negative 160 31 -?-?-?-?-?-?-?-?-?-?--?-?- KW- no vb/lof/ct x. good fm. Tdap today 08/23/24 -?-?-?-?-?-?-?-?-?-?-?-?- 34w 0d 145 lb 8 oz 111/70 Nega tive -?-?-?-?-?-?-?-?-?-?-?-?- Negative 154 33 -?-?-?-?-?-?-?-?-?-?-?-?- LC- no vb/ctx/lo f. good fm. 09/05/24 -?-?-?-?-?-?-?-?-?-?-?-?- 35w 6d 145 lb 6 oz 108/75 Nega tive -?-?-?-?-?-?-?-?-?-?-?-?- Negative 161 34.5 Cephalic -?-?-?-?-?-?-?-?-?-?-?-?- JV_ no lof, vagi nal bleeding, or dec fm. GBS collected. 09/12/24 -?-?-?-?-?-?-?-?-?-?-?-?- 36w 6d 147 lb 6 oz 118/78 Nega tive -?-?-?-?-?-?-?-?-?-?-?-?- Negative 145 36 Cephalic 0 -?-?-?-?-?-?-?-?-?-?-?-?- SM- no vb lof go od fm no reuglar ctx gbs done 09/16/24 -?-?-?-?-?-?-?-?-?-?-?-?- 37w 3d 148 lb 117/80 Negative -?-?-?-?-?-?-?-?-?-?-?-?- Negative 140 36 Cephalic 0 -?-?-?-?-?-?-?-?-?-?-?-?- KW- no vb/lof/ct x. good fm. having increased vaginal pressure 09/25/24 -?-?-?-?-?-?-?-?-?-?-?-?- 38w 5d 149 lb 8 oz 116/77 Nega tive -?-?-?-?-?-?-?-?-?-?-?-?- Negative 143 38 Cephalic 0 -?-?-?-?-?-?-?-?-?-?-?-?- JV- no lof ,vagi nal bleeding, or dec fm. ACOG First Trimester First Trimester: Discussed Second Trimester Second Trimester: Signs and Symptoms of Labor, Selecting a care provider, Reproductive Life Planning & Contreception, Care Planning and Depression/Anxiety; Discussed Tobacco Cessation and Discussed Intimate Partner Violence Third Trimester Third Trimester: Pain Management Plans, Labor support person(s), Immediate Larc, Circumcision preference, Signs and Symptoms of Preeclampsia, Feeding No and Family Medical Leave or Disability Forms Results POC Urinalysis 2 Dip (Clinic) Office Urine Glucose Negative Last Edit by Rosy Nunez on 09/25/24 10:28 Office Urine Protein Negative Last Edit by Rosy Nunez on 09/25/24 10:28 Coding Level of Care Code OB Routine Diagnoses Low back pain during O26.899; M54.50 Supervision of high risk in second trimester O09.92 Trimester: second trimester 38 weeks gestation of Z3A.38 Weeks of gestation: 38 weeks Anxiety F41.9 LGSIL (low grade squamous intraepithelial dysplasia) Scoliosis, unspecified scoliosis type, unspecified spinal region M41.9 Scoliosis type: unspecified scoliosis Spinal region: unspecified Assessment and Plan Assessment and Plan (1) Low back pain during : Status: Acute Comment: suspect UTI-ATB sent (2) Supervision of high-risk : Status: Acute Qualifiers: Trimester: second trimester Qualified Code(s): O09.92 - Supervision of high risk , unspecified, second trimester Comment: PRR, , BRANT 09/28/24, surprise Al (3) : Status: Acute Qualifiers: Weeks of gestation: 38 weeks Qualified Code(s): Z3A.38 - 38 weeks gestation of Comment: Neg GBS/ elects NIPT(NO GENDER) Baby low risk & Carrier Negative , nl anatomy . GTT normal. (4) Anxiety: Status: Acute Comment: Increased/work related. Declines Rx. Counseling handout and will schedule. Improved. No meds (5) LGSIL (low grade squamous intraepithelial dysplasia): Status: Acute Comment: repeat pap in 1 year. 03/2023 nml. Rpt pp (6) Scoliosis: Status: Acute Qualifiers: Scoliosis type: unspecified scoliosis Spinal region: unspecified Qualified Code(s): M41.9 - Scoliosis, unspecified Comment: 26 degree curve 2017. offered anesthesia consult- set up after 32 wk, scheduled for 08/21 @ 2 Orders: Orders POC Urinalysis 2 Dip (Clinic) Today 09/25/24 1102 <Electronically signed by Gwendolyn Bone DO> Date _ Gwendolyn Lala DO Cosignbertha Signature: Date (if applicable) CC: ~ [facility] Work Phone: Reason for referral (narrative)No reason for referral information availableWMet[facility] Work Phone: Summary Purpose Family History Relationship Condition Age at Onset Recorded Date/T tino mother Arthritis Unknown grandfather Diabetes mellitus Unknown Arthritis Unknown father Hypertension Unknown Advance Directives Advance Directive Response Recorded Date/ Time Living Will No September 07, 2022 9:29am Power of Gis Administrator No September 07 9:29am Advance Directive Response Recorded Date/ Time Living Will No February 13, 023 11:50am Power of Gis Administrator No February 13, 2023 11:50am Advance Directive Response Recorded Date/ Time Living Will No May 03, 024 7:45am Power of Gis Administrator No May 03, 2023 7:45am Chief Complaint and Reason for Visit Chief Complaint 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) OVARIAN CYST Reason for Visit Ovarian cyst Encounter for routine gynecological examination Chief Complaint abd pain Chief Complaint abd pain EST NEW CARE Reason for Visit History of juvenile rheumatoid arthritis COVID-19 vaccination declined Establishing care with new doctor, encounter for Chronic abdominal pain Chronic vomiting Hypokalemia Chief Complaint Consult ENT FOLLOW UP Reason for Visit Abdominal pain Nausea & vomiting Chronic pain of both ears Chief Complaint POSSIBLE CYST ON KNE E 2 W FU 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) RT KNEE PAIN, BAKERS CYST RIGHT KNEE Room 2 SORE THROAT/DRY THROAT/COUGH THROAT PAIN DIZZY on and off tingling/numbness in left arm, Reason for Visit History of juvenile rheumatoid arthritis Bakers cyst Skin irritation Chronic pain of both ears Chronic abdominal pain Chronic vomiting Right knee pain Abdominal pain Nausea & vomiting Encounter for routine gynecological examination Bakers cyst Right knee pain Acute bronchitis, unspecified Allergic rhinitis Lichenified rash Painful swallowing Shortness of breath Palpitations Numbness and tingling in left arm Chief Complaint POSSIBLE CYST ON KNE E 2 W FU 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) RT KNEE PAIN, BAKERS CYST RIGHT KNEE Room 2 SORE THROAT/DRY THROAT/COUGH THROAT PAIN DIZZY on and off tingling/numbness in left arm, SOB Reason for Visit History of juvenile rheumatoid arthritis Bakers cyst Skin irritation Chronic pain of both ears Chronic abdominal pain Chronic vomiting Right knee pain Abdominal pain Nausea & vomiting Encounter for routine gynecological examination Bakers cyst Right knee pain Acute bronchitis, unspecified Allergic rhinitis Lichenified rash Painful swallowing Shortness of breath Palpitations Numbness and tingling in left arm Chief Complaint Admit Date 12 wk OB March 28, 2024 11 :17am 17 wk ob April 26, 2024 9 :34am 21 wk ob May 22, 2024 2:14 pm 25 wk ob June 19, 2024 3:29 pm Requesting help for increasing anxiety i n preg July 02, 2024 8:22am 28 wk ob/glucose July 10, 2024 1:1 3pm Reason for Visit Admit Date Anxiety March 28, 2024 11 :17am 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) March 28, 2024 11:17am March 28, 2024 11 :17am Scoliosis March 28, 2024 11 :17am Supervision of high-risk Janua 2024 11:17am Abdominal pain March 28, 2024 11 :17am Amenorrhea March 28, 2024 11 :17am Arthritis March 28, 2024 11 :17am History of juvenile rheumatoid arthritis March 28, 2024 11:17am Lichenified rash March 28, 2024 11 :17am Psoriasis March 28, 2024 11 :17am Anxiety April 26, 2024 9 :34am 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) April 26, 2024 9:34am April 26, 2024 9 :34am Scoliosis April 26, 2024 9 :34am Supervision of high-risk Febru ziggy 2024 9:34am Abdominal pain April 26, 2024 9 :34am Amenorrhea April 26, 2024 9 :34am Arthritis April 26, 2024 9 :34am History of juvenile rheumatoid arthritis April 26, 2024 9:34am Lichenified rash April 26, 2024 9 :34am Psoriasis April 26, 2024 9 :34am Anxiety May 22, 2024 2:14 pm 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) May 22, 2024 2:14pm May 22, 2024 2:14 pm Scoliosis May 22, 2024 2:14 pm Supervision of high-risk May 22, 2024 2:14pm Abdominal pain May 22, 2024 2:14 pm Amenorrhea May 22, 2024 2:14 pm History of juvenile rheumatoid arthritis May 22, 2024 2:14pm Lichenified rash May 22, 2024 2:14 pm Psoriasis May 22, 2024 2:14 pm Anxiety June 19, 2024 3:29 pm June 19, 2024 3:29 pm Scoliosis June 19, 2024 3:29 pm Supervision of high-risk June 19, 2024 3:29pm Low lying placenta, antepartum June 3:29pm Anxiety July 02, 2024 8:2 2am 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) July 02, 2024 8:22am July 02, 2024 8:2 2am Scoliosis July 02, 2024 8:2 2am Supervision of high-risk July 02, 2024 8:22am Low lying placenta, antepartum June 8:22am Anxiety July 10, 2024 1:1 3pm July 10, 2024 1:1 3pm Scoliosis July 10, 2024 1:1 3pm Supervision of high-risk July 10, 2024 1:13pm Low lying placenta, antepartum June 1:13pm Chief Complaint Admit Date 17 wk ob April 26, 2024 9 :34am 21 wk ob May 22, 2024 2:14 pm 25 wk ob June 19, 2024 3:29 pm Requesting help for increasing anxiety i n preg July 02, 2024 8:22am 28 wk ob/glucose July 10, 2024 1:1 3pm SCREENING FOR DIABETES July 16, 2024 6:42am 30 wk ob July 26, 2024 8:07am 32 wk ob August 09, 2024 10:08 am 34 wk ob August 23, 2024 2:28p m Reason for Visit Admit Date Anxiety April 26, 2024 9 :34am 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) April 26, 2024 9:34am April 26, 2024 9 :34am Scoliosis April 26, 2024 9 :34am Supervision of high-risk Febru [email or web address] 9:34am Abdominal pain April 26, 2024 9 :34am Amenorrhea April 26, 2024 9 :34am Arthritis April 26, 2024 9 :34am History of juvenile rheumatoid arthritis April 26, 2024 9:34am Lichenified rash April 26, 2024 9 :34am Psoriasis April 26, 2024 9 :34am Anxiety May 22, 2024 2:14 pm 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) May 22, 2024 2:14pm May 22, 2024 2:14 pm Scoliosis May 22, 2024 2:14 pm Supervision of high-risk May 22, 2024 2:14pm Abdominal pain May 22, 2024 2:14 pm Amenorrhea May 22, 2024 2:14 pm History of juvenile rheumatoid arthritis May 22, 2024 2:14pm Lichenified rash May 22, 2024 2:14 pm Psoriasis May 22, 2024 2:14 pm Anxiety June 19, 2024 3:29 pm June 19, 2024 3:29 pm Scoliosis June 19, 2024 3:29 pm Supervision of high-risk June 19, 2024 3:29pm Low lying placenta, antepartum June 3:29pm Anxiety July 02, 2024 8:2 2am 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) July 02, 2024 8:22am July 02, 2024 8:2 2am Scoliosis July 02, 2024 8:2 2am Supervision of high-risk July 02, 2024 8:22am Low lying placenta, antepartum June 8:22am Anxiety July 10, 2024 1:1 3pm July 10, 2024 1:1 3pm Scoliosis July 10, 2024 1:1 3pm Supervision of high-risk July 10, 2024 1:13pm Low lying placenta, antepartum June 1:13pm Anxiety July 26, 2024 8:07am 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) July 26, 2024 8:07am July 26, 2024 8:07am Scoliosis July 26, 2024 8:07am Supervision of high-risk July [id number] 8:07am Anxiety August 09, 2024 10:08 am 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) August 09, 2024 10:08am August 09, 2024 10:08 am Scoliosis August 09, 2024 10:08 am Supervision of high-risk July 192024 10:08am Anxiety August 23, 2024 2:28p m 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) August 23, 2024 2:28pm August 23, 2024 2:28p m Scoliosis August 23, 2024 2:28p m Supervision of high-risk August 23, 2024 2:28pm Chief Complaint Admit Date 21 wk ob May 22, 2024 2:14 pm 25 wk ob June 19, 2024 3:29 pm Requesting help for increasing anxiety i n preg July 02, 2024 8:22am 28 wk ob/glucose July 10, 2024 1:1 3pm SCREENING FOR DIABETES July 16, 2024 6:42am 30 wk ob July 26, 2024 8:07am 32 wk ob August 09, 2024 10:08 am 34 wk ob August 23, 2024 2:28p m RULE OUT CRAMPING August 29, 2024 6:45 pm RULE OUT CRAMPING August 29, 2024 10:0 1pm Reason for Visit Admit Date Anxiety May 22, 2024 2:14 pm 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) May 22, 2024 2:14pm May 22, 2024 2:14 pm Scoliosis May 22, 2024 2:14 pm Supervision of high-risk May 22, 2024 2:14pm Abdominal pain May 22, 2024 2:14 pm Amenorrhea May 22, 2024 2:14 pm History of juvenile rheumatoid arthritis May 22, 2024 2:14pm Lichenified rash May 22, 2024 2:14 pm Psoriasis May 22, 2024 2:14 pm Anxiety June 19, 2024 3:29 pm June 19, 2024 3:29 pm Scoliosis June 19, 2024 3:29 pm Supervision of high-risk June 19, 2024 3:29pm Low lying placenta, antepartum June 3:29pm Anxiety July 02, 2024 8:2 2am 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) July 02, 2024 8:22am July 02, 2024 8:2 2am Scoliosis July 02, 2024 8:2 2am Supervision of high-risk July 02, 2024 8:22am Low lying placenta, antepartum June 8:22am Anxiety July 10, 2024 1:1 3pm July 10, 2024 1:1 3pm Scoliosis July 10, 2024 1:1 3pm Supervision of high-risk July 10, 2024 1:13pm Low lying placenta, antepartum June 1:13pm Anxiety July 26, 2024 8:07am 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) July 26, 2024 8:07am July 26, 2024 8:07am Scoliosis July 26, 2024 8:07am Supervision of high-risk July [id number] 8:07am Anxiety August 09, 2024 10:08 am 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) August 09, 2024 10:08am August 09, 2024 10:08 am Scoliosis August 09, 2024 10:08 am Supervision of high-risk July 192024 10:08am Anxiety August 23, 2024 2:28p m 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) August 23, 2024 2:28pm August 23, 2024 2:28p m Scoliosis August 23, 2024 2:28p m Supervision of high-risk August 23, 2024 2:28pm Anxiety August 29, 2024 6:45 pm 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) August 29, 2024 6:45pm Low back pain during August 6:45pm August 29, 2024 6:45 pm Scoliosis August 29, 2024 6:45 pm Supervision of high-risk August 29, 2024 6:45pm Chief Complaint Admit Date 21 wk ob May 22, 2024 2:14 pm 25 wk ob June 19, 2024 3:29 pm Requesting help for increasing anxiety i n preg July 02, 2024 8:22am 28 wk ob/glucose July 10, 2024 1:1 3pm SCREENING FOR DIABETES July 16, 2024 6:42am 30 wk ob July 26, 2024 8:07am 32 wk ob August 09, 2024 10:08 am 34 wk ob August 23, 2024 2:28p m RULE OUT CRAMPING August 29, 2024 6:45 pm RULE OUT CRAMPING August 29, 2024 10:0 1pm 36 wk ob September 05, 2024 8:57 am Reason for Visit Admit Date Anxiety May 22, 2024 2:14 pm 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) May 22, 2024 2:14pm May 22, 2024 2:14 pm Scoliosis May 22, 2024 2:14 pm Supervision of high-risk May 22, 2024 2:14pm Abdominal pain May 22, 2024 2:14 pm Amenorrhea May 22, 2024 2:14 pm History of juvenile rheumatoid arthritis May 22, 2024 2:14pm Lichenified rash May 22, 2024 2:14 pm Psoriasis May 22, 2024 2:14 pm Anxiety June 19, 2024 3:29 pm June 19, 2024 3:29 pm Scoliosis June 19, 2024 3:29 pm Supervision of high-risk June 19, 2024 3:29pm Low lying placenta, antepartum June 3:29pm Anxiety July 02, 2024 8:2 2am 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) July 02, 2024 8:22am July 02, 2024 8:2 2am Scoliosis July 02, 2024 8:2 2am Supervision of high-risk July 02, 2024 8:22am Low lying placenta, antepartum June 8:22am Anxiety July 10, 2024 1:1 3pm July 10, 2024 1:1 3pm Scoliosis July 10, 2024 1:1 3pm Supervision of high-risk July 10, 2024 1:13pm Low lying placenta, antepartum June 1:13pm Anxiety July 26, 2024 8:07am 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) July 26, 2024 8:07am July 26, 2024 8:07am Scoliosis July 26, 2024 8:07am Supervision of high-risk July [id number] 8:07am Anxiety August 09, 2024 10:08 am 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) August 09, 2024 10:08am August 09, 2024 10:08 am Scoliosis August 09, 2024 10:08 am Supervision of high-risk July 192024 10:08am Anxiety August 23, 2024 2:28p m 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) August 23, 2024 2:28pm August 23, 2024 2:28p m Scoliosis August 23, 2024 2:28p m Supervision of high-risk August 23, 2024 2:28pm Anxiety August 29, 2024 6:45 pm 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) August 29, 2024 6:45pm Low back pain during August 6:45pm August 29, 2024 6:45 pm Scoliosis August 29, 2024 6:45 pm Supervision of high-risk August 29, 2024 6:45pm Anxiety September 05, 2024 8:57 am 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) September 05, 2024 8:57am Low back pain during August 8:57am September 05, 2024 8:57 am Scoliosis September 05, 2024 8:57 am Supervision of high-risk September 05, 2024 8:57am Chief Complaint Admit Date 21 wk ob May 22, 2024 2:14 pm 25 wk ob June 19, 2024 3:29 pm Requesting help for increasing anxiety i n preg July 02, 2024 8:22am 28 wk ob/glucose July 10, 2024 1:1 3pm SCREENING FOR DIABETES July 16, 2024 6:42am 30 wk ob July 26, 2024 8:07am 32 wk ob August 09, 2024 10:08 am 34 wk ob August 23, 2024 2:28p m RULE OUT CRAMPING August 29, 2024 6:45 pm RULE OUT CRAMPING August 29, 2024 10:0 1pm 36 wk ob September 05, 2024 8:57 am 37 wk ob September 12, 2024 8:54 am Reason for Visit Admit Date Anxiety May 22, 2024 2:14 pm 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) May 22, 2024 2:14pm May 22, 2024 2:14 pm Scoliosis May 22, 2024 2:14 pm Supervision of high-risk May 22, 2024 2:14pm Abdominal pain May 22, 2024 2:14 pm Amenorrhea May 22, 2024 2:14 pm History of juvenile rheumatoid arthritis May 22, 2024 2:14pm Lichenified rash May 22, 2024 2:14 pm Psoriasis May 22, 2024 2:14 pm Anxiety June 19, 2024 3:29 pm June 19, 2024 3:29 pm Scoliosis June 19, 2024 3:29 pm Supervision of high-risk June 19, 2024 3:29pm Low lying placenta, antepartum June 3:29pm Anxiety July 02, 2024 8:2 2am 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) July 02, 2024 8:22am July 02, 2024 8:2 2am Scoliosis July 02, 2024 8:2 2am Supervision of high-risk July 02, 2024 8:22am Low lying placenta, antepartum June 8:22am Anxiety July 10, 2024 1:1 3pm July 10, 2024 1:1 3pm Scoliosis July 10, 2024 1:1 3pm Supervision of high-risk July 10, 2024 1:13pm Low lying placenta, antepartum June 1:13pm Anxiety July 26, 2024 8:07am 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) July 26, 2024 8:07am July 26, 2024 8:07am Scoliosis July 26, 2024 8:07am Supervision of high-risk July [id number] 8:07am Anxiety August 09, 2024 10:08 am 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) August 09, 2024 10:08am August 09, 2024 10:08 am Scoliosis August 09, 2024 10:08 am Supervision of high-risk July 192024 10:08am Anxiety August 23, 2024 2:28p m 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) August 23, 2024 2:28pm August 23, 2024 2:28p m Scoliosis August 23, 2024 2:28p m Supervision of high-risk August 23, 2024 2:28pm Anxiety August 29, 2024 6:45 pm 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) August 29, 2024 6:45pm Low back pain during August 6:45pm August 29, 2024 6:45 pm Scoliosis August 29, 2024 6:45 pm Supervision of high-risk August 29, 2024 6:45pm Anxiety September 05, 2024 8:57 am 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) September 05, 2024 8:57am Low back pain during August 8:57am September 05, 2024 8:57 am Scoliosis September 05, 2024 8:57 am Supervision of high-risk September 05, 2024 8:57am Anxiety September 12, 2024 8:54 am 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) September 12, 2024 8:54am Low back pain during August 8:54am September 12, 2024 8:54 am Scoliosis September 12, 2024 8:54 am Supervision of high-risk September 12, 2024 8:54am Chief Complaint Admit Date 21 wk ob May 22, 2024 2:14 pm 25 wk ob June 19, 2024 3:29 pm Requesting help for increasing anxiety i n preg July 02, 2024 8:22am 28 wk ob/glucose July 10, 2024 1:1 3pm SCREENING FOR DIABETES July 16, 2024 6:42am 30 wk ob July 26, 2024 8:07am 32 wk ob August 09, 2024 10:08 am 34 wk ob August 23, 2024 2:28p m RULE OUT CRAMPING August 29, 2024 6:45 pm RULE OUT CRAMPING August 29, 2024 10:0 1pm 36 wk ob September 05, 2024 8:57 am 37 wk ob September 12, 2024 8:54 am 38 wk ob September 16, 2024 9:21 am Reason for Visit Admit Date Anxiety May 22, 2024 2:14 pm 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) May 22, 2024 2:14pm May 22, 2024 2:14 pm Scoliosis May 22, 2024 2:14 pm Supervision of high-risk May 22, 2024 2:14pm Abdominal pain May 22, 2024 2:14 pm Amenorrhea May 22, 2024 2:14 pm History of juvenile rheumatoid arthritis May 22, 2024 2:14pm Lichenified rash May 22, 2024 2:14 pm Psoriasis May 22, 2024 2:14 pm Anxiety June 19, 2024 3:29 pm June 19, 2024 3:29 pm Scoliosis June 19, 2024 3:29 pm Supervision of high-risk June 19, 2024 3:29pm Low lying placenta, antepartum June 3:29pm Anxiety July 02, 2024 8:2 2am 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) July 02, 2024 8:22am July 02, 2024 8:2 2am Scoliosis July 02, 2024 8:2 2am Supervision of high-risk July 02, 2024 8:22am Low lying placenta, antepartum June 8:22am Anxiety July 10, 2024 1:1 3pm July 10, 2024 1:1 3pm Scoliosis July 10, 2024 1:1 3pm Supervision of high-risk July 10, 2024 1:13pm Low lying placenta, antepartum June 1:13pm Anxiety July 26, 2024 8:07am 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) July 26, 2024 8:07am July 26, 2024 8:07am Scoliosis July 26, 2024 8:07am Supervision of high-risk July [id number] 8:07am Anxiety August 09, 2024 10:08 am 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) August 09, 2024 10:08am August 09, 2024 10:08 am Scoliosis August 09, 2024 10:08 am Supervision of high-risk July 192024 10:08am Anxiety August 23, 2024 2:28p m 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) August 23, 2024 2:28pm August 23, 2024 2:28p m Scoliosis August 23, 2024 2:28p m Supervision of high-risk August 23, 2024 2:28pm Anxiety August 29, 2024 6:45 pm 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) August 29, 2024 6:45pm Low back pain during August 6:45pm August 29, 2024 6:45 pm Scoliosis August 29, 2024 6:45 pm Supervision of high-risk August 29, 2024 6:45pm Anxiety September 05, 2024 8:57 am 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) September 05, 2024 8:57am Low back pain during August 8:57am September 05, 2024 8:57 am Scoliosis September 05, 2024 8:57 am Supervision of high-risk September 05, 2024 8:57am Anxiety September 12, 2024 8:54 am 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) September 12, 2024 8:54am Low back pain during August 8:54am September 12, 2024 8:54 am Scoliosis September 12, 2024 8:54 am Supervision of high-risk September 12, 2024 8:54am Anxiety September 16, 2024 9:21 am 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) September 16, 2024 9:21am Low back pain during August 9:21am September 16, 2024 9:21 am Scoliosis September 16, 2024 9:21 am Supervision of high-risk September 16, 2024 9:21am Chief Complaint Admit Date 25 wk ob June 19, 2024 3:29 pm Requesting help for increasing anxiety i n preg July 02, 2024 8:22am 28 wk ob/glucose July 10, 2024 1:1 3pm SCREENING FOR DIABETES July 16, 2024 6:42am 30 wk ob July 26, 2024 8:07am 32 wk ob August 09, 2024 10:08 am 34 wk ob August 23, 2024 2:28p m RULE OUT CRAMPING August 29, 2024 6:45 pm RULE OUT CRAMPING August 29, 2024 10:0 1pm 36 wk ob September 05, 2024 8:57 am 37 wk ob September 12, 2024 8:54 am 38 wk ob September 16, 2024 9:21 am 39 wk ob September 25, 2024 10:18 am Reason for Visit Admit Date Anxiety June 19, 2024 3:29 pm June 19, 2024 3:29 pm Scoliosis June 19, 2024 3:29 pm Supervision of high-risk June 19, 2024 3:29pm Low lying placenta, antepartum June 3:29pm Anxiety July 02, 2024 8:2 2am 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) July 02, 2024 8:22am July 02, 2024 8:2 2am Scoliosis July 02, 2024 8:2 2am Supervision of high-risk July 02, 2024 8:22am Low lying placenta, antepartum June 8:22am Anxiety July 10, 2024 1:1 3pm July 10, 2024 1:1 3pm Scoliosis July 10, 2024 1:1 3pm Supervision of high-risk July 10, 2024 1:13pm Low lying placenta, antepartum June 1:13pm Anxiety July 26, 2024 8:07am 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) July 26, 2024 8:07am July 26, 2024 8:07am Scoliosis July 26, 2024 8:07am Supervision of high-risk July [id number] 8:07am Anxiety August 09, 2024 10:08 am 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) August 09, 2024 10:08am August 09, 2024 10:08 am Scoliosis August 09, 2024 10:08 am Supervision of high-risk July 192024 10:08am Anxiety August 23, 2024 2:28p m 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) August 23, 2024 2:28pm August 23, 2024 2:28p m Scoliosis August 23, 2024 2:28p m Supervision of high-risk August 23, 2024 2:28pm Anxiety August 29, 2024 6:45 pm 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) August 29, 2024 6:45pm Low back pain during August 6:45pm August 29, 2024 6:45 pm Scoliosis August 29, 2024 6:45 pm Supervision of high-risk August 29, 2024 6:45pm Anxiety September 05, 2024 8:57 am 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) September 05, 2024 8:57am Low back pain during August 8:57am September 05, 2024 8:57 am Scoliosis September 05, 2024 8:57 am Supervision of high-risk September 05, 2024 8:57am Anxiety September 12, 2024 8:54 am 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) September 12, 2024 8:54am Low back pain during August 8:54am September 12, 2024 8:54 am Scoliosis September 12, 2024 8:54 am Supervision of high-risk September 12, 2024 8:54am Anxiety September 16, 2024 9:21 am 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) September 16, 2024 9:21am Low back pain during August 9:21am September 16, 2024 9:21 am Scoliosis September 16, 2024 9:21 am Supervision of high-risk September 16, 2024 9:21am Anxiety September 25, 2024 10:18 am 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) September 25, 2024 10:18am Low back pain during September 25, 2024 10:18am September 25, 2024 10:18 am Scoliosis September 25, 2024 10:18 am Supervision of high-risk September 25, 2024 10:18am Chief Complaint Admit Date 25 wk ob June 19, 2024 3:29 pm Requesting help for increasing anxiety i n preg July 02, 2024 8:22am 28 wk ob/glucose July 10, 2024 1:1 3pm SCREENING FOR DIABETES July 16, 2024 6:42am 30 wk ob July 26, 2024 8:07am 32 wk ob August 09, 2024 10:08 am 34 wk ob August 23, 2024 2:28p m RULE OUT CRAMPING August 29, 2024 6:45 pm RULE OUT CRAMPING August 29, 2024 10:0 1pm 36 wk ob September 05, 2024 8:57 am 37 wk ob September 12, 2024 8:54 am 38 wk ob September 16, 2024 9:21 am 39 wk ob September 25, 2024 10:18 am DECREASED MOVEMENT October 02, 2024 8:55am Additional Source Comments INFORMATION SOURCE (unrecogn ized section and content) DATE CREATED AUTHOR 02/23/2021 [facility] DATE CREATED AUTHOR AUTHOR'S ORGANIZ ATION 09/07/2022 [facility] DATE CREATED AUTHOR AUTHOR'S ORGANIZ ATION 07/12/2024 [facility] DATE CREATED AUTHOR AUTHOR'S ORGANIZ ATION 09/29/2024 [facility] Care Teams (unrecognized sec tion and content) Team Status: Active Member Role Status Dates Dr. Tristian Olivares MD Family Provider Active Dr. Tristian Olivares MD Primary Care Provider Active Team Status: Inactive Member Role Status Dates Dr. Tristian Olivares MD Primary Care Provider, Referring Provider Active Dr. Neelam Coon MD Attending Provider Active Team Status: Active Member Role Status Dates Dr. Tristian Olivares MD Primary Care Provider Active Dr. Neelam Coon MD Attending Provider, Referr ing Provider Active Team Status: Inactive Member Role Status Dates Dr. Tristian Olivares MD Primary Care Provider Active Dr. Neelam Coon MD Attending Provider, Referr ing Provider Active Team Status: Inactive Member Role Status Dates Dr. Tristian Olivares MD Primary Care Provider Active Dr. Oniel Diamond DO Emergency Provider Active Manager Of Health Relationship Specialty Start Date End Date Tristian Olivares MD [address] [facility] [place] [address] PCP - General Family Medicine 09/07/22 Team Status: Active Member Role Status Dates Dr. Tristian Olivares MD Family Provider Active Dr. Ishmael Potts MD Primary Care Provider Active Team Status: Inactive Member Role Status Dates Dr. Tristian Olivraes MD Primary Care Provider, Referring Provider Active Dr. Ishmael Potts MD Attending Provider Active Team Status: Inactive Member Role Status Dates Dr. Tristian Olivares MD Primary Care Provider Active Dr. Oniel Diamond DO Attending Provider, Emergency Provider Active Team Status: Inactive Member Role Status Dates Dr. Ishmael Potts MD Primary Care Pro vider, Attending Provider, Referring Provider Active Team Status: Inactive Member Role Status Dates Dr. Ishmael Potts MD Primary Care Provider, Referri ng Provider Active Dr. Louis Valenzuela DO Attending Provider Active Team Status: Active Member Role Status Dates Dr. Ishmael Potts MD Primary Care Provider, Referri ng Provider Active Dr. Louis Valenzuela DO Attending Provider, Other Prov ider Active Team Status: Inactive Member Role Status Dates Dr. Tristian Olivares MD Referring Provider Active Dr. Neelam Coon MD Attending Provider Active Dr. Ishmael Potts MD Primary Care Provider Active Team Status: Inactive Member Role Status Dates Dr. Ishmael Potts MD Primary Care Provider, Referri ng Provider Active Tristian Hoyt MD Attending Provider Active Team Status: Inactive Member Role Status Dates Dr. Ishmael Potts MD Primary Care Provider Active Dr. Sedrick Tsang MD Attending Provider Active Team Status: Inactive Member Role Status Dates Dr. Ishmael Potts MD Primary Care Provider, Referri ng Provider Active Bereket Carney PA, PA Attending Provider Active Team Status: Inactive Member Role Status Dates Dr. Ishmael Potts MD Primary Care Provider, Referri ng Provider Active Jasper Diego PA, PA Active Bereket Carney PA, PA Attending Provider Active Team Status: Inactive Member Role Status Dates Dr. Ishmael Potts MD Primary Care Provider, Referri ng Provider Active Jasper Diego PA, PA Attending Provider Active Team Status: Inactive Member Role Status Dates Dr. Ishmael Potts MD Primary Care Provider Active Dr. Neelam Coon MD Attending Provider, Referr ing Provider Active Team Status: Inactive Member Role Status Dates Dr. Ishmael Potts MD Primary Care Provider, Attendi ng Provider Active Team Status: Inactive Member Role Status Dates Dr. Ishmael Potts MD Primary Care Provider Active Liz Herman NP-C Attending Provider, Referring Pro vider Active Team Status: Active Member Role Status Dates MUMTAZ Jimenez Primary Care Provider Active Team Status: Inactive Member Role Status Dates Dr. Ishmael Potts MD Primary Care Provider Active Start: March 28, 2024 End: March 28, 2024 Dr. Ishmael Potts MD Referring Provider Active Start: March 28, 2024 End: March 28, 2024 Dr. Gwendolyn Lala DO Attending Provider Activ e Start: March 28, 2024 End: March 28, 2024 Team Status: Inactive Member Role Status Dates Dr. Ishmael Potts MD Primary Care Provider Active Start: April 26, 2024 End: April 26, 2024 Dr. Ishmael Potts MD Referring Provider Active Start: April 26, 2024 End: April 26, 2024 Alda De La Garza CNM Attending Provider Active S tart: April 26, 2024 End: April 26, 2024 Team Status: Inactive Member Role Status Dates Dr. Ishmael Potts MD Primary Care Provider Active Start: May 22, 2024 End: May 22, 2024 Dr. Ishmael Potts MD Referring Provider Active Start: May 22, 2024 End: May 22, 2024 Dr. Neelam Coon MD Attending Provider Active Start: May 22, 2024 End: May 22, 2024 Team Status: Inactive Member Role Status Dates Dr. Ishmael Potts MD Primary Care Provider Active Start: June 19, 2024 End: June 19, 2024 Dr. Ishmael Potts MD Referring Provider Active Start: June 19, 2024 End: June 19, 2024 Rosy Steven ENVIRONMENTAL PROTECTION ECONOMIST, ENVIRONMENTAL PROTECTION ECONOMIST-C Attending Provider Active Start: June 19, 2024 End: June 19, 2024 Team Status: Inactive Member Role Status Dates Dr. Ishmael Potts MD Primary Care Provider Active Start: July 02, 2024 End: July 02, 2024 Dr. Ishmael Potts MD Referring Provider Active Start: July 02, 2024 End: July 02, 2024 Rosy Steven ENVIRONMENTAL PROTECTION ECONOMIST, ENVIRONMENTAL PROTECTION ECONOMIST-C Attending Provider Active Start: July 02, 2024 End: July 02, 2024 Team Status: Inactive Member Role Status Dates Dr. Ishmael Potts MD Primary Care Provider Active Start: July 10, 2024 End: July 10, 2024 Dr. Ishmael Potts MD Referring Provider Active Start: July 10, 2024 End: July 10, 2024 Rosy Steven ENVIRONMENTAL PROTECTION ECONOMIST, ENVIRONMENTAL PROTECTION ECONOMIST-C Attending Provider Active Start: July 10, 2024 End: July 10, 2024 Team Status: Inactive Member Role Status Dates Dr. Ishmael Potts MD Primary Care Provider Active Start: July 10, 2024 End: July 10, 2024 Rosy Steven ENVIRONMENTAL PROTECTION ECONOMIST, ENVIRONMENTAL PROTECTION ECONOMIST-C Attending Provider Active Start: July 10, 2024 End: July 10, 2024 Rosy Stveen ENVIRONMENTAL PROTECTION ECONOMIST, ENVIRONMENTAL PROTECTION ECONOMIST-C Referring Provider Active Start: July 10, 2024 End: July 10, 2024 Team Status: Inactive Member Role Status Dates Rosy Steven ENVIRONMENTAL PROTECTION ECONOMIST, ENVIRONMENTAL PROTECTION ECONOMIST-C Attending Provider Active Start: July 16, 2024 End: July 16, 2024 Rosy Steven ENVIRONMENTAL PROTECTION ECONOMIST, ENVIRONMENTAL PROTECTION ECONOMIST-C Referring Provider Active Start: July 16, 2024 End: July 16, 2024 Lisa Zaragoza ENVIRONMENTAL PROTECTION ECONOMIST-C Primary Care Provider Active Start: July 16, 2024 End: July 16, 2024 Team Status: Inactive Member Role Status Dates Dr. Ishmael Potts MD Referring Provider Active Start: July 26, 2024 End: July 26, 2024 Dr. Neelam Coon MD Attending Provider Active Start: July 26, 2024 End: July 26, 2024 Lisa Zaragoza NP-C Primary Care Provider Active Start: July 26, 2024 End: July 26, 2024 Team Status: Inactive Member Role Status Dates Dr. Ishmael Potts MD Referring Provider Active Start: August 09, 2024 End: August 09, 2024 Alda De La Garza CNM Attending Provider Active S tart: August 09, 2024 End: August 09, 2024 Lisa Zaragoza NP-C Primary Care Provider Active Start: August 09, 2024 End: August 09, 2024 Team Status: Inactive Member Role Status Dates Dr. Ishmael Potts MD Referring Provider Active Start: August 23, 2024 End: August 23, 2024 Mahnaz Zacarias CNM Attending Provider Active Start: August 23, 2024 End: August 23, 2024 Lisa Zaragoza NP-C Primary Care Provider Active Start: August 23, 2024 End: August 23, 2024 Team Status: Inactive Member Role Status Dates Lisa Zaragoza NP-C Primary Care Provider Active Start: August 29, 2024 End: August 29, 2024 Alda De La Garza CNM Attending Provider Active S tart: August 29, 2024 End: August 29, 2024 Dr. Gwendolyn Lala DO Referring Provider Activ e Start: August 29, 2024 End: August 29, 2024 Team Status: Active Member Role Status Dates Lisa Zaragoza ENVIRONMENTAL PROTECTION ECONOMIST-C Primary Care Provider Active Start: August 29, 2024 Alda De La Garza CNM Attending Provider Active S tart: August 29, 2024 Alda De La Garza CNM Other Provider Active Start : August 29, 2024 Dr. Gwendolyn Lala DO Referring Provider Activ e Start: August 29, 2024 Team Status: Inactive Member Role Status Dates Dr. Ishmael Potts MD Referring Provider Active Start: September 05, 2024 End: September 05, 2024 Dr. Gwendolyn Lala DO Attending Provider Activ e Start: September 05, 2024 End: September 05, 2024 Lisa Zaragoza ENVIRONMENTAL PROTECTION ECONOMIST-C Primary Care Provider Active Start: September 05, 2024 End: September 05, 2024 Team Status: Inactive Member Role Status Dates Lisa Zaragoza ENVIRONMENTAL PROTECTION ECONOMIST-C Primary Care Provider Active Start: September 05, 2024 End: September 05, 2024 Dr. Gwendolyn Lala DO Attending Provider Activ e Start: September 05, 2024 End: September 05, 2024 Dr. Gwendolyn Lala DO Referring Provider Activ e Start: September 05, 2024 End: September 05, 2024 Team Status: Inactive Member Role Status Dates Dr. Ishmael Potts MD Referring Provider Active Start: September 12, 2024 End: September 12, 2024 Dr. Neelam Coon MD Attending Provider Active Start: September 12, 2024 End: September 12, 2024 Lisa Zaragoza ENVIRONMENTAL PROTECTION ECONOMIST-C Primary Care Provider Active Start: September 12, 2024 End: September 12, 2024 Team Status: Active Member Role/Relationship Status Dates Lisa Zaragoza ENVIRONMENTAL PROTECTION ECONOMIST-C Primary Care Provider Active Team Status: Inactive Member Role/Relationship Status Dates Dr. Ishmael Potts MD Primary Care Provider Active Start: May 22, 2024 End: May 22, 2024 Dr. Ishmael Potts MD Referring Provider Active Start: May 22, 2024 End: May 22, 2024 Dr. Neelam Coon MD Attending Provider Active Start: May 22, 2024 End: May 22, 2024 Team Status: Inactive Member Role/Relationship Status Dates Dr. Ishmael Potts MD Primary Care Provider Active Start: June 19, 2024 End: June 19, 2024 Dr. Ishmael Potts MD Referring Provider Active Start: June 19, 2024 End: June 19, 2024 Rosy Stevne ENVIRONMENTAL PROTECTION ECONOMIST, ENVIRONMENTAL PROTECTION ECONOMIST-C Attending Provider Active Start: June 19, 2024 End: June 19, 2024 Team Status: Inactive Member Role/Relationship Status Dates Dr. Ishmael Potts MD Primary Care Provider Active Start: July 02, 2024 End: July 02, 2024 Dr. Ishmael Potts MD Referring Provider Active Start: July 02, 2024 End: July 02, 2024 Rosy Steven ENVIRONMENTAL PROTECTION ECONOMIST, ENVIRONMENTAL PROTECTION ECONOMIST-C Attending Provider Active Start: July 02, 2024 End: July 02, 2024 Team Status: Inactive Member Role/Relationship Status Dates Dr. Ishmael Potts MD Primary Care Provider Active Start: July 10, 2024 End: July 10, 2024 Dr. Ishmael Potts MD Referring Provider Active Start: July 10, 2024 End: July 10, 2024 Rosy Steven ENVIRONMENTAL PROTECTION ECONOMIST, ENVIRONMENTAL PROTECTION ECONOMIST-C Attending Provider Active Start: July 10, 2024 End: July 10, 2024 Team Status: Inactive Member Role/Relationship Status Dates Dr. Ishmael Potts MD Primary Care Provider Active Start: July 10, 2024 End: July 10, 2024 Rosy Steven ENVIRONMENTAL PROTECTION ECONOMIST, ENVIRONMENTAL PROTECTION ECONOMIST-C Attending Provider Active Start: July 10, 2024 End: July 10, 2024 Rosy Steven ENVIRONMENTAL PROTECTION ECONOMIST, ENVIRONMENTAL PROTECTION ECONOMIST-C Referring Provider Active Start: July 10, 2024 End: July 10, 2024 Team Status: Inactive Member Role/Relationship Status Dates Rosy Steven ENVIRONMENTAL PROTECTION ECONOMIST, ENVIRONMENTAL PROTECTION ECONOMIST-C Attending Provider Active Start: July 16, 2024 End: July 16, 2024 Rosy Steven ENVIRONMENTAL PROTECTION ECONOMIST, ENVIRONMENTAL PROTECTION ECONOMIST-C Referring Provider Active Start: July 16, 2024 End: July 16, 2024 Lisa Zaragoza ENVIRONMENTAL PROTECTION ECONOMIST-C Primary Care Provider Active Start: July 16, 2024 End: July 16, 2024 Team Status: Inactive Member Role/Relationship Status Dates Dr. Ishmael Potts MD Referring Provider Active Start: July 26, 2024 End: July 26, 2024 Dr. Neelam Coon MD Attending Provider Active Start: July 26, 2024 End: July 26, 2024 Lisa Zaragoza ENVIRONMENTAL PROTECTION ECONOMIST-C Primary Care Provider Active Start: July 26, 2024 End: July 26, 2024 Team Status: Inactive Member Role/Relationship Status Dates Dr. Ishmael Potts MD Referring Provider Active Start: August 09, 2024 End: August 09, 2024 Alda De La Garza CNM Attending Provider Active S tart: August 09, 2024 End: August 09, 2024 Lisa Zaragoza ENVIRONMENTAL PROTECTION ECONOMIST-C Primary Care Provider Active Start: August 09, 2024 End: August 09, 2024 Team Status: Inactive Member Role/Relationship Status Dates Dr. Ishmael Potts MD Referring Provider Active Start: August 23, 2024 End: August 23, 2024 Mahnaz Zacarias CNM Attending Provider Active Start: August 23, 2024 End: August 23, 2024 Lisa Zaragoza ENVIRONMENTAL PROTECTION ECONOMIST-C Primary Care Provider Active Start: August 23, 2024 End: August 23, 2024 Team Status: Inactive Member Role/Relationship Status Dates Lisa Zaragoza NP-C Primary Care Provider Active Start: August 29, 2024 End: August 29, 2024 Alda De La Garza CNM Attending Provider Active S tart: August 29, 2024 End: August 29, 2024 Dr. Gwendolyn Lala DO Referring Provider Activ e Start: August 29, 2024 End: August 29, 2024 Team Status: Active Member Role/Relationship Status Dates Lisa Zaragoza ENVIRONMENTAL PROTECTION ECONOMIST-C Primary Care Provider Active Start: August 29, 2024 Alda De La Garza CNM Attending Provider Active S tart: August 29, 2024 Alda De La Garza CNM Other Provider Active Start : August 29, 2024 Dr. Gwendolyn Lala DO Referring Provider Activ e Start: August 29, 2024 Team Status: Inactive Member Role/Relationship Status Dates Dr. Ishmael Potts MD Referring Provider Active Start: September 05, 2024 End: September 05, 2024 Dr. Gwendolyn Lala DO Attending Provider Activ e Start: September 05, 2024 End: September 05, 2024 Lisa Nik , ENVIRONMENTAL PROTECTION ECONOMIST-C Primary Care Provider Active Start: September 05, 2024 End: September 05, 2024 Team Status: Inactive Member Role/Relationship Status Dates Lisa Zaragoza ENVIRONMENTAL PROTECTION ECONOMIST-C Primary Care Provider Active Start: September 05, 2024 End: September 05, 2024 Dr. Gwendolyn Lala DO Attending Provider Activ e Start: September 05, 2024 End: September 05, 2024 Dr. Gwendolyn Lala DO Referring Provider Activ e Start: September 05, 2024 End: September 05, 2024 Team Status: Inactive Member Role/Relationship Status Dates Dr. Ishmael Potts MD Referring Provider Active Start: September 12, 2024 End: September 12, 2024 Dr. Neelam Coon MD Attending Provider Active Start: September 12, 2024 End: September 12, 2024 Lisa Zaragoza , ENVIRONMENTAL PROTECTION ECONOMIST-C Primary Care Provider Active Start: September 12, 2024 End: September 12, 2024 Team Status: Inactive Member Role/Relationship Status Dates Lisa Zaragoza , ENVIRONMENTAL PROTECTION ECONOMIST-C Primary Care Provider Active Start: September 16, 2024 End: September 16, 2024 Lisa Zaragoza ENVIRONMENTAL PROTECTION ECONOMIST-C Referring Provider Active St art: September 16, 2024 End: September 16, 2024 Alda De La Garza CNM Attending Provider Active S tart: September 16, 2024 End: September 16, 2024 Team Status: Inactive Member Role/Relationship Status Dates Dr. Ishmael Potts MD Primary Care Provider Active Start: June 19, 2024 End: June 19, 2024 Dr. Ishmael Potts MD Referring Provider Active Start: June 19, 2024 End: June 19, 2024 Rosy Steven NP, ENVIRONMENTAL PROTECTION ECONOMIST-C Attending Provider Active Start: June 19, 2024 End: June 19, 2024 Team Status: Inactive Member Role/Relationship Status Dates Dr. Ishmael Potts MD Primary Care Provider Active Start: July 02, 2024 End: July 02, 2024 Dr. Ishmael Potts MD Referring Provider Active Start: July 02, 2024 End: July 02, 2024 Rosy Steven ENVIRONMENTAL PROTECTION ECONOMIST, ENVIRONMENTAL PROTECTION ECONOMIST-C Attending Provider Active Start: July 02, 2024 End: July 02, 2024 Team Status: Inactive Member Role/Relationship Status Dates Dr. Ishmael Potts MD Primary Care Provider Active Start: July 10, 2024 End: July 10, 2024 Dr. Ishmael Potts MD Referring Provider Active Start: July 10, 2024 End: July 10, 2024 Rosy Steven ENVIRONMENTAL PROTECTION ECONOMIST, ENVIRONMENTAL PROTECTION ECONOMIST-C Attending Provider Active Start: July 10, 2024 End: July 10, 2024 Team Status: Inactive Member Role/Relationship Status Dates Dr. Ishmael Potts MD Primary Care Provider Active Start: July 10, 2024 End: July 10, 2024 Rosy Steven ENVIRONMENTAL PROTECTION ECONOMIST, ENVIRONMENTAL PROTECTION ECONOMIST-C Attending Provider Active Start: July 10, 2024 End: July 10, 2024 Rosy Steven ENVIRONMENTAL PROTECTION ECONOMIST, ENVIRONMENTAL PROTECTION ECONOMIST-C Referring Provider Active Start: July 10, 2024 End: July 10, 2024 Team Status: Inactive Member Role/Relationship Status Dates Rosy Steven ENVIRONMENTAL PROTECTION ECONOMIST, ENVIRONMENTAL PROTECTION ECONOMIST-C Attending Provider Active Start: July 16, 2024 End: July 16, 2024 Rosy Steven ENVIRONMENTAL PROTECTION ECONOMIST, ENVIRONMENTAL PROTECTION ECONOMIST-C Referring Provider Active Start: July 16, 2024 End: July 16, 2024 Lisa Zaragoza ENVIRONMENTAL PROTECTION ECONOMIST-C Primary Care Provider Active Start: July 16, 2024 End: July 16, 2024 Team Status: Inactive Member Role/Relationship Status Dates Dr. Ishmael Potts MD Referring Provider Active Start: July 26, 2024 End: July 26, 2024 Dr. Neelam Coon MD Attending Provider Active Start: July 26, 2024 End: July 26, 2024 Lisa Zaragoza ENVIRONMENTAL PROTECTION ECONOMIST-C Primary Care Provider Active Start: July 26, 2024 End: July 26, 2024 Team Status: Inactive Member Role/Relationship Status Dates Dr. Ishmael Potts MD Referring Provider Active Start: August 09, 2024 End: August 09, 2024 Alda De La Garza CNM Attending Provider Active S tart: August 09, 2024 End: August 09, 2024 Lisa Zaragoza ENVIRONMENTAL PROTECTION ECONOMIST-C Primary Care Provider Active Start: August 09, 2024 End: August 09, 2024 Team Status: Inactive Member Role/Relationship Status Dates Dr. Ishmael Potts MD Referring Provider Active Start: August 23, 2024 End: August 23, 2024 Mahnaz Zacarias CNM Attending Provider Active Start: August 23, 2024 End: August 23, 2024 Lisa Zaragoza ENVIRONMENTAL PROTECTION ECONOMIST-C Primary Care Provider Active Start: August 23, 2024 End: August 23, 2024 Team Status: Inactive Member Role/Relationship Status Dates Lisa Zaragoza ENVIRONMENTAL PROTECTION ECONOMIST-C Primary Care Provider Active Start: August 29, 2024 End: August 29, 2024 Alda De La Garza CNM Attending Provider Active S tart: August 29, 2024 End: August 29, 2024 Dr. Gwendolyn Lala DO Referring Provider Activ e Start: August 29, 2024 End: August 29, 2024 Team Status: Active Member Role/Relationship Status Dates Lisa Zaragoza ENVIRONMENTAL PROTECTION ECONOMIST-C Primary Care Provider Active Start: August 29, 2024 Alda De La Garza CNM Attending Provider Active S tart: August 29, 2024 Alda De La Garza CNM Other Provider Active Start : August 29, 2024 Dr. Gwendolyn Lala DO Referring Provider Activ e Start: August 29, 2024 Team Status: Inactive Member Role/Relationship Status Dates Dr. Ishmael Potts MD Referring Provider Active Start: September 05, 2024 End: September 05, 2024 Dr. Gwendolyn Lala DO Attending Provider Activ e Start: September 05, 2024 End: September 05, 2024 Lisa Zaragoza ENVIRONMENTAL PROTECTION ECONOMIST-C Primary Care Provider Active Start: September 05, 2024 End: September 05, 2024 Team Status: Inactive Member Role/Relationship Status Dates Lisa Zaragoza ENVIRONMENTAL PROTECTION ECONOMIST-C Primary Care Provider Active Start: September 05, 2024 End: September 05, 2024 Dr. Gwendolyn Lala DO Attending Provider Activ e Start: September 05, 2024 End: September 05, 2024 Dr. Gwendolyn Lala DO Referring Provider Activ e Start: September 05, 2024 End: September 05, 2024 Team Status: Inactive Member Role/Relationship Status Dates Dr. Ishmael Potts MD Referring Provider Active Start: September 12, 2024 End: September 12, 2024 Dr. Neelam Coon MD Attending Provider Active Start: September 12, 2024 End: September 12, 2024 Lisa Zaragoza , ENVIRONMENTAL PROTECTION ECONOMIST-C Primary Care Provider Active Start: September 12, 2024 End: September 12, 2024 Team Status: Inactive Member Role/Relationship Status Dates Lisa Zaragoza , ENVIRONMENTAL PROTECTION ECONOMIST-C Primary Care Provider Active Start: September 16, 2024 End: September 16, 2024 Lisa Zaragoza , ENVIRONMENTAL PROTECTION ECONOMIST-C Referring Provider Active St art: September 16, 2024 End: September 16, 2024 Alda De La Garza CNM Attending Provider Active S tart: September 16, 2024 End: September 16, 2024 Team Status: Inactive Member Role/Relationship Status Dates Lisa Zaragoza ENVIRONMENTAL PROTECTION ECONOMIST-C Primary Care Provider Active Start: September 25, 2024 End: September 25, 2024 Lisa Zaragoza ENVIRONMENTAL PROTECTION ECONOMIST-C Referring Provider Active St art: September 25, 2024 End: September 25, 2024 Dr. Gwendolyn Lala DO Attending Provider Activ e Start: September 25, 2024 End: September 25, 2024 Team Status: Inactive Member Role/Relationship Status Dates Lisa Zaragoza , ENVIRONMENTAL PROTECTION ECONOMIST-C Primary Care Provider Active Start: October 02, 2024 End: October 02, 2024 Dr. Neelam Coon MD Attending Provider Active Start: October 02, 2024 End: October 02, 2024 Dr. Neelam Coon MD Referring Provider Active Start: October 02, 2024 End: October 02, 2024 Goals (unrecognized section and content) Goals may be documented in a n alternate sectionGoals may be documented in an alternate sectionGoals may be documented in an alternate sectionGoals may be documented in an alternate sectionGoals may be documented in an alternate sectionGoals may be documented in an alternate sectionGoals may be documented in an alternate sectionGoals may be documented in an alternate sectionGoals may be documented in an alternate sectionGoals may be documented in an alternate sectionGoals may be documented in an alternate sectionGoals may be documented in an alternate sectionGoals may be documented in an alternate sectionGoals may be documented in an alternate sectionGoals may be documented in an alternate section Source Comments (unrecognize d section and content) In the event this informatio n is protected by the Federal Confidentiality of Alcohol and Drug Abuse Patient Records regulations: The Federal rules restrict any use of the information to criminally investigate or prosecute any alcohol or drug abuse patient.[facility] FOR RECORDS PERTAINING TO PATIENTS WHO ARE [...] BE BASED ON THE PRIMARY CLINICAL RECORDS. [facility] [place] [facility]. provides no warranty or guarantee of the accuracy or completeness of information in this document.
[2024-10-03] MEDS: Oxytocin 15 Units/NS 250ml 15 UNITS/250 ML IV.SOLN 2 UNITS IV (22:00)
[2024-10-04] VITALS (44 sets, daily range): BP systolic 106–136; BP diastolic 52–84; PULSE 77–136; RESP 14–16; TEMP 36.5–37.6; O2SAT 92–98
[2024-10-04] MEDS: Oxytocin 15 Units/NS 250ml 15 UNITS/250 ML IV.SOLN 334 UNITS IV (01:30)
--- NOTE | 2024-10-04 01:30 | EX.PCM.OBVAG ---
Assessment & Plan (1) Low back pain during : COMMENT: suspect UTI-ATB sent (2) Supervision of high-risk : QUALIFIERS: Trimester: second trimester Qualified Code(s): O09.92 - Supervision of high risk , unspecified, second trimester COMMENT: PRR, , EVELYN 09/28/24, surprise Al (3) : QUALIFIERS: Weeks of gestation: 38 weeks Qualified Code(s): Z3A.38 - 38 weeks gestation of COMMENT: Neg GBS/ elects NIPT(NO GENDER) Baby low risk & Carrier Negative , nl anatomy . GTT normal. Maternal Data Information EVELYN Calculator Estimated Delivery Date Method Current WG Current Estimate 10/04/24 Ultrasound #1 40w 0d Other Estimates 09/28/24 LMP (Certain) 40w 6d Final EVELYN: 10/04/24 Vaginal Delivery Maternal Presentation Maternal Presentation: Active Labor Type of Induction: Amniotomy Vaginal Delivery Information Procedure Performed: Spontaneous Vaginal Delivery Surgeon/Practitioner: Gwendolyn Lala Date of Procedure: 10/04/24 Pre-Procedure Diagnosis: 24 y/o @ 39 weeks 6 days, active labor Post-Procedure Diagnosis: 24 y/o @ 39 weeks 6 days, active labor Type of anesthesia: Epidural Estimated Blood Loss: 100cc Time of Delivery: 01:22 Findings Description of procedure: Patient began pushing and delivered the head in the ANTHONY presentation. The head was delivered atraumatically and a loose nuchal cord ? 2was identified and easily reduced over the infant's head. The anterior and posterior shoulders delivered without complication followed by the rest of the and the was placed on the maternal abdomen. Delayed cord clamping was employed for approximately 60 seconds. Cord was clamped and cut and gentle traction was applied to the cord and the placenta delivered spontaneously immediately following it was noted to be intact with three-vessel cord. The perineum and vagina were inspected and noted to have no laceration. EBL was 100 cc. Patient and tolerated delivery well. Procedure findings: viable male Willard Presentation: Vertex Amniotic Membrane Rupture Type: Artificial Amniotic Fluid Description: Clear Placental Delivery Description: Spontaneous Placenta Disposition: [facility] Cord Vessel Description: 3 Vessels Cord Entanglement: Around neck x 2, loose Nuchal Cord Compression: Without compression A Gender: Male (1 minute): 8 (5 minute): 9 Delayed Cord Clamping: Yes Senior Mobile Web Developer prototype machinist: No Post Vaginal Deli Medications given after delivery: IV Pitocin Episiotomy Description: None Laceration: None Complication Complications: No Multi Select Codes Urinary/Genital Urinary/Genital CPT Codes: 66562 Vaginal Delivery [facility]
--- NOTE | 2024-10-04 01:35 | PCM.DC ---
Discharge Instructions DC O2, CPAP, BIPAP needs Home O2 Discharge instructions: No Dressing / Incision Discharge Activity: Return to Normal Activity, May Not Drive (while taking narcotic pain medications.) and May Shower May resume sexual activity in: 4-6 weeks Dressing / Incision Call your doctor if your incision/area has: Continuous Slow Oozing, Sudden Increased Bleeding, Increased Pain/ Swelling, Increased Redness and Foul Smelling Discharge Follow Up Care Please Follow Up With: Gwendolyn Lala, When: Call [phone] to make an appointment with your doctor in 6 weeks. If you had elevated blood pressure or 4th degree laceration, you will need to be seen in 2 weeks. Test Results: Test results from this visit will be discussed in further detail at your follow-up appointment, if applicable. Discharge Plan Admission Admit Date/Time: 10/03/24 16:50 Attending Provider: Gwendolyn Lala Primary Care Provider: Lisa Zaragoza Discharge Orders/Prescriptions Prescriptions: No Action PNV-DHA 27 mg iron-1 mg -300 mg capsule 1 cap PO DAILY Referrals / Follow Up: Lisa Zaragoza, PROFESSOR OF MUSIC-C [Primary Care Provider] -
[2024-10-04] MEDS: Oxytocin 15 Units/NS 250ml 15 UNITS/250 ML IV.SOLN 83 UNITS IV (02:06)
[2024-10-04] MEDS: 0.9% Saline Lock 10 ML Syringe IV (05:22)
--- NOTE | 2024-10-04 14:30 | CASEMGMT ---
Social Work Assessment Labor and Delivery Unit Patient [address] [address] [place], [place] [address] [address] Phone number: [phone] Date of Referral: 10/04/2024 Time of Referral:?[id number] Referred By: Gwendolyn Lala DO Date of Intervention: 10/04/2024 Time of Intervention:?1415 Reason for Referral:? Mental health; anxiety History obtained from: medical records, mother of baby (LILLI) Household composition: LILLI reports that currently residing in her home is herself, her /FOB (Al), and baby to be added to home when ready for discharge. LILLI's mother (Nancy) will reportedly be staying with the family for a couple of weeks to help family settle in with . MOB reports that her housing is safe and secure. Patient's parent/guardian status:?LILLI reports that FOB is her , Al. This baby is MOB and FOB's only child. Medical History: ?LILLI is a 24 year old female who is 1, para 0 - now 1 following labor and delivery of . LILLI received routine care during with [place]. LILLI presented to hospital at 39 weeks gestation on 10/03/24. [place] baby boy, Ludmila Lozada, was born weighing 6lbs, 13 oz with apgars 8 and 9 at one and five minutes of life respectively. LILLI is breast feeding baby and baby will be followed by [facility]ast[facility] for pediatrics. Educational Status:? ILLLI states having a high school diploma with some college. Financial Status: LILLI is currently employed at [employer] and ED is employed at [employer]. MOB is able to take 12 weeks of maternity leave; FOB is able to take time off of work, but it will be unpaid time. FOB reports the employer to be gracious in time off. Supplies: MOB and FOB have obtained all necessary baby supplies, including: car seat, safe sleep space, clothes, diapers, and wipes. MOB reports to have much help in this way as well. Childcare/Caregiver(s):? MOB states that after she returns to work, MOB's mother and sister, as well as FOB's parents will be the primary childcare help. 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 Programs/Agencies Involved: LILLI and ED deny any agency involvement at this time. Children Services/Legal Issues:?MOB and DORONB deny any legal issues or children's services involvement at this time. ?? Behavioral Health Issues: ??Mental Health History:?LILLI and DORONB both have mental health history of anxiety, but neither report taking any medication for it. MOB and FOB state this is more situational anxiety that often clears up when they are able to cope with the situation they are involved in. Substance Use History: MOB and DORONB both deny any substance use history or current use. Family History:?MOB and DORONB both deny any family history of mental health or of substance use. Drug Screens: there were no drug screens on MOB or baby due to no concerns. Family/Social Stressors: MOB and DORONB both deny specific concerns or stressors at this time. LILLI reports some stress related to taking a baby home for the first time, though states belief that MOB and DORONB can do it with the help of their village. Support Systems: LILLI identified that her mother and her sister are good supports for her, as well as many other family members. Depression/Shaken Baby/Safe Sleeping: SW educated MOB and DORONB on signs and symptoms of baby blues and mood and anxiety disorders to be mindful of during this period. LILLI states that she did not experience any of these symptoms following her last delivery. MOB expressed understanding of what to be mindful of during this period. MOB states having people to talk to if she were to struggle with her mental health during this time. SW educated MOB and FOB on shaken baby prevention and ABCs of safe sleep. MOB and FOB expressed understanding. ASSESSMENT:? MOB and baby admitted following labor and delivery. LILLI has mental health history, but reports it to be minor and manageable at this time. This is MOB amee WARD's first child which MOB reports to be causing some anxiety, but LILLI's mother is reportedly helping out at home for a couple of weeks to help out. MOB's mother was observed holding the baby during the assessment due to MOB and FOB just waking up from taking naps (baby was born early this morning); nursing said MOB and FOB have been very attentive with no issues observed. MOB and FOB were talkative and open with SW during completion of assessment. MOB and FOB were receptive to resources provided and discussed. Safe Plan of Care for related to substance use:? N/A PLAN:?? No other services requested or indicated. MOB and baby to be discharged when medically ready. Parents were provided literature regarding: signs and symptoms of baby blues and mood and anxiety disorders, Help Me Grow, shaken baby prevention, ABCs of safe sleep and a list of [facility] resources that are available for them should any needs present themselves. Xiomy Colin, FIRE MANAGEMENT OFFICER, GYROSCOPE TECHNICIAN
[2024-10-05 00:09] VITALS: BP 102/59; PULSE 78; RESP 16; TEMP 36.4; O2SAT 98
[2024-10-05 04:21] VITALS: BP 107/62; PULSE 71; RESP 15; TEMP 36.4; O2SAT 98
[2024-10-05 08:28] VITALS: BP 112/65; PULSE 84; RESP 16; TEMP 36.6; O2SAT 98
[2024-10-05] MEDS: Senna/Docusate Sodium 1 Tablet PO (08:42)
--- NOTE | 2024-10-05 10:46 | PCM.PN.CNM ---
Subjective Subjective Calm, cooperative, resting comfortably in bed. Desires d/c to home. Objective Data Objective Data Patient doing well without complaints. Tolerating PO. Ambulating and voiding without difficulty. Feeding well. Denies chest pain, shortness of breath, calf pain/swelling, fevers, chills, lightheadedness. Vital Signs: Vital Signs Temp Pulse Resp BP Pulse Ox O2 Del Method 97.9 F 84 16 112/65 98 Room Air 10/05/24 08:28 10/05/24 08:28 10/05/24 08:28 10/05/24 08:28 10/05/24 08:28 10/05/24 08:28 Oxygen Delivery Method Room Air Weight: 147 lb 11.355 oz Body Mass Index (BMI) 27.0 Intake & Output: Intake and Output for Last 24 Hours 10/03/24 10/04/24 10/05/24 23:59 23:59 23:59 Intake Total 1967.83 / 1967.83 1070 / 1070 Output Total 200 / 200 1999 / 1999 Balance 1767.83 / 1767.83 -930 / -930 Lab / Micro Data 10/03/24 17:00 Physical Exam Const alert, oriented x3, no apparent distress, average body habitus, no limitations, healthy appearing and well nourished HEENT normocephalic, head/scalp atraumatic, hearing grossly normal bilaterally, external ears normal, EAC's normal, TM's normal bilaterally, external nose normal, nasal mucous membranes and turbinates normal, moist oral mucous membranes, oropharynx normal, dentition normal and gingiva normal Eyes PERRL, EOMs intact bilaterally, conjunctivae normal, no scleral icterus, no papilledema, normal visual dela cruz by confrontation and fundi normal bilaterally Chest Chest Narrative: Respirations eased & unlabored, no s/s of respiratory distress noted. Resp normal respiratory effort, normal air movement, no retractions, no use of accessory muscles, clear to auscultation bilaterally and percussion normal Cardio regular rate, regular rhythm, S1 normal heart sound, S2 normal heart sound, no murmurs, no rub, no gallops, no clicks, no JVD, peripheral pulses 2+ throughout and diaphoretic Uterus Palpation: uterus fundus firm (u/2, midline) and other OB Perineum intact, no edema or ecchymosis present. Extremity normal to inspection, full ROM, normal capillary refill, no joint enlargement, no clubbing, cyanosis or edema, no calf tenderness and no pedal edema Neuro oriented x3, CN's II-XII intact bilaterally, moves all extremities, no focal motor deficits, no sensory deficits noted and gait normal Psych mental status grossly normal, thought process normal, cooperative, affect normal, speech normal, activity/motor behavior normal, denies hallucinations, denies homicidal ideation and denies suicidal ideation Appearance: grossly normal and appropriate Assessment & Plan (1) (spontaneous vaginal delivery): COMMENT: 10/04/24 Willard ANNE PLAN: D/C to home after 24 hours. PLAN: Plan s/p PPD # 1 1. routine post delivery care 2. breast feeding- support given 3. rh positive 4. rubella immune 5. Intact perineum
--- NOTE | 2024-10-11 14:39 | NURSING ---
F/up call performed. Lochia WNL, mild bleeding (more like spotting). Denies baby blues, FUCHS, and vision changes. BF going well. Encouragement and support given.
== END 2024-10-05 13:15 | disposition home or self-care (01) | DRG 807 ==
LOC: WPOUT 16:53 → WP 16:53
PROVIDERS: Admitting Provider Obstetrics & Gynecology; PCP Nurse Practitioner Family; Referring Provider Obstetrics & Gynecology; Visit Provider Obstetrics & Gynecology
DX: O69.81X0 Labor and delivery complicated by cord around neck, without compression, not applicable or unspecified (principal); Z37.0 Single live birth; O99.344 Other mental disorders complicating childbirth; F41.8 Other specified anxiety disorders; M41.9 Scoliosis, unspecified; O99.892 Other specified diseases and conditions complicating childbirth; R87.612 Low grade squamous intraepithelial lesion on cytologic smear of cervix (LGSIL); Z3A.39 39 weeks gestation of pregnancy; Z87.891 Personal history of nicotine dependence
CPT/HCPCS: 59025; 59050; 85025; 86780; 86850; 86900; 86901; 99221; A4216; G0378; J2405

== ENCOUNTER → 2024-11-15 | Outpatient (CLI) | payer OTHER, SELFPAY | END | disposition home or self-care (01) | PROVIDERS: PCP Nurse Practitioner Family; Visit Provider Advanced Practice Midwife | DX: Z12.4 Encounter for screening for malignant neoplasm of cervix (principal) | CPT/HCPCS: 88175; G0145 ==

== ENCOUNTER → 2024-11-19 | Outpatient (CLI) | payer OTHER, SELFPAY ==
[2024-11-19 16:32] LABS: Hematocrit 39.4 % (37-47); Hemoglobin 12.7 g/dL (12.0-15.0); Immature Granulocytes Count 0.020 X10^3/uL (0.0-0.0); Mean Corp Hgb Conc 32.2 g/dL (32-36); Mean Corpuscular Volume 95.4 fL (81-99); Mean Platelet Vol. 10.3 fl (6.2-12.0); NRBC Flagged by Analyzer 0 % (0-5); Platelet Count 238 K/mm3 (150-450); RBC Distribution Width CV 13.0 % (11.6-14.6); RBC Distribution Width SD 45.5 fl (35.1-43.9); Red Blood Count 4.13 M/mm3 (4.2-5.4); White Blood Count 6.0 K/mm3 (4.4-11.0)
[2024-11-19 17:09] LABS: hCG Titer Quant., Serum < 1 mIU/mL (<9 non-preg)
== END | disposition home or self-care (01) ==
PROVIDERS: PCP Nurse Practitioner Family; Visit Provider Nurse Practitioner Women's Health
DX: O72.1 Other immediate postpartum hemorrhage (principal); Z3A.00 Weeks of gestation of pregnancy not specified
CPT/HCPCS: 36415; 84443; 84702; 85025

== ENCOUNTER → 2024-11-22 | Outpatient (CLI) | payer OTHER, SELFPAY ==
--- NOTE | 2024-11-22 17:48 | US_ITS ---
PROCEDURE: PELVIC W/ TRANSVAGINAL 11/22/2024 REASON FOR EXAM: ABNORMAL UTERINE BLEEDING . 1st day of last menstrual period was 11/17/2004 TECHNIQUE: Procedure Code: [id number] Modality: US Procedure: PELVIC W/ TRANSVAGINAL COMPARISON: Pelvic ultrasound dated 04/11/2022 FINDINGS: Measurements: Uterus: 8.2 x 5.9 x 0.9 with a volume of 98.6 mL Endometrial Thickness: 3 seen in the endometrial canal/cervix. Right Ovary: 2.8 x 2.0 x 1.8 with a volume of 5.1 mL. Left Ovary: 1.7 x 1.9 x 1.8 with a volume of 3.1 mL. Uterus: The contour of the uterus is within normal limits. The uterus is anteverted. There are 2 hyperechoic echogenic areas within endometrial canal. The largest measures 3 x 2 x 2 mm. These are most compatible with polyps. Endometrium: The endometrium is not abnormally thickened. It has a homogeneous echotexture. A trace amount of fluid is seen in the endometrial canal and cervix. Right ovary: Size, contour, and echogenicity are within normal limits. Small follicles are seen. Left ovary: Size, contour, and echogenicity are within normal limits. Small follicles are seen. Other: Urinary bladder measures 7.1 x 8.6 x 6.2 cm. Prevoid urinary bladder volume measures 196 mL. Bladder wall is smooth. There is no filling defects within the urinary bladder. There is a small amount of free fluid in the cul-de-sac. US/Pelvic w/ Transvaginal IMPRESSION: There are 2 echogenic foci within the endometrial canal most likely representin g polyps. The uterus is anteverted. There is a small amount of free fluid in the cul-de-sac. Reading Location: [id number]
== END | disposition home or self-care (01) ==
LOC: US 17:42
PROVIDERS: PCP Nurse Practitioner Family; Referring Provider Nurse Practitioner Women's Health; Visit Provider Nurse Practitioner Women's Health
DX: O72.1 Other immediate postpartum hemorrhage (principal); Z3A.00 Weeks of gestation of pregnancy not specified
CPT/HCPCS: 76830; 76856